=== PATIENT | female | born 1950 | race Caucasian/White ===

== ENCOUNTER → 2017-09-25 14:58 | Outpatient (REF) | payer MEDICARE, OTHER, SELFPAY ==
[2017-09-25 15:29] LABS: Blood Urea Nitrogen 15 mg/dL (7-17); Estimated Glomerular Filt Rate > 60.0 mL/min (>60)
== END ==
LOC: LAB 14:58
PROVIDERS: Family Provider Physician Assistant; PCP Physician Assistant; Visit Provider Physician Assistant
DX: R10.30 Lower abdominal pain, unspecified (principal)
CPT/HCPCS: 82565; 84520

== ENCOUNTER → 2017-09-27 10:25 | Outpatient (CLI) | payer MEDICARE, OTHER, SELFPAY ==
--- NOTE | 2017-09-27 | DI.CT.S_ITS ---
PROCEDURE: CT ABDOMEN PELVIS W CON INDICATIONS: ABDOMINAL PAIN TECHNIQUE: After the administration of oral and intravenous contrast, 5 mm thick sections acquired from the diaphragms to the symphysis. 5 mm thick coronal and sagittal reformats were performed. For radiation dose reduction, the following was used: automated exposure control, adjustment of mA and/or kV according to patient size. COMPARISON: None. FINDINGS: Image quality: Excellent. ABDOMEN: Lung bases: 5 basilar scarring versus atelectasis is present. Lung bases are otherwise clear. Heart size is normal. Solid organs: Liver is normal in size and enhancement. Gallbladder is within normal limits. Biliary system is non-dilated. Pancreas enhances normally. Spleen is normal in size and enhancement. No adrenal nodules. Kidneys are normal in size and enhancement, without hydronephrosis. Peritoneum and bowel: Stomach, small bowel, and colon loops are normal in caliber and wall thickness. Normal appendix within the left presacral space. No free fluid or air. Nodes and vessels: No retroperitoneal or mesenteric adenopathy. Aorta and inferior vena cava are normal in caliber. Probable circumaortic left renal vein is present. Miscellaneous: No ventral hernias. PELVIS: Genitourinary: Bladder wall thickness is normal. Miscellaneous: No inguinal hernias or adenopathy. Bones: No suspicious bony lesions. No vertebral body compression fractures. IMPRESSION: 1. No acute process. 2. Normal appendix. Dictated by: Lenora Quinn M.D. on 09/27/2017 at 14:13 Approved by: Lenora Quinn M.D. on 09/27/2017 at 14:16
== END ==
PROVIDERS: Family Provider Physician Assistant; PCP Physician Assistant; Visit Provider Physician Assistant
DX: R10.9 Unspecified abdominal pain (principal)
CPT/HCPCS: 74177; Q9967

== ENCOUNTER 2018-03-13 19:10 | Inpatient (IN) | payer MEDICARE, OTHER, SELFPAY ==
[2018-03-13 19:17] VITALS: BP 91/52; PULSE 130; RESP 18; TEMP 37.3; O2SAT 88; BMI 15.0
--- NOTE | 2018-03-13 19:36 | ED.DENTAL ---
HPI - Dental/Oral General Chief complaint: Dental/Oral Stated complaint: Terrible infection in jaw Time Seen by Provider: 03/13/18 19:35 Source: patient and family Mode of arrival: ambulatory Limitations: no limitations History of Present Illness HPI Narrative: 67-year-old female who has been under the care of Dr. Morris a health and safety consultant in [place]. Over the past several months she has had multiple dental procedures. Has also had a chronic infection of her left lower jaw. Has been on amoxicillin in the past which she states improved her symptoms but then they returned. Saw her primary care doctor today who contacted Dr. Morris. The recommendations were that she start on Levaquin. She did take 1 dose of that medication today. She does have an appointment tomorrow with a oral maxillofacial surgeon however has not established care with anyone from this field to practice prior. She reports pain to her left jaw. Decreased oral intake secondary to pain. No problems breathing. Related Data Home Medications Medication Instructions Recorded Confirmed albuterol sulfate [Ventolin HFA] 2 puff INH Q6HP PRN #0 07/22/17 03/13/18 budesonide-formoterol [Symbicort] 2 puff INH BID #0 07/22/17 03/13/18 diclofenac sodium 1 tab PO BID #0 07/22/17 03/13/18 trazodone 50 mg PO HS #0 07/22/17 03/13/18 nystatin 5 ml PO QID #0 07/23/17 03/13/18 albuterol sulfate 2.5 mg INHALATION Q4H PRN 03/13/18 03/13/18 azithromycin 250 mg PO DAILY 03/13/18 03/13/18 benzonatate 100 mg PO QPM PRN 03/13/18 03/13/18 calcium carbonate [Calcium 500] 500 mg PO DAILY 03/13/18 03/13/18 calcium carbonate-vitamin D3 1 tab PO DAILY 03/13/18 03/13/18 carisoprodol 350 mg PO QID 03/13/18 03/13/18 chlorhexidine gluconate 1 applic BUCCAL BID 03/13/18 03/13/18 diazepam 10 mg PO BID 03/13/18 03/13/18 diclofenac sodium [Voltaren-XR] 50 mg PO DAILY 03/13/18 03/13/18 duloxetine [Cymbalta] 60 mg PO DAILY 03/13/18 03/13/18 fentanyl 1 patch TRANSDERMAL Q72H 03/13/18 03/13/18 gabapentin 300 mg PO TID 03/13/18 03/13/18 hydrocodone-acetaminophen [[place]] 03/13/18 levofloxacin [Levaquin] 750 mg PO DAILY 03/13/18 03/13/18 magnesium 200 mg PO DAILY 03/13/18 03/13/18 neomycin-polymyxin B-dexameth 03/13/18 [Maxitrol] oxycodone-acetaminophen [Percocet] 1 tab PO Q4-6H PRN 03/13/18 03/13/18 tiotropium bromide 1 cap INHALATION DAILY 03/13/18 03/13/18 tizanidine 03/13/18 vitamin B complex [B Complex 1] 1 tab PO DAILY 03/13/18 03/13/18 Previous Rx's Medication Instructions Recorded prednisone 10 mg PO [facility] #32 tab 07/27/17 Allergies Allergy/AdvReac Type Severity Reaction Status Date / Time amoxicillin [From AUGMENTIN] Allergy Unknown VOMITING Unverified 07/17/17 12:26 clavulanic acid Allergy Unknown VOMITING Unverified 07/17/17 12:26 [From AUGMENTIN] nabumetone [NABUMETONE] Allergy Unknown Unverified 07/17/17 12:26 sulfamethoxazole AdvReac Mild nausea Unverified 07/17/17 12:26 [From SEPTRA] trimethoprim [From SEPTRA] AdvReac Mild nausea Unverified 07/17/17 12:26 cephalexin [CEPHALEXIN] AdvReac Unknown VOMITING Unverified 07/17/17 12:26 Review of Systems Constitutional Denies fatigue and Reports headache(s) Eyes Denies diplopia and Denies itchy eyes ENT Ears, Nose, Mouth, and Throat: Denies vertigo, Reports headache(s), Denies lip swelling, Reports neck mass, Reports neck pain, Denies disequilibrium, Reports sore throat, Reports throat swelling and Denies tongue swelling Cardiovascular Denies chest pain and Denies dyspnea Respiratory Denies dyspnea Gastrointestinal Gastrointestinal: Denies abdominal pain, Denies nausea and Denies vomiting Genitourinary Denies dysuria Musculoskeletal Denies myalgias and Reports neck pain Integumentary/Breasts Comments: Redness to the left side of the face was swelling Neurologic Denies confusion, Denies vertigo, Reports headache(s) and Denies disequilibrium Psychiatric Denies confusion Endocrine Denies fatigue and Denies flushing Hematologic/Lymphatic Comments: not on anticoagulation Allergic/Immunologic Denies itchy eyes, Denies lip swelling, Reports throat swelling and Denies tongue swelling PFSH Medical History COPD (chronic obstructive pulmonary disease) (Acute) Surgical History Status post tonsillectomy and adenoidectomy Status post vaginal hysterectomy Social History Smoking Status: Current some day smoker Exam Initial Vital Signs Initial Vital Signs: Vital Signs Temperature 99.2 F 03/13/18 19:17 Pulse Rate 130 H 03/13/18 19:17 Respiratory Rate 18 03/13/18 19:17 Blood Pressure 91/52 L 03/13/18 19:17 Pulse Oximetry 88 L 03/13/18 19:17 Const General: cooperative, well developed, well groomed and No acute distress Orientation: alert, awake and oriented x3 HENMT Ears: TM's normal bilaterally Face and sinus: other ( patient with swelling left side of the face over the mandible about the size of a lemon. Overlying redness.) Mouth: oral mucosae normal and trismus Teeth and gingiva: other ( No dentition lower jaw all) Throat: posterior oropharynx normal Eyes General: appearance normal, both eyes and all related structures Eyelids: eyelids normal Neck Lymphatic: No lymphadenopathy Chest Chest: normal inspection of the chest Resp Effort & Inspection: normal respiratory effort Auscultation: clear to auscultation bilaterally Cardio Rate: tachycardic Pulses: radial pulses present GI Inspection: non-distended Skin Other: redness and swelling left side of the face from the zygomatic arch to below the level of the mandibular rim. No blisters. No pustules. Neuro General: alert, awake and oriented x3 Extrem General: normal to inspection and capillary refill normal Psych Appearance: grossly normal and well kempt Course Orders Ordered: ED Orders 03/13/18 19:45 CT soft tissue neck w con Stat 03/13/18 20:00 Basic Metabolic Panel Stat Complete Blood Count AUTO DIFF Stat Lactate (Lactic Acid) Stat Procalcitonin Stat 03/13/18 20:36 Blood Culture Stat Clindamycin Phosphate (Cleocin) 900 mg in 50 mls @ 50 mls/hr IV Q8H TAM Last Infusion: 03/13/18 21:49 Dose: 50 mls/hr Admin: 03/13/18 20:46 Dose: 50 mls/hr Sodium Chloride (Normal Saline 0.9%) 1,224.69 mls @ 408.23 mls/hr 30 ml/kg infuse over 3 hr (1224.69 ml) IV CONT TAM Discontinued Medications Sodium Chloride (Normal Saline 0.9%) 1,000 mls @ 1,000 mls/hr IV BOLUS ONE Stop: 03/13/18 20:36 Last Infusion: 03/13/18 21:00 Dose: 1,000 mls/hr Admin: 03/13/18 20:00 Dose: 1,000 mls/hr Morphine Sulfate (Morphine) 4 mg IV NOW ONE Stop: 03/13/18 19:46 Last Admin: 03/13/18 20:19 Dose: 4 mg Vital Signs - 8 hr 03/13/18 19:17 03/13/18 20:10 03/13/18 21:32 Temperature 99.2 F 99.2 F Pulse Rate 130 H 130 H 100 H Respiratory Rate 18 18 15 Blood Pressure 91/52 L 91/52 L Blood Pressure [Left Arm] 128/70 Pulse Oximetry 88 L 88 L 93 03/13/18 21:59 Temperature Pulse Rate 118 H Respiratory Rate 15 Blood Pressure Blood Pressure [Left Arm] 134/74 Pulse Oximetry 91 MDM - Dental/Oral Lab Data Attestation: I reviewed the patient's lab results. Result diagrams: 03/13/18 20:00 03/13/18 20:00 Lab Results 03/13/18 03/13/18 03/13/18 Range/Units 20:00 20:00 20:00 WBC 22.9 H (4.5-11.0) X10^3/uL RBC 4.43 (4.0-5.2) X10^6/uL Hgb 14.9 (12.0-16.0) g/dL Hct 44.0 (36-46) % MCV 99.5 (80-100) fL MCH 33.6 (26-34) PG MCHC 33.8 (30-36) % RDW 12.4 (11.6-14.8) % Plt Count 392 (150-400) X10^3/uL Neut % (Auto) 86.7 H (50-75) % Lymph % (Auto) 6.1 L (25-40) % Isabela % (Auto) 6.5 (3-14) % Eos % (Auto) 0.2 L (2-4) % Baso % (Auto) 0.5 (0-2) % Neut # (Auto) 00624 H (5361-2955) /uL Sodium 141 (137-145) mmol/L Potassium 4.3 (3.4-5.1) mmol/L Chloride 95 L (98-107) mmol/L Carbon Dioxide 37 H (22-32) mmol/L BUN 13 (7-17) mg/dL Creatinine 0.50 L (0.52-1.04) mg/dL Estimated GFR > 60.0 (>60) mL/min BUN/Creatinine Ratio 26.0 H (6-22) Glucose 120 H (80-110) mg/dL Lactate (0.7-2.1) mmol/L Calcium 10.0 (8.4-10.2) mg/dL Procalcitonin 0.07 (<0.5) ng/mL 03/13/18 Range/Units 20:00 WBC (4.5-11.0) X10^3/uL RBC (4.0-5.2) X10^6/uL Hgb (12.0-16.0) g/dL Hct (36-46) % MCV (80-100) fL MCH (26-34) PG MCHC (30-36) % RDW (11.6-14.8) % Plt Count (150-400) X10^3/uL Neut % (Auto) (50-75) % Lymph % (Auto) (25-40) % Isabela % (Auto) (3-14) % Eos % (Auto) (2-4) % Baso % (Auto) (0-2) % Neut # (Auto) (1373-7527) /uL Sodium (137-145) mmol/L Potassium (3.4-5.1) mmol/L Chloride (98-107) mmol/L Carbon Dioxide (22-32) mmol/L BUN (7-17) mg/dL Creatinine (0.52-1.04) mg/dL Estimated GFR (>60) mL/min BUN/Creatinine Ratio (6-22) Glucose (80-110) mg/dL Lactate 1.1 (0.7-2.1) mmol/L Calcium (8.4-10.2) mg/dL Procalcitonin (<0.5) ng/mL Imaging Data CT face: Radiologist's impression: PROCEDURE: CT SOFT TISSUE NECK W CON INDICATIONS: left-sided facial swelling TECHNIQUE: After the administration of intravenous contrast, 3.0 mm axial sections acquired from the sella to the aortic arch. Additional oblique axial 3.0 mm sections acquired through the pharynx. 3 mm thick coronal and sagittal reformats were generated. For radiation dose reduction, the following was used: automated exposure control. COMPARISON: None. FINDINGS: Image quality: Excellent. Lymph nodes: No enlarged lymph nodes seen throughout the neck. Vessels: Visualized vasculature appears patent. Neck spaces: The oropharynx, nasopharynx, and pharynx demonstrate no mucosal lesions. The vocal cords, false vocal cords, pyriform sinuses, epiglottis, vallecula, and tongue base all appear normal. Extramucosal spaces appear unremarkable. Glands: The parotid and submandibular glands appear normal. Thyroid gland contains a 1.3 cm hypoattenuating nodule in the left lobe.. Miscellaneous: Visualized brain and orbits appear normal. Lung apices appear clear of acute opacities. Emphysematous changes noted in the lungs bilaterally. Swelling and thickening noted in the left facial soft tissues adjacent to the left mandible concerning for cellulitis. There is a small, approximately 3 mm x 12 mm fluid collection with performed enhancement adjacent to the anterior left body of the mandible (series 2, image 29 concerning for small abscess. Bones: No suspicious bony lesions C4-C7 ACDF noted. 4 mm of C7-T1 anterolisthesis noted. Multilevel degenerative disc disease and facet arthropathy. Osseous erosive changes identified along the anterior left and paramedian mandible concerning for osteomyelitis.. No periosteal reaction identified. Visualized sinuses and mastoids appear unremarkable. IMPRESSION: 1. Left facial cellulitis adjacent to the anterior left body of the mandible. 2. Small 3 x 12 mm fluid collection with peripheral enhancement adjacent to the anterior left body of the mandible concerning for small abscess. 3. Osseous erosive changes involving the anterior midline and left paramedian mandible concerning for osteomyelitis. 4. 4 mm of C7-T1 anterolisthesis. Please correlate with clinical data. 5. Status post C4-C7 ACDF. 6. Severe bilateral lung emphysematous disease. 7. 1.3 cm left thyroid nodule. Recommend thyroid ultrasound when clinically feasible. Dictated by: Tran Briones MD, PhD on 03/13/2018 at 21:25 Approved by: Tran Briones MD, PhD on 03/13/2018 at 21:34 [facility] Narrative Medical decision making narrative: Patient with an elevated white blood cell count and tachycardia. Also arrived with a systolic blood pressure in the 90s. His blood pressure did improve with fluids. I do suspect that she is dehydrated secondary to the decreased oral intake. Blood cultures were ordered. Lactate was ordered. I do not feel there was a need for blood pressure support with medications secondary to the fact that her blood pressure improved with fluid resuscitation. She was given antibiotics here in the emergency department. Lactate unremarkable. Procalcitonin is unremarkable. CT scan does show a very small abscess that is not drainable. Does show overlying cellulitis. Potential osteomyelitis. I discussed the case with Dr. Morris who was her health and safety consultant. He gave his cell phone number of [phone]. he stated that we could contact him at any point for questions. Patient has not established care with an oral maxill Maxillofacial surgeon. I discussed the case with Dr. Brown with oral maxillofacial surgeon. He did agree to see the patient tomorrow. I do feel like she needs admitted to the hospital for fluid resuscitation and antibiotics. He recommended giving the patient ampicillin and Flagyl. The patient does have a recorded allergy to amoxicillin. Her states that this medication made her nauseous. It is reasonable to try this medication again and treating the nausea. I will leave this up to the inpatient doctor to make this decision since she received clindamycin here in the ER. I discussed the admission with the patient's . The patient was sleeping at the time. He expressed understanding and agreement. I discussed the case with the admitting provider who accept admission. Discharge Plan Departure Patient Disposition: Admitted As Inpatient Clinical Impression: Cellulitis of face, Tachycardia Admit Date/Time: 03/13/18 22:41 Admit Provider: Lake Jones
--- NOTE | 2018-03-13 19:45 | DI.CT.S_ITS ---
PROCEDURE: CT SOFT TISSUE NECK W CON INDICATIONS: left-sided facial swelling TECHNIQUE: After the administration of intravenous contrast, 3.0 mm axial sections acquired from the sella to the aortic arch. Additional oblique axial 3.0 mm sections acquired through the pharynx. 3 mm thick coronal and sagittal reformats were generated. For radiation dose reduction, the following was used: automated exposure control. COMPARISON: None. FINDINGS: Image quality: Excellent. Lymph nodes: No enlarged lymph nodes seen throughout the neck. Vessels: Visualized vasculature appears patent. Neck spaces: The oropharynx, nasopharynx, and pharynx demonstrate no mucosal lesions. The vocal cords, false vocal cords, pyriform sinuses, epiglottis, vallecula, and tongue base all appear normal. Extramucosal spaces appear unremarkable. Glands: The parotid and submandibular glands appear normal. Thyroid gland contains a 1.3 cm hypoattenuating nodule in the left lobe.. Miscellaneous: Visualized brain and orbits appear normal. Lung apices appear clear of acute opacities. Emphysematous changes noted in the lungs bilaterally. Swelling and thickening noted in the left facial soft tissues adjacent to the left mandible concerning for cellulitis. There is a small, approximately 3 mm x 12 mm fluid collection with performed enhancement adjacent to the anterior left body of the mandible (series 2, image 29 concerning for small abscess. Bones: No suspicious bony lesions C4-C7 ACDF noted. 4 mm of C7-T1 anterolisthesis noted. Multilevel degenerative disc disease and facet arthropathy. Osseous erosive changes identified along the anterior left and paramedian mandible concerning for osteomyelitis.. No periosteal reaction identified. Visualized sinuses and mastoids appear unremarkable. IMPRESSION: 1. Left facial cellulitis adjacent to the anterior left body of the mandible. 2. Small 3 x 12 mm fluid collection with peripheral enhancement adjacent to the anterior left body of the mandible concerning for small abscess. 3. Osseous erosive changes involving the anterior midline and left paramedian mandible concerning for osteomyelitis. 4. 4 mm of C7-T1 anterolisthesis. Please correlate with clinical data. 5. Status post C4-C7 ACDF. 6. Severe bilateral lung emphysematous disease. 7. 1.3 cm left thyroid nodule. Recommend thyroid ultrasound when clinically feasible. Dictated by: Tran Briones MD, PhD on 03/13/2018 at 21:25 Approved by: Tran Briones MD, PhD on 03/13/2018 at 21:34
[2018-03-13] MEDS: SODIUM CHLORIDE 0.9% 1,000 ML 1000 ML IV (20:00)
[2018-03-13 20:10] VITALS: BP 91/52; PULSE 130; RESP 18; TEMP 37.3; O2SAT 88; BMI 15.0
[2018-03-13 20:19] LABS: Add Manual Diff / Slide Review NO; Basophils Percent Auto 0.5 % (0-2); Eosinophils Percent Auto 0.2 % (2-4); Hemoglobin 14.9 g/dL (12.0-16.0); Lymphocytes Percent Auto 6.1 % (25-40); Mean Corpuscular HGB Conc 33.8 % (30-36); Mean Corpuscular Hemoglobin 33.6 PG (26-34); Mean Corpuscular Volume 99.5 fL (80-100); Monocytes Percent Auto 6.5 % (3-14); Neutrophils Absolute Auto 19800 /uL (3000-5900); Neutrophils Percent Auto 86.7 % (50-75); Platelet Count 392 X10^3/uL (150-400); Red Blood Cell Count 4.43 X10^6/uL (4.0-5.2); Red Cell Distribution Width 12.4 % (11.6-14.8); White Blood Cell Count 22.9 X10^3/uL (4.5-11.0)
[2018-03-13] MEDS: MORPHINE 4 MG/ML INJ IV (20:19)
[2018-03-13 20:37] LABS: Lactate (Lactic Acid) 1.1 mmol/L (0.7-2.1)
[2018-03-13 20:38] LABS: Blood Urea Nitrogen 13 mg/dL (7-17); Carbon Dioxide 37 mmol/L (22-32); Chloride 95 mmol/L (98-107); Estimated Glomerular Filt Rate > 60.0 mL/min (>60); Glucose 120 mg/dL (80-110); HEMOLYSIS < 15 (0-50); Potassium 4.3 mmol/L (3.4-5.1); Sodium 141 mmol/L (137-145)
[2018-03-13] MEDS: CLINDAMYCIN 900 MG/50 ML PIGGYBACK 50 MG IV (20:46)
[2018-03-13 20:57] LABS: Procalcitonin 0.07 ng/mL (<0.5)
[2018-03-13] MEDS: SODIUM CHLORIDE 0.9% 408.23 ML IV (21:00)
--- NOTE | 2018-03-13 21:03 | PC.NURSE ---
Pt states jaw pain and swelling to face increasing taking percocet without relief. Reports started Levaquin 1st dose today, had all teeth removed in november and has appt with oral surgeon in [place] tomorrow for ongoing infection that started in left lower jaw in the summer. Pt has swelling to left jaw, is on 2L NC at home.
[2018-03-13 21:32] VITALS: BP 128/70; PULSE 100; RESP 15; O2SAT 93
[2018-03-13 21:59] VITALS: BP 134/74; PULSE 118; RESP 15; O2SAT 91
--- NOTE | 2018-03-13 23:12 | P.HP_ITS ---
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 Patient presented with pain and swelling of her left jaw. CT of the face revealed left facial cellulitis, small abscess (anterior left body of mandible) , and osseous erosions along the anterior left and paramedial mandible concerning for osteomyelitis. Presented to the ED tachycardic. Initial labs revealed leukocytosis with normal procalcitonin level. She is known to have a intolerance to Augmentin in the form of nausea. Given documented allergy, in the ED received clindamycin 900 mg and 2L IVF. Patient is significantly obtunded at time of evaluation, received morphine (has fentanyl patch on); consequently was treated with a dose of narcan. Patient follow-up 03/14 at 01:20 The patient presented with left lower jaw pain and swelling. In November of 2017 patient had multiple teeth extracted from left lower jaw. She developed an infection in January / February of 2018 and was treated with a 5 day course of Augmentin. Patient reports mild improvement in symptoms and resolution of the infection. 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 Morris in [place]. Over the past one week she has developed significant swelling of the left face and worsening jaw pain. No exudate. At home, reports experiencing fever and chills. Associated symptoms include difficulty with swallowing and managing secretions, and decreased oral intake. Denies difficulty breathing or respiratory distress. Failed outpatient anti-misrobial therapy. Patient History Medical History COPD (chronic obstructive pulmonary disease) (Acute) Surgical History Status post tonsillectomy and adenoidectomy Status post vaginal hysterectomy Family & Social History Safety & Behavioral: Feels Safe in Current Yes Environment Tobacco & Substance use: Smoking Status Current some day smoker, 40 + pack years Substance Use Type Denies current or prior substance use Denies EtOH use Meds Home Medications Medication Instructions Recorded Confirmed Type albuterol sulfate [Ventolin HFA] 2 puff INH Q6HP PRN #0 07/22/17 03/13/18 History budesonide-formoterol [Symbicort] 2 puff INH BID #0 07/22/17 03/13/18 History diclofenac sodium 1 tab PO BID #0 07/22/17 03/13/18 History trazodone 50 mg PO HS #0 07/22/17 03/13/18 History nystatin 5 ml PO QID #0 07/23/17 03/13/18 History prednisone 10 mg PO AMCC #32 tab 07/27/17 03/13/18 Rx albuterol sulfate 2.5 mg INHALATION Q4H PRN 03/13/18 03/13/18 History azithromycin 250 mg PO DAILY 03/13/18 03/13/18 History benzonatate 100 mg PO QPM PRN 03/13/18 03/13/18 History calcium carbonate [Calcium 500] 500 mg PO DAILY 03/13/18 03/13/18 History calcium carbonate-vitamin D3 1 tab PO DAILY 03/13/18 03/13/18 History carisoprodol 350 mg PO QID 03/13/18 03/13/18 History chlorhexidine gluconate 1 applic BUCCAL BID 03/13/18 03/13/18 History diazepam 10 mg PO BID 03/13/18 03/13/18 History diclofenac sodium [Voltaren-XR] 50 mg PO DAILY 03/13/18 03/13/18 History duloxetine [Cymbalta] 60 mg PO DAILY 03/13/18 03/13/18 History fentanyl 1 patch TRANSDERMAL Q72H 03/13/18 03/13/18 History gabapentin 300 mg PO TID 03/13/18 03/13/18 History hydrocodone-acetaminophen [Walsh] 03/13/18 History levofloxacin [Levaquin] 750 mg PO DAILY 03/13/18 03/13/18 History magnesium 200 mg PO DAILY 03/13/18 03/13/18 History neomycin-polymyxin B-dexameth 03/13/18 History [Maxitrol] oxycodone-acetaminophen [Percocet] 1 tab PO Q4-6H PRN 03/13/18 03/13/18 History tiotropium bromide 1 cap INHALATION DAILY 03/13/18 03/13/18 History tizanidine 03/13/18 History vitamin B complex [B Complex 1] 1 tab PO DAILY 03/13/18 03/13/18 History Allergies Allergy/AdvReac Type Severity Reaction Status Date / Time amoxicillin [From AUGMENTIN] Allergy Unknown VOMITING Unverified 07/17/17 12:26 clavulanic acid Allergy Unknown VOMITING Unverified 07/17/17 12:26 [From AUGMENTIN] nabumetone [NABUMETONE] Allergy Unknown Unverified 07/17/17 12:26 sulfamethoxazole AdvReac Mild nausea Unverified 07/17/17 12:26 [From SEPTRA] trimethoprim [From SEPTRA] AdvReac Mild nausea Unverified 07/17/17 12:26 cephalexin [CEPHALEXIN] AdvReac Unknown VOMITING Unverified 07/17/17 12:26 Review of Systems Review of Systems All systems reviewed & are unremarkable except as noted in HPI and below Exam Vital Signs (past 8 hours): - 03/13/18 19:17 03/13/18 20:10 03/13/18 21:32 Temperature 99.2 F 99.2 F Pulse Rate 130 H 130 H 100 H Respiratory Rate 18 18 15 Blood Pressure 91/52 L 91/52 L Blood Pressure [Left Arm] 128/70 Pulse Oximetry 88 L 88 L 93 03/13/18 21:59 Temperature Pulse Rate 118 H Respiratory Rate 15 Blood Pressure Blood Pressure [Left Arm] 134/74 Pulse Oximetry 91 Oxygen Delivery Method Nasal Cannula Oxygen Flow Rate 2 Narrative Exam Narrative: Constitutional: NAD, somnolent, difficult to arouse to verbal stimuli Neurologic: somnolent, not arousable to oral or tactile stimuli, no responsive to chest rub Head: NC, AT Face: prominent swelling of left mandibular area Eyes: pupils 2 mm, sluggish Ears: external ears normal, no otorrhea Nose: external nose normal, no rhinorrhea or epistaxis Throat: dry MM Neck: no lymphadenopathy Chest / Respiratory: equal chest rise, unlabored respiratory effort, no tachypnea Heart / CV: S1S2, no murmur, tachycardic (HR 120s on tele monitor) Abdomen / GI: soft, NT, ND, + BS, no organomegaly : no suprapubic tenderness Peripheral / Vascular: warm to touch, DP and PT pulses palpable, no edema Skin: no ecchymosis or suspicious lesions Objective Labs Result Diagrams: 03/13/18 20:00 03/13/18 20:00 Labs: Laboratory Results - last 24 hr 03/13/18 03/13/18 03/13/18 20:00 20:00 20:00 WBC 22.9 H RBC 4.43 Hgb 14.9 Hct 44.0 MCV 99.5 MCH 33.6 MCHC 33.8 RDW 12.4 Plt Count 392 Neut % (Auto) 86.7 H Lymph % (Auto) 6.1 L [place] % (Auto) 6.5 Eos % (Auto) 0.2 L Baso % (Auto) 0.5 Neut # (Auto) 52771 H Sodium 141 Potassium 4.3 Chloride 95 L Carbon Dioxide 37 H BUN 13 Creatinine 0.50 L Estimated GFR > 60.0 BUN/Creatinine Ratio 26.0 H Glucose 120 H Lactate Calcium 10.0 Procalcitonin 0.07 03/13/18 20:00 WBC RBC Hgb Hct MCV MCH MCHC RDW Plt Count Neut % (Auto) Lymph % (Auto) [place] % (Auto) Eos % (Auto) Baso % (Auto) Neut # (Auto) Sodium Potassium Chloride Carbon Dioxide BUN Creatinine Estimated GFR BUN/Creatinine Ratio Glucose Lactate 1.1 Calcium Procalcitonin Assessment & Plan Plan: Assessment/Plan Narrative: Cellulitis and Abscess of Face Received Clindamycin 900 mg in ED - Consult maxillofacial surgery, Dr. Brown - Will change clindamycin to Unasyn 3 gm Q6H and Flagyl 500 mg Q8H pre-tx w/ zofran prior to abx administration - Peridex mouthwash - NPO - aspiration precautions - monitor airway Acute Osteomyelitis of Mandible - maxillofacial surgery consulted, Dr. Brown - may need to consult vascular access for PICC line as she is likely to require at least 4 weeks of abx SIRS, labs borderline w/o overt sepsis Tachycardia (HR > 90), leukocytosis (WBC 22). Lactate WNL. BP borderline. Received 2L IVF in ED - NS at 100 ml/hr - Blood Cx, collected in ED, pending - Empiric therapy Decreased mental status d/t opioid effect Fentanyl patch 50 mcg present. Also received morphine in ED. Multiple psychotropic meds from home. - Remove fentanyl patch - Stat narcan x1 now and prn, monitor level of sedation - Continuous pulse ox - Neuro checks Q4H Chronic respiratory failure w/ hypoxia, controlled chronic condition, at baseline - Continuous pulse ox - Supplemental O2 Chronic COPD w/o acute exacerbation - Resume home bronchodilators Hx of SCC, oral cavity, left aspect (s/p excision and radiation, more than 5 yrs ago) Chronic pain - will hold pain in psychotropic medications at this time as patient is lethargic Patient wishes to be full code. Reports having a formal health directive. DPOA is her . Home medications reviewed and reconciled.
--- NOTE | 2018-03-13 23:30 | PC.NURSE ---
Pt stated pt removed fetanyl patch earlier today, fetanyl patch found on pt and removed. Pt difficult to arouse, received 0.4mg IV narcan per hospitalist order. Pt opened eyes and became more alert after receiving narcan.
[2018-03-13] MEDS: NALOXONE 0.4 MG/ML VIAL IV (23:39)
--- NOTE | 2018-03-13 23:45 | PC.NURSE ---
2245 Attempted to give report, still waiting for RN assignment.
[2018-03-13 23:58] VITALS: BP 127/66; PULSE 133; RESP 12; TEMP 37.3; O2SAT 93
[2018-03-14] VITALS (24 sets, daily range): BP systolic 92–128; BP diastolic 43–74; PULSE 71–137; RESP 11–22; TEMP 36.4–37.1; O2SAT 3–95; BMI 15.0
--- NOTE | 2018-03-14 | PATH_ITS ---
[facility] Accession Number: [id number] . 01 Material submitted: . LEFT MANDIBLE BONE . 02 Diagnosis: Tissue From Left Mandible: Acute inflammation with soft tissue necrosis, bone necrosis and acute osteomyelitis. [facility]/03/20/2018 . 02 Electronically signed: . Segun Alston MD, Pathologist NPI- [id number] . 01 Gross description: . Received in formalin, labeled left mandible bone, are multiple pieces of betancourt-red hard bone (2.0 x 1.3 x 0.3 cm in aggregate). Decalcified and entirely submitted in cassette A1. ([id number]) /[facility] . 02 Microscopic: . Sections are of tissue stated to be from the left mandible. There is soft tissue with abundant bone present. The soft tissue is involved with a severe acute inflammatory process with focal necrosis consistent with abscess. The inflammation extends into the adjacent bone which shows extensive bone necrosis. The changes are consistent with an abscess with secondary acute osteomyelitis and bone necrosis. There is no evidence for neoplasm. . 02 Pathologist provided ICD-10: K12.2 . 02 CPT . 110331, [id number] Performed at: 01 [facility] [address], [place], [place] [id number] MD Lanre Walton MD Phone: [phone] Performed at: 02 [facility] [address] [place], [place] [id number] MD Gabi Crawford MD Phone: [phone]
[2018-03-14] MEDS: SODIUM CHLORIDE 0.9% 1,000 ML 100 ML IV (00:06)
[2018-03-14] MEDS: AMPICILLIN/SULBACTAM 3 GM 3 GM in SODIUM CHLORIDE 0.9% 100 ML IV ×4 (02:35→23:53)
[2018-03-14] MEDS: metroNIDAZOLE 500 MG/100 ML PIGGYBACK 100 MG IV ×2 (02:48→09:55)
[2018-03-14] MEDS: SODIUM CHLORIDE 0.9% 408.3 ML IV (04:54)
--- NOTE | 2018-03-14 05:07 | PC.NURSE ---
Pt arrived on unit at approx 0015, from ED, via stretcher. She was able to answer some general questions but appeared sedated. She was not clear on what medications she had taken on 03/13/18, but per ER report, per spouse, pt took her po Levaquin, Percocet and Valium only. Pt has been able to sleep all shift. On telemetry and SR, tachy, other VSS. Pt states she has lost 12 lbs since having her teeth pulled and developing this infection. Tolerating IV ABOs well, SCDs in place. Denies pain and nausea.
--- NOTE | 2018-03-14 05:24 | PC.NURSE ---
Pt lungs very congested, productive cough, coarseness throughout. Current daily smoker.
[2018-03-14 07:19] LABS: Add Manual Diff / Slide Review NO; Basophils Percent Auto 0.6 % (0-2); Hematocrit 37.2 % (36-46); Hemoglobin 12.1 g/dL (12.0-16.0); Lymphocytes Percent Auto 5.6 % (25-40); Mean Corpuscular HGB Conc 32.4 % (30-36); Mean Corpuscular Hemoglobin 32.7 PG (26-34); Mean Corpuscular Volume 100.8 fL (80-100); Monocytes Percent Auto 6.6 % (3-14); Neutrophils Absolute Auto 19600 /uL (3000-5900); Neutrophils Percent Auto 87.2 % (50-75); Platelet Count 363 X10^3/uL (150-400); Red Blood Cell Count 3.69 X10^6/uL (4.0-5.2); Red Cell Distribution Width 12.8 % (11.6-14.8); White Blood Cell Count 22.5 X10^3/uL (4.5-11.0)
[2018-03-14 07:28] LABS: Blood Urea Nitrogen 11 mg/dL (7-17); Calcium 7.9 mg/dL (8.4-10.2); Carbon Dioxide 30 mmol/L (22-32); Chloride 106 mmol/L (98-107); Estimated Glomerular Filt Rate > 60.0 mL/min (>60); Glucose 97 mg/dL (80-110); HEMOLYSIS < 15 (0-50); Magnesium 1.6 mg/dL (1.6-2.3); Potassium 4.1 mmol/L (3.4-5.1); Sodium 143 mmol/L (137-145)
[2018-03-14] MEDS: IBUPROFEN 600 MG TABLET PO (07:47)
[2018-03-14] MEDS: DULOXETINE 30 MG CAPSULE 60 MG PO (07:48)
[2018-03-14] MEDS: CHLORHEXIDINE GLUCONATE 473 ML MOUTHWASH 15 ML MM (07:49)
[2018-03-14] MEDS: GABAPENTIN 300 MG CAPSULE PO (07:50)
[2018-03-14] MEDS: ALBUTEROL HFA 60 PUFF/8 GM INH INH ×2 (10:06→18:20)
[2018-03-14] MEDS: TIOTROPIUM BROMIDE 18 MCG INHALER INH (10:07)
--- NOTE | 2018-03-14 10:15 | PC.NURSE ---
Addendum entered by Aliza Kelley R.N. 03/14/18 13:58: PAIN - after picc placement, vanco started, pt reports pain 7 on scale 0/10, states it hurts to swallow and just breathe, given 2mg iv morphine. 02 sat 3l 94-95% Original Note: AM NOTE - pt is drowsy, awake, asking for pain medication, responses are appropriate, l jaw edema w/slight pink skin, only able to open mouth slightly, visible gums are pink, congested, non productive moist cough w expir wheezes, 3l 92%, oral care provided, given ibuprofen for discomfort 7 on scale 0/10 followed by oral rinse.
--- NOTE | 2018-03-14 11:17 | PM.PN.1 ---
Subjective Date Patient Seen: 03/14/18 Time Patient Seen: 09:00 Interval history: PATIENT IS NOT FEELING TO WELL WITH SOME DISCOMFORT TO THE JAW NO FEVER OR CHILLS NO CP/SOB WITH SOME DIFF SWOLLOWING Exam Vital Signs (past 8 hours): - 03/14/18 04:09 03/14/18 04:52 03/14/18 07:35 Temperature 97.9 F 98.6 F Pulse Rate 83 106 H Respiratory Rate 14 20 Blood Pressure 127/67 117/65 Pulse Oximetry 95 90 L 87 L 03/14/18 10:02 03/14/18 10:10 03/14/18 10:20 Temperature Pulse Rate 86 Respiratory Rate 16 Blood Pressure Pulse Oximetry 92 90 L 90 L Oxygen Delivery Method Nasal Cannula Oxygen Flow Rate 3 Narrative Exam Narrative: NO ACUTE DISTRESS. PATIENT IS ALERT ORIENTED X3. VITAL SIGNS STABLE HEAD ATRAUMATIC NORMOCEPHALIC NECK : SUPPLE WITHOUT ADENOPATHY SOME EDEMA NOTED ON THE LEFT SIDE EYE: EOMI, PERRLA, NORMAL CONJUNCTIVA CHEST: REGULAR RATE.. NO RUBS. PMI IS NON DISPLACED. NO MURMURS PULMONARY: DECREASED BS OVER THE BASES. MILD BIBASILAR CRACKLES NOTED; NO INCREASED DULLNESS TO PERCUSSION ABDOMEN: SOFT; NON TENDER; BS + IN ALL 4 QUAD EXTREMITIES:NO EDEMA.. NO CYANOSIS OR CLUBBING NOTED. NEURO: CRANIAL NERVES 2-12 GROSSLY INTACT. NO FOCAL NEUROLOGICAL DEFICIT NOTED. MSK: NORMAL RANGE OF MOTION FOR AGE. NO JOINT EFFUSION. SKIN: NORMAL FOR ETHNICITY; NO ECCHYMOSIS. NO LESION. GOOD TURGOR.; NORASHES : NORMAL EXTERNAL GENITALIA. PSYCH : APPROPRIATE MOOD AND AFFECT. ALERT AWAKE ORIENTED X3 Objective Labs Result Diagrams: 03/14/18 06:46 03/14/18 06:46 Labs: Laboratory Results - last 24 hr 03/13/18 03/13/18 03/13/18 20:00 20:00 20:00 WBC 22.9 H RBC 4.43 Hgb 14.9 Hct 44.0 MCV 99.5 MCH 33.6 MCHC 33.8 RDW 12.4 Plt Count 392 Neut % (Auto) 86.7 H Lymph % (Auto) 6.1 L [place] % (Auto) 6.5 Eos % (Auto) 0.2 L Baso % (Auto) 0.5 Neut # (Auto) 41015 H Sodium 141 Potassium 4.3 Chloride 95 L Carbon Dioxide 37 H BUN 13 Creatinine 0.50 L Estimated GFR > 60.0 BUN/Creatinine Ratio 26.0 H Glucose 120 H Lactate Calcium 10.0 Magnesium Procalcitonin 0.07 03/13/18 03/14/18 03/14/18 20:00 06:46 06:46 WBC 22.5 H RBC 3.69 L Hgb 12.1 Hct 37.2 MCV 100.8 H MCH 32.7 MCHC 32.4 RDW 12.8 Plt Count 363 Neut % (Auto) 87.2 H Lymph % (Auto) 5.6 L [place] % (Auto) 6.6 Eos % (Auto) 0.0 L Baso % (Auto) 0.6 Neut # (Auto) H Sodium 143 Potassium 4.1 Chloride 106 Carbon Dioxide 30 BUN 11 Creatinine 0.50 L Estimated GFR > 60.0 BUN/Creatinine Ratio 22.0 Glucose 97 Lactate 1.1 Calcium 7.9 L Magnesium 1.6 Procalcitonin Assessment & Plan Plan: Assessment/Plan Narrative: IMPRESSION AND PLAN LEFT MANDIBULAR ABSCESSES ; PATIENT TO BE SEEN BY SURGERY TEAM TODAY; WILL ADD VANCO TO HER ABX THERAPY; WILL DC FLAGYL; CONT UNASYN; STEROIDS GIVEN TO HELP WITH EDEMA; MONITOR CLOSELY; KEEP NPO FOR NOW UNTIL EVAL BY SURGERY POSS LEFT MANDIBULAR OSTEPMYELIIS; TX ABOVE; AWAITING SURG IMPUT POSS SEPSIS POA; MONITOR VITAL ORGANS CLOSELY; IVF; ABX; FOLLOW CX; ADDITIONAL MANAGEMENT INDICATED CLINICALLY LEUKOCYTOSIS; 2/2 TO ABOVE; ABX; FOLLOW CX; ADJUST MANAGEMENT INDICATED MACROCYTOSIS; OUTPT W/U INDICATED CHRONIC RESP FAILURE; NO COMPLAINT OF SOB THIS AM; KEEP ON OXYGEN AT TIME TO MAIN SAT >88; INCENTIVE SPIROMETER TO BE ORDERED; DUONEBS Q8 TAM; ABG/CXR SERIALLY TO FOLLOW INDICATED COPD PER HX; ABOVE MODERATE TO SEVERE PROTEIN DEF MALNUTRITION; DIETITIAN TO SEE AND TREAT INDICATED; DIET SUPPLEMENTS WITH EACH MEAL; ADD MEGACE TO MEDS IF NEEDED Quality VTE Deep Vein Thrombosis/Pulmonary Embolism Present on Admission: No
[2018-03-14] MEDS: fentaNYL 12 MCG/PATCH TOP (12:03)
[2018-03-14] MEDS: FLUCONAZOLE 200 MG/100 ML PIGGYBACK 100 MG IV (12:06)
[2018-03-14 12:32] LABS: C-Reactive Protein Quant 7.9 mg/dL (<1.0)
[2018-03-14 12:34] LABS: Erythrocyte Sedimentation Rate 28 MM/HR (0-20)
--- NOTE | 2018-03-14 13:15 | DI.RAD.S_ITS ---
PROCEDURE: XR CHEST FOR PICC 1V INDICATIONS: PICC PLACEMENT TECHNIQUE: One view of the chest was acquired. COMPARISON: [facility], , CHEST 1 VIEW, 07/22/2017, 19:21. FINDINGS: Surgical changes and devices: Left-sided PICC line catheter has been placed in the interim with tip overlying the high superior vena cava. Postsurgical changes of the lower cervical spine are incidentally noted. Lungs and pleura: The aeration of the lungs is similar to the prior study with hyperaeration/expansion of the lungs. A small left-sided pleural effusion and associated atelectasis is noted. No definite areas of pulmonary consolidation are identified. Mediastinum: Mediastinal contours appear normal. Heart size is normal. Bones and chest wall: No suspicious bony lesions. Overlying soft tissues appear unremarkable. IMPRESSION: 1. Left-sided PICC line catheter is position with the tip overlying the high superior vena cava. 2. Small left-sided pleural effusion and associated atelectasis. Dictated by: Krishna Epps M.D. on 03/14/2018 at 13:08 Approved by: Krishna Epps M.D. on 03/14/2018 at 13:09
[2018-03-14] MEDS: VANCOMYCIN 750 MG/150 ML FROZ.PIGGY 150 MG IV (13:50)
[2018-03-14] MEDS: MORPHINE 2 MG/ML INJ IV ×2 (13:55→18:02)
--- NOTE | 2018-03-14 15:02 | CM.IDA ---
Initial DCP Assessment Note: Pt is a 67 yo female, resident of [facility]. Pt admitted now with left mandibular abscesses. Pt indp and A+O at baseline. Pt's PCP is Jackie Yo and insurance is Medicare/[employer]. Reviewed chart, Dr Hankins indicated in today's prog note that surgery consult pending today. IV abx running and PICC line placed today. Following closely for DC needs and will plan to complete a more thorough assessment tomorrow. JASON Max Discharge Planning/Care Management CM Discharge Assessment Start: 03/14/18 14:57 Freq: Status: Active Protocol: Document 03/14/18 14:57 ZAINAB (Rec: 03/14/18 15:02 ZAINAB [id number]) Discharge Planning Assessment Assigned [employer] JASON Cruz DPOA/Assigned Designee Name Dominic Velazquez, spouse Contact Information [phone] Advance Directives? Yes History Provided By Family Member Prior Living Arrangements House Household Members spouse Type of transporation used prior to Drives own vehicle admit Independent with ADL's Yes Is patient alert and oriented? Yes Barriers to Discharge Yes Comment Possible need for ongoing IV abx. Following. Whiteboard Updated in Patient Room with Yes name and ext. # of [employer] Review Status In Process
--- NOTE | 2018-03-14 19:43 | PM.OP.1 ---
Operative Date/Time/Diagnoses Date of procedure: 03/14/18 Time of procedure: 19:44 Pre-op diagnosis: Abscess Left mandible, osteomyelitis left mandible Post-op diagnosis: same Procedure & Clinicians Same procedure as scheduled: Yes Surgeon: Eleazar Brown Anesthesia Type: General Operative Notes Findings: necrotic bone left mandible purulent drainage from the submental space Specimen(s): other (left mandible) Implants & Drains: 1/4 inch len drain through and through from left submental space into the mouth Estimated Blood Loss (mL): 10 Complications: none Condition: stable Disposition: PACU Plan for aftercare: return to floor for IV antibiotics
[2018-03-14] MEDS: LACTATED RINGERS 1,000 ML 42 ML IV (20:15)
--- NOTE | 2018-03-14 20:18 | SUR.OPER ---
Supine on padded OR bed, head on pillow, arm padded and tucked at side, legs uncrossed, safety belt at thigh, tape over blanket over lower legs .
[2018-03-14] MEDS: BUPIVACAINE 0.5% W/ EPI (PF) VIAL 30 ML INJ (20:37)
[2018-03-14] MEDS: ALBUTEROL 2.5 MG/3 ML NEB (ADULT) INH (21:05)
[2018-03-14] MEDS: fentaNYL 100 MCG/2 ML INJ 25 MCG IV (21:51)
--- NOTE | 2018-03-14 22:57 | PC.NURSE ---
Patient back up from PACU at 2230, o2 is on via NC at 4L, was not saturating well; This RN increased to 5 L, still not saturating well, This RN called RT for consult and possible treatment. Lungs sound very coarse, cough observed and is very wet. Drain [id number] is present in jaw and is visualized in mouth, packing in place. White gauze wrapped around neck is in place, drainage present to top of gauze, serosanguineous. Patient is A&Ox4, was at bedside has now gone home. CMS intact, some numbness still present in jaw/mouth. Pain is a 6/10. Medications need to be reordered and resupplied. Call light in reach, bed low, BA active. Will continue to monitor.
[2018-03-14] MEDS: SODIUM CHLORIDE 0.9% 1,000 ML 75 ML IV (23:12)
[2018-03-14] MEDS: KETOROLAC 30 MG/ML VIAL IV (23:53)
[2018-03-15] VITALS (20 sets, daily range): BP systolic 94–172; BP diastolic 47–66; PULSE 73–114; RESP 14–20; TEMP 36.4–37.1; O2SAT 86–93
[2018-03-15] MEDS: AMPICILLIN/SULBACTAM 3 GM 3 GM in SODIUM CHLORIDE 0.9% 100 ML IV ×5 (00:13→22:37)
--- NOTE | 2018-03-15 00:21 | PC.NURSE ---
Mental Health Therapist Note: 2345: RT at bedside to evaluate pt due to O2 sat 86-88%. Pt awake, alert, oriented X3. Vital signs stable. Dressings around neck and chin intact, with serosanguinous drainage. PICC in lt upper arm in place, with dressing cdi. HOB elevated 45 degrees. Fentanyl patch 12.5mg located on lt upper chest. SCDs on. 0000: Pt having pain in lt side of face. Medicated with Toradol IV.
[2018-03-15] MEDS: metroNIDAZOLE 500 MG/100 ML PIGGYBACK 100 MG IV ×3 (01:11→17:26)
[2018-03-15] MEDS: VANCOMYCIN 750 MG/150 ML FROZ.PIGGY 150 MG IV ×2 (02:54→14:38)
[2018-03-15] MEDS: TIOTROPIUM BROMIDE 18 MCG INHALER INH (05:25)
[2018-03-15] MEDS: ALBUTEROL/IPRATROPIUM 3 ML AMPUL INH ×3 (05:29→19:35)
[2018-03-15 05:55] LABS: Add Manual Diff / Slide Review NO; Basophils Percent Auto 0.2 % (0-2); Hematocrit 37.9 % (36-46); Hemoglobin 12.4 g/dL (12.0-16.0); Lymphocytes Percent Auto 4.2 % (25-40); Mean Corpuscular HGB Conc 32.8 % (30-36); Mean Corpuscular Hemoglobin 33.1 PG (26-34); Neutrophils Absolute Auto 17000 /uL (3000-5900); Neutrophils Percent Auto 92.6 % (50-75); Platelet Count 351 X10^3/uL (150-400); Red Blood Cell Count 3.75 X10^6/uL (4.0-5.2); Red Cell Distribution Width 12.8 % (11.6-14.8); White Blood Cell Count 18.4 X10^3/uL (4.5-11.0)
[2018-03-15 05:58] LABS: Alanine Aminotransferase 24 IU/L (9-52); Albumin 3.5 g/dL (3.5-5.0); Albumin Globulin Ratio 1.5 (1.0-2.8); Alkaline Phosphatase 68 U/L (38-126); Aspartate Aminotransferase 18 IU/L (14-36); Bilirubin Total 0.1 mg/dL (0.2-1.3); Blood Urea Nitrogen 15 mg/dL (7-17); Calcium 8.1 mg/dL (8.4-10.2); Carbon Dioxide 31 mmol/L (22-32); Chloride 106 mmol/L (98-107); Estimated Glomerular Filt Rate > 60.0 mL/min (>60); Globulin 2.4 g/dL (1.7-4.1); Glucose 127 mg/dL (80-110); HEMOLYSIS < 15 (0-50); Magnesium 1.7 mg/dL (1.6-2.3); Potassium 4.3 mmol/L (3.4-5.1); Sodium 144 mmol/L (137-145); Total Protein 5.9 g/dL (6.3-8.2)
[2018-03-15] MEDS: KETOROLAC 15 MG/ML VIAL IV (06:39)
--- NOTE | 2018-03-15 10:02 | P.PN_ITS ---
Subjective Date Patient Seen: 03/15/18 Time Patient Seen: 10:03 Interval history: SPOKE TO SURGERY ATTENDING REGARDING CASE TODAY NO FEVER OR CHILLS REPORTING SIGNIFICANT PAIN TO JAW AREA NO CP/SOB NO OTHER COMPLAINTS Exam Vital Signs (past 8 hours): - 03/15/18 04:40 03/15/18 05:50 03/15/18 08:37 Temperature 98.1 F 97.7 F Pulse Rate 78 73 Respiratory Rate 17 14 Blood Pressure 117/66 172/50 H Pulse Oximetry 91 90 L 92 03/15/18 08:50 03/15/18 08:57 03/15/18 08:58 Temperature Pulse Rate Respiratory Rate Blood Pressure Pulse Oximetry 91 88 L 91 Oxygen Delivery Method Nasal Cannula Oxygen Flow Rate 4 Narrative Exam Narrative: NO ACUTE DISTRESS. PATIENT IS ALERT ORIENTED X3. LEFT FACIAL SWELLING VITAL SIGNS STABLE HEAD ATRAUMATIC NORMOCEPHALIC NECK : SUPPLE WITHOUT ADENOPATHY SOME EDEMA NOTED ON THE LEFT SIDE EYE: EOMI, PERRLA, NORMAL CONJUNCTIVA CHEST: REGULAR RATE.. NO RUBS. PMI IS NON DISPLACED. NO MURMURS PULMONARY: DECREASED BS OVER THE BASES. MILD BIBASILAR CRACKLES NOTED; NO INCREASED DULLNESS TO PERCUSSION ABDOMEN: SOFT; NON TENDER; BS + IN ALL 4 QUAD EXTREMITIES:NO EDEMA.. NO CYANOSIS OR CLUBBING NOTED. NEURO: CRANIAL NERVES 2-12 GROSSLY INTACT. NO FOCAL NEUROLOGICAL DEFICIT NOTED. MSK: NORMAL RANGE OF MOTION FOR AGE. NO JOINT EFFUSION. SKIN: NORMAL FOR ETHNICITY; NO ECCHYMOSIS. NO LESION. GOOD TURGOR.; NO RASHES : NORMAL EXTERNAL GENITALIA. PSYCH : APPROPRIATE MOOD AND AFFECT. ALERT AWAKE ORIENTED X3 Objective Labs Result Diagrams: 03/15/18 05:38 03/15/18 05:38 Labs: Laboratory Results - last 24 hr 03/14/18 03/14/18 03/15/18 06:46 06:46 05:38 WBC 18.4 H RBC 3.75 L Hgb 12.4 Hct 37.9 MCV 101.0 H MCH 33.1 MCHC 32.8 RDW 12.8 Plt Count 351 Neut % (Auto) 92.6 H Lymph % (Auto) 4.2 L [place] % (Auto) 3.0 Eos % (Auto) 0.0 L Baso % (Auto) 0.2 Neut # (Auto) 63140 H ESR 28 H Sodium Potassium Chloride Carbon Dioxide BUN Creatinine Estimated GFR BUN/Creatinine Ratio Glucose Calcium Phosphorus Magnesium Total Bilirubin AST ALT Alkaline Phosphatase C-Reactive Protein 7.9 H Total Protein Albumin Globulin Albumin/Globulin Ratio 03/15/18 05:38 WBC RBC Hgb Hct MCV MCH MCHC RDW Plt Count Neut % (Auto) Lymph % (Auto) [place] % (Auto) Eos % (Auto) Baso % (Auto) Neut # (Auto) ESR Sodium 144 Potassium 4.3 Chloride 106 Carbon Dioxide 31 BUN 15 Creatinine 0.50 L Estimated GFR > 60.0 BUN/Creatinine Ratio 30.0 H Glucose 127 H Calcium 8.1 L Phosphorus 3.0 Magnesium 1.7 Total Bilirubin 0.1 L AST 18 ALT 24 Alkaline Phosphatase 68 C-Reactive Protein Total Protein 5.9 L Albumin 3.5 Globulin 2.4 Albumin/Globulin Ratio 1.5 Assessment & Plan Plan: Assessment/Plan Narrative: IMPRESSION AND PLAN LEFT MANDIBULAR ABSCESSES ; S/P I&D WITH DRAIN TUBE PLACEMENT. DAY 1 ASSISTANCE FROM SURGERY APPRECIATED GREATLY; CONT WITH VANCOAND UNASYN ; WATCH FOR DIARRHEA AND OTHER S/E OR COMPLICATION SUCH C DIFF; START ON LACTOBACILUS; YOGURT WITH EACH MEAL; ; STEROIDS GIVEN TO HELP WITH EDEMA; MONITOR CLOSELY; RESTART ON ORAL INTAKES TODAY POSS LEFT MANDIBULAR OSTEPMYELIIS; TX ABOVE; AWAITING BX RESULT; BONE SCAN TO BE CONSIDERED WELL MRI TO FURTHER EVAL POSS SEPSIS POA; MONITOR VITAL ORGANS CLOSELY; IVF; ABX; FOLLOW CX; ADDITIONAL MANAGEMENT INDICATED CLINICALLY LEUKOCYTOSIS; 2/2 TO ABOVE; IMPROVING ON ABX; CONT TO FOLLOW CX; ADJUST MANAGEMENT INDICATED MACROCYTOSIS; OUTPT W/U INDICATED CHRONIC RESP FAILURE; NO COMPLAINT OF SOB THIS AM; KEEP ON OXYGEN AT TIME TO MAIN SAT >88; INCENTIVE SPIROMETER TO BE ORDERED; DUONEBS Q8 TAM; ABG/CXR SERIALLY TO FOLLOW INDICATED COPD PER HX; ABOVE MODERATE TO SEVERE PROTEIN DEF MALNUTRITION; DIETITIAN TO SEE AND TREAT INDICATED; DIET SUPPLEMENTS WITH EACH MEAL; ADD MEGACE TO MEDS IF NEEDED DC PER CLINICAL COURSE MONITOR CLOSELY PAIN CONTROL DAILY LABS PT/OT OOB/ IN CHAIR WITH EACH MEAL DC PER CLINICAL COURSE Quality VTE Deep Vein Thrombosis/Pulmonary Embolism Present on Admission: No
[2018-03-15] MEDS: HYDROMORPHONE 0.5 MG INJ 1 MG IV (10:25)
[2018-03-15] MEDS: GABAPENTIN 300 MG CAPSULE PO (10:28)
[2018-03-15] MEDS: ALBUTEROL 2.5 MG/3 ML NEB (ADULT) INH (10:38)
[2018-03-15] MEDS: HYDROCODONE/ACET 5/325 TABLET 1 TAB PO ×3 (12:26→20:39)
--- NOTE | 2018-03-15 13:09 | PC.NURSE ---
AM NOTE - awakens easily, states pain 7 on scale 0/10, has kerlex guaze around neck and jaw area, a visible len drain below chin is draining light serosang drainage, also has a piece of guaze inserted in l gum area w/serosang drainage. Replaced saturated 4x4 under chin and replaced kerlex around neck, 02 sat 89-92% 4-6L high flow cannula, RT in this am for tmt, bs are dim throughout w/occass expir wheezes, when 02 decr below 4l, sat declined to mid 80's, MD in this am and new orders pain medication rec'd and pt given 1mg iv dilaudid, later stated that it did not do much and pain continues at 7 on scale 0/10, stephon sips, spoonfuls clears, then full liq and given norco 5/325mg x 1 tab.
--- NOTE | 2018-03-15 14:33 | CM.DPC ---
DCP Cont: Attempted bedside assessment this morning and pt was eating breakfast. Pt is POD#1 from I+D and does not look in the mood for conversation. PICC line placed but no mention anywhere in the notes that she will require ongoing IV abx. This RESIDENTIAL ELECTRICIAN following closely and hope pt is feeling well enough Saturday for DCP assessment. ZAINAB
[2018-03-15] MEDS: HYDROMORPHONE 1 MG INJ IV ×3 (14:41→22:38)
--- NOTE | 2018-03-15 16:10 | OP_ITS ---
DATE OF SERVICE: PREOP DIAGNOSES: 1. Abscess of the left mandible. 2. Osteomyelitis of the left mandible. POSTOP DIAGNOSES: 1. Abscess of the left mandible. 2. Osteomyelitis of the left mandible. PROCEDURE: 1. Incision and drainage via intraoral and extraoral approaches of submental space abscess of the left mandible. 2. Biopsy of necrotic bone of the left mandible. SURGEON: Eleazar Brown DMD ANESTHESIA: General anesthesia via oral endotracheal tube. ESTIMATED BLOOD LOSS: Minimal. INTRAVENOUS FLUIDS: 500 mL of lactated Ringer's solution. SPECIMENS: Bone samples from the left mandible for pathology. CULTURES: Intraoral culture from the left mandible and extraoral culture from the extraoral wound, the left submental space. DRAINS: 1/4-inch Gali drain placed [id number] for the submental space into the oral cavity. FINDINGS: Necrotic bone noted in the parasymphysis region of the left mandible. 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 This all initially started after multiple teeth were extracted and she encountered delayed wound healing. Subsequently, she, over the last 48 hours, developed rapid onset swelling in the left submental region and was admitted to [facility]. A CT scan was obtained at the [facility] emergency room, identifying a fluid collection in the submental space along the lateral aspect of the left mandible. Also, her white blood cell count on admission was over 22,000. She was admitted for IV antibiotics and I was consulted to evaluate the patient. On my evaluation of the patient, she had a prominent swelling in the left submental space. She had some fluctuance. There was cellulitis associated with the borders of the area and it was firm and indurated. Her skin was erythematous and warm. Extraorally and intraorally, there is a dehiscence of the gingival tissues along the alveolar ridge in the parasymphysis region. I noted some slight purulent exudate intraorally. That part of the mouth was soft and not elevated. Her airway was not compromised. Her mouth opening was also normal. After evaluation of the patient and discussion with her and her , I recommended that we drain the abscess to, hopefully, facilitate resolution of her infection, as well as obtain a biopsy of the bone to identify the source of this infection. The patient and her agreed, and so she presented to the operating room at [facility]. DESCRIPTION OF PROCEDURE: The patient was identified in the preoperative waiting area and went to operating theater number 3 at [facility]. She was placed in the supine position on the operating room table. Intravenous medications were administered. The patient was intubated orally, without any complication. Attention was then directed to placing a throat pack, and a throat pack was placed. Attention was then directed to at evaluating the proposed surgical area. It was noted, there was some purulent exudate being expressed intraorally, and so this was cultured and sent in for cultures and sensitivity. Furthermore, then, the submental area was identified and a #15 scalpel blade was used to perform a 2-cm incision underneath the inferior border of the mandible. Using blunt dissection, I entered into the submental space and dissected to the inferior border of the mandible. Hyperemic drainage was obtained, and this wound was also cultured. After this was done, the dissection was carried from the inferior border of the mandible into the oral cavity to create a through-and- through communication. Intraorally, a crestal incision was made over the alveolar ridge and dissection was performed on the lateral aspect of the mandible, to communicate with the extraoral wound. Further purulent drainage was obtained and expressed, and the wound was thoroughly irrigated and rinsed out. I further dissected along the inferior border of the mandible, using blunt dissection, to identify if any further pockets were present, and there were none. A red rubber catheter was then placed into the wound and using normal saline mixed with 1 g of Ancef, the wound was thoroughly irrigated and suctioned dry. A 1/4-inch Gali drain was then placed in the wound, through the extraoral portion, to communicate intraorally, and secured in place on the extraoral skin with a 3-0 nylon suture and intraorally with a 3-0 nylon suture. Once the drain was in place, then attention was directed to inspecting the alveolar bone and the necrotic appearance. Using a bone rongeur, necrotic pieces of bone were removed and placed into formalin. Irregular contours were removed with hand instrument to try to obtain a primary closure of the wound. The wound was thoroughly rinsed with normal saline mixed with cefazolin. The intraoral wound was then closed with 3-0 chromic gut suture. The oral cavity was thoroughly irrigated and suctioned dry. A throat pack was removed. Fluff dressings and Kerlix were placed of the wound. The patient was turned over to the anesthesiologist and extubated by the anesthesiologist in stable condition. The patient was transferred to the post- anesthesia care unit in stable condition. Es Velazquez - ROHIT/roney/miguelito doc#: [id number]/job#: [id number] dd: 03/14/2018 21:01:00 dt: 03/15/2018 00:25:00 DICTATING MD/COPIES TO: Eleazar Brown DMD COPIES MNE: KELLY
--- NOTE | 2018-03-15 16:53 | PM.PNPO.1 ---
Subjective Date Patient Seen: 03/15/18 Time Patient Seen: 17:01 Interval history: Patient reports that she is doing slightly better, but still having a lot of pain when the pain medication wears off. Exam Vital Signs (past 8 hours): - 03/15/18 08:57 03/15/18 08:58 03/15/18 10:38 Temperature Pulse Rate 75 Respiratory Rate 19 Blood Pressure Pulse Oximetry 88 L 91 88 L 03/15/18 11:12 03/15/18 12:22 03/15/18 12:23 Temperature 97.9 F Pulse Rate 111 H Respiratory Rate 16 Blood Pressure 95/49 L Pulse Oximetry 93 91 90 L 03/15/18 14:20 03/15/18 15:00 Temperature 98.5 F Pulse Rate 114 H Respiratory Rate 19 Blood Pressure 94/47 L Pulse Oximetry 93 90 L Oxygen Delivery Method Nasal Cannula Oxygen Flow Rate 6 Const General: cooperative and lethargic Nutritional Appearance: malnourished Orientation: awake HENNH Face and sinus: other (left side submental space swelling still present but decreased. Tender to palpation in the left submental region, decreased erythema noted, drain in place.) Mouth: oral mucosae normal, tongue normal, salivary ducts normal and other (drain in place intraorally and no evidence of purulent exudate noted.) Teeth and gingiva: edentulous Throat: posterior oropharynx normal and uvula midline Neck Neck: normal visual inspection, trachea midline and other (Tenderness to palpation along the lateral aspect of the neck. No crepitus or erythema noted. ) Objective Labs Result Diagrams: 03/15/18 05:38 03/15/18 05:38 Labs: Laboratory Results - last 24 hr 03/15/18 03/15/18 05:38 05:38 WBC 18.4 H RBC 3.75 L Hgb 12.4 Hct 37.9 MCV 101.0 H MCH 33.1 MCHC 32.8 RDW 12.8 Plt Count 351 Neut % (Auto) 92.6 H Lymph % (Auto) 4.2 L [place] % (Auto) 3.0 Eos % (Auto) 0.0 L Baso % (Auto) 0.2 Neut # (Auto) 04932 H Sodium 144 Potassium 4.3 Chloride 106 Carbon Dioxide 31 BUN 15 Creatinine 0.50 L Estimated GFR > 60.0 BUN/Creatinine Ratio 30.0 H Glucose 127 H Calcium 8.1 L Phosphorus 3.0 Magnesium 1.7 Total Bilirubin 0.1 L AST 18 ALT 24 Alkaline Phosphatase 68 Total Protein 5.9 L Albumin 3.5 Globulin 2.4 Albumin/Globulin Ratio 1.5 Assessment & Plan Post-op Postoperative Procedures Operation Date: 03/14/18 18:55 Actual Procedures Side Surgeon p Incision and Drainage Wound/Oral Leeazar Kevin, DMD Postoperative day: 1 Postoperative status: doing well Postoperative status narrative: Patient responding to incision and drainage. bartender along the neck and submental region. Postoperative plan: routine post-op care Postoperative plan narrative: Continue antibiotics. Monitor wbc and wound cultures. Manage pain with regular pain medications. Plan for drain removal tomorrow. Time Spent With Patient less than 15 minutes Quality VTE Deep Vein Thrombosis/Pulmonary Embolism Present on Admission: No
--- NOTE | 2018-03-15 17:07 | P.PN_ITS ---
Subjective Date Patient Seen: 03/15/18 Time Patient Seen: 17:01 Interval history: Patient reports that she is doing slightly better, but still having a lot of pain when the pain medication wears off. Exam Vital Signs (past 8 hours): - 03/15/18 08:57 03/15/18 08:58 03/15/18 10:38 Temperature Pulse Rate 75 Respiratory Rate 19 Blood Pressure Pulse Oximetry 88 L 91 88 L 03/15/18 11:12 03/15/18 12:22 03/15/18 12:23 Temperature 97.9 F Pulse Rate 111 H Respiratory Rate 16 Blood Pressure 95/49 L Pulse Oximetry 93 91 90 L 03/15/18 14:20 03/15/18 15:00 Temperature 98.5 F Pulse Rate 114 H Respiratory Rate 19 Blood Pressure 94/47 L Pulse Oximetry 93 90 L Oxygen Delivery Method Nasal Cannula Oxygen Flow Rate 6 Const General: cooperative and lethargic Nutritional Appearance: malnourished Orientation: awake HENNY Face and sinus: other (left side submental space swelling still present but decreased. Tender to palpation in the left submental region, decreased erythema noted, drain in place.) Mouth: oral mucosae normal, tongue normal, salivary ducts normal and other ( drain in place intraorally and no evidence of purulent exudate noted.) Teeth and gingiva: edentulous Throat: posterior oropharynx normal and uvula midline Neck Neck: normal visual inspection, trachea midline and other (Tenderness to palpation along the lateral aspect of the neck. No crepitus or erythema noted. ) Objective Labs Result Diagrams: 03/15/18 05:38 03/15/18 05:38 Labs: Laboratory Results - last 24 hr 03/15/18 03/15/18 05:38 05:38 WBC 18.4 H RBC 3.75 L Hgb 12.4 Hct 37.9 MCV 101.0 H MCH 33.1 MCHC 32.8 RDW 12.8 Plt Count 351 Neut % (Auto) 92.6 H Lymph % (Auto) 4.2 L [place] % (Auto) 3.0 Eos % (Auto) 0.0 L Baso % (Auto) 0.2 Neut # (Auto) 50757 H Sodium 144 Potassium 4.3 Chloride 106 Carbon Dioxide 31 BUN 15 Creatinine 0.50 L Estimated GFR > 60.0 BUN/Creatinine Ratio 30.0 H Glucose 127 H Calcium 8.1 L Phosphorus 3.0 Magnesium 1.7 Total Bilirubin 0.1 L AST 18 ALT 24 Alkaline Phosphatase 68 Total Protein 5.9 L Albumin 3.5 Globulin 2.4 Albumin/Globulin Ratio 1.5 Assessment & Plan Post-op Postoperative Procedures Operation Date: 03/14/18 18:55 Actual Procedures Side Surgeon p Incision and Drainage Wound/Oral Eleazar Kevin, DMD Postoperative day: 1 Postoperative status: doing well Postoperative status narrative: Patient responding to incision and drainage. splitting machine tender along the neck and submental region. Postoperative plan: routine post-op care Postoperative plan narrative: Continue antibiotics. Monitor wbc and wound cultures. Manage pain with regular pain medications. Plan for drain removal tomorrow. Time Spent With Patient less than 15 minutes Quality VTE Deep Vein Thrombosis/Pulmonary Embolism Present on Admission: No
[2018-03-15] MEDS: LACTOBACILLUS ACIDOPHILUS TABLET 1 EACH PO (17:24)
--- NOTE | 2018-03-15 17:57 | PC.NURSE ---
dressing change Oral surgeon in to see pt at 1655 and removed gauze packing. MD aware of pt's pain and pain medication regimen. External dressing to len drain site changed by this RN. small serosang drainage noted. skin surrounding pen augusta drain clear. ice pack in place once new gauze/kerlex dressing in place.
[2018-03-15] MEDS: SODIUM CHLORIDE 0.9% 1,000 ML 75 ML IV (22:38)
[2018-03-16] VITALS (19 sets, daily range): BP systolic 100–137; BP diastolic 43–73; PULSE 64–95; RESP 16–20; TEMP 36.6–37.2; O2SAT 84–97
[2018-03-16] MEDS: metroNIDAZOLE 500 MG/100 ML PIGGYBACK 100 MG IV (00:35)
[2018-03-16] MEDS: HYDROCODONE/ACET 5/325 TABLET 1 TAB PO ×3 (00:35→08:37)
[2018-03-16] MEDS: ALBUTEROL/IPRATROPIUM 3 ML AMPUL INH ×4 (00:40→19:59)
--- NOTE | 2018-03-16 02:04 | PC.NURSE ---
Air Pollution Engineer Note: 0020: Awake, resting in bed. Dressing to chin intact, clean and dry. Vital signs stable. PICC in place in lt upper arm, with dressing cdi; NS infusing at 75cc/hr. Pt remains on telemetry. 0035: Medicated for pain with 1 Vicodin.
[2018-03-16] MEDS: HYDROMORPHONE 1 MG INJ IV ×5 (02:52→19:07)
[2018-03-16] MEDS: VANCOMYCIN TROUGH 1 REQUEST MISC (02:53)
[2018-03-16] MEDS: VANCOMYCIN 750 MG/150 ML FROZ.PIGGY 150 MG IV (03:10)
[2018-03-16 03:11] LABS: Add Manual Diff / Slide Review NO; Basophils Percent Auto 0.2 % (0-2); Hematocrit 30.3 % (36-46); Hemoglobin 10.4 g/dL (12.0-16.0); Lymphocytes Percent Auto 9.3 % (25-40); Mean Corpuscular HGB Conc 34.4 % (30-36); Mean Corpuscular Hemoglobin 34.3 PG (26-34); Mean Corpuscular Volume 99.8 fL (80-100); Monocytes Percent Auto 4.1 % (3-14); Neutrophils Absolute Auto 16100 /uL (3000-5900); Neutrophils Percent Auto 86.4 % (50-75); Platelet Count 303 X10^3/uL (150-400); Red Blood Cell Count 3.03 X10^6/uL (4.0-5.2); Red Cell Distribution Width 12.5 % (11.6-14.8); White Blood Cell Count 18.6 X10^3/uL (4.5-11.0)
[2018-03-16 03:18] LABS: Alanine Aminotransferase 27 IU/L (9-52); Albumin Globulin Ratio 1.4 (1.0-2.8); Alkaline Phosphatase 57 U/L (38-126); Aspartate Aminotransferase 17 IU/L (14-36); Bilirubin Total 0.1 mg/dL (0.2-1.3); Blood Urea Nitrogen 16 mg/dL (7-17); Calcium 7.9 mg/dL (8.4-10.2); Carbon Dioxide 33 mmol/L (22-32); Chloride 106 mmol/L (98-107); Estimated Glomerular Filt Rate > 60.0 mL/min (>60); Globulin 2.2 g/dL (1.7-4.1); Glucose 94 mg/dL (80-110); HEMOLYSIS < 15 (0-50); Phosphorous 1.8 mg/dL (2.8-4.1); Potassium 3.6 mmol/L (3.4-5.1); Sodium 143 mmol/L (137-145); Total Protein 5.2 g/dL (6.3-8.2)
[2018-03-16 03:38] LABS: Vancomycin Trough < 5.0 ug/mL (10-20)
[2018-03-16] MEDS: AMPICILLIN/SULBACTAM 3 GM 3 GM in SODIUM CHLORIDE 0.9% 100 ML IV ×3 (04:20→19:06)
[2018-03-16] MEDS: LACTOBACILLUS ACIDOPHILUS TABLET 1 EACH PO ×2 (08:37→17:10)
[2018-03-16] MEDS: GABAPENTIN 300 MG CAPSULE PO ×3 (08:38→21:38)
[2018-03-16] MEDS: SODIUM,POTASSIUM PHOSPHATES PACKET 2 EACH PO (09:52)
[2018-03-16] MEDS: fentaNYL 50 MCG/PATCH TOP (09:53)
[2018-03-16] MEDS: POLYETHYLENE GLYCOL 3350 17 GM POWD.PACK PO (09:53)
[2018-03-16] MEDS: VANCOMYCIN 1,000 MG/200 ML FROZ.PIGGY 200 MG IV (10:09)
[2018-03-16] MEDS: DULOXETINE 30 MG CAPSULE 60 MG PO (10:26)
--- NOTE | 2018-03-16 10:50 | PM.PN.1 ---
Subjective Date Patient Seen: 03/16/18 Time Patient Seen: 08:30 Interval history: CONT TO REPORT SEVERE PAIN PATIENT APPEARS OPIOID DEPENDENT NO CP/FEVER NO DIARRHEA; NO OTHER COMPLAINTS SPOKE TO NURSING REGARDING CASE Exam Vital Signs (past 8 hours): - 03/16/18 05:32 03/16/18 06:13 03/16/18 07:46 Temperature 98.1 F Pulse Rate 66 69 Respiratory Rate 18 18 Blood Pressure 101/61 Pulse Oximetry 93 90 L 97 03/16/18 09:00 03/16/18 09:13 03/16/18 09:14 Temperature 98.3 F Pulse Rate 76 Respiratory Rate 20 Blood Pressure 107/50 L Pulse Oximetry 95 88 L 97 Oxygen Delivery Method High Flow Nasal Cannula Oxygen Flow Rate 6 Narrative Exam Narrative: NO ACUTE DISTRESS. PATIENT IS ALERT ORIENTED X3. LEFT FACIAL SWELLING VITAL SIGNS STABLE HEAD ATRAUMATIC NORMOCEPHALIC NECK : SUPPLE WITHOUT ADENOPATHY SOME EDEMA NOTED ON THE LEFT SIDE EYE: EOMI, PERRLA, NORMAL CONJUNCTIVA CHEST: REGULAR RATE.. NO RUBS. PMI IS NON DISPLACED. NO MURMURS PULMONARY: DECREASED BS OVER THE BASES. MILD BIBASILAR CRACKLES NOTED; NO INCREASED DULLNESS TO PERCUSSION ABDOMEN: SOFT; NON TENDER; BS + IN ALL 4 QUAD EXTREMITIES:NO EDEMA.. NO CYANOSIS OR CLUBBING NOTED. NEURO: CRANIAL NERVES 2-12 GROSSLY INTACT. NO FOCAL NEUROLOGICAL DEFICIT NOTED. MSK: NORMAL RANGE OF MOTION FOR AGE. NO JOINT EFFUSION. SKIN: NORMAL FOR ETHNICITY; NO ECCHYMOSIS. NO LESION. GOOD TURGOR.; NO RASHES : NORMAL EXTERNAL GENITALIA. PSYCH : APPROPRIATE MOOD AND AFFECT. ALERT AWAKE ORIENTED X3 Objective Labs Result Diagrams: 03/16/18 03:00 03/16/18 03:00 Labs: Laboratory Results - last 24 hr 03/16/18 03/16/18 03/16/18 03:00 03:00 03:00 WBC 18.6 H RBC 3.03 L Hgb 10.4 L Hct 30.3 L MCV 99.8 MCH 34.3 H MCHC 34.4 RDW 12.5 Plt Count 303 Neut % (Auto) 86.4 H Lymph % (Auto) 9.3 L [place] % (Auto) 4.1 Eos % (Auto) 0.0 L Baso % (Auto) 0.2 Neut # (Auto) 54717 H Sodium 143 Potassium 3.6 Chloride 106 Carbon Dioxide 33 H BUN 16 Creatinine 0.50 L Estimated GFR > 60.0 BUN/Creatinine Ratio 32.0 H Glucose 94 Calcium 7.9 L Phosphorus 1.8 L D Total Bilirubin 0.1 L AST 17 ALT 27 Alkaline Phosphatase 57 Total Protein 5.2 L Albumin 3.0 L Globulin 2.2 Albumin/Globulin Ratio 1.4 Vancomycin Trough < 5.0 L Assessment & Plan Plan: Assessment/Plan Narrative: IMPRESSION AND PLAN LEFT MANDIBULAR ABSCESSES ; S/P I&D WITH DRAIN TUBE PLACEMENT. DAY 1 ASSISTANCE FROM SURGERY APPRECIATED GREATLY; CONT WITH VANCO AND UNASYN CX GROING STREP; WILL DE-ESCALATE ABX IN AM; WATCH FOR DIARRHEA AND OTHER S/E OR COMPLICATION SUCH C DIFF; STARTED ON LACTOBACILUS; YOGURT WITH EACH MEAL; MONITOR CLOSELY; RESTART ON ORAL INTAKES TODAY POSS LEFT MANDIBULAR OSTEPMYELIIS; TX ABOVE; AWAITING BX RESULT; BONE SCAN TO BE CONSIDERED WELL MRI TO FURTHER EVAL POSS SEPSIS POA; MONITOR VITAL ORGANS CLOSELY; IVF; ABX; FOLLOW CX; ADDITIONAL MANAGEMENT INDICATED CLINICALLY LEUKOCYTOSIS; 2/2 TO ABOVE; IMPROVING ON ABX; CONT TO FOLLOW CX; ADJUST MANAGEMENT INDICATED ; DC STEROID THIS COULD BE THE CAUSE OF WORSENED WBC WELL MACROCYTOSIS; OUTPT W/U INDICATED CHRONIC RESP FAILURE; NO COMPLAINT OF SOB THIS AM; KEEP ON OXYGEN AT TIME TO MAIN SAT >88; INCENTIVE SPIROMETER TO BE ORDERED; DUONEBS Q8 TAM; ABG/CXR SERIALLY TO FOLLOW INDICATED COPD PER HX; ABOVE MODERATE TO SEVERE PROTEIN DEF MALNUTRITION; DIETITIAN TO SEE AND TREAT INDICATED; DIET SUPPLEMENTS WITH EACH MEAL; ADD MEGACE TO MEDS IF NEEDED POSS OPIOID DEPENDENCE; RESTARTED ON HOME MEDS; PRN MEDS ORDERED WELL; COUNSELING GIVEN DC PER CLINICAL COURSE MONITOR CLOSELY PAIN CONTROL DAILY LABS PT/OT OOB/ IN CHAIR WITH EACH MEAL DC PER CLINICAL COURSE PATIENT MIGHT IV ABX ON DISPOSITION; WILL SPEAK TO CM TO START TO SET IT UP. Quality VTE Deep Vein Thrombosis/Pulmonary Embolism Present on Admission: No
--- NOTE | 2018-03-16 11:44 | PM.PNPO.1 ---
Subjective Date Patient Seen: 03/16/18 Time Patient Seen: 11:55 Interval history: Better pain control nowl Exam Vital Signs (past 8 hours): - 03/16/18 05:32 03/16/18 06:13 03/16/18 07:46 Temperature 98.1 F Pulse Rate 66 69 Respiratory Rate 18 18 Blood Pressure 101/61 Pulse Oximetry 93 90 L 97 03/16/18 09:00 03/16/18 09:13 03/16/18 09:14 Temperature 98.3 F Pulse Rate 76 Respiratory Rate 20 Blood Pressure 107/50 L Pulse Oximetry 95 88 L 97 Oxygen Delivery Method High Flow Nasal Cannula Oxygen Flow Rate 6 HENMT Teeth and gingiva: edentulous Throat: posterior oropharynx normal and uvula midline Other: Floor of the mouth not elevated. Minimal drainage, Sutures in place along with drain. Swelling still present in the left submental area, still firm, no erythema noted, but quite tender to palpation. Neck Neck: normal visual inspection and trachea midline Objective Labs Result Diagrams: 03/16/18 03:00 03/16/18 03:00 Labs: Laboratory Results - last 24 hr 03/16/18 03/16/18 03/16/18 03:00 03:00 03:00 WBC 18.6 H RBC 3.03 L Hgb 10.4 L Hct 30.3 L MCV 99.8 MCH 34.3 H MCHC 34.4 RDW 12.5 Plt Count 303 Neut % (Auto) 86.4 H Lymph % (Auto) 9.3 L [place] % (Auto) 4.1 Eos % (Auto) 0.0 L Baso % (Auto) 0.2 Neut # (Auto) 72517 H Sodium 143 Potassium 3.6 Chloride 106 Carbon Dioxide 33 H BUN 16 Creatinine 0.50 L Estimated GFR > 60.0 BUN/Creatinine Ratio 32.0 H Glucose 94 Calcium 7.9 L Phosphorus 1.8 L D Total Bilirubin 0.1 L AST 17 ALT 27 Alkaline Phosphatase 57 Total Protein 5.2 L Albumin 3.0 L Globulin 2.2 Albumin/Globulin Ratio 1.4 Vancomycin Trough < 5.0 L Assessment & Plan Post-op Postoperative Procedures Operation Date: 03/14/18 18:55 Actual Procedures Side Surgeon p Incision and Drainage Wound/Oral Eleazar Kevin, DMD Postoperative day: 2 Postoperative status: doing well Postoperative status narrative: Pain decreasing. Swelling still present, but decreasing. WBC continues to remain elevated. Wound cultures returned with sensitivities noted. Postoperative plan narrative: Continue IV antibiotics. Continue to monitor WBC and waiting for pathology to return on the bone sample. Drain removed today. Time Spent With Patient less than 15 minutes Quality VTE Deep Vein Thrombosis/Pulmonary Embolism Present on Admission: No
--- NOTE | 2018-03-16 11:59 | P.PN_ITS ---
Subjective Date Patient Seen: 03/16/18 Time Patient Seen: 11:55 Interval history: Better pain control nowl Exam Vital Signs (past 8 hours): - 03/16/18 05:32 03/16/18 06:13 03/16/18 07:46 Temperature 98.1 F Pulse Rate 66 69 Respiratory Rate 18 18 Blood Pressure 101/61 Pulse Oximetry 93 90 L 97 03/16/18 09:00 03/16/18 09:13 03/16/18 09:14 Temperature 98.3 F Pulse Rate 76 Respiratory Rate 20 Blood Pressure 107/50 L Pulse Oximetry 95 88 L 97 Oxygen Delivery Method High Flow Nasal Cannula Oxygen Flow Rate 6 HENMT Teeth and gingiva: edentulous Throat: posterior oropharynx normal and uvula midline Other: Floor of the mouth not elevated. Minimal drainage, Sutures in place along with drain. Swelling still present in the left submental area, still firm , no erythema noted, but quite tender to palpation. Neck Neck: normal visual inspection and trachea midline Objective Labs Result Diagrams: 03/16/18 03:00 03/16/18 03:00 Labs: Laboratory Results - last 24 hr 03/16/18 03/16/18 03/16/18 03:00 03:00 03:00 WBC 18.6 H RBC 3.03 L Hgb 10.4 L Hct 30.3 L MCV 99.8 MCH 34.3 H MCHC 34.4 RDW 12.5 Plt Count 303 Neut % (Auto) 86.4 H Lymph % (Auto) 9.3 L [place] % (Auto) 4.1 Eos % (Auto) 0.0 L Baso % (Auto) 0.2 Neut # (Auto) 53641 H Sodium 143 Potassium 3.6 Chloride 106 Carbon Dioxide 33 H BUN 16 Creatinine 0.50 L Estimated GFR > 60.0 BUN/Creatinine Ratio 32.0 H Glucose 94 Calcium 7.9 L Phosphorus 1.8 L D Total Bilirubin 0.1 L AST 17 ALT 27 Alkaline Phosphatase 57 Total Protein 5.2 L Albumin 3.0 L Globulin 2.2 Albumin/Globulin Ratio 1.4 Vancomycin Trough < 5.0 L Assessment & Plan Post-op Postoperative Procedures Operation Date: 03/14/18 18:55 Actual Procedures Side Surgeon p Incision and Drainage Wound/Oral Eleazar Kevin, DMD Postoperative day: 2 Postoperative status: doing well Postoperative status narrative: Pain decreasing. Swelling still present, but decreasing. WBC continues to remain elevated. Wound cultures returned with sensitivities noted. Postoperative plan narrative: Continue IV antibiotics. Continue to monitor WBC and waiting for pathology to return on the bone sample. Drain removed today. Time Spent With Patient less than 15 minutes Quality VTE Deep Vein Thrombosis/Pulmonary Embolism Present on Admission: No
--- NOTE | 2018-03-16 12:08 | PC.NURSE ---
Addendum entered by Aliza Kelley R.N. 03/16/18 14:47: MS/PAIN/GI/RESP - pt states her pain is OK and was able to rest after the earlier oxycodone and valium, standby assist oob to br w/void and med bm, 02 sat 6L HF 90% after exhertion, to sink for adl's, stood at window for a few minutes and ret to bed, RT in for tmt. Original Note: Addendum entered by Aliza Kelley R.N. 03/16/18 13:16: INTEG /PAIN - Dr. Clement in this am and discussed pain mgt and adjusted medications, Dr. Brown in and the sutures were removed and the drain dc'd, a guaze placed under chin for thin serosang drainage, req saline rinses after meals and prn and pt did herself with a setup after lunch, given scheduled diazepam, prn hydrocodone iv and tried 5mg po oxycodone after lunch, a new 50mcg fentanyl patch was placed today. Original Note: AM NOTE - pt awakens easily, states pain not well managed, 7 on scale 0/10 l jaw, continues with some pink, edema has decreased when compared to yesterday, slight serosang drainage from the len drain, 4x4 changed, 02 sat 92-94% 6L HF and RT in this am for tmt, bs are coarse, dim throughout with some scattered expir wheezes, congested, wet, non productive coughing, hr 92.
[2018-03-16] MEDS: OXYCODONE IR 5 MG TABLET PO ×3 (12:30→21:38)
[2018-03-16] MEDS: diazePAM 5 MG TABLET PO ×2 (12:32→23:49)
[2018-03-16] MEDS: SODIUM CHLORIDE IRRIG SOLUTION 1,000 ML BOTTLE 250 ML IRR (12:35)
--- NOTE | 2018-03-16 16:15 | CM.DPC ---
DCP Cont: Attempted to meet w/pt today, RN Aliza explained pt has been sleepy and a little foggy throughout the day, pt indeed sleeping at time of visit. TC placed to spouse Dominic, explained role. Discussed the likelihood that pt will require 6 weeks of ongoing IV abx. PICC already placed. Explained that Medicare will not cover home infusion but will cover SNF stay. Dominic expects pt will be resistant to this. Reviewed the possibility of daily visits to infusion if pt was healthy and functional enough for this and Dominic is hopeful this will be an option for pt. Dominic very appreciative of the call but requests the conversation happen again w/pt present after another 24 hrs pass to see what medical POC entails. Dominic fears this will be a long road if Dr Brown suggests additional surgery on pt's jaw (bone sample is pending to determine necrotic tissue or?). This RESIDENTIAL INSTRUCTOR and CM team will follow closely and stay in touch w/ Dominic. A conversation w/ the Hospitalist on Saturday will be helpful. JASON Max
[2018-03-17] VITALS (16 sets, daily range): BP systolic 96–140; BP diastolic 63–73; PULSE 66–103; RESP 16–20; TEMP 36.8–37.3; O2SAT 88–96
[2018-03-17] MEDS: AMPICILLIN/SULBACTAM 3 GM 3 GM in SODIUM CHLORIDE 0.9% 100 ML IV ×2 (02:33→09:59)
[2018-03-17] MEDS: SODIUM CHLORIDE 0.9% FLUSH 10 ML IV ×3 (02:33→21:06)
[2018-03-17] MEDS: OXYCODONE IR 5 MG TABLET PO ×4 (02:40→21:06)
[2018-03-17 05:24] LABS: Add Manual Diff / Slide Review NO; Basophils Percent Auto 0.5 % (0-2); Eosinophils Percent Auto 0.2 % (2-4); Hemoglobin 11.4 g/dL (12.0-16.0); Lymphocytes Percent Auto 18.1 % (25-40); Mean Corpuscular HGB Conc 32.7 % (30-36); Mean Corpuscular Hemoglobin 33.1 PG (26-34); Mean Corpuscular Volume 101.1 fL (80-100); Monocytes Percent Auto 5.9 % (3-14); Neutrophils Absolute Auto 10700 /uL (3000-5900); Neutrophils Percent Auto 75.3 % (50-75); Platelet Count 333 X10^3/uL (150-400); Red Blood Cell Count 3.46 X10^6/uL (4.0-5.2); Red Cell Distribution Width 12.9 % (11.6-14.8); White Blood Cell Count 14.2 X10^3/uL (4.5-11.0)
[2018-03-17 05:32] LABS: Alanine Aminotransferase 25 IU/L (9-52); Albumin 2.9 g/dL (3.5-5.0); Albumin Globulin Ratio 1.3 (1.0-2.8); Alkaline Phosphatase 61 U/L (38-126); Aspartate Aminotransferase 20 IU/L (14-36); BUN Creatinine Ratio 12.5 (6-22); Bilirubin Total 0.2 mg/dL (0.2-1.3); Blood Urea Nitrogen 5 mg/dL (7-17); Carbon Dioxide 37 mmol/L (22-32); Chloride 102 mmol/L (98-107); Estimated Glomerular Filt Rate > 60.0 mL/min (>60); Globulin 2.3 g/dL (1.7-4.1); Glucose 71 mg/dL (80-110); HEMOLYSIS < 15 (0-50); Potassium 3.9 mmol/L (3.4-5.1); Sodium 142 mmol/L (137-145); Total Protein 5.2 g/dL (6.3-8.2)
[2018-03-17] MEDS: ALBUTEROL/IPRATROPIUM 3 ML AMPUL INH ×3 (05:32→19:24)
[2018-03-17] MEDS: TIOTROPIUM BROMIDE 18 MCG INHALER INH (05:32)
--- NOTE | 2018-03-17 07:57 | CONS_ITS ---
Es Velazquez - ROHIT/roney/ts doc#: [id number]/job#: [id number] dd: 03/14/2018 18:16:00 dt: 03/15/2018 06:19:00 DICTATING MD/COPIES TO: Eleazar Brown DMD COPIES MNE: KELLY
--- NOTE | 2018-03-17 07:59 | CONS_ITS ---
DATE OF SERVICE: 03/14/2018 MEDICATIONS CONTINUED: Fentanyl transdermal patch 1 every 72 hours, gabapentin 300 mg orally t.i.d. ALLERGIES: AMOXICILLIN ALLERGY CAUSES VOMITING, CLAVULANIC ACID CAUSES VOMITING, NABUMETONE CAUSED A REACTION UNKNOWN, SULFAMETHOXAZOLE CAUSES NAUSEA, TRIMETHOPRIM NAUSEA, CEFALEXIN VOMITING. LABORATORY DATA: Her white blood cell count is 22.9 on admission. PHYSICAL EXAM: HEENT: Normocephalic. She does exhibit limited mouth opening, and she has significant left-sided facial asymmetry. She has swelling that extends below the inferior border of the mandible, in the left submandibular and left submental regions. It is quite tender to palpation, and she does exhibit some erythema on the overlying skin. The floor of the mouth is soft and not elevated, and there is no tenderness to palpation. She is edentulous in the maxilla and the mandible. Unable to appreciate any purulent exudate noted, but there is an area of delayed wound healing in the left mandible, around the mental foramen region. There is no ulceration noted, exophytic tissue present. She does exhibit paresthesias of the left lip and chin and also of the left tongue. She exhibits some hypoesthesia. Her posterior pharynx is clear. There does not appear to be any swelling present in the left lateral pharyngeal wall. Her trachea is midline, but there does not appear to be any lymphadenopathy noted. DIAGNOSTIC DATA: CT scan was reviewed, indicating left facial cellulitis adjacent to the anterior left body of the mandible, and a small 3 x 12-mm fluid collection with peripheral enhancement adjacent to the anterior left body of the mandible, which indicates a small abscess. There also appears to be some erosive changes involving the anterior midline and left paramedian mandible, concerning for osteomyelitis. ASSESSMENT: Patient with a cellulitis as well as an abscess developing in the left mandible. There is concern for osteomyelitis. Upon further questioning, the patient does report a history of bisphosphonate use for treatment of her osteoporosis. She does indicate that annually she gets an injection of Reclast, and she has had this for the last 2 years. She also reports that she has had oral alendronate previously for 2 years, but that it kept upsetting her stomach, so they switched her to the Reclast. PLAN: Due to the clinical and radiographic findings, I am recommending the patient undergo incision and drainage of her abscess of the left mandible. We will also try to attempt to perform a biopsy of the bone to identify if the patient has osteomyelitis, and that will help determine future treatment. Es Velazquez - ROHIT/roney/ts doc#: [id number]/job#: [id number] dd: 03/14/2018 18:22:00 dt: 03/15/2018 06:45:00 DICTATING MD/COPIES TO: Eleazar Brown DMD COPIES MNE: KELLY
[2018-03-17] MEDS: GABAPENTIN 300 MG CAPSULE PO ×3 (09:59→21:06)
[2018-03-17] MEDS: DULOXETINE 30 MG CAPSULE 60 MG PO (09:59)
[2018-03-17] MEDS: LACTOBACILLUS ACIDOPHILUS TABLET 1 EACH PO ×2 (09:59→17:28)
[2018-03-17] MEDS: POLYETHYLENE GLYCOL 3350 17 GM POWD.PACK PO ×2 (10:00→17:27)
--- NOTE | 2018-03-17 11:40 | PM.PN.1 ---
Subjective Date Patient Seen: 03/17/18 Time Patient Seen: 11:40 Interval history: CONT TO REPORT THAT HER PAIN IS NOT FULLY CONTROLLED DESPITE BEING ON MULTIPLE HIGH DOSE MEDS NO FEVER OR CHILLS NO CP/SOB SPOKE TO NURSING REGARDING CASE' NO SIGNIFICANT ISSUES OVERNIGHT Exam Vital Signs (past 8 hours): - 03/17/18 04:11 03/17/18 05:33 03/17/18 07:25 Temperature 98.2 F 98.3 F Pulse Rate 66 74 78 Respiratory Rate 16 16 16 Blood Pressure 96/63 126/69 Pulse Oximetry 94 92 93 03/17/18 08:16 03/17/18 08:17 03/17/18 09:50 Temperature Pulse Rate Respiratory Rate Blood Pressure Pulse Oximetry 88 L 93 88 L Oxygen Delivery Method Nasal Cannula Oxygen Flow Rate 5 Narrative Exam Narrative: NO ACUTE DISTRESS. PATIENT IS ALERT ORIENTED X3. LEFT FACIAL SWELLING VITAL SIGNS STABLE HEAD ATRAUMATIC NORMOCEPHALIC NECK : SUPPLE WITHOUT ADENOPATHY SOME EDEMA NOTED ON THE LEFT SIDE EYE: EOMI, PERRLA, NORMAL CONJUNCTIVA CHEST: REGULAR RATE.. NO RUBS. PMI IS NON DISPLACED. NO MURMURS PULMONARY: DECREASED BS OVER THE BASES. MILD BIBASILAR CRACKLES NOTED; NO INCREASED DULLNESS TO PERCUSSION ABDOMEN: SOFT; NON TENDER; BS + IN ALL 4 QUAD EXTREMITIES:NO EDEMA.. NO CYANOSIS OR CLUBBING NOTED. NEURO: CRANIAL NERVES 2-12 GROSSLY INTACT. NO FOCAL NEUROLOGICAL DEFICIT NOTED. MSK: NORMAL RANGE OF MOTION FOR AGE. NO JOINT EFFUSION. SKIN: NORMAL FOR ETHNICITY; NO ECCHYMOSIS. NO LESION. GOOD TURGOR.; NO RASHES : NORMAL EXTERNAL GENITALIA. PSYCH : APPROPRIATE MOOD AND AFFECT. ALERT AWAKE ORIENTED X3 Objective Labs Result Diagrams: 03/17/18 05:08 03/17/18 05:08 Labs: Laboratory Results - last 24 hr 03/17/18 03/17/18 05:08 05:08 WBC 14.2 H RBC 3.46 L Hgb 11.4 L Hct 35.0 L MCV 101.1 H MCH 33.1 MCHC 32.7 RDW 12.9 Plt Count 333 Neut % (Auto) 75.3 H Lymph % (Auto) 18.1 L [place] % (Auto) 5.9 Eos % (Auto) 0.2 L Baso % (Auto) 0.5 Neut # (Auto) 12643 H Sodium 142 Potassium 3.9 Chloride 102 Carbon Dioxide 37 H BUN 5 L Creatinine 0.40 L Estimated GFR > 60.0 BUN/Creatinine Ratio 12.5 Glucose 71 L Calcium 8.0 L Total Bilirubin 0.2 AST 20 ALT 25 Alkaline Phosphatase 61 Total Protein 5.2 L Albumin 2.9 L Globulin 2.3 Albumin/Globulin Ratio 1.3 Assessment & Plan Plan: Assessment/Plan Narrative: IMPRESSION AND PLAN LEFT MANDIBULAR ABSCESSES ; S/P I&D WITH DRAIN TUBE PLACEMENT. DAY 2; WITH DRAIN REMOVED 03/16. ASSISTANCE FROM SURGERY APPRECIATED GREATLY; DC VANCO AND STARTED ON ROCEPHIN CX GROWING STREP WITH SENSITIVITY NOTED; CONT TO WATCH FOR DIARRHEA AND OTHER S/E OR COMPLICATION SUCH C DIFF; STARTED ON LACTOBACILUS; YOGURT WITH EACH MEAL; MONITOR CLOSELY; RESTARTED ON ORAL INTAKES ; CONSIDER IV ROCEPHIN DAILY VS ZYVOX PO ON DISPOSITION; WILL ASK SURGERY FOR RECOMMENDATIONS REGARDING OUTPT ABX THERAPY. POSS LEFT MANDIBULAR OSTEPMYELIIS; TX ABOVE; ; BONE SCAN TO BE CONSIDERED WELL MRI TO FURTHER EVAL IF INDICATED ONLY POSS SEPSIS POA; MONITOR VITAL ORGANS CLOSELY; DCED IVF ; CHANGE ABX TO ROCEPHIN IN PREP FOR DC ; FOLLOW CX; ADDITIONAL MANAGEMENT INDICATED CLINICALLY LEUKOCYTOSIS; 2/2 TO ABOVE; IMPROVING ON ABX; CONT TO FOLLOW CX; ADJUST MANAGEMENT INDICATED MACROCYTOSIS; OUTPT W/U INDICATED CHRONIC RESP FAILURE; NO COMPLAINT OF SOB THIS AM; KEEP ON OXYGEN AT TIME TO MAIN SAT >88; INCENTIVE SPIROMETER TO BE ORDERED; DUONEBS Q8 TAM; ABG/CXR SERIALLY TO FOLLOW INDICATED COPD PER HX; ABOVE MODERATE TO SEVERE PROTEIN DEF MALNUTRITION; DIETITIAN TO SEE AND TREAT INDICATED; DIET SUPPLEMENTS WITH EACH MEAL; ADD MEGACE TO MEDS IF NEEDED POSS OPIOID DEPENDENCE; RESTARTED ON HOME MEDS; PRN MEDS ORDERED WELL; COUNSELING GIVEN DC PLANNING IN NEXT 24-48 HRS IF OK WITH SURGERY TEAM WILL PLAN TO DC ON IV ROCEPHIN X 14-21 DAYS VS PO ZYVOX CONT TO MONITOR CLOSELY STRICT PAIN CONTROL/ MANAGEMENT TO CONTINUE DAILY LABS PT/OT [place] OOB/ IN CHAIR WITH EACH MEAL DC PER CLINICAL COURSE PATIENT MIGHT IV ABX ON DISPOSITION; WILL SPEAK TO CM TO START TO SET IT UP [place]O. Quality VTE Deep Vein Thrombosis/Pulmonary Embolism Present on Admission: No
--- NOTE | 2018-03-17 11:51 | P.PN_ITS ---
Subjective Date Patient Seen: 03/17/18 Time Patient Seen: 11:40 Interval history: CONT TO REPORT THAT HER PAIN IS NOT FULLY CONTROLLED DESPITE BEING ON MULTIPLE HIGH DOSE MEDS NO FEVER OR CHILLS NO CP/SOB SPOKE TO NURSING REGARDING CASE' NO SIGNIFICANT ISSUES OVERNIGHT Exam Vital Signs (past 8 hours): - 03/17/18 04:11 03/17/18 05:33 03/17/18 07:25 Temperature 98.2 F 98.3 F Pulse Rate 66 74 78 Respiratory Rate 16 16 16 Blood Pressure 96/63 126/69 Pulse Oximetry 94 92 93 03/17/18 08:16 03/17/18 08:17 03/17/18 09:50 Temperature Pulse Rate Respiratory Rate Blood Pressure Pulse Oximetry 88 L 93 88 L Oxygen Delivery Method Nasal Cannula Oxygen Flow Rate 5 Narrative Exam Narrative: NO ACUTE DISTRESS. PATIENT IS ALERT ORIENTED X3. LEFT FACIAL SWELLING VITAL SIGNS STABLE HEAD ATRAUMATIC NORMOCEPHALIC NECK : SUPPLE WITHOUT ADENOPATHY SOME EDEMA NOTED ON THE LEFT SIDE EYE: EOMI, PERRLA, NORMAL CONJUNCTIVA CHEST: REGULAR RATE.. NO RUBS. PMI IS NON DISPLACED. NO MURMURS PULMONARY: DECREASED BS OVER THE BASES. MILD BIBASILAR CRACKLES NOTED; NO INCREASED DULLNESS TO PERCUSSION ABDOMEN: SOFT; NON TENDER; BS + IN ALL 4 QUAD EXTREMITIES:NO EDEMA.. NO CYANOSIS OR CLUBBING NOTED. NEURO: CRANIAL NERVES 2-12 GROSSLY INTACT. NO FOCAL NEUROLOGICAL DEFICIT NOTED. MSK: NORMAL RANGE OF MOTION FOR AGE. NO JOINT EFFUSION. SKIN: NORMAL FOR ETHNICITY; NO ECCHYMOSIS. NO LESION. GOOD TURGOR.; NO RASHES : NORMAL EXTERNAL GENITALIA. PSYCH : APPROPRIATE MOOD AND AFFECT. ALERT AWAKE ORIENTED X3 Objective Labs Result Diagrams: 03/17/18 05:08 03/17/18 05:08 Labs: Laboratory Results - last 24 hr 03/17/18 03/17/18 05:08 05:08 WBC 14.2 H RBC 3.46 L Hgb 11.4 L Hct 35.0 L MCV 101.1 H MCH 33.1 MCHC 32.7 RDW 12.9 Plt Count 333 Neut % (Auto) 75.3 H Lymph % (Auto) 18.1 L [place] % (Auto) 5.9 Eos % (Auto) 0.2 L Baso % (Auto) 0.5 Neut # (Auto) 04687 H Sodium 142 Potassium 3.9 Chloride 102 Carbon Dioxide 37 H BUN 5 L Creatinine 0.40 L Estimated GFR > 60.0 BUN/Creatinine Ratio 12.5 Glucose 71 L Calcium 8.0 L Total Bilirubin 0.2 AST 20 ALT 25 Alkaline Phosphatase 61 Total Protein 5.2 L Albumin 2.9 L Globulin 2.3 Albumin/Globulin Ratio 1.3 Assessment & Plan Plan: Assessment/Plan Narrative: IMPRESSION AND PLAN LEFT MANDIBULAR ABSCESSES ; S/P I&D WITH DRAIN TUBE PLACEMENT. DAY 2 ; WITH DRAIN REMOVED 03/16. ASSISTANCE FROM SURGERY APPRECIATED GREATLY; DC VANCO AND STARTED ON ROCEPHIN CX GROWING STREP WITH SENSITIVITY NOTED; CONT TO WATCH FOR DIARRHEA AND OTHER S/E OR COMPLICATION SUCH C DIFF; STARTED ON LACTOBACILUS; YOGURT WITH EACH MEAL; MONITOR CLOSELY ; RESTARTED ON ORAL INTAKES ; CONSIDER IV ROCEPHIN DAILY VS ZYVOX PO ON DISPOSITION; WILL ASK SURGERY FOR RECOMMENDATIONS REGARDING OUTPT ABX THERAPY. POSS LEFT MANDIBULAR OSTEPMYELIIS; TX ABOVE; ; BONE SCAN TO BE CONSIDERED WELL MRI TO FURTHER EVAL IF INDICATED ONLY POSS SEPSIS POA; MONITOR VITAL ORGANS CLOSELY; DCED IVF ; CHANGE ABX TO ROCEPHIN IN PREP FOR DC ; FOLLOW CX; ADDITIONAL MANAGEMENT INDICATED CLINICALLY LEUKOCYTOSIS; 2/2 TO ABOVE; IMPROVING ON ABX; CONT TO FOLLOW CX; ADJUST MANAGEMENT INDICATED MACROCYTOSIS; OUTPT W/U INDICATED CHRONIC RESP FAILURE; NO COMPLAINT OF SOB THIS AM; KEEP ON OXYGEN AT TIME TO MAIN SAT >88; INCENTIVE SPIROMETER TO BE ORDERED; DUONEBS Q8 TAM; ABG/CXR SERIALLY TO FOLLOW INDICATED COPD PER HX; ABOVE MODERATE TO SEVERE PROTEIN DEF MALNUTRITION; DIETITIAN TO SEE AND TREAT INDICATED; DIET SUPPLEMENTS WITH EACH MEAL; ADD MEGACE TO MEDS IF NEEDED POSS OPIOID DEPENDENCE; RESTARTED ON HOME MEDS; PRN MEDS ORDERED WELL; COUNSELING GIVEN DC PLANNING IN NEXT 24-48 HRS IF OK WITH SURGERY TEAM WILL PLAN TO DC ON IV ROCEPHIN X 14-21 DAYS VS PO ZYVOX CONT TO MONITOR CLOSELY STRICT PAIN CONTROL/ MANAGEMENT TO CONTINUE DAILY LABS PT/OT [place] OOB/ IN CHAIR WITH EACH MEAL DC PER CLINICAL COURSE PATIENT MIGHT IV ABX ON DISPOSITION; WILL SPEAK TO CM TO START TO SET IT UP [place]. Quality VTE Deep Vein Thrombosis/Pulmonary Embolism Present on Admission: No
[2018-03-17] MEDS: diazePAM 5 MG TABLET PO (15:35)
[2018-03-17] MEDS: TRAMADOL 50 MG TABLET PO ×2 (15:36→21:06)
[2018-03-17] MEDS: CEFTRIAXONE 1 GM/50 ML FROZ.PIGGY IV (16:05)
--- NOTE | 2018-03-17 16:26 | PM.PNPO.1 ---
Subjective Date Patient Seen: 03/17/18 Time Patient Seen: 16:27 Interval history: Patient reports feeling better today than she did on admission. Pain is under control. Still quite numb on the lip, chin and tongue. Exam Vital Signs (past 8 hours): - 03/17/18 09:50 03/17/18 11:45 03/17/18 13:24 Temperature 99.1 F Pulse Rate 86 Respiratory Rate 18 16 Blood Pressure 140/73 Pulse Oximetry 88 L 90 L 03/17/18 14:02 03/17/18 15:39 Temperature Pulse Rate 91 H Respiratory Rate 20 Blood Pressure Pulse Oximetry 96 88 L Oxygen Delivery Method Room Air Oxygen Flow Rate 4 HENMT Mouth: oral mucosae normal, tongue normal, oropharynx normal and other (intraoral wound closed where drain was removed. No purulent exudate noted. Decreased sensation left lip, chin and tongue.) Throat: posterior oropharynx normal Neck Neck: trachea midline and other (Submental swelling present, but resolving. No erythema, but tender to palpation) Objective Labs Result Diagrams: 03/17/18 05:08 03/17/18 05:08 Labs: Laboratory Results - last 24 hr 03/17/18 03/17/18 05:08 05:08 WBC 14.2 H RBC 3.46 L Hgb 11.4 L Hct 35.0 L MCV 101.1 H MCH 33.1 MCHC 32.7 RDW 12.9 Plt Count 333 Neut % (Auto) 75.3 H Lymph % (Auto) 18.1 L [place] % (Auto) 5.9 Eos % (Auto) 0.2 L Baso % (Auto) 0.5 Neut # (Auto) 21131 H Sodium 142 Potassium 3.9 Chloride 102 Carbon Dioxide 37 H BUN 5 L Creatinine 0.40 L Estimated GFR > 60.0 BUN/Creatinine Ratio 12.5 Glucose 71 L Calcium 8.0 L Total Bilirubin 0.2 AST 20 ALT 25 Alkaline Phosphatase 61 Total Protein 5.2 L Albumin 2.9 L Globulin 2.3 Albumin/Globulin Ratio 1.3 Assessment & Plan Post-op Postoperative Procedures Operation Date: 03/14/18 18:55 Actual Procedures Side Surgeon p Incision and Drainage Wound/Oral Eleazar Kevin, DMD Postoperative day: 3 Postoperative status: doing well Postoperative status narrative: Patient feeling better today. Still having pain. WBC decreasing and patient is afebrile. Postoperative plan narrative: Continue antibiotics. May consider adding metronidazole to the rocephin. Waiting for pathology to come back. Patient likely will need IV antibiotics for six weeks due to osteomyelitis being on the differential versus Medication related osteonecrosis of the jaw. Time Spent With Patient less than 15 minutes Quality VTE Deep Vein Thrombosis/Pulmonary Embolism Present on Admission: No
--- NOTE | 2018-03-17 16:29 | P.PN_ITS ---
Subjective Date Patient Seen: 03/17/18 Time Patient Seen: 16:27 Interval history: Patient reports feeling better today than she did on admission. Pain is under control. Still quite numb on the lip, chin and tongue. Exam Vital Signs (past 8 hours): - 03/17/18 09:50 03/17/18 11:45 03/17/18 13:24 Temperature 99.1 F Pulse Rate 86 Respiratory Rate 18 16 Blood Pressure 140/73 Pulse Oximetry 88 L 90 L 03/17/18 14:02 03/17/18 15:39 Temperature Pulse Rate 91 H Respiratory Rate 20 Blood Pressure Pulse Oximetry 96 88 L Oxygen Delivery Method Room Air Oxygen Flow Rate 4 HENMT Mouth: oral mucosae normal, tongue normal, oropharynx normal and other ( intraoral wound closed where drain was removed. No purulent exudate noted. Decreased sensation left lip, chin and tongue.) Throat: posterior oropharynx normal Neck Neck: trachea midline and other (Submental swelling present, but resolving. No erythema, but tender to palpation) Objective Labs Result Diagrams: 03/17/18 05:08 03/17/18 05:08 Labs: Laboratory Results - last 24 hr 03/17/18 03/17/18 05:08 05:08 WBC 14.2 H RBC 3.46 L Hgb 11.4 L Hct 35.0 L MCV 101.1 H MCH 33.1 MCHC 32.7 RDW 12.9 Plt Count 333 Neut % (Auto) 75.3 H Lymph % (Auto) 18.1 L [place] % (Auto) 5.9 Eos % (Auto) 0.2 L Baso % (Auto) 0.5 Neut # (Auto) 27432 H Sodium 142 Potassium 3.9 Chloride 102 Carbon Dioxide 37 H BUN 5 L Creatinine 0.40 L Estimated GFR > 60.0 BUN/Creatinine Ratio 12.5 Glucose 71 L Calcium 8.0 L Total Bilirubin 0.2 AST 20 ALT 25 Alkaline Phosphatase 61 Total Protein 5.2 L Albumin 2.9 L Globulin 2.3 Albumin/Globulin Ratio 1.3 Assessment & Plan Post-op Postoperative Procedures Operation Date: 03/14/18 18:55 Actual Procedures Side Surgeon p Incision and Drainage Wound/Oral Eleazar Kevin, DMD Postoperative day: 3 Postoperative status: doing well Postoperative status narrative: Patient feeling better today. Still having pain. WBC decreasing and patient is afebrile. Postoperative plan narrative: Continue antibiotics. May consider adding metronidazole to the rocephin. Waiting for pathology to come back. Patient likely will need IV antibiotics for six weeks due to osteomyelitis being on the differential versus Medication related osteonecrosis of the jaw. Time Spent With Patient less than 15 minutes Quality VTE Deep Vein Thrombosis/Pulmonary Embolism Present on Admission: No
--- NOTE | 2018-03-17 23:32 | PC.NURSE ---
Changed dressing this shift, please monitor and consider dressing change at least once a shift.
[2018-03-18] VITALS (14 sets, daily range): BP systolic 116–137; BP diastolic 56–74; PULSE 72–95; RESP 14–21; TEMP 36.7–37.2; O2SAT 87–99
[2018-03-18] MEDS: diazePAM 5 MG TABLET PO ×2 (00:02→12:59)
[2018-03-18] MEDS: OXYCODONE IR 5 MG TABLET PO ×4 (01:29→18:34)
[2018-03-18] MEDS: ALBUTEROL/IPRATROPIUM 3 ML AMPUL INH ×2 (05:35→13:36)
[2018-03-18] MEDS: TIOTROPIUM BROMIDE 18 MCG INHALER INH (05:36)
[2018-03-18 06:14] LABS: Add Manual Diff / Slide Review NO; Basophils Percent Auto 1.4 % (0-2); Eosinophils Percent Auto 1.1 % (2-4); Hematocrit 35.4 % (36-46); Hemoglobin 12.1 g/dL (12.0-16.0); Mean Corpuscular HGB Conc 34.1 % (30-36); Mean Corpuscular Hemoglobin 33.9 PG (26-34); Mean Corpuscular Volume 99.4 fL (80-100); Monocytes Percent Auto 5.6 % (3-14); Neutrophils Absolute Auto 5600 /uL (3000-5900); Neutrophils Percent Auto 62.9 % (50-75); Platelet Count 329 X10^3/uL (150-400); Red Blood Cell Count 3.56 X10^6/uL (4.0-5.2); Red Cell Distribution Width 12.3 % (11.6-14.8); White Blood Cell Count 8.9 X10^3/uL (4.5-11.0)
[2018-03-18 06:25] LABS: Alanine Aminotransferase 26 IU/L (9-52); Albumin 2.9 g/dL (3.5-5.0); Albumin Globulin Ratio 1.3 (1.0-2.8); Alkaline Phosphatase 57 U/L (38-126); Aspartate Aminotransferase 16 IU/L (14-36); BUN Creatinine Ratio 17.5 (6-22); Bilirubin Total 0.3 mg/dL (0.2-1.3); Blood Urea Nitrogen 7 mg/dL (7-17); Calcium 8.2 mg/dL (8.4-10.2); Chloride 98 mmol/L (98-107); Estimated Glomerular Filt Rate > 60.0 mL/min (>60); Globulin 2.2 g/dL (1.7-4.1); Glucose 82 mg/dL (80-110); HEMOLYSIS < 15 (0-50); Potassium 3.8 mmol/L (3.4-5.1); Sodium 142 mmol/L (137-145); Total Protein 5.1 g/dL (6.3-8.2)
[2018-03-18 06:42] LABS: Carbon Dioxide 37 mmol/L (22-32)
[2018-03-18] MEDS: DULOXETINE 30 MG CAPSULE 60 MG PO (09:19)
[2018-03-18] MEDS: metroNIDAZOLE 500 MG TABLET PO ×3 (09:19→20:23)
[2018-03-18] MEDS: GABAPENTIN 300 MG CAPSULE PO ×3 (09:19→20:23)
[2018-03-18] MEDS: SODIUM CHLORIDE 0.9% FLUSH 10 ML IV ×2 (09:20→20:24)
[2018-03-18] MEDS: LACTOBACILLUS ACIDOPHILUS TABLET 1 EACH PO ×2 (09:20→17:20)
[2018-03-18] MEDS: POLYETHYLENE GLYCOL 3350 17 GM POWD.PACK PO (09:20)
[2018-03-18] MEDS: TRAMADOL 50 MG TABLET PO ×3 (09:30→20:23)
--- NOTE | 2018-03-18 10:00 | P.PN_ITS ---
Subjective Date Patient Seen: 03/18/18 Time Patient Seen: 07:00 Interval history: FEELING MUCH BETTER THIS AM PAIN ARE BETTER CONTROLLED ON CURRENT REGIMENT NO FEVER OR CHILLS OVERNIGHT NO SIGNIFICANT ISSUES OVERNIGHT Exam Vital Signs (past 8 hours): - 03/18/18 05:37 03/18/18 06:09 03/18/18 06:41 Temperature 98.1 F Pulse Rate 72 93 H Respiratory Rate 14 18 Blood Pressure 137/74 Pulse Oximetry 92 90 L 90 L 03/18/18 08:10 03/18/18 09:15 Temperature 98.2 F Pulse Rate 84 Respiratory Rate 16 Blood Pressure 124/59 L Pulse Oximetry 90 L 92 Oxygen Delivery Method Room Air Oxygen Flow Rate 3 Narrative Exam Narrative: NO ACUTE DISTRESS. PATIENT IS ALERT ORIENTED X3. LEFT FACIAL SWELLING VITAL SIGNS STABLE HEAD ATRAUMATIC NORMOCEPHALIC NECK : SUPPLE WITHOUT ADENOPATHY SOME EDEMA NOTED ON THE LEFT SIDE EYE: EOMI, PERRLA, NORMAL CONJUNCTIVA CHEST: REGULAR RATE.. NO RUBS. PMI IS NON DISPLACED. NO MURMURS PULMONARY: DECREASED BS OVER THE BASES. MILD BIBASILAR CRACKLES NOTED; NO INCREASED DULLNESS TO PERCUSSION ABDOMEN: SOFT; NON TENDER; BS + IN ALL 4 QUAD EXTREMITIES:NO EDEMA.. NO CYANOSIS OR CLUBBING NOTED. NEURO: CRANIAL NERVES 2-12 GROSSLY INTACT. NO FOCAL NEUROLOGICAL DEFICIT NOTED. MSK: NORMAL RANGE OF MOTION FOR AGE. NO JOINT EFFUSION. SKIN: NORMAL FOR ETHNICITY; NO ECCHYMOSIS. NO LESION. GOOD TURGOR.; NO RASHES : NORMAL EXTERNAL GENITALIA. PSYCH : APPROPRIATE MOOD AND AFFECT. ALERT AWAKE ORIENTED X3 Objective Labs Result Diagrams: 03/18/18 06:03 03/18/18 06:03 Labs: Laboratory Results - last 24 hr 03/18/18 03/18/18 06:03 06:03 WBC 8.9 RBC 3.56 L Hgb 12.1 Hct 35.4 L MCV 99.4 MCH 33.9 MCHC 34.1 RDW 12.3 Plt Count 329 Neut % (Auto) 62.9 Lymph % (Auto) 29.0 [place] % (Auto) 5.6 Eos % (Auto) 1.1 L Baso % (Auto) 1.4 Neut # (Auto) 5600 Sodium 142 Potassium 3.8 Chloride 98 Carbon Dioxide 37 H BUN 7 Creatinine 0.40 L Estimated GFR > 60.0 BUN/Creatinine Ratio 17.5 Glucose 82 Calcium 8.2 L Total Bilirubin 0.3 AST 16 ALT 26 Alkaline Phosphatase 57 Total Protein 5.1 L Albumin 2.9 L Globulin 2.2 Albumin/Globulin Ratio 1.3 Assessment & Plan Plan: Assessment/Plan Narrative: IMPRESSION AND PLAN LEFT MANDIBULAR ABSCESSES ; S/P I&D WITH DRAIN TUBE PLACEMENT. DAY 3 ; WITH DRAIN REMOVED 03/16. ASSISTANCE FROM SURGERY ATTENDING APPRECIATED GREATLY; CONT ON ROCEPHIN CX GROWING STREP WITH SENSITIVITY NOTED; CONT TO WATCH FOR DIARRHEA AND OTHER S/E OR COMPLICATION SUCH C DIFF ; STARTED ON LACTOBACILUS; YOGURT WITH EACH MEAL; MONITOR CLOSELY; RESTARTED ON ORAL INTAKES ; IV ROCEPHIN DAILY X 6 WEEKS RECOMMENDED BY SURG; CM/SW AWARE OF DC PLANNING; WILL SET UP OUTPATIENT ABX; DC IN NEXT 24HRS IF STABLE AND OK WITH SURGERY POSS LEFT MANDIBULAR OSTEPMYELIIS; TX ABOVE; ; BONE SCAN TO BE CONSIDERED WELL MRI TO FURTHER EVAL IF NEEDED; CONT CURRENT MANAGEMENT POSS SEPSIS POA; MONITOR VITAL ORGANS CLOSELY; DCED IVF ; CHANGE ABX TO ROCEPHIN IN PREP FOR DC ; FOLLOW CX; ADDITIONAL MANAGEMENT INDICATED CLINICALLY LEUKOCYTOSIS; 2/2 TO ABOVE; RESOLVED ON ABX; CONT TO FOLLOW CX; ADJUST MANAGEMENT INDICATED ; DAILY CBC MACROCYTOSIS; OUTPT W/U INDICATED CHRONIC RESP FAILURE; NO COMPLAINT OF SOB THIS AM; KEEP ON OXYGEN AT TIME TO MAIN SAT >88; INCENTIVE SPIROMETER TO BE ORDERED; DUONEBS Q8 TAM; ABG/CXR SERIALLY TO FOLLOW INDICATED COPD PER HX; ABOVE MODERATE TO SEVERE PROTEIN DEF MALNUTRITION; DIETITIAN TO SEE AND TREAT INDICATED; DIET SUPPLEMENTS WITH EACH MEAL; ADD MEGACE TO MEDS IF NEEDED POSS OPIOID DEPENDENCE; RESTARTED ON HOME MEDS; PRN MEDS ORDERED WELL; COUNSELING GIVEN DC PLANNING IN NEXT 24 HRS IF OK WITH SURGERY TEAM AND OUTPATIENT ABX IS SET FOR PATIENT WILL PLAN TO DC ON IV ROCEPHIN X 6 WEEKS PER SURG ATTENDING RECOMM CONT TO MONITOR CLOSELY STRICT PAIN CONTROL/ MANAGEMENT TO CONTINUE DAILY LABS PT/OT [place] OOB/ IN CHAIR WITH EACH MEAL Quality VTE Deep Vein Thrombosis/Pulmonary Embolism Present on Admission: No
[2018-03-18] MEDS: CEFTRIAXONE 1 GM/50 ML FROZ.PIGGY IV (12:59)
--- NOTE | 2018-03-18 14:35 | PT.IIE ---
Current Diagnoses Cellulitis of face (03/13/18) Surgery Performed Operation Date: 03/14/18 18:55 Actual Procedures p Incision and Drainage Wound/Oral - Eleazar Kevin, DMD Surgical History (Last Reviewed 03/14/18 @ 00:28 by VU Kennedy) Status post tonsillectomy and adenoidectomy Status post vaginal hysterectomy Medical History (Last Reviewed 03/14/18 @ 00:28 by VU Kennedy) COPD (chronic obstructive pulmonary disease) (Acute) Physical Therapy Inpatient Evaluation/Re-Eval M1 PT/OT-IP Prior Functional Status Start: 03/18/18 16:14 Freq: NEEDED Status: Active Protocol: Document 03/18/18 16:15 [facility] (Rec: 03/18/18 16:53 [facility] [id number]) Medical Review Prior Functional Status Medical History Reviewed Yes Communication Independent Mobility and Gait Pt states does not use a device to for ambulation. Activities of Daily Living and IADL's Pt states able to do all ADL needs, lately pt's does more of cooking,laundry and other IADL needs. Social History Household Members spouse Living Arrangements House Number of Floors (Floors) One Floor Number of Stairs To Enter/Railing? 1-4inch step tp get into the house from the garage. Home Environment Standard Height Toilet Walk in Shower Additional Social History Comment Pt states has HHSP but has not installed them, Pt states has built in seat in the shower but other uses it occasionally at home. Per pt on 2L of O2 at night and will use in during the day 75% of the time. Pt will bring her protable O2 when out driving but usually does not put the O2 on. M2 PT-IP Current Condition Start: 03/18/18 16:54 Freq: NEEDED Status: Active Protocol: Document 03/18/18 14:35 DCW (Rec: 03/18/18 17:16 DCW [id number]) Physical Therapy Current Condition Current Condition Evaluation Date 03/18/18 Treatment Diagnosis weakness, imbalance, decreased safety awareness Weight Bearing Status Weight Bearing Status Full Weight Bearing M3 PT-IP Subjective Start: 03/18/18 16:54 Freq: NEEDED Status: Active Protocol: Document 03/18/18 14:35 DCW (Rec: 03/18/18 17:16 DCW [id number]) Subjective Physical Therapy Visit Type Type Initial Evaluation Visit Start Time 14:35 Visit Stop Time 15:02 Total Visit Minutes 27 Notes Pt is a 67 year old female presenting to the ER 03/13/18 with an small abscess and infection in her jaw following multiple oral surgeries. Has since been an in-patient receiving IV antibiotics. Patient was referred to skilled inpatient therapy to determine if she is safe to return home with home health to continue antibiotics, or if she should be discharged to a SNF. Number of HOG TENDER Visits 0 Physical Therapy Visit Comments Patient Comments Pt reports she is very tired and would prefer not to get up today, but admits she knows that she needs to, so she is agreeable to therapy. Therapy Pain Assessment Pain When Pain Assessed At Rest Pain Present Pain Present Pain Reported FLACC Pain Scale Face Frequent/constant frown Location jaw Intensity 7 Scale Used Numeric (1 - 10) Description Aching M4 PT-IP Mobility and Gait Start: 03/18/18 16:54 Freq: NEEDED Status: Active Protocol: Document 03/18/18 14:35 DCW (Rec: 03/18/18 17:16 DCW [id number]) PT-Bed Mobility Assessment Rolling Type of Rolling Roll to Right Level of Assist Independent Supine to Sit Supine to Sit Independent Scooting Scooting to Edge of Bed Standby Assistance PT-Transfer Assessment Sit to and From Stand Sit to and from Stand Independent Equipment Transfer Assistive Device Bed Rail Front Wheeled Walker Transfers Transfer Destination Bed Chair Toilet Transfer Technique Stand Step Pivot Transfer Ability Level of Assist Standby Assistance Comments Mobility Comments Impulsive Gait Assessment Gait Gait Assistance Required: Contact Guard Assist Distance (Feet) 20 Able to Maintain Weight Bearing Status Yes During Gait Assistive Devices Assistive Device Gait Belt Front Wheeled Walker Orthotic/Prosthetic Devices or Brace: No Factors Limiting Gait Function Factors Limiting Gait Function Poor Safety Awareness Comments Gait Comments Path deviation, ran into base of bed, opened bathroom door into walker, knocking it sideways PT-Balance Assessment Sitting Balance and Reactions Static Sitting Balance Ability Normal Dynamic Sitting Balance Ability Normal Standing Balance and Reactions Static Standing Balance Ability Good Dynamic Standing Balance Ability Fair M5 PT-IP Objective Assessments Start: 03/18/18 16:54 Freq: NEEDED Status: Active Protocol: Document 03/18/18 14:35 DCW (Rec: 03/18/18 17:16 DCW [id number]) Orientation Orientation/Cognition Level of Alertness Alert Orientation Name Birthday Date Place Situation Language Function Ability No Deficits Noted Safety Awareness Decreased Safety Awareness Memory Description No Deficits Noted Strength Comments Strength Comments LE MMT grossly 4-/5 M6 PT-IP Treatment Start: 03/18/18 16:54 Freq: NEEDED Status: Active Protocol: Document 03/18/18 14:35 DCW (Rec: 03/18/18 17:16 DCW [id number]) Physical Therapy Treatment Education Education Provided Safety M7 PT-IP Assessment and Plan Start: 03/18/18 16:54 Freq: NEEDED Status: Active Protocol: Document 03/18/18 14:35 DCW (Rec: 03/18/18 17:16 DCW [id number]) PT Summary Assessment and Plan Potential Rehabilitation Potential Good Status of Condition at Evaluation Evolving Summary Impairments Strength Balance Coordination Activity Tolerance Assessment Summary Pt presents with generalized weakness, decreased safety awareness, path deviation during gait, increased reliance on supplemental O2 via NC, and lightheadedness with sitting and standing. Due to the above listed deficits, pt would likely not be safe at this time to return home, and would benefit from placement in a SNF for continued treatment of IV antibiotics, as well as the additional benefit of skilled physical therapy to improve strength, balance, and safety awareness. Goals Gait Goal Standby Assistance Front Wheel Walker Gait Distance 100 Other Goals Ascend/descend 1 step independently /c FWW Days to Meet Goals 2 Frequency of Treatment Frequency Of Treatment Once a Day Treatment Plan Physical Therapy Treatment Plan Therapeutic Exercise Balance Retraining Recommendations To Nursing Amount of Assist Needed 1 Person Assist Discharge Recommendations PT Discharge Recommendations SNF Rehab
--- NOTE | 2018-03-18 15:41 | CM.DPC ---
DCP/continued: Received verbal referral in AM rounds today that patient will need 6wks of IV abx (rocephin) 1x per day. DIGITAL FIELD SERVICE TECHNICIAN met with patient this AM. Patient very sleepy and requesting that her spouse be present. Therefore, called spouse/Dominic re: d/c plan. In addition PT/OT evaluations ordered. Patient reports feeling very weak. Met with patient, spouse, and sister/Aziza at approximately 2:00pm. Patient was seen by PT and SNF recommended. Discussed 3 discharge options with patient and family. 1)SNF 2)Outpatient IV abx at .. 3)Home IV abx (which most likely will require copay for IV abx). Patient and family requesting short SNF stay until patient gets strong enough to complete IV abx as outpatient. SNF choice list provided and [facility] chosen. Placed call to Beckie at [facility] and referral provided. Beckie and staff reviewed and report that they would like to do face to face with patient in AM on 03-19-18. As of now they believe they can accept but would like to see her before making final decision. Patient aware she will not be able to smoke at [facility] and is agreeable. In addition, Beckie unsure how to go about arranging outpatient IV abx when patient strong enough to d/c from [facility]. Informed Beckie that [facility] will coordinate but will need prescription for amount of IV abx still needed when patient discharges from [facility]. Beckie requesting that if they accept that [facility]. Care Management DIGITAL FIELD SERVICE TECHNICIAN provide infusion center with heads up prior to patient's departure. DIGITAL FIELD SERVICE TECHNICIAN notified Beckie that [facility] should check in with DIGITAL FIELD SERVICE TECHNICIAN and call prior to coming to do visit. DIGITAL FIELD SERVICE TECHNICIAN can call infusion center to make them aware of potential referral. P: Hopeful that patient will be accepted at [facility]. They are doing visit with patient on 03-19-18. Once accepted patient can discharge. [facility] requested infusion center at .. be given information for IV abx prior to d/c. JASON Maddox
--- NOTE | 2018-03-18 16:54 | OT.IP.EVAL ---
Current Diagnoses Cellulitis of face (03/13/18) Surgery Performed Operation Date: 03/14/18 18:55 Actual Procedures p Incision and Drainage Wound/Oral - Eleazar Kevin, DMD Past Medical History (Last Reviewed 03/14/18 @ 00:28 by VU Kennedy) COPD (chronic obstructive pulmonary disease) (Acute) Surgical History (Last Reviewed 03/14/18 @ 00:28 by VU Kennedy) Status post tonsillectomy and adenoidectomy Status post vaginal hysterectomy Occupational Therapy Inpatient Evaluation/Re-Eval M1 PT/OT-IP Prior Functional Status Start: 03/18/18 16:14 Freq: NEEDED Status: Active Protocol: Document 03/18/18 16:15 [facility] (Rec: 03/18/18 16:53 [facility] [id number]) Medical Review Prior Functional Status Medical History Reviewed Yes Communication Independent Mobility and Gait Pt states does not use a device to for ambulation. Activities of Daily Living and IADL's Pt states able to do all ADL needs, lately pt's does more of cooking,laundry and other IADL needs. Social History Household Members spouse Living Arrangements House Number of Floors (Floors) One Floor Number of Stairs To Enter/Railing? 1-4inch step tp get into the house from the garage. Home Environment Standard Height Toilet Walk in Shower Additional Social History Comment Pt states has HHSP but has not installed them, Pt states has built in seat in the shower but other uses it occasionally at home. Per pt on 2L of O2 at night and will use in during the day 75% of the time. Pt will bring her protable O2 when out driving but usually does not put the O2 on. M2 OT-IP Current Condition Start: 03/18/18 16:14 Freq: Status: Active Protocol: Document 03/18/18 16:15 [facility] (Rec: 03/18/18 16:53 [facility] [id number]) Occupational Therapy Current Condition Current Condition Evaluation Date 03/18/18 Treatment Diagnosis Left facial cellulitis, small abscess, weakness Diagnosis Onset Date 03/13/18 M3 OT- IP Subjective and Pain Start: 03/18/18 16:14 Freq: Status: Active Protocol: Document 03/18/18 16:15 [facility] (Rec: 03/18/18 16:53 [facility] [id number]) OT- Subjective Occupational Therapy Visit Type Type Initial Evaluation Visit Start Time 15:30 Visit Stop Time 15:55 Total Visit Minutes 25 Occupational Therapy Visit Comments Patient Comments Pt agreeable to get up. Patient/Caregiver Goals Pt and agreeable for pt to go to skilled rehab to get stronger and also for medical needs. OT Pain Assessment Pain When Pain Assessed At Rest Pain Present Pain Present Denied Pain M4 OT- IP ADL's Start: 03/18/18 16:14 Freq: Status: Active Protocol: Document 03/18/18 16:15 [facility] (Rec: 03/18/18 16:53 [facility] [id number]) OT ADL-Toileting Comments OT Toileting Comments Pt has right counter at home to help when standing from the toilet. Pt uses the bathroom at night 1x and has O2 on from concentrator. M5 OT- IP IADL's Start: 03/18/18 16:14 Freq: Status: Active Protocol: Document 03/18/18 16:15 [facility] (Rec: 03/18/18 16:53 [facility] [id number]) OT-Instrumental Activities of Daily Living Meal Preparation Meal Preparation Comments Pt assists. Inside Channel Account Manager Inside Channel Account Manager Comments Pt assists. M6 OT- IP Functional Cognition Start: 03/18/18 16:14 Freq: Status: Active Protocol: Document 03/18/18 16:15 [facility] (Rec: 03/18/18 16:53 [facility] [id number]) Cognitive Factors Limiting Selfcare Function Cognitive Ability Level of Alertness Alert Patient Orientation Name Place Situation Attention Span Ability Capable of Focused Attention Capable of Sustained Attention Ability to Follow Commands Able to Follow One Step Commands Able to Follow Multi-Step Commands Safety Awareness Underestimates Need for Assistance Cognitive Comments Cognitive Assessment Comments To further assess cognitive needs tomorrow. Pt able to follow 2-3 step commands. Pt needs vc to take rest breaks as O2 level drops with minimal activity and even just when talking. M7 OT- IP Mobility and Balance Start: 03/18/18 16:14 Freq: Status: Active Protocol: Document 03/18/18 16:15 [facility] (Rec: 03/18/18 16:53 [facility] [id number]) OT- Bed Mobility Assessment Supine to Sit Supine to Sit Assist Standby Assistance Sit to Supine Sit to Supine Assist Standby Assistance Scooting Scooting to Edge of Bed Standby Assistance OT-Transfer Assessment Sit to and From Stand Sit to and from Stand Standby Assistance Contact Guard Assistance Transfers Transfer Ability Contact Guard Assistance Minimal Assistance Technique Transfer Destination Bed Transfer Technique Stand Step Pivot Devices Transfer Assistive Devices None Gait Belt 4 Wheeled Walker Comments Mobility Comments Pt able to take a few steps without 4ww and needing SVETLANA for balance and assist to manage tubing. Pt able to use 4WW with CGA , vc for break management and safety, however at this time more beneficial to use FWW at this time. Educated on 4WW may be benficial to pt after able to get stronger as she can rest as needed and carry items. Pt also given information regarding fall preventions. OT- Balance Assessment Sitting Balance and Reactions Static Sitting Balance Ability Normal Dynamic Sitting Balance Ability Good Standing Balance and Reactions Static Standing Balance Ability Fair M8 OT- IP Objective Assessments Start: 03/18/18 16:14 Freq: Status: Active Protocol: Document 03/18/18 16:15 [facility] (Rec: 03/18/18 16:53 [facility] [id number]) OT Gross Range of Motion Upper Extremity Range of Motion Assessment Within Functional Limits OT Strength Comments Strength Comments BUE 3+/5 M9 OT- IP Assessment and Plan Start: 03/18/18 16:14 Freq: Status: Active Protocol: Document 03/18/18 16:15 [facility] (Rec: 03/18/18 16:53 [facility] [id number]) OT Summary Assessment and Plan Potential Rehabilitation Potential Good Analytic Complexity at Evaluation Low Summary OT Impairments Strength Balance Functional Cognition Functional Mobility Grooming Dressing Toileting Bathing Toilet Transfers Shower Transfers Progress Towards Goals Slow Progress due to Medical Issues Slow Progress due to Activity Tolerance Assessment Summary Pt Low complexity and main barrier in activity tolerance, medical needs for cellulitis and abscess and looking to going to skilled rehab. Pt's O2 drops while on 3L with minimal activity to 81% and even drops while talking. Pt will greatly benefit from skilled rehab prior to going home. OT to continue to work with pt here in acute OT on energy conservation and work simplification needs, AED for ADL's, and activity tolerance with Adl needs. Goals Self-Feeding Goal Independent Grooming Goal Standby Assistance Dressing Goal Standby Assistance Toileting Goal Standby Assistance Bathing Goal Minimal Assistance Toilet Transfer Goal Standby Assistance Shower Transfer Goal Contact Guard Assistance Patient/Caregiver Education Goal Demonstrate Energy Conservation and Pacing Caregiver Independent Assisting Patient Days to Meet Goals 5 Frequency of Treatment Frequency Of Treatment Once a Day Treatment Plan OT Treatment Plan ADL Training Functional Cognition Training Functional Mobility Patient/Family Education Discharge Planning Other Treatment Recommendations and Next activity tolerance with Treatment Focus dressing Discharge Recommendations OT Discharge Recommendations SNF Rehab Home Equipment Needs defer to SNF
[2018-03-19] VITALS (9 sets, daily range): BP systolic 109–122; BP diastolic 53–81; PULSE 77–112; RESP 15–19; TEMP 36.5–36.8; O2SAT 88–96
[2018-03-19] MEDS: OXYCODONE IR 5 MG TABLET PO ×2 (00:25→10:49)
[2018-03-19] MEDS: diazePAM 5 MG TABLET PO ×2 (00:26→12:51)
[2018-03-19] MEDS: TIOTROPIUM BROMIDE 18 MCG INHALER INH (05:33)
[2018-03-19] MEDS: ALBUTEROL/IPRATROPIUM 3 ML AMPUL INH ×2 (05:33→14:35)
[2018-03-19 05:56] LABS: Add Manual Diff / Slide Review NO; Basophils Percent Auto 0.8 % (0-2); Eosinophils Percent Auto 3.5 % (2-4); Hematocrit 38.6 % (36-46); Hemoglobin 12.9 g/dL (12.0-16.0); Lymphocytes Percent Auto 25.5 % (25-40); Mean Corpuscular HGB Conc 33.4 % (30-36); Mean Corpuscular Hemoglobin 33.3 PG (26-34); Mean Corpuscular Volume 99.8 fL (80-100); Monocytes Percent Auto 7.9 % (3-14); Neutrophils Absolute Auto 5700 /uL (3000-5900); Neutrophils Percent Auto 62.3 % (50-75); Platelet Count 356 X10^3/uL (150-400); Red Blood Cell Count 3.86 X10^6/uL (4.0-5.2); Red Cell Distribution Width 12.5 % (11.6-14.8); White Blood Cell Count 9.2 X10^3/uL (4.5-11.0)
[2018-03-19 06:03] LABS: Alanine Aminotransferase 23 IU/L (9-52); Albumin 3.3 g/dL (3.5-5.0); Albumin Globulin Ratio 1.4 (1.0-2.8); Alkaline Phosphatase 66 U/L (38-126); Aspartate Aminotransferase 16 IU/L (14-36); Bilirubin Total 0.2 mg/dL (0.2-1.3); Blood Urea Nitrogen 9 mg/dL (7-17); Calcium 9.1 mg/dL (8.4-10.2); Chloride 97 mmol/L (98-107); Estimated Glomerular Filt Rate > 60.0 mL/min (>60); Globulin 2.4 g/dL (1.7-4.1); Glucose 85 mg/dL (80-110); HEMOLYSIS < 15 (0-50); Potassium 4.2 mmol/L (3.4-5.1); Sodium 141 mmol/L (137-145); Total Protein 5.7 g/dL (6.3-8.2)
[2018-03-19 06:17] LABS: Carbon Dioxide 37 mmol/L (22-32)
--- NOTE | 2018-03-19 08:09 | PM.DS.1 ---
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 Patient presented with pain and swelling of her left jaw. CT of the face revealed left facial cellulitis, small abscess (anterior left body of mandible), and osseous erosions along the anterior left and paramedial mandible concerning for osteomyelitis. Presented to the ED tachycardic. Initial labs revealed leukocytosis with normal procalcitonin level. She is known to have a intolerance to Augmentin in the form of nausea. Given documented allergy, in the ED received clindamycin 900 mg and 2L IVF. Patient is significantly obtunded at time of evaluation, received morphine (has fentanyl patch on); consequently was treated with a dose of narcan. Patient follow-up 03/14 at 01:20 The patient presented with left lower jaw pain and swelling. In November of 2017 patient had multiple teeth extracted from left lower jaw. She developed an infection in January and was treated with a 5 day course of Augmentin. Patient reports mild improvement in symptoms and resolution of the infection. She was started on oral Levaquin per recommendations of her matchbook assembler, Dr. Morris in [place]. Over the past one week she has developed significant swelling of the left face and worsening jaw pain. No exudate. At home, reports experiencing fever and chills. Associated symptoms include difficulty with swallowing and managing secretions, and decreased oral intake. Denies difficulty breathing or respiratory distress. Failed outpatient anti-misrobial therapy. Discharge Providers Date of admission: 03/13/18 22:41 Primary care physician: Jackie Yo PA-C Consults: 03/13/18 23:03 Consult to Discharge Planning Routine Comment: 03/16/18 11:42 Consult to Physician Routine Comment: Consulting Provider: Eleazar Brown Reason for consultation: Mandibular Abscess, osteomyelitis Has provider been notified: Yes 03/18/18 14:08 Consult to Occupational Therapy Evaluate & Treat Comment: Physician Instructions: Evaluate and treat Consult to Physical Therapy Evaluate & Treat Comment: Physician Instructions: Evaluate and Treat Discharge provider: Catherine Rubalcava DO Discharge Date: 03/19/18 Summary Discharge Diagnosis: LEFT MANDIBULAR ABSCESSES ; ; IV ROCEPHIN DAILY X 6 WEEKS RECOMMENDED BY SURG; POSS LEFT MANDIBULAR OSTEPMYELIIS; TX ABOVE; ; BONE SCAN TO BE CONSIDERED WELL MRI TO FURTHER EVAL IF NEEDED POSS SEPSIS POA; LEUKOCYTOSIS; 2/2 TO ABOVE; RESOLVED MACROCYTOSIS; OUTPT W/U INDICATED CHRONIC RESP FAILURE; COPD PER HX; ABOVE MODERATE TO SEVERE PROTEIN DEF MALNUTRITION; ON MEGACE POSS OPIOID DEPENDENCE; ; COUNSELING GIVEN Hospital Course: - PATIENT ADMITTED AND TREATED FOR LEFT MANDIBULAR ABSCESS - SHE WAS SEEN BY SURGERY TEAM AND I7D WAS PERFORMED - STARTED ON ABX AND THERAPY TO CONTINUE PER SURG RECOMMENDATIONS - WILL ON ON IV ROCEPHIN X 6 WEEKS POS DC - APPEARS STABLE CLINICALLY HOWEVER APPEARS DECONDITIONED PSYSICALLY AND WILL BE DC TO SNF FOR PT/OT. - REPEAT IMAGING FOR HER JAW INDICATED ONLY Status at Discharge Cognitive/behavioral status at discharge: STABLE AND AT BASELY TO SNF Functional status at discharge: independent ambulation Overall status at discharge: patient is back to baseline Time Spent with Patient Greater than 30 minutes Exam Vital Signs (past 8 hours): - 03/19/18 00:20 03/19/18 00:40 03/19/18 05:45 Temperature 97.9 F Pulse Rate 78 Respiratory Rate 17 Blood Pressure 109/53 L Pulse Oximetry 91 96 91 03/19/18 05:55 03/19/18 06:13 03/19/18 07:00 Temperature 97.7 F 98.2 F Pulse Rate 80 77 111 H Respiratory Rate 19 16 15 Blood Pressure 109/61 122/81 Pulse Oximetry 91 91 89 L Oxygen Delivery Method Nasal Cannula Oxygen Flow Rate 3 Narrative Exam Narrative: NO ACUTE DISTRESS. PATIENT IS ALERT ORIENTED X3. LEFT FACIAL SWELLING VITAL SIGNS STABLE HEAD ATRAUMATIC NORMOCEPHALIC NECK : SUPPLE WITHOUT ADENOPATHY SOME EDEMA NOTED ON THE LEFT SIDE EYE: EOMI, PERRLA, NORMAL CONJUNCTIVA CHEST: REGULAR RATE.. NO RUBS. PMI IS NON DISPLACED. NO MURMURS PULMONARY: DECREASED BS OVER THE BASES. MILD BIBASILAR CRACKLES NOTED; NO INCREASED DULLNESS TO PERCUSSION ABDOMEN: SOFT; NON TENDER; BS + IN ALL 4 QUAD EXTREMITIES:NO EDEMA.. NO CYANOSIS OR CLUBBING NOTED. NEURO: CRANIAL NERVES 2-12 GROSSLY INTACT. NO FOCAL NEUROLOGICAL DEFICIT NOTED. MSK: NORMAL RANGE OF MOTION FOR AGE. NO JOINT EFFUSION. SKIN: NORMAL FOR ETHNICITY; NO ECCHYMOSIS. NO LESION. GOOD TURGOR.; NO RASHES : NORMAL EXTERNAL GENITALIA. PSYCH : APPROPRIATE MOOD AND AFFECT. ALERT AWAKE ORIENTED X3 Objective Labs Result Diagrams: 03/19/18 05:43 03/19/18 05:43 Labs: Laboratory Results - last 24 hr 03/19/18 03/19/18 05:43 05:43 WBC 9.2 RBC 3.86 L Hgb 12.9 Hct 38.6 MCV 99.8 MCH 33.3 MCHC 33.4 RDW 12.5 Plt Count 356 Neut % (Auto) 62.3 Lymph % (Auto) 25.5 [place] % (Auto) 7.9 Eos % (Auto) 3.5 Baso % (Auto) 0.8 Neut # (Auto) 5700 Sodium 141 Potassium 4.2 Chloride 97 L Carbon Dioxide 37 H BUN 9 Creatinine 0.50 L Estimated GFR > 60.0 BUN/Creatinine Ratio 18.0 Glucose 85 Calcium 9.1 Total Bilirubin 0.2 AST 16 ALT 23 Alkaline Phosphatase 66 Total Protein 5.7 L Albumin 3.3 L Globulin 2.4 Albumin/Globulin Ratio 1.4 Discharge Plan Discharge Plan Patient Disposition: SNF Transportation: Facility vehicle Consult as needed: Dental Discharge comment: please dc to snf if bed is vailable act as stephon reg diet with ensure supplements f/u with Surg team 3-7 days I certify the postop hospital intermediate care is medically necessary on a continuing basis for any conditions for which he/ she received care during this hospitalization.: Yes The receiving facility has agreed to accept transfer and provide medical treatment.: Yes Discharge Med Rec/Prescriptions Prescriptions: New diazepam 5 mg Tablet 5 mg PO Q12HR Qty: 30 RF: 0 oxycodone 5 mg Tablet 5 mg PO Q4HR PRN (Reason: Pain, Moderate (4-6)) Qty: 20 RF: 0 tramadol 50 mg Tablet 50 mg PO TID Qty: 60 RF: 0 fentanyl 50 mcg/hr Patch 72 Hour 50 mcg Topical Q72H Qty: 10 RF: 0 ipratropium-albuterol 0.5 mg-3 mg(2.5 mg base)/3 mL Solution For Nebulization 3 ml INH RTQ6HR Qty: 30 RF: 0 L.acidoph-L.bulg-B.bif-S.therm [Bacid (L. acidophilus)] 1 billion cell- 250 mg Tablet 1 ea PO BIDWM Qty: 60 RF: 0 gabapentin [Neurontin] 300 mg Capsule 300 mg PO TID Qty: 90 RF: 0 duloxetine [Cymbalta] 30 mg Capsule,Delayed Release(Dr/Ec) 60 mg PO DAILY Qty: 60 RF: 0 polyethylene glycol 3350 17 gram Powder In Packet 17 gm PO DAILY Qty: 30 RF: 0 ceftriaxone 1 gram recon soln 1 gram IV DAILY 42 Days Qty: 42 RF: 0 metronidazole 500 mg Tablet 500 mg PO TID 42 Days Qty: 126 RF: 0 Continue albuterol sulfate [Ventolin HFA] 90 MCG/PUFF HFA aerosol inhaler 2 puff INH Q6HP PRN (Reason: Shortness Of Breath) Qty: 0 RF: 0 budesonide-formoterol [Symbicort] 160 MCG/4.5 MCG HFA aerosol inhaler 2 puff INH BID Qty: 0 RF: 0 trazodone 100 MG tablet 50 mg PO HS Qty: 0 RF: 0 diclofenac sodium 50 MG tablet,delayed release (DR/EC) 1 tab PO BID Qty: 0 RF: 0 prednisone 10 MG tablet 10 mg PO AMCC Qty: 32 RF: 0 carisoprodol 350 mg Tablet 350 mg PO QID RF: 0 albuterol sulfate 2.5 mg /3 mL (0.083 %) Solution For Nebulization 2.5 mg INHALATION Q4H PRN (Reason: Shortness Of Breath) RF: 0 diclofenac sodium [Voltaren-XR] 100 mg Tablet Extended Release 24 Hr 50 mg PO DAILY RF: 0 calcium carbonate [Calcium 500] 500 mg calcium (1,250 mg) Tablet 500 mg PO DAILY RF: 0 benzonatate 100 mg Capsule 100 mg PO QPM PRN (Reason: Cough) RF: 0 vitamin B complex [B Complex 1] Tablet 1 tab PO DAILY RF: 0 diazepam 10 mg Tablet 10 mg PO BID RF: 0 magnesium 200 mg Tablet 200 mg PO DAILY RF: 0 tiotropium bromide 18 mcg Capsule, W/Inhalation Device 1 cap INHALATION DAILY RF: 0 duloxetine [Cymbalta] 60 mg Capsule,Delayed Release(Dr/Ec) 60 mg PO DAILY RF: 0 tizanidine 4 mg Capsule 4 mg PO DIRECTED RF: 0 chlorhexidine gluconate 0.12 % Mouthwash 1 applic BUCCAL BID RF: 0 calcium carbonate-vitamin D3 500 mg(1,250mg) -400 unit Tablet 1 tab PO DAILY RF: 0 Discontinued nystatin 100,000 UNIT/1 ML suspension 5 ml PO QID Qty: 0 RF: 0 fentanyl 50 mcg/hr Patch 72 Hour 1 patch TRANSDERMAL Q72H RF: 0 azithromycin 250 mg Tablet 250 mg PO DAILY RF: 0 oxycodone-acetaminophen [Percocet] 5-325 mg Tablet 1 tab PO Q4-6H PRN (Reason: Pain (Scale Score 4-6)) RF: 0 hydrocodone-acetaminophen [[place]] 7.5-325 mg Tablet 1 tab PO BID RF: 0 levofloxacin [Levaquin] 750 mg Tablet 750 mg PO DAILY RF: 0 neomycin-polymyxin B-dexameth [Maxitrol] 3.5 mg/g-10,000 unit/g-0.1 % Ointment 1 applic ophthalmic (eye) DIRECTED RF: 0 No Action gabapentin 300 mg Capsule 300 mg PO TID RF: 0 Follow up/Referrals: Jackie Yo PA-C [Primary Care Provider] - Provider Discharge Instructions Diet: Regular Food texture: Regular Diet comment: 2 bottles of ensures plus with each meal Skin/Wound/Dressing Care Report to your healthcare provider any signs of infection, such as:: chills, fever, night sweats, increased pain, unusual drainage and unusual redness Discharge Data Primary Care Provider: Jackie Yo Attending Provider: Catherine Rubalcava Admit Date/Time: 03/13/18 22:41 Quality VTE Deep Vein Thrombosis/Pulmonary Embolism Present on Admission: No
[2018-03-19] MEDS: TRAMADOL 50 MG TABLET PO ×2 (09:15→14:31)
[2018-03-19] MEDS: fentaNYL 50 MCG/PATCH TOP (09:15)
[2018-03-19] MEDS: POLYETHYLENE GLYCOL 3350 17 GM POWD.PACK PO (09:15)
[2018-03-19] MEDS: GABAPENTIN 300 MG CAPSULE PO ×2 (09:16→14:31)
[2018-03-19] MEDS: DULOXETINE 30 MG CAPSULE 60 MG PO (09:16)
[2018-03-19] MEDS: LACTOBACILLUS ACIDOPHILUS TABLET 1 EACH PO (09:17)
[2018-03-19] MEDS: SODIUM CHLORIDE 0.9% FLUSH 10 ML IV (09:17)
[2018-03-19] MEDS: metroNIDAZOLE 500 MG TABLET PO ×2 (09:17→14:32)
--- NOTE | 2018-03-19 10:26 | PC.NURSE ---
Pt had an xxl Bm. ordered suppository for patient and mag citrate. Both were not needed as pt had the bm. Fentanyl patch changed and placed on r.chest. Pt complained of some r.sided sternal pain from coughing. She was not having any chest pain on her left side, sob, or back pain. She is resting comfortably in bed at this time.
--- NOTE | 2018-03-19 11:01 | OT.IP.TRT ---
Current Diagnoses Cellulitis of face (03/13/18) Surgery Performed Operation Date: 03/14/18 18:55 Actual Procedures p Incision and Drainage Wound/Oral - Eleazar Kevin, DMD Occupational Therapy Treatment Note M2 OT-IP Current Condition Start: 03/18/18 16:14 Freq: Status: Active Protocol: Document 03/18/18 16:15 [facility] (Rec: 03/18/18 16:53 [facility] [id number]) Occupational Therapy Current Condition Current Condition Evaluation Date 03/18/18 Treatment Diagnosis Left facial cellulitis, small abscess, weakness Diagnosis Onset Date 03/13/18 M3 OT- IP Subjective and Pain Start: 03/18/18 16:14 Freq: Status: Active Protocol: Document 03/19/18 10:49 [facility] (Rec: 03/19/18 11:01 [facility] [id number]) OT- Subjective Occupational Therapy Visit Type Type Treatment Note Visit Start Time 10:30 Visit Stop Time 10:45 Total Visit Minutes 15 Occupational Therapy Visit Comments Patient Comments Pt states in a lot of pain and wanting pain medication. Nursing notified. OT Pain Assessment Pain When Pain Assessed At Rest Pain Present Pain Present Pain Reported Location jaw Intensity 7 Scale Used Numeric (1 - 10) M4 OT- IP ADL's Start: 03/18/18 16:14 Freq: Status: Active Protocol: Document 03/18/18 16:15 [facility] (Rec: 03/18/18 16:53 [facility] [id number]) OT ADL-Toileting Comments OT Toileting Comments Pt has right counter at home to help when standing from the toilet. Pt usues the bathroom at night 1x and has O2 on from concentrator. M5 OT- IP IADL's Start: 03/18/18 16:14 Freq: Status: Active Protocol: Document 03/18/18 16:15 [facility] (Rec: 03/18/18 16:53 [facility] [id number]) OT-Instrumental Activities of Daily Living Meal Preparation Meal Preparation Comments Pt assists. Care Team Assistant Care Team Assistant Comments Pt assists. M6 OT- IP Functional Cognition Start: 03/18/18 16:14 Freq: Status: Active Protocol: Document 03/19/18 10:49 [facility] (Rec: 03/19/18 11:01 [facility] [id number]) Cognitive Factors Limiting Selfcare Function Cognitive Ability Level of Alertness Alert Patient Orientation Name Place Situation Attention Span Ability Capable of Focused Attention Capable of Sustained Attention Cognitive Comments Cognitive Assessment Comments Pt is a lot of pain and not able to concentrate well today . Pt states did not get pain medication at night. Encouraged pt to be proactive regarding her care and writing down pain medications, asking nursing to wake her up for pain medicaitons at night if needed. Went over energy conservation information with pt . present at the end of the session. O2 levels while in bed at 3L 88-91%. M7 OT- IP Mobility and Balance Start: 03/18/18 16:14 Freq: Status: Active Protocol: Document 03/18/18 16:15 [facility] (Rec: 03/18/18 16:53 [facility] [id number]) OT- Bed Mobility Assessment Supine to Sit Supine to Sit Assist Standby Assistance Sit to Supine Sit to Supine Assist Standby Assistance Scooting Scooting to Edge of Bed Standby Assistance OT-Transfer Assessment Sit to and From Stand Sit to and from Stand Standby Assistance Contact Guard Assistance Transfers Transfer Ability Contact Guard Assistance Minimal Assistance Technique Transfer Destination Bed Transfer Technique Stand Step Pivot Devices Transfer Assistive Devices None Gait Belt 4 Wheeled Walker Comments Mobility Comments Pt able to take a few steps without 4ww and needing SVETLANA for balance and assist to manage tubing. Pt able to use 4WW with CGA , vc for break management and safety, however at this time more beneficial to use FWW at this time. Educated on 4WW may be benficial to pt after able to get stronger as she can rest as needed and carry items. Pt also given information regarding fall preventions. OT- Balance Assessment Sitting Balance and Reactions Static Sitting Balance Ability Normal Dynamic Sitting Balance Ability Good Standing Balance and Reactions Static Standing Balance Ability Fair M8 OT- IP Objective Assessments Start: 03/18/18 16:14 Freq: Status: Active Protocol: Document 03/18/18 16:15 [facility] (Rec: 03/18/18 16:53 [facility] [id number]) OT Gross Range of Motion Upper Extremity Range of Motion Assessment Within Functional Limits OT Strength Comments Strength Comments BUE 3+/5 M9 OT- IP Assessment and Plan Start: 03/18/18 16:14 Freq: Status: Active Protocol: Document 03/19/18 10:49 [facility] (Rec: 03/19/18 11:01 [facility] [id number]) OT Summary Assessment and Plan Potential Rehabilitation Potential Good Analytic Complexity at Evaluation Low Summary OT Impairments Strength Balance Functional Cognition Functional Mobility Grooming Dressing Toileting Bathing Toilet Transfers Shower Transfers Progress Towards Goals Slow Progress due to Medical Issues Slow Progress due to Activity Tolerance Assessment Summary Pt will continues to benefit from short rehab stay to help increase overall activity tolerance, strength, and endurance needs prior to going home. Goals Self-Feeding Goal Independent Grooming Goal Standby Assistance Dressing Goal Standby Assistance Toileting Goal Standby Assistance Bathing Goal Minimal Assistance Toilet Transfer Goal Standby Assistance Shower Transfer Goal Contact Guard Assistance Patient/Caregiver Education Goal Demonstrate Energy Conservation and Pacing Caregiver Independent Assisting Patient Days to Meet Goals 5 Frequency of Treatment Frequency Of Treatment Once a Day Treatment Plan OT Treatment Plan ADL Training Functional Cognition Training Functional Mobility Patient/Family Education Discharge Planning Other Treatment Recommendations and Next activity tolerance with Treatment Focus dressing Discharge Recommendations OT Discharge Recommendations SNF Rehab Home Equipment Needs defer to SNF
--- NOTE | 2018-03-19 11:10 | PT.IPTN ---
Current Diagnoses Cellulitis of face (03/13/18) Surgery Performed Operation Date: 03/14/18 18:55 Actual Procedures p Incision and Drainage Wound/Oral - Eleazar Kevin, DMD Physical Therapy Treatment Note M2 PT-IP Current Condition Start: 03/18/18 16:54 Freq: NEEDED Status: Active Protocol: Document 03/18/18 14:35 [facility] (Rec: 03/18/18 17:16 [facility] [id number]) Physical Therapy Current Condition Current Condition Evaluation Date 03/18/18 Treatment Diagnosis weakness, imbalance, decreased safety awareness Weight Bearing Status Weight Bearing Status Full Weight Bearing M3 PT-IP Subjective Start: 03/18/18 16:54 Freq: NEEDED Status: Active Protocol: Document 03/19/18 11:10 [facility] (Rec: 03/19/18 11:10 [facility] [id number]) Subjective Physical Therapy Visit Type Type Patient Refusal Notes Pt states that she having a lot of pain and refused to Recommendations To Nursing Amount of Assist Needed 1 Person Assist Discharge Recommendations PT Discharge Recommendations SNF Rehab
[2018-03-19] MEDS: CEFTRIAXONE 1 GM/50 ML FROZ.PIGGY IV (12:51)
--- NOTE | 2018-03-19 15:20 | PC.NURSE ---
Addendum entered by Racheal Mistry R.N. 03/19/18 17:03: Spouse arrived at 1600 to transfer patient via private vehicle to [facility] as had been previously arranged by Case Management. Patient transferred via WC accompanied by spouse and Arden LUNA. Original Note: Joan shift note: Report given to Latisha DAVEY, receiving nurse. Questions answered, awaiting for transport from [facility] to arrive at 1600.
--- NOTE | 2018-03-19 15:36 | CM.DPC ---
DC Note: DC order for SNF. Pt/spouse remain agreeable to [facility]. Beckie alcala/[facility] did bedside assessment today and accepts pt. Spouse wants to take pt over to [facility]. Time arranged or 1600; all DC ppk, including signed med list and completed PASSR, faxed to [facility]. ZAINAB
== END 2018-03-19 16:30 | DRG 579 ==
LOC: ED 22:36 → AC 03-14 07:05 → ED 03-14 18:46
PROVIDERS: Dentist Oral and Maxillofacial Surgery; Admitting Provider Nurse Practitioner Gerontology; Emergency Provider Emergency Medicine; Family Provider Physician Assistant; PCP Physician Assistant; Visit Provider Hospitalist
DX: L03.211 Cellulitis of face (principal); E43 Unspecified severe protein-calorie malnutrition; J96.11 Chronic respiratory failure with hypoxia; Z68.1 Body mass index [BMI] 19.9 or less, adult; M87.38 Other secondary osteonecrosis, other site; F11.20 Opioid dependence, uncomplicated; M27.2 Inflammatory conditions of jaws; Z99.81 Dependence on supplemental oxygen; J44.9 Chronic obstructive pulmonary disease, unspecified; G89.29 Other chronic pain; F17.210 Nicotine dependence, cigarettes, uncomplicated; Z91.19 Patient's noncompliance with other medical treatment and regimen; B95.4 Other streptococcus as the cause of diseases classified elsewhere
CPT/HCPCS: 36415; 36569; 36591; 70491; 80048; 80053; 80202; 83605; 83735; 84100; 84145; 85025; 85651; 86140; 87040; 87070; 87075; 87077; 87186; 87205; 88305; 88311; 94640; 94760; 94762; 96361; 96365; 96375; 97162; 97165; 97530; 99284; 99285; J0295; J0330; J1100; J1170; J1450; J1885; J2270; J2310; J2405; J2704; J2920; J3010; J3370; J7613; Q9967

== ENCOUNTER → 2018-04-05 12:53 | Outpatient (RCR) | payer MEDICARE, OTHER, SELFPAY ==
[2018-03-14 04:48] VITALS: BMI 15.0
[2018-04-05] MEDS: CEFTRIAXONE 1 GM/50 ML FROZ.PIGGY IV (13:09)
[2018-04-05 13:12] VITALS: BP 110/66; PULSE 108; RESP 18; TEMP 37.6; O2SAT 97
[2018-04-06 09:21] VITALS: BP 114/66; PULSE 107; RESP 17; TEMP 36.8; O2SAT 95
[2018-04-06] MEDS: CEFTRIAXONE 1 GM/50 ML FROZ.PIGGY IV (09:21)
--- NOTE | 2018-04-06 09:53 | PC.NURSE ---
Pt arrived for infusion today. Denies any Pain, Picc to RUE flushes without difficulty, vitals taken, IV abx infusing per order. warm blanket and ice water provided. spouse at bedside.
== END ==
LOC: INF 12:53
PROVIDERS: PCP Physician Assistant; Visit Provider Hospitalist
DX: M27.2 Inflammatory conditions of jaws (principal)
CPT/HCPCS: 96365

== ENCOUNTER → 2018-04-23 10:40 | Outpatient (CLI) | payer MEDICARE, OTHER, SELFPAY ==
[2018-03-14 04:48] VITALS: BMI 15.0
--- NOTE | 2018-04-23 | DI.US.S_ITS ---
PROCEDURE: US THYROID INDICATIONS: NON TOXIC SINGLE THYROID NODULE TECHNIQUE: Real-time scanning was performed of the thyroid gland, with image documentation. COMPARISON: None. FINDINGS: Right: Thyroid lobe measures 6 x 1.8 x 1.5 cm. Left: Thyroid lobe measures 5.5 x 1.7 x 2 cm. Isthmus: 2 mm thick. Nodule number: 1 Location: Left mid to inferior thyroid medially Size: 1.2 x 1.3 x 1.1 cm. Composition: Sella, with cystic elements Echogenicity: Hypoechoic Shape: wider than tall. Margins: Smooth Echogenic foci: Punctate Total points: 7 ACR TI-RADS category: 5, highly suspicious. An ultrasound guided thyroid biopsy is recommended, by published criteria. Nodule number: 2 Location: Left mid thyroid Size: 0.7 x 0.6-0.4 cm. Composition: Predominantly solid Echogenicity: Hypoechoic Shape: wider than tall. Margins: Smooth Echogenic foci: Punctate Total points: 7 ACR TI-RADS category: 5, highly suspicious. An ultrasound followup is recommended evaluate for 5 years for a nodule of this size. Nodule number: 3 Location: Left inferior thyroid Size: 1.1 x 0.6 x 0.6 cm. Composition: Predominantly solid Echogenicity: Isoechoic Shape: wider than tall. Margins: Smooth Echogenic foci: Punctate Total points: 6 ACR TI-RADS category: 4, moderately suspicious. By published criteria, no followup is recommended for a nodule of this size. Nodule number: 4 Location: Right inferior thyroid Size: 0.4 x 0.2 cm. Composition: Solid Echogenicity: Hypoechoic Shape: wider than tall. Margins: Smooth Echogenic foci: None Total points: 4 ACR TI-RADS category: 4, moderately suspicious. By published criteria, no followup is recommended for a nodule of this size. IMPRESSION: Bilateral thyroid nodules are seen. For the dominant nodule within the left thyroid, an ultrasound guided fine needle aspiration is now recommended, by published criteria. ACR TI-RADS definitions and recommendations: TI-RADS 1 (benign): 0 points. FNA not needed. TI-RADS 2 (not suspicious): 2 points. FNA not needed. TI-RADS 3 (mildly suspicious): 3 points. * FNA if 2.5 cm or larger, follow up if 1.5 cm or larger (at 1, 3, and 5 years). TI-RADS 4 (moderately suspicious): 4-6 points. * FNA if 1.5 cm or larger, follow up if 1 cm or larger (at 1, 2, 3, and 5 years). TI-RADS 5 (highly suspicious): 7 points or more. * FNA if 1 cm or larger, follow up if 0.5 cm or larger (every year for 5 years). Dictated by: Boom Gray M.D. on 04/23/2018 at 11:41 Approved by: Boom Gray M.D. on 04/23/2018 at 11:48
== END ==
PROVIDERS: Family Provider Physician Assistant; PCP Physician Assistant; Visit Provider Student in an Organized Health Care Education/Training Program
DX: E04.2 Nontoxic multinodular goiter (principal)
CPT/HCPCS: 76536; 96365

== ENCOUNTER → 2018-05-08 09:40 | Outpatient (CLI) | payer MEDICARE, OTHER, SELFPAY ==
[2018-03-14 04:48] VITALS: BMI 15.0
--- NOTE | 2018-05-08 | DI.US.S_ITS ---
PROCEDURE: US FINE NEEDLE ASPIRATION INDICATIONS: THYROID NODULE TECHNIQUE: The indications, alternatives, benefits, risks, and complications of the procedure were explained to the patient. Written informed consent was obtained and placed in the chart. The thyroid region was examined sonographically and a site was chosen for ultrasound guided percutaneous sampling. The skin was prepared and draped in the usual fashion, and anesthetized with 1% lidocaine infiltrated from the skin down to the thyroid gland. Multiple passes were then performed, with contents emptied into an appropriate pathology specimen container. A bandage was applied to the area of access at completion of the study. COMPARISON: [facility], Thyroid Ultrasound, 04/23/2018. FINDINGS: Location(s) of lesion(s) sampled: Left infeior thyroid nodule. Arnett: 25 gauge hypodermic needles. Number of passes: 6 Medications: 1% lidocaine for local anaesthesia. Complications: None. IMPRESSION: Successful ultrasound-guided thyroid nodule fine needle aspiration, with cytology results pending. Please see chart below for management recommendations based on cytology results. [facility] ReportingRecommendationsNon-diagnostic* Repeat US-guided FNA, with on-site cytology evaluation if possible. * Repeated non-diagnostic nodules without high suspicion US features: close observation vs surgical consult. * Consider surgery if nodule has high suspicion US features, grows >20% in 2 dimensions on followup, or patient has clinical risk factors for malignancy. Benign* If nodule has high suspicion US features: repeat US and FNA within 12 months. * If nodule has low to intermediate suspicion US features: repeat US at 12-24 months. If nodule grows (20% increase in at least 2 dimensions, with minimal increase of 2 mm or >50% change in volume), or development of new suspicious US features, then repeat FNA or continue followup. * If nodule has very low suspicion US features: followup US at >24 months. Atypia of undetermined significance, follicular lesion of undetermined significanceRepeat FNA, molecular testing, followup US, or surgical consult.Follicular neoplasm, suspicious for follicular neoplasmSurgical consult; also consider molecular testing. Suspicious for malignancySurgical consult.MalignantSurgical consult. Dictated by: Aric Godoy M.D. on 05/08/2018 at 13:54 Approved by: Aric Godoy M.D. on 05/08/2018 at 13:55
--- NOTE | 2018-05-08 | PATH_ITS ---
Note [facility] Accession Number: [id number] TESTS RESULT FLAG UNITS REF RANGE LAB Clinician Provided Cytology Information No. of containers..01 ThinPrep Vial No. of containers..10 Previously Prepared Cytology Slide LEFT THYROID NODULE DIAGNOSIS: 02 LEFT THYROID NODULE NEGATIVE FOR MALIGNANT CELLS. SPECIMEN CONSISTS OF A FEW BENIGN FOLLICULAR CELLS, HEMOSIDERIN-LADEN MACROPHAGES, COLLOID, AND BLOOD. THIS PATTERN IS CONSISTENT WITH A COLLOID NODULE. Pathologist ICD10: 02 E04.1 02 Debby Nation MD, Pathologist NPI- [id number] Alexandre Koenig, Production Illustrator ([facility]) 01 30 CC, PALE YELLOW, CLEAR RECEIVED: 5 ALCOHOL FIXED AND 5 QUICK STAINED SLIDES. /VDU FLAG LEGEND: L-Low Normal,H-High Normal,LL-Alert Low,HH-Alert High <-Panic Low,>-Panic High,A-Abnormal,AA-Critical Abnormal Performed at: 01 =Z [facility] [address], [place] [address] Lanre Walton MD, 02 LWA [facility] [address] [place] [id number] Gabi Crawford MD, Performed at: 01 [facility] [address], [place], [place] [id number] MD Lanre Walton MD Phone: [phone]
== END ==
PROVIDERS: Family Provider Physician Assistant; PCP Physician Assistant; Visit Provider Physician Assistant
DX: E04.1 Nontoxic single thyroid nodule (principal)
CPT/HCPCS: 10005

== ENCOUNTER → 2018-05-16 11:30 | Oncology outpatient (ONC) | payer MEDICARE, OTHER, SELFPAY ==
[2018-03-14 04:48] VITALS: BMI 15.0
[2018-04-05 11:36] VITALS: BP 110/66; PULSE 108; RESP 18; TEMP 37.6; O2SAT 97
[2018-04-07] MEDS: CEFTRIAXONE 1 GM/50 ML FROZ.PIGGY IV (13:38)
[2018-04-07 13:43] VITALS: BP 122/74; PULSE 109; RESP 16; TEMP 36.9
[2018-04-08 11:24] VITALS: BP 154/82; PULSE 94; RESP 17; TEMP 36.6; O2SAT 92
[2018-04-08] MEDS: CEFTRIAXONE 1 GM/50 ML FROZ.PIGGY IV (11:26)
[2018-04-09] MEDS: CEFTRIAXONE 1 GM/50 ML FROZ.PIGGY IV (13:14)
[2018-04-09 13:24] VITALS: BP 106/79; PULSE 103; RESP 20; TEMP 37.2; O2SAT 94
[2018-04-10 12:51] VITALS: BP 111/70; PULSE 80; RESP 20; TEMP 36.9; O2SAT 95
[2018-04-10] MEDS: CEFTRIAXONE 1 GM/50 ML FROZ.PIGGY IV (13:01)
[2018-04-11 12:45] VITALS: BP 116/61; PULSE 63; RESP 18; TEMP 36.7; O2SAT 93
[2018-04-11] MEDS: CEFTRIAXONE 1 GM/50 ML FROZ.PIGGY IV (12:49)
[2018-04-12] MEDS: CEFTRIAXONE 1 GM/50 ML FROZ.PIGGY IV (10:54)
[2018-04-12 10:55] VITALS: BP 111/75; PULSE 115; RESP 18; TEMP 36.8; O2SAT 95
[2018-04-13] MEDS: CEFTRIAXONE 1 GM/50 ML FROZ.PIGGY IV (10:48)
[2018-04-13 10:49] VITALS: BP 101/70; PULSE 113; RESP 18; TEMP 36.8; O2SAT 93
[2018-04-14 13:46] VITALS: PULSE 102; RESP 16; TEMP 37.1; O2SAT 97
[2018-04-14] MEDS: CEFTRIAXONE 1 GM/50 ML FROZ.PIGGY IV (13:46)
[2018-04-15 13:08] VITALS: BP 103/72; PULSE 101; RESP 18; TEMP 37.2; O2SAT 96
[2018-04-15] MEDS: CEFTRIAXONE 1 GM/50 ML FROZ.PIGGY IV (13:10)
[2018-04-16] MEDS: CEFTRIAXONE 1 GM/50 ML FROZ.PIGGY IV (13:04)
[2018-04-16 13:11] VITALS: BP 106/55; PULSE 114; RESP 18; O2SAT 94
--- NOTE | 2018-04-16 13:49 | PC.NURSE ---
Per pt report, she started experiencing pain in her left jaw again. This started a couple days ago and she describes it as sharp pain intermittently- it's not constant. It comes on quickly and then goes away. She said it happens randomly and doesn't seem to be associated with any activity she's doing (such as eating or drinking). Dr Brown's office staff notified. They will notify Dr Brown. Pt has appt on Apr 29. Requested office staff to call patient directly to coordinate if she needs to come in sooner than the .
[2018-04-17] MEDS: CEFTRIAXONE 1 GM/50 ML FROZ.PIGGY IV (12:58)
[2018-04-17 13:09] VITALS: BP 113/69; PULSE 104; RESP 18; O2SAT 93
[2018-04-18] MEDS: CEFTRIAXONE 1 GM/50 ML FROZ.PIGGY IV (12:46)
[2018-04-18 12:51] VITALS: BP 96/63; PULSE 103; RESP 18; TEMP 37.2
[2018-04-19] MEDS: CEFTRIAXONE 1 GM/50 ML FROZ.PIGGY IV (10:47)
[2018-04-19 10:52] VITALS: BP 150/82; PULSE 99; RESP 16
[2018-04-20] MEDS: CEFTRIAXONE 1 GM/50 ML FROZ.PIGGY IV (10:47)
[2018-04-20 10:50] VITALS: BP 113/70; PULSE 101; RESP 18; TEMP 37.4
[2018-04-21 13:08] VITALS: BP 158/75; PULSE 111; RESP 16; TEMP 37.4
[2018-04-21] MEDS: CEFTRIAXONE 1 GM/50 ML FROZ.PIGGY IV (13:10)
[2018-04-22] MEDS: CEFTRIAXONE 1 GM/50 ML FROZ.PIGGY IV (13:00)
[2018-04-22 13:05] VITALS: BP 112/77; PULSE 99; RESP 19; TEMP 37.2
[2018-04-23 13:16] VITALS: BP 104/47; PULSE 116; RESP 16; TEMP 37.1; O2SAT 94
[2018-04-23] MEDS: CEFTRIAXONE 1 GM/50 ML FROZ.PIGGY IV (13:23)
[2018-04-24] MEDS: CEFTRIAXONE 1 GM/50 ML FROZ.PIGGY IV (12:54)
[2018-04-24 13:00] VITALS: BP 130/65; PULSE 99; RESP 20; TEMP 36.7; O2SAT 96
[2018-04-25 13:03] VITALS: BP 113/71; PULSE 97; RESP 18; TEMP 37.1; O2SAT 95
[2018-04-25] MEDS: CEFTRIAXONE 1 GM/50 ML FROZ.PIGGY IV (13:05)
--- NOTE | 2018-04-25 14:20 | ONC.SCHED ---
Spoke iwsam Clark [facility] to clarify order as there were two dates written on the order we received. Per her instructions the 42 doses started on 03/20/19 being the first does and that the 42doses counted the doses she received while at [facility]. I counted 42 days twice starting on the with Marsha observing and that would make her last does on SaturdayApr 30. I asked Chandan to fax over the order she had that stated the 42 doses started on 03/20/19. She said she would and I gave her our fax number. I reported the information to Marsha.
[2018-04-26 10:51] VITALS: BP 105/70; PULSE 102; RESP 18; TEMP 36.8; O2SAT 92
[2018-04-26] MEDS: CEFTRIAXONE 1 GM/50 ML FROZ.PIGGY IV (10:55)
[2018-04-27] MEDS: CEFTRIAXONE 1 GM/50 ML FROZ.PIGGY IV (10:59)
[2018-04-27 11:00] VITALS: BP 104/69; PULSE 109; RESP 18; TEMP 36.8; O2SAT 93
[2018-04-28] MEDS: CEFTRIAXONE 1 GM/50 ML FROZ.PIGGY IV (13:12)
[2018-04-28 13:39] VITALS: BP 107/68; PULSE 96; RESP 18; TEMP 36.9; O2SAT 94
--- NOTE | 2018-04-28 14:04 | PC.NURSE ---
Pt completed her 42 days of antibiotics on 04/29. Labs were also done on that day as well. Please issue an order for when you would like us to remove her PICC line. Addison Larson, Triage Nurse.
[2018-04-29] MEDS: CEFTRIAXONE 1 GM/50 ML FROZ.PIGGY IV (13:00)
[2018-04-29 13:03] VITALS: BP 125/73; PULSE 85; RESP 16; TEMP 37.1
[2018-05-02 13:15] VITALS: BP 120/55; PULSE 80; RESP 18; TEMP 36.5
[2018-05-16 12:11] VITALS: BP 139/61; PULSE 96; RESP 18; TEMP 37.4; O2SAT 92
--- NOTE | 2018-05-16 13:34 | PC.NURSE ---
Patient here for removal of PICC on left upper arm. PICC removed with patient lying supine and performing valsalva breath. Catheter tip intact. Insertion site dressed with triple antibiotic on gauze covered with tegaderm. Patient remained for 30 min. in supine position, procedure tolerated without problem.
== END ==
PROVIDERS: Family Provider Physician Assistant; PCP Physician Assistant; Visit Provider Physician Assistant
DX: M27.2 Inflammatory conditions of jaws (principal)
CPT/HCPCS: 96365

== ENCOUNTER → 2018-07-01 17:38 | Outpatient (CLI) | payer MEDICARE, OTHER, SELFPAY ==
[2018-03-14 04:48] VITALS: BMI 15.0
--- NOTE | 2018-07-01 | DI.MRI.S_ITS ---
PROCEDURE: MR LUMBAR SPINE WO CON INDICATIONS: LUMBAR SPINE PAIN TECHNIQUE: Noncontrast sagittal T1 spin echo and T2 fast echo, sagittal STIR, axial T1 and T2 fast spin echo through the lumbar spine. In cases with scoliosis, additional coronal T2 fast spin echo may be performed. COMPARISON: [facility], MR, L-SPINE WITHOUT CONTRAST, 06/28/2016, 18:45. [facility], MR, L-SPINE WITHOUT CONTRAST, 06/27/2015, 8:32. FINDINGS: Image quality: Excellent. Alignment and Curvature: There is normal bony alignment. Bone Marrow: Marrow is of normal overall signal. No acute vertebral body compression fractures. Spinal Cord: Conus medullaris terminates at the L1 level. Visualized cord demonstrates normal signal and size. Paraspinous Soft Tissues: No paravertebral masses. L1-L2: Normal appearance. L2-L3: Normal appearance. L3-L4: Normal appearance except for a minimal degree of degenerative disc height reduction and desiccation and facet osteoarthritis there is mild to moderate in severity but without significant spinal or foraminal stenosis. L4-L5: At this level the degenerative disc disease is slightly more prominent than the comparison study from June of 2016, with a mild degree of degenerative disc height reduction and disc desiccation, and also a mild posterior transverse broad-based disc bulge. This effaces CSF at the anterior thecal sac only to a slight degree, and facet osteoarthritis is moderate in severity at this level, symmetric. Secondary mild foraminal stenosis appears present, very slightly more prominent on the left than the right, with potential for bilateral L4 nerve root impingement left greater than right. L5-S1: Degenerative disc disease at this level is moderately severe, with disc height reduction and desiccation to a slightly greater degree than at the same area on the comparison from June of 2016. A slight posterior disc bulge at the midline is present. Facet osteoarthritis is mild. This appears slightly greater on the left than the right and there is a mild degree of left foraminal stenosis with potential for impingement on the course of the left L5 nerve root. IMPRESSION: There is a mild degree of interval worsening of degenerative disc disease and facet osteoarthritis at L4-5 and L5-S1 when compared to the prior MRI from June of 2016. There is no significant spinal stenosis or evidence of disc herniation but there is both near-symmetric and asymmetric foraminal stenosis at these levels with potential for nerve root impingement on the course of the L4 and L5 nerve roots as discussed. Dictated by: Manny Larsen M.D. on 07/03/2018 at 10:23 Approved by: Manny Larsen M.D. on 07/03/2018 at 10:30
== END ==
PROVIDERS: Family Provider Physician Assistant; PCP Physician Assistant; Visit Provider Orthopaedic Surgery Orthopaedic Surgery of the Spine
DX: M54.5 Low back pain (principal); M51.36 Other intervertebral disc degeneration, lumbar region; M51.37 Other intervertebral disc degeneration, lumbosacral region; M47.816 Spondylosis without myelopathy or radiculopathy, lumbar region; M47.817 Spondylosis without myelopathy or radiculopathy, lumbosacral region
CPT/HCPCS: 72148

== ENCOUNTER 2018-07-21 09:12 | Inpatient (IN) | payer MEDICARE, OTHER, SELFPAY ==
[2018-03-14 04:48] VITALS: BMI 15.0
[2018-07-18 08:37] VITALS: BMI 15.2
[2018-07-21] VITALS (15 sets, daily range): BP systolic 98–135; BP diastolic 56–79; PULSE 60–112; RESP 12–20; TEMP 36.5–37.5; O2SAT 92–100; BMI 15.2
--- NOTE | 2018-07-21 | DI.RAD.S_ITS ---
PROCEDURE: XR LUMBAR SPINE 2-3V INDICATIONS: L5-S1 TLIF TECHNIQUE: 2 intraoperative fluoroscopic views of the lumbar spine were acquired. COMPARISON: [facility], , -SPINE 2-3 VIEWS, 05/30/2015, 13:09. FINDINGS: Intraoperative fluoroscopic images of lower lumbar spine shows transpedicular fusion at L5-S1 level with intervertebral spacer placement. IMPRESSION: Fluoroscopy guidance was provided intraoperatively for L5-S1 fusion. Dictated by: Alex Mishra M.D. on 07/21/2018 at 15:49 Approved by: Alex Mishra M.D. on 07/21/2018 at 15:55
[2018-07-21] MEDS: LACTATED RINGERS 1,000 ML 42 ML IV ×2 (09:53→14:39)
[2018-07-21] MEDS: OXYCODONE/ACETAMINOPHEN 5/325 TABLET 1 TAB PO (10:56)
--- NOTE | 2018-07-21 12:45 | PM.PREOP ---
Pre-operative Note Interval Note History & Physical reviewed/Exam performed by Physician: Yes Changes to H&P: No
[2018-07-21] MEDS: CEFAZOLIN 2 GM/100 ML FROZ.PIGGY IV (13:10)
--- NOTE | 2018-07-21 13:38 | SUR.OPER ---
Prone on spine table, head in foam head support, padded chest and pelvic supports, gel pad at knees, lower legs supported by pillows; nipples, genitalia and toes free of pressure, arms secured on foam padded arm boards at <90 degrees abduction. Tape over blanket at thigh secured to table.
[2018-07-21] MEDS: ACETAMINOPHEN IV 1,000 MG/100 ML VIAL 400 MG IV (13:40)
[2018-07-21] MEDS: BUPIVACAINE LIPOSOME 266 MG/20 ML VIAL INJ (13:50)
[2018-07-21] MEDS: BUPIVACAINE 0.25% W/ EPI 30 ML VIAL INJ (13:51)
[2018-07-21] MEDS: HYDROMORPHONE 2 MG INJ 0.25 MG IV ×10 (16:05→17:00)
--- NOTE | 2018-07-21 16:10 | P.OP_ITS ---
Operative Date/Time/Diagnoses Date of procedure: 07/21/18 Time of procedure: 12:10 Pre-op diagnosis: 1. L4-5, L5-S1 spinal stenosis 2. L4-5, L5-S1 spondylosis with radiculopathy 3. Hx of L5-S1 laminectomy and epidural scarring Post-op diagnosis: same Procedure & Clinicians Procedure: 1. L5-S1 Postero-lateral and posterior interbody fusion 2. L5-S1 interbody cage placement. 3. L5-S1 decompressive laminectomy with bilateral facetecomies 4. L5-S1 Posterior non-segmental instrumentation 5. L4-5 hemilaminectomy 6. Morrison of bone marrow from iliac crest 7. Utilization of microsurgical technique and operating microscope Same procedure as scheduled: Yes Indications: Patient has been having chronic back pain and worsening lumbar radiculopathy. Patient had previous laminectomy surgery with progressively worsening back pain and leg pain and weakness over the last year. Patient failed multiple conservative management with worsening pain weakness and numbness in her lower extremity. Patient has been having difficulty performing activity of daily living. After discussing risks benefits of treatment options, patient elected proceed with surgery. Surgeon: Chioma Ames Meter Repairer Helper: Amy Horne Click Yes if Unassisted: No Anesthesia Type: General Operative Notes Closure Type: primary Specimen(s): none sent Prosthetic devices, grafts, tissues, transplants, or devices: Globus Revolve screws, Rise cage Estimated Blood Loss (mL): 50 Blood products transfused: none Procedure in detail: Patient was seen in the preoperative area. Risks and benefits of the surgery was discussed with the patient. Informed consent was obtained from the patient and placed in the chart. Surgical site was marked. Patient was taken to the operative room. General anesthesia was administered. Prophylactic antibiotic was given to the patient less than 30 min before the incision was made. Patient was placed into a prone position on the Jamar table. Patient's back was then prepped and draped in the sterile fashion. Time- out was performed at this time. Using AP and lateral C-arm imaging the interval between L4-5 L5-S1 was identified and marked on patient's back. A 2 inch incision 2 in from midline was made on the right side first. The fascia was incised in line with skin incision. Globus MARS retractors was placed inside the incision and docked onto the L5 lamina. Using microsurgical technique and operating microscope, a L5 laminectomy and L5-S1 facetectomy was performed using a Kerrison rongeur. The disc space at L5-S1 was identified. And a total diskectomy was performed at L5- S1 level. The endplates were decorticated using a rasp and shaver. The total diskectomy and decortication was performed at L5-S1 level in order to to accomplish a L5-S1 fusion. The local bone from the laminectomy and facetectomy was saved for local bone grafting. After the total diskectomy and decortication was completed, Bio4 bone graft material was combined with local bone that was harvested earlier. At this time, a separate skin is incision was made over the iliac crest. A Jamshidi needle was inserted into the iliac crest through a separate skin incision. 5 cc of bone marrow aspiration was obtained through the separate skin incision using a Jamshidi needle from the iliac crest. The bone marrow aspiration was combined with local bone and the Bio4 bone grafting material. The bone grafting material was placed into the L5-S1 interbody space along with a expandable cage. The cage was expanded to its maximum height using the torque limiting screwdriver. At this time the MARS retractor was redirected over the L4 lamina. Using maciel rosurgical technique and operating microscope, a L4-5 heminectomy was performed using the Kerrison rongeur. The ligamentum flavum was also resected at the side of the hemilaminectomy for further decompression of the epidural space. At this time a mirror image incision was made on the left side. The fascia was incised in line with the skin incision. Globus MARS retractor was inserted and docked onto the L5-S1 posterolateral gutter. Using the power drill, posterior- lateral decortication was performed at L5-S1 level until bleeding cortical bone was identified. The remaining bone grafting material was placed into the L5-S1 posterior lateral gutter he order to accomplish posterolateral fusion at the L5- S1 level. Using the double C-arm technique, pedicle screws were placed into the L5-S1 pedicles bilaterally. This was done by placing the Jamshidi needle into the pedicles, then placing the guidewires over the Jamshidi needle, and finally placing the cannulated screws over the guidewires bilaterally. After the pedicle screws were placed, 2 titanium rods was locked into the heads of the pedicle screws using locking caps and torque limiting screwdriver. After all the hardware was placed, and confirmed with AP and lateral C-arm imaging, the wound was then irrigated with sterile normal saline and packed with Ray-Nancy gauze for 3 min to accomplish hemostasis. After the gauze was removed th e deep fascia was closed with #1 Vicryl suture. The subcutaneous layer was closed with 2-0 Vicryl. The skin was closed with skin sylvie. Patient tolerated the procedure well. There were no complications. Complications: none Condition: stable Disposition: PACU Plan for aftercare: Admit to inpatient hospittal
[2018-07-21] MEDS: fentaNYL 100 MCG/2 ML INJ 50 MCG IV ×2 (16:30→16:35)
[2018-07-21] MEDS: SODIUM CHLORIDE 0.9% 1,000 ML 100 ML IV (17:56)
[2018-07-21] MEDS: OXYCODONE IR 10 MG TABLET PO ×2 (17:58→22:22)
[2018-07-21] MEDS: HYDROMORPHONE 1 MG INJ 0.5 MG IV (18:21)
[2018-07-21] MEDS: ALBUTEROL/IPRATROPIUM 3 ML AMPUL INH (20:07)
[2018-07-21] MEDS: CLINDAMYCIN 600 MG/50 ML PIGGYBACK 50 MG IV (20:19)
[2018-07-21] MEDS: GABAPENTIN 300 MG CAPSULE PO (20:20)
[2018-07-21] MEDS: SENNOSIDES 8.6 MG TABLET 17.2 MG PO (20:20)
[2018-07-21] MEDS: CHLORHEXIDINE GLUCONATE 473 ML MOUTHWASH PO (20:20)
[2018-07-21] MEDS: DOCUSATE 100 MG CAPSULE PO (20:20)
[2018-07-21] MEDS: TRAZODONE 100 MG TABLET PO (20:21)
[2018-07-21] MEDS: CARISOPRODOL 350 MG TABLET PO (20:27)
[2018-07-21] MEDS: Budesonide-Formoterol [Symbicort] 2 PUFF 2 EACH INH (20:28)
[2018-07-21] MEDS: hydrOXYzine pamoate 25 MG CAPSULE PO (22:22)
--- NOTE | 2018-07-21 23:31 | PC.ADMIT ---
Admission Note: 1725- Pt arrived to floor. Pt given call rouse and oriented to room and hospital procedures. Pt at bedside. helped with admission questions. pt complains of significant pain. discussed med options. plan created will continue. pt has not been out of bed. Pt used bedpan. Pt drinking well. no N/v. Pt turned to sides. propped with pillows. and turned back to back. Pt reports she has had a significant decrease in food intake d/t not having lower dentures. only able to eat soft foods. given yogurt. did bring in some protein shakes. helping pt. has water at bedside. Pt belongings and call light within reach. will continue to monitor.
[2018-07-22] VITALS (10 sets, daily range): BP systolic 77–141; BP diastolic 43–62; PULSE 70–103; RESP 14–18; TEMP 36.7–37.4; O2SAT 91–98; BMI 15.2
--- NOTE | 2018-07-22 00:51 | PC.NURSE ---
2300- Pt POD#0 Lami & Fusion w/ iliac harvest site. Pain control has been an issue for this pt; NS running as ordered into L forearm IV. Pt's own Fentanyl patch on L chest, MD aware. Surgical site covered w/ gauze & medipore. 2L O2 via NC w/ sats in low 90's. Pt using bedpan in bed w/ good urine output noted. 0100- Turned pt onto R side 2PA in bed. Still very stiff and hesitant to move. 0130- Pt using bedpan reporting 6/10 surgical pain. BP slightly low, 5mg Oxycodone given. Will cont to monitor BP. 0310- BP remains stable; additional 5mg of PO oxy given for surgical pain. 10mg total in 3 hours, as ordered. Pt placed NC in mouth as she is a mouth breather when she sleeps. Denies any other needs.
[2018-07-22] MEDS: OXYCODONE IR 5 MG TABLET PO ×3 (01:26→12:16)
[2018-07-22] MEDS: hydrOXYzine pamoate 25 MG CAPSULE PO (03:09)
[2018-07-22] MEDS: CLINDAMYCIN 600 MG/50 ML PIGGYBACK 50 MG IV (04:52)
[2018-07-22] MEDS: SODIUM CHLORIDE 0.9% 1,000 ML 100 ML IV (04:52)
[2018-07-22 06:01] LABS: Hematocrit 36.9 % (36-46); Hemoglobin 12.2 g/dL (12.0-16.0)
[2018-07-22] MEDS: TIOTROPIUM BROMIDE 18 MCG INHALER INH (08:09)
[2018-07-22] MEDS: ALBUTEROL/IPRATROPIUM 3 ML AMPUL INH (08:09)
[2018-07-22] MEDS: Budesonide-Formoterol [Symbicort] 2 PUFF 2 EACH INH ×2 (08:10→19:23)
[2018-07-22] MEDS: OXYCODONE IR 10 MG TABLET PO ×3 (08:37→19:22)
[2018-07-22] MEDS: CALCIUM CARBONATE 500 MG TAB 1000 MG PO (08:39)
[2018-07-22] MEDS: DOCUSATE 100 MG CAPSULE PO ×2 (08:40→19:22)
[2018-07-22] MEDS: GABAPENTIN 300 MG CAPSULE PO ×3 (08:40→19:22)
[2018-07-22] MEDS: BENZONATATE 100 MG CAPSULE PO (08:40)
[2018-07-22] MEDS: VITAMIN B COMPLEX 1 CAPSULE 1 CAP PO (08:40)
[2018-07-22] MEDS: DULOXETINE 30 MG CAPSULE 60 MG PO (08:41)
--- NOTE | 2018-07-22 08:47 | PM.PNPO.1 ---
Subjective Date Patient Seen: 07/22/18 Time Patient Seen: 08:47 Interval history: Hospital day 2, postop day 1 following L4-5 hemilaminectomy; L5-S1 TLIF, cage, posterior screw fixation by Dr. Ames. Patient remained stable postoperatively. She has not been out of bed yet. No PT yet. Pain controlled with oxycodone. She states she does note a little bit of numbness to the left thigh. Exam Vital Signs (past 8 hours): - 07/22/18 03:08 07/22/18 08:17 Temperature 98.2 F Pulse Rate 78 87 Respiratory Rate 16 16 Blood Pressure 100/54 L Pulse Oximetry 96 94 Oxygen Delivery Method Nasal Cannula Oxygen Flow Rate 2 Narrative Exam Narrative: Alert, oriented no acute distress lying in bed. legs. No calf pain or swelling. Pulses symmetrical. Good sensation to touch the lower legs. Good strength on foot dorsiflexion plantar flexion. Objective Labs Result Diagrams: 07/22/18 05:25 Labs: Laboratory Results - last 24 hr 07/22/18 05:25 Hgb 12.2 Hct 36.9 Assessment & Plan Post-op Postoperative Procedures Operation Date: 07/21/18 09:15 Actual Procedures Side Surgeon p L4-5 Hemilaminectomy, L5-S1 TLIF w/Posterior Instru. Chioma Ames MD Plan: Patient will work with PT today. Observe for further improvement in pain and function. anticipate discharge home in the next 1-2 days is stable. Quality VTE Deep Vein Thrombosis/Pulmonary Embolism Present on Admission: No
--- NOTE | 2018-07-22 09:54 | PT.IIE ---
Current Diagnoses Other spondylosis with radiculopathy, lumbar region (07/21/18) Spinal stenosis, lumbar region without neurogenic claudication (07/21/18) Other specified postprocedural states (07/21/18) Surgery Performed Operation Date: 07/21/18 09:15 Actual Procedures p L4-5 Hemilaminectomy, L5-S1 TLIF w/Posterior Instru. - Chioma Ames MD Surgical History (Last Updated 07/18/18 @ 09:27 by Natali Torres RN) History of lumbar surgery (Acute ~1989) Hx of appendectomy (Acute) Hx of fusion of cervical spine (Acute) Hx of hand surgery (Acute) Status post tonsillectomy and adenoidectomy Status post vaginal hysterectomy Medical History (Last Updated 07/18/18 @ 09:27 by Natali Torres RN) BCC (basal cell carcinoma) (Acute ~2000) Benign neoplasm of clitoris (Acute ~03/23/16) Chronic pain (Acute) Compression fracture of T8 vertebra (Acute ~2011) History of pneumonia (Acute) Osteoarthritis (Acute) Osteomyelitis of jaw (Acute 03/13/18) Osteoporosis (Acute) Requires supplemental oxygen (Acute) Thyroid nodule (Acute) COPD (chronic obstructive pulmonary disease) (Acute) Physical Therapy Inpatient Evaluation/Re-Eval M1 PT/OT-IP Prior Functional Status Start: 07/22/18 13:14 Freq: NEEDED Status: Active Protocol: Document 07/22/18 09:54 AB (Rec: 07/22/18 13:37 AB [id number]) Medical Review Prior Functional Status Medical History Reviewed Yes Communication able to make needs known Mobility and Gait pt stated that she is independent with all mobilities and ambulation without AD Social History Household Members spouse Living Arrangements House Number of Floors (Floors) One Floor Number of Stairs To Enter/Railing? 1 step to enter from the garage Home Environment High Toilet Walk in Shower Built-In Shower Seat Home Equipment Four Wheel Walker Employment Status Retired M2 PT-IP Current Condition Start: 07/22/18 13:14 Freq: NEEDED Status: Active Protocol: Document 07/22/18 09:54 AB (Rec: 07/22/18 13:37 AB [id number]) Physical Therapy Current Condition Current Condition Evaluation Date 07/22/18 Treatment Diagnosis s/p L5S1 fusion/lami; L4-5 hemilami; difficulty in walking Onset Date 07/21/18 Precautions Lumbar Precautions Log Roll No Twisting Limit Bending Lifting Restriction of 10 lbs Gait Belt above Incisional Area M3 PT-IP Subjective Start: 07/22/18 13:14 Freq: NEEDED Status: Active Protocol: Document 07/22/18 09:54 AB (Rec: 07/22/18 13:37 AB [id number]) Subjective Physical Therapy Visit Type Type Initial Evaluation Visit Start Time 09:54 Visit Stop Time 10:41 Total Visit Minutes 47 Number of SIEBEL SOLUTION ARCHITECT Visits 0 Physical Therapy Visit Comments Patient Comments pt agreeable to do PT Therapy Pain Assessment Pain When Pain Assessed At Rest Pain Present Pain Present Pain Reported Location Lower Back Intensity 9 Scale Used Numeric (1 - 10) Pain Behaviors Guarding Restlessness Wincing Pain Management Techniques Re-positioning Timing of Activity with Medications M4 PT-IP Mobility and Gait Start: 07/22/18 13:14 Freq: NEEDED Status: Active Protocol: Document 07/22/18 09:54 AB (Rec: 07/22/18 13:37 AB [id number]) PT-Bed Mobility Assessment Rolling Type of Rolling Log Rolling Level of Assist Maximal Assistance 1 Person Assistance PT-Transfer Assessment Sit to and From Stand Sit to and from Stand Moderate Assistance 1 Person Assistance Use of Upper Extremities Equipment Transfer Assistive Device Gait Belt Front Wheeled Walker Orthotic/Prosthetic Devices or Brace: No Transfers Transfer Destination Chair Transfer Technique pt ambulated using FWW Transfer Ability Level of Assist Moderate Assistance Comments Mobility Comments supine BP: 94/53 c/o slight dizziness upon sitting: BP: 85 /56; informed nurse. pt wants to get up. monitored BP. BP after ~ 2 min of sitting on EOB: 92/53 pt completed sit to stand : BP in standin/ 59 BP at end of tx session: 98/60 Gait Assessment Gait Gait Assistance Required: Moderate Assistance Distance (Feet) 15 Able to Maintain Weight Bearing Status Yes During Gait Assistive Devices Assistive Device Gait Belt Front Wheeled Walker Orthotic/Prosthetic Devices or Brace: No Gait Deviations General Gait Pattern Antalgic Decreased Stride Length Decreased Feet Clearance Factors Limiting Gait Function Factors Limiting Gait Function Decreased Activity Tolerance Decreased Strength Limited Range of Motion Pain Poor Balance PT-Balance Assessment Sitting Balance and Reactions Static Sitting Balance Ability Good Dynamic Sitting Balance Ability Fair Standing Balance and Reactions Static Standing Balance Ability Fair Dynamic Standing Balance Ability Fair Device Used FWW M5 PT-IP Objective Assessments Start: 07/22/18 13:14 Freq: NEEDED Status: Active Protocol: Document 07/22/18 09:54 AB (Rec: 07/22/18 13:37 AB [id number]) Orientation Orientation/Cognition Level of Alertness Alert Orientation Name Age Birthday Month Date Year Day of Week Place Situation Language Function Ability No Deficits Noted Safety Awareness Understands Safety Issues Memory Description Short Term Impaired Gross Range of Motion Lower Extremity ROM Assessment Within Functional Limits Strength Lower Extremity Strength Assessment Bilaterally Impaired Comments Strength Comments RLE: 4-/5 LLE 3+/5 Sensation Assessment Sensation Gross Sensation WNL M6 PT-IP Treatment Start: 07/22/18 13:14 Freq: NEEDED Status: Active Protocol: Document 07/22/18 09:54 AB (Rec: 07/22/18 13:37 AB [id number]) Physical Therapy Treatment Education Education Provided Precautions Weight Bearing Status Post-Op Packet Safety M7 PT-IP Assessment and Plan Start: 07/22/18 13:14 Freq: NEEDED Status: Active Protocol: Document 07/22/18 09:54 AB (Rec: 07/22/18 13:37 AB [id number]) PT Summary Assessment and Plan Potential Rehabilitation Potential Good Status of Condition at Evaluation Evolving Summary Impairments Pain ROM Strength Balance Coordination Sensation Tone Cognition Bed Mobility Transfers Gait Activity Tolerance Assessment Summary pt requiring mod A with mobility and c/o increase pain . pt also has low BP and unable to tolerate much activity. d/c plan depending on progress. will conduct caregiver training when appropriate an [employer] Plan stair climbing training. will continue to assess. Goals Bed Mobility Goal Standby Assistance Transfer Goal Standby Assistance Front Wheeled Walker Four Wheeled Walker Gait Goal Standby Assistance Front Wheel Walker Four Wheel Walker Gait Distance 150 Other Goals up/down 1 step using FWW/4WW CGA Frequency of Treatment Frequency Of Treatment Twice a Day Treatment Plan Physical Therapy Treatment Plan Bed Mobility Training Transfer Training Gait Training Therapeutic Exercise Balance Retraining Post Op Education Discharge Planning Hot or Cold Pack Neuromuscular Re-ed Coordination Retraining Manual Therapy Other Recommendations and Next Treatment ambulation, bed mobility, Focus caregiver training Recommendations To Nursing Amount of Assist Needed 1 Person Assist Discharge Recommendations PT Discharge Recommendations Home with 24/7 Assist Home Health SNF Rehab Other Discharge Recommendations depending on progress: SNF vs home with 24/7 and homehealth PT Equipment Needed for Home Before FWW: if not safe with 4WW Discharge
[2018-07-22] MEDS: SODIUM CHLORIDE 0.9% 500 ML IV (11:51)
[2018-07-22] MEDS: CHLORHEXIDINE GLUCONATE 473 ML MOUTHWASH PO ×2 (11:52→19:23)
--- NOTE | 2018-07-22 11:55 | PC.NURSE ---
[address] Ames office, spoke w/Ramiro Hendrix. Updated PA on the Pts low b/p. Ht rate stable in the 80s. afebrile. Pt c/o some dizziness/hazy while getting up w/PT. orders for 500ml NS bolus, started.
--- NOTE | 2018-07-22 15:00 | PT.IPTN ---
Current Diagnoses Other spondylosis with radiculopathy, lumbar region (07/21/18) Spinal stenosis, lumbar region without neurogenic claudication (07/21/18) Other specified postprocedural states (07/21/18) Surgery Performed Operation Date: 07/21/18 09:15 Actual Procedures p L4-5 Hemilaminectomy, L5-S1 TLIF w/Posterior Instru. - Chioma Ames MD Physical Therapy Treatment Note M2 PT-IP Current Condition Start: 07/22/18 13:14 Freq: NEEDED Status: Active Protocol: Document 07/22/18 09:54 AB (Rec: 07/22/18 13:37 AB [id number]) Physical Therapy Current Condition Current Condition Evaluation Date 07/22/18 Treatment Diagnosis s/p L5S1 fusion/lami; L4-5 hemilami; difficulty in walking Onset Date 07/21/18 Precautions Lumbar Precautions Log Roll No Twisting Limit Bending Lifting Restriction of 10 lbs Gait Belt above Incisional Area M3 PT-IP Subjective Start: 07/22/18 13:14 Freq: NEEDED Status: Active Protocol: Document 07/22/18 15:00 AB (Rec: 07/22/18 16:49 AB [id number]) Subjective Physical Therapy Visit Type Type Treatment Note Visit Start Time 15:00 Visit Stop Time 15:40 Total Visit Minutes 40 Number of ADMINISTRATION SPECIALIST Visits 0 Physical Therapy Visit Comments Patient Comments pt agreeable to do PT Therapy Pain Assessment Pain When Pain Assessed At Rest Pain Present Pain Present Pain Reported Location Lower Back Intensity 7 Scale Used Numeric (1 - 10) Pain Behaviors Guarding Holding Area Wincing Pain Management Techniques Re-positioning Timing of Activity with Medications M4 PT-IP Mobility and Gait Start: 07/22/18 13:14 Freq: NEEDED Status: Active Protocol: Document 07/22/18 15:00 AB (Rec: 07/22/18 16:49 AB [id number]) PT-Bed Mobility Assessment Rolling Type of Rolling Log Rolling Level of Assist Moderate Assistance 1 Person Assistance Supine to Sit Supine to Sit Moderate Assistance Bedrails Sit to Supine Sit to Supine Moderate Assistance Bedrails PT-Transfer Assessment Sit to and From Stand Sit to and from Stand Moderate Assistance Use of Upper Extremities Equipment Transfer Assistive Device Gait Belt Front Wheeled Walker Orthotic/Prosthetic Devices or Brace: No Transfers Transfer Destination Bedside Commode Transfer Technique Stand Step Pivot Transfer Ability Level of Assist Moderate Assistance 1 Person Assistance Use of Upper Extremities Comments Mobility Comments BP in supine: 91/51. pt requesting to use the toilet but stated that she does not think she can walk to the toilet due to urgency. positioned bedside commode next to bed. pt completed supine to sit log roll mod A and max cues. BP sitting on EOB: 113/70. pt completed sit to stand mod A and completed stand pivot transfer using FWW mod A and cues. pt returned to sit on EOB afterwards mod A and cues. pt agreed to do more ambulation afterwards but requested to go back to bed after. pt completed sit to supine log roll mod A and cues. positioned in bed. call light and table placed within reach . Gait Assessment Gait Gait Assistance Required: Moderate Assistance Distance (Feet) 30 Able to Maintain Weight Bearing Status Yes During Gait Assistive Devices Assistive Device Gait Belt Front Wheeled Walker Orthotic/Prosthetic Devices or Brace: No Gait Deviations General Gait Pattern Antalgic Decreased Stride Length Decreased Feet Clearance Factors Limiting Gait Function Factors Limiting Gait Function Decreased Activity Tolerance Decreased Strength Limited Range of Motion Pain Poor Balance M5 PT-IP Objective Assessments Start: 07/22/18 13:14 Freq: NEEDED Status: Active Protocol: Document 07/22/18 09:54 AB (Rec: 07/22/18 13:37 AB [id number]) Orientation Orientation/Cognition Level of Alertness Alert Orientation Name Age Birthday Month Date Year Day of Week Place Situation Language Function Ability No Deficits Noted Safety Awareness Understands Safety Issues Memory Description Short Term Impaired Gross Range of Motion Lower Extremity ROM Assessment Within Functional Limits Strength Lower Extremity Strength Assessment Bilaterally Impaired Comments Strength Comments RLE: 4-/5 LLE 3+/5 Sensation Assessment Sensation Gross Sensation WNL M6 PT-IP Treatment Start: 07/22/18 13:14 Freq: NEEDED Status: Active Protocol: Document 07/22/18 15:00 AB (Rec: 07/22/18 16:49 AB [id number]) Physical Therapy Treatment Education Education Provided Precautions Safety M7 PT-IP Assessment and Plan Start: 07/22/18 13:14 Freq: NEEDED Status: Active Protocol: Document 07/22/18 15:00 AB (Rec: 07/22/18 16:49 AB [id number]) PT Summary Assessment and Plan Potential Rehabilitation Potential Good Summary Impairments Pain ROM Strength Balance Coordination Sensation Tone Cognition Bed Mobility Transfers Gait Activity Tolerance Progress Towards Goals Slow Progress due to Pain Slow Progress due to Activity Tolerance Assessment Summary pt progressing slowly but tolerate more activity this afternoon. continues to require one person assist but seemed steadier with standing and ambulation compared to this morning. will conduct caregiver training and stair climbing training prior to d/c home. Goals Bed Mobility Goal Standby Assistance Transfer Goal Standby Assistance Front Wheeled Walker Four Wheeled Walker Gait Goal Standby Assistance Front Wheel Walker Four Wheel Walker Gait Distance 150 Other Goals up/down 1 step using FWW/4WW CGA Frequency of Treatment Frequency Of Treatment Twice a Day Treatment Plan Physical Therapy Treatment Plan Bed Mobility Training Transfer Training Gait Training Therapeutic Exercise Balance Retraining Post Op Education Discharge Planning Hot or Cold Pack Neuromuscular Re-ed Coordination Retraining Manual Therapy Other Recommendations and Next Treatment ambulation, bed mobility, Focus caregiver training Recommendations To Nursing Amount of Assist Needed 1 Person Assist Discharge Recommendations PT Discharge Recommendations Home with / Assist Home Health Equipment Needed for Home Before FWW: if not safe with 4WW Discharge
[2018-07-22] MEDS: ALBUTEROL 2.5 MG/3 ML NEB (ADULT) INH (15:39)
--- NOTE | 2018-07-22 16:13 | OT.IP.EVAL ---
Current Diagnoses Other spondylosis with radiculopathy, lumbar region (07/21/18) Spinal stenosis, lumbar region without neurogenic claudication (07/21/18) Other specified postprocedural states (07/21/18) Surgery Performed Operation Date: 07/21/18 09:15 Actual Procedures p L4-5 Hemilaminectomy, L5-S1 TLIF w/Posterior Instru. - Chioma Ames MD Past Medical History (Last Updated 07/18/18 @ 09:27 by Natali Torres RN) BCC (basal cell carcinoma) (Acute ~2000) Benign neoplasm of clitoris (Acute ~03/23/16) Chronic pain (Acute) Compression fracture of T8 vertebra (Acute ~2011) History of pneumonia (Acute) Osteoarthritis (Acute) Osteomyelitis of jaw (Acute 03/13/18) Osteoporosis (Acute) Requires supplemental oxygen (Acute) Thyroid nodule (Acute) COPD (chronic obstructive pulmonary disease) (Acute) Surgical History (Last Updated 07/18/18 @ 09:27 by Natali Torres RN) History of lumbar surgery (Acute ~1989) Hx of appendectomy (Acute) Hx of fusion of cervical spine (Acute) Hx of hand surgery (Acute) Status post tonsillectomy and adenoidectomy Status post vaginal hysterectomy Occupational Therapy Inpatient Evaluation/Re-Eval M1 PT/OT-IP Prior Functional Status Start: 07/22/18 13:14 Freq: NEEDED Status: Active Protocol: Document 07/22/18 16:13 ADRIANA (Rec: 07/22/18 16:27 [facility] [id number]) Medical Review Prior Functional Status Medical History Reviewed Yes Communication WNL Mobility and Gait Pt states she was independent without a device Activities of Daily Living and IADL's Pt states she was independent with all self care, and shares meal preparation with as they eat different foods. does shopping and they have executive housekeeper 2x month. Prior Functional Level (Other details) Pt drives when feeling well. Social History Household Members spouse Living Arrangements House Number of Floors (Floors) One Floor Number of Stairs To Enter/Railing? 1 step to enter from the garage Home Environment High Toilet Walk in Shower Built-In Shower Seat Home Equipment Four Wheel Walker Employment Status Retired Additional Social History Comment supportive can provide 24 hr assist at d/c M2 OT-IP Current Condition Start: 07/22/18 16:15 Freq: Status: Active Protocol: Document 07/22/18 16:13 PJM (Rec: 07/22/18 16:27 [facility] [id number]) Occupational Therapy Current Condition Current Condition Evaluation Date 07/22/18 Treatment Diagnosis decreased self care, functional mobility s/p L5-S1 TLIF Diagnosis Onset Date 07/21/18 Post Operative Precautions Lumbar Precautions Log Roll No Twisting Limit Bending Lifting Restriction of 10 lbs Gait Belt above Incisional Area M3 OT- IP Subjective and Pain Start: 07/22/18 16:15 Freq: Status: Active Protocol: Document 07/22/18 16:13 PJM (Rec: 07/22/18 16:27 [facility] [id number]) OT- Subjective Occupational Therapy Visit Type Type Initial Evaluation Visit Start Time 15:45 Visit Stop Time 16:13 Total Visit Minutes 28 Notes Pt declined any OOB activity this session due to fatigue and decreased pain control. Occupational Therapy Visit Comments Patient Comments to have less pain Patient/Caregiver Goals to have less pain during everyday activities OT Pain Assessment Pain When Pain Assessed After Treatment Pain Present Pain Present Pain Reported Location Lower Back Intensity 8 Scale Used Numeric (1 - 10) Description Aching Acute Pain Behaviors Facial Grimacing Wincing Management Techniques Apply Cold Distraction Re-positioning Timing of Activity with Medications M4 OT- IP ADL's Start: 07/22/18 16:15 Freq: Status: Active Protocol: Document 07/22/18 16:13 PJM (Rec: 07/22/18 16:27 [facility] [id number]) OT [id number] General Evaluation Self-Feeding Ability Independent OT ADL-Grooming General Evaluation Grooming Ability Standby Assistance Comments OT Grooming Comments after set up in bed OT ADL-Oral Care General Eval Oral Care Ability Standby Assistance Comments Oral Care Comments after set up in bed OT ADL-Dressing General Eval Upper Body Dressing Ability Independent Lower Body Dressing Ability Maximum Assistance Areas Needing Assistance Underpants/Brief Pants/Shorts Socks Shoes Comments OT Dressing Comments Began education re: body mechanics and use of sourcing internship, sock aid and long shoe horn for lower body dressing. OT ADL-Toileting Comments OT Toileting Comments did not occur this session; to be assessed OT ADL-Bathing Comments OT Bathing Comments to be assessed as activity tolerance improves M5 OT- IP IADL's Start: 07/22/18 16:15 Freq: Status: Active Protocol: Document 07/22/18 16:13 PJM (Rec: 07/22/18 16:27 [facility] [id number]) OT-Instrumental Activities of Daily Living Deficits IADL Deficits Identified Deficits Home Safety Awareness Awareness of Need for Assistance at Home Good Awareness Ability to Problem Solve Emergency Able to Problem Solve Situations Medication Management Medication Management No Deficits Identified Money Management Money Management No Deficits Identified Meal Preparation Meal Preparation Caregiver Provides Assist Meal Preparation Comments can assist until pt able Turbine Operator Turbine Operator Caregiver Provides Assist Turbine Operator Comments can assist until pt able Driving Driving Caregiver Provides Assist Driving Comments can assist until pt able M6 OT- IP Functional Cognition Start: 07/22/18 16:15 Freq: Status: Active Protocol: Document 07/22/18 16:13 PJM (Rec: 07/22/18 16:27 [facility] [id number]) Cognitive Factors Limiting Selfcare Function Cognitive Ability Level of Alertness Alert Patient Orientation Name Age Birthday Month Date Year Day of Week Place Situation Attention Span Ability Capable of Focused Attention Ability to Follow Commands Able to Follow One Step Commands Memory Description No Deficits Noted Cognitive Comments Cognitive Assessment Comments Pt distracted by high pain level this session. OT- Vision and Hearing OT- Hearing Assessment OT- Hearing Assessment WFL OT- Vision Assessment Visual Acuity WFL Glasses All The Time Vision Assessment Comments Pt denies any recent vision changes. M7 OT- IP Mobility and Balance Start: 07/22/18 16:15 Freq: Status: Active Protocol: Document 07/22/18 16:13 PJM (Rec: 07/22/18 16:27 [facility] [id number]) OT- Bed Mobility Assessment Rolling Type of Rolling Roll to Right Level of Assistance Standby Assistance Scooting Scooting to Edge of Bed Standby Assistance OT-Transfer Assessment Comments Mobility Comments see P.T. notes OT- Gait Assessment Comments Gait Ability Comments see P.T. notes OT- Balance Assessment Comments Other Balance Tests/Deviations/Treatment see P.T. notes : M8 OT- IP Objective Assessments Start: 07/22/18 16:15 Freq: Status: Active Protocol: Document 07/22/18 16:13 PJM (Rec: 07/22/18 16:27 [facility] [id number]) OT Gross Range of Motion Upper Extremity Range of Motion Assessment Within Functional Limits OT Strength Upper Extremity Strength Assessment Within Functional Limits OT- Coordination Assessment Comments Coordination Comments BUE WFL OT-Muscle Tone Assessment Muscle Tone WNL Yes OT Sensation Assessment Comments Summary Comments pt denies deficits in BUE's Edema Edema Absent M9 OT- IP Assessment and Plan Start: 07/22/18 16:15 Freq: Status: Active Protocol: Document 07/22/18 16:13 PJM (Rec: 07/22/18 16:27 PJM [id number]) OT Summary Assessment and Plan Potential Rehabilitation Potential Good Analytic Complexity at Evaluation Low Summary OT Impairments Pain Functional Mobility Grooming Dressing Toileting Bathing Toilet Transfers Shower Transfers Assessment Summary Low complexity OT assessment completed with emphasis on self care skills within lumbar spine precautions. Began education re: body mechanics and adapted ADL techniques. Pt participation limited by high pain level this session. Pt currently has performance deficits in all functional mobility/transfers, standing grooming, lower body dressing, bathing and toileting. Pt moving well and anticipate she will progress well once pain controlled. Plan 1-2 additional OT visits to address goals below. Anticipate pt will d/c home with 24 hr assist from if she continues to progress here. Goals Grooming Goal Independent Dressing Goal Independent Long Handled Shoe Horn Physiognomist Sock Aid Toileting Goal Independent Bathing Goal Standby Assistance Toilet Transfer Goal Independent Shower Transfer Goal Standby Assistance Patient/Caregiver Education Goal Demonstrate Post-Op Precautions Demonstrate Energy Conservation and Pacing Caregiver Independent Assisting Patient Days to Meet Goals 2 Frequency of Treatment Frequency Of Treatment Once a Day Treatment Plan OT Treatment Plan ADL Training Functional Mobility Vision Retraining Discharge Planning Discharge Recommendations OT Discharge Recommendations Home with 24/ Assist Home Equipment Needs sourcing internship, sock aid, long shoe horn, long bath sponge
--- NOTE | 2018-07-22 16:31 | CM.DANOTE ---
Discharge Planning/Care Management DCP: assessment: case received, EMR reviewed and discussed in Team Rounds. Pt is a 67 year old female who admitted yesterday for a planned spinal surgery: surgeon: Dr. Ames PCP: Jackie Yo Payer: Medicare and [employer] Admission status: confirmed INPT/UR RN Lanre Pt had not yet worked with PT at time of Rounds. OT and PT were ordered. Review of OT notes now show that pt is doing well and on track for her pre-op plan of home with her 's 29/10 support. Due to caseload triage will defer to DCP team to continue the DCP process and check in with pt to confirm her plans. Pt is expected to be here a couple more days. CM Discharge Assessment Start: 07/22/18 16:29 Freq: Status: Active Protocol: Document 07/22/18 16:29 ITV (Rec: 07/22/18 16:31 ITV [id number]) Discharge Planning Assessment Advance Directives? Yes Advance Directives on File No History Provided By Medical Record Prior Living Arrangements House Household Members spouse Independent with ADL's Yes Is patient alert and oriented? Yes Review Status In Process Next Review Type Continued Stay Review Pre-Anesthesia Assessment Start: 07/18/18 08:37 Freq: Status: Active Protocol: Document 07/18/18 08:37 CAB (Rec: 07/18/18 09:53 CAB [id number]) Pre-Anesthesia Assessment Patient Information Reviewed Via Phone Assessment Assessment Completed With Patient Diagnostic Results BMP/CMP CBC EKG Comment Outside labs/ECG 07/08/18 Primary Care Provider Jackie Yo Medical Clearance Received Yes Seen Specialist in Last 12 Months Yes Specialist Seen Oral surgeon Orthopedist Product Support Rep Other Comment PCP clearance to folder/dos. 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 Yes Does patient have TEMPLE/SOB Yes: r/t COPD Hx Sleep Apnea No Comment 02 w/sleep Currently Taking a Beta Cristiane No Can You Climb a Flight of Stairs Without No: r/t COPD SOB Hx Chest Pain No Hx SOB Yes: r/t COPD Hx Syncope or Dizziness No Anti-Coagulant Therapy No Has a Homogenizer Operator No Cardiac Testing No Hx Pacemaker/ICD No Pacemaker Rep Required? No Cardiac Clearance Received Not Applicable Diet Type At Home Other dysphagia No Comment Soft diet only due to no bottom teeth Urinary Catheter Present No Hx Urinary Self Catheterization No Diabetes No Patient No Lactating No Hx Drug Resistant Organism Yes: MSSA pneumona 05/01/15 Presence of External or Internal Medical No Devices Have you traveled outside the [facility] in the last 30 days? Marital Status Lives With spouse Prior Living Arrangements House Number of Floors (Floors) One Floor Support System Friend(s) Sibling(s) Spouse Does the Patient Have Assistance After Yes Surgery Patient Discharge Plan Description Return Home Comment Pt advised 1-2 day length of stay per surgeon's office Feels Safe in Current Environment Yes Been Physically Hurt or Threatened By a No Person in Current Environment Do you have thoughts of harming yourself None or others? Are you currently considering suicide? No Do you have a plan to hurt yourself or No Plan others? Do You Have Any Spiritual Beliefs That No May Affect Your HC Choices? Do You Have Any Cultural Practices That No May Affect Your HC Choices? Who Can We Speak to About Patient's Care Family, friends Identifying Code for Release of Patient [place] Information Health Care Proxy/Next of Kin Dominic () Health Care Proxy Emergency Contact Name Dominic () Emergency Contact Advance Directives? Yes Advance Directives on File No Requested Patient Bring Advanced Yes Directives DOS Power of Neon Sign Erector Yes Power of Neon Sign Erector Name Dominic () Power of Neon Sign Erector PAC Instructions Durable medical equipment Medications to take/avoid Nasal antibiotic No ETOH/petroleum product on skin DOS NPO Pre-surgical wash Sturdy shoes/comfortable clothes Do not bring valuables and remove jewelry
[2018-07-22] MEDS: SENNOSIDES 8.6 MG TABLET 17.2 MG PO (19:22)
[2018-07-22] MEDS: TRAZODONE 100 MG TABLET PO (19:22)
[2018-07-22] MEDS: CARISOPRODOL 350 MG TABLET PO (19:55)
--- NOTE | 2018-07-22 20:16 | PC.NURSE ---
Evening notes: Es resting in bed tonight, reports better pain control after taking oxycodone 10mg vs the 5mg. VS are stable, RA oxygen mid-90's while awake. Just now asked for my trazadone, I medicated her a bit early with her 2100 scheduled meds as she requests to go to sleep. Assisted her to BSC, she voided. Back to bed, good logrolling technique demonstrated, needs very little cues, movement is very slow & steady. Assisted her to lay on right side, with waffle cushion under her lower back/buttocks. IV to left forearm is leaking, site appears bruised, when I tried to flush she winced and some saline ran out of IV cannula at insertion site. Appears partially infiltrated, IV removed per protocol, pressure drsg applied. She reports no other needs or concerns tonight. 2L O2 NC placed for sleep, she reports using O2 NC 2L at home normally just at night. Call button in reach, instructed to call for any needs tonight, she agrees to this plan. Alarm active for safety.
[2018-07-23] VITALS (8 sets, daily range): BP systolic 94–120; BP diastolic 53–78; PULSE 82–121; RESP 16–102; TEMP 36.9–37.4; O2SAT 91–99
--- NOTE | 2018-07-23 01:21 | PC.NURSE ---
0000- Pt POD#2 Lami +Tlift w/ dressing on surgical site CDI. Pt has had bouts of hypotension, monitoring this closely w/ use of pain meds. Moving 1PA w/ FWW to BSC at night. Wearing O2 w/ sats in low 90's. Pt lost IV access during previous shift, per protocol no IV required. Pt denies any needs at this time, asking for sleep. 0300- Pt up to BSC 1PA w/ FWW; denies any pain at this time.
[2018-07-23] MEDS: OXYCODONE IR 10 MG TABLET PO ×5 (07:49→20:27)
[2018-07-23] MEDS: CALCIUM CARBONATE 500 MG TAB 1000 MG PO (07:50)
[2018-07-23] MEDS: VITAMIN B COMPLEX 1 CAPSULE 1 CAP PO (07:50)
[2018-07-23] MEDS: DULOXETINE 30 MG CAPSULE 60 MG PO (07:50)
[2018-07-23] MEDS: DOCUSATE 100 MG CAPSULE PO ×2 (07:51→20:02)
[2018-07-23] MEDS: GABAPENTIN 300 MG CAPSULE PO ×3 (07:51→20:02)
[2018-07-23] MEDS: CHLORHEXIDINE GLUCONATE 473 ML MOUTHWASH PO ×2 (07:52→20:01)
[2018-07-23] MEDS: CARISOPRODOL 350 MG TABLET PO ×2 (08:10→19:42)
[2018-07-23] MEDS: TIOTROPIUM BROMIDE 18 MCG INHALER INH (09:00)
[2018-07-23] MEDS: Budesonide-Formoterol [Symbicort] 2 PUFF 2 EACH INH ×2 (09:00→18:42)
[2018-07-23] MEDS: ALBUTEROL 2.5 MG/3 ML NEB (ADULT) INH ×2 (09:01→18:37)
--- NOTE | 2018-07-23 10:30 | PM.PNPO.1 ---
Subjective Date Patient Seen: 07/23/18 Time Patient Seen: 10:30 Interval history: Hospital day 3, postop day 2 following L4-5 hemilaminectomy, L5-S1 TLIF, cage, posterior screw fixation. patient remained stable postoperatively. Progressing slowly with physical therapy. Oxycodone 10 mg for pain. patient is not feeling she is ready for discharge home today. Exam Vital Signs (past 8 hours): - 07/23/18 05:30 07/23/18 09:00 07/23/18 09:07 Temperature 98.5 F 99 F Pulse Rate 82 92 H 104 H Respiratory Rate 16 16 16 Blood Pressure 115/53 L 118/59 L Pulse Oximetry 93 99 91 Oxygen Delivery Method Room Air Oxygen Flow Rate 0 Narrative Exam Narrative: Alert, oriented no acute distress resting in bed. back. Lumbar dressing is dry with small areas shaft 0 in. No signs of infection or inflammation. Legs. No calf pain or swelling. Pulses symmetrical. Good sensation to touch the lower legs. Objective Labs Result Diagrams: 07/22/18 05:25 Assessment & Plan Post-op Postoperative Procedures Operation Date: 07/21/18 09:15 Actual Procedures Side Surgeon p L4-5 Hemilaminectomy, L5-S1 TLIF w/Posterior Instru. Chioma Ames MD Plan: Will have patient work with physical therapy more today. Observe for further improvement in pain and function. Anticipate discharge home tomorrow if she is stable. Quality VTE Deep Vein Thrombosis/Pulmonary Embolism Present on Admission: No
--- NOTE | 2018-07-23 10:55 | PT.IPTN ---
Current Diagnoses Other spondylosis with radiculopathy, lumbar region (07/21/18) Spinal stenosis, lumbar region without neurogenic claudication (07/21/18) Other specified postprocedural states (07/21/18) Surgery Performed Operation Date: 07/21/18 09:15 Actual Procedures p L4-5 Hemilaminectomy, L5-S1 TLIF w/Posterior Instru. - Chioma Ames MD Physical Therapy Treatment Note M2 PT-IP Current Condition Start: 07/22/18 13:14 Freq: NEEDED Status: Active Protocol: Document 07/22/18 09:54 AB (Rec: 07/22/18 13:37 AB [id number]) Physical Therapy Current Condition Current Condition Evaluation Date 07/22/18 Treatment Diagnosis s/p L5S1 fusion/lami; L4-5 hemilami; difficulty in walking Onset Date 07/21/18 Precautions Lumbar Precautions Log Roll No Twisting Limit Bending Lifting Restriction of 10 lbs Gait Belt above Incisional Area M3 PT-IP Subjective Start: 07/22/18 13:14 Freq: NEEDED Status: Active Protocol: Document 07/23/18 10:55 GGD (Rec: 07/23/18 13:41 GGD [email or web address]) Subjective Physical Therapy Visit Type Type Treatment Note Visit Start Time 10:30 Visit Stop Time 10:55 Total Visit Minutes 25 Number of SET OFF BLOCKER Visits 1 Physical Therapy Visit Comments Patient Comments Pt states she needs to use the bathroom. Therapy Pain Assessment Pain When Pain Assessed At Rest Pain Present Pain Present Pain Reported Location Lower Back Intensity 7 Scale Used Numeric (1 - 10) Pain Management Techniques Re-positioning Timing of Activity with Medications M4 PT-IP Mobility and Gait Start: 07/22/18 13:14 Freq: NEEDED Status: Active Protocol: Document 07/23/18 10:55 GGD (Rec: 07/23/18 13:41 GGD [id number]) PT-Bed Mobility Assessment Rolling Type of Rolling Log Rolling Level of Assist Minimal Assistance 1 Person Assistance Supine to Sit Supine to Sit Minimal Assistance 1 Person Assistance Bedrails Scooting Scooting to Edge of Bed Contact Guard Assistance PT-Transfer Assessment Sit to and From Stand Sit to and from Stand Contact Guard Assistance 1 Person Assistance Use of Upper Extremities Equipment Transfer Assistive Device Gait Belt 4 Wheeled Walker Orthotic/Prosthetic Devices or Brace: No Transfers Transfer Destination Chair Toilet Transfer Ability Level of Assist Minimal Assistance 1 Person Assistance 2 Person Assistance Comments Mobility Comments BP in supine 103/53, in sitting 102/56, after treatment 101/63. Gait Assessment Gait Gait Assistance Required: Contact Guard Assist Distance (Feet) 50 Able to Maintain Weight Bearing Status Yes During Gait Assistive Devices Assistive Device Gait Belt 4 Wheeled Walker Orthotic/Prosthetic Devices or Brace: No Gait Deviations General Gait Pattern Antalgic Decreased Stride Length Decreased Feet Clearance Factors Limiting Gait Function Factors Limiting Gait Function Decreased Activity Tolerance Decreased Strength Limited Range of Motion Pain Poor Balance M5 PT-IP Objective Assessments Start: 07/22/18 13:14 Freq: NEEDED Status: Active Protocol: Document 07/22/18 09:54 AB (Rec: 07/22/18 13:37 AB [id number]) Orientation Orientation/Cognition Level of Alertness Alert Orientation Name Age Birthday Month Date Year Day of Week Place Situation Language Function Ability No Deficits Noted Safety Awareness Understands Safety Issues Memory Description Short Term Impaired Gross Range of Motion Lower Extremity ROM Assessment Within Functional Limits Strength Lower Extremity Strength Assessment Bilaterally Impaired Comments Strength Comments RLE: 4-/5 LLE 3+/5 Sensation Assessment Sensation Gross Sensation WNL M6 PT-IP Treatment Start: 07/22/18 13:14 Freq: NEEDED Status: Active Protocol: Document 07/23/18 10:55 GGD (Rec: 07/23/18 13:41 GGD [id number]) Physical Therapy Treatment Education Education Provided Precautions Safety M7 PT-IP Assessment and Plan Start: 07/22/18 13:14 Freq: NEEDED Status: Active Protocol: Document 07/23/18 10:55 GGD (Rec: 07/23/18 13:41 GGD [email or web address]) PT Summary Assessment and Plan Summary Assessment Summary Pt progressing with mobility. She had increase in pain with bed mobility and needed rail assist. She was safe with gait with 4WW. Frequency of Treatment Frequency Of Treatment Twice a Day Treatment Plan Physical Therapy Treatment Plan Bed Mobility Training Transfer Training Gait Training Therapeutic Exercise Balance Retraining Post Op Education Discharge Planning Hot or Cold Pack Neuromuscular Re-ed Coordination Retraining Manual Therapy Other Recommendations and Next Treatment ambulation, bed mobility, Focus caregiver training Recommendations To Nursing Amount of Assist Needed 1 Person Assist Discharge Recommendations PT Discharge Recommendations Home with Assistance
[2018-07-23] MEDS: fentaNYL 50 MCG/PATCH TOP (11:29)
--- NOTE | 2018-07-23 12:09 | PC.NURSE ---
SHIFT NOTE: TACHYCARDIA: PATIENT HAD ASYMPTOMATIC TACHYCARDIA HIGH 120 TO 130. HRR. STATES SHE ALWAYS HAS TACHYCARDIA AFTER HER MORNING INHALERS THAT LASTS A COUPLE OF HRS. STILL, IN LIGHT OF HYPOTENSION YESTERDAY, AND RA SAT 88-89%, (HX OF COPD AND CURRENT SMOKER, CHRONIC HM O2 USE AT NIGHT), NOTIFIED ORTHO PAFIDE, IN CASE OF NEW ORDERS TO R/O PE ETC. PATIENT IS COMPLETELY ASYMPTOMATIC, NO CP, NO SOB, EVEN AFTER AMBULATION W/ PHYSICAL THERAPY. PA LOOKED UP PRE-OP VS. STATES, WAS TACHY AT 117 AT THAT TIME. CONSIDERED A BASELINE. NO FURTHER INTERVENTIONS NEEDED AT THIS TIME. PAIN: PATIENT RATES PAIN 8/10 THIS AM AFTER MEDICATED. POSITIONED ON LEFT SIDELYING, ICE PACK AND WARM BLANKET. PATIENT THEN ABLE TO DOZE. STATED HER BASELINE CHRONIC PAIN IS 6-7/10. FENT PATCH REPLACED, OLD ONE WASTED. NEW ONE PLACED TO RIGHT CHEST.
--- NOTE | 2018-07-23 13:41 | OT.IP.TRT ---
Current Diagnoses Other spondylosis with radiculopathy, lumbar region (07/21/18) Spinal stenosis, lumbar region without neurogenic claudication (07/21/18) Other specified postprocedural states (07/21/18) Surgery Performed Operation Date: 07/21/18 09:15 Actual Procedures p L4-5 Hemilaminectomy, L5-S1 TLIF w/Posterior Instru. - Chioma mAes MD Occupational Therapy Treatment Note M2 OT-IP Current Condition Start: 07/22/18 16:15 Freq: Status: Active Protocol: Document 07/22/18 16:13 PJM (Rec: 07/22/18 16:27 PJM [id number]) Occupational Therapy Current Condition Current Condition Evaluation Date 07/22/18 Treatment Diagnosis decreased self care, functional mobility s/p L5-S1 TLIF Diagnosis Onset Date 07/21/18 Post Operative Precautions Lumbar Precautions Log Roll No Twisting Limit Bending Lifting Restriction of 10 lbs Gait Belt above Incisional Area M3 OT- IP Subjective and Pain Start: 07/22/18 16:15 Freq: Status: Active Protocol: Document 07/23/18 13:41 PJM (Rec: 07/23/18 15:07 PJM [id number]) OT- Subjective Occupational Therapy Visit Type Type Treatment Note Visit Start Time 13:55 Visit Stop Time 14:41 Total Visit Minutes 46 Notes Pt awake in bed; agreeable to tx. Occupational Therapy Visit Comments Patient Comments I am feeling a little better now. Patient/Caregiver Goals to take a shower tomorrow and then go home OT Pain Assessment Pain When Pain Assessed After Treatment Pain Present Pain Present Pain Reported Location Lower Back Intensity 6 Scale Used 6 is pt's baseline level of pain prior to admit Description Aching Acute M4 OT- IP ADL's Start: 07/22/18 16:15 Freq: Status: Active Protocol: Document 07/23/18 13:41 PJM (Rec: 07/23/18 15:07 PJM [id number]) OT [id number] General Evaluation Self-Feeding Ability Independent OT ADL-Grooming General Evaluation Grooming Ability Standby Assistance Comments OT Grooming Comments standing at sink after education re: body mechanics; pt demonstrating generalized shakiness which she states is usual for her OT ADL-Oral Care General Eval Oral Care Ability Standby Assistance Comments Oral Care Comments standing at sink after education re: body mechanics OT ADL-Dressing General Eval Upper Body Dressing Ability Standby Assistance Lower Body Dressing Ability Standby Assistance Areas Needing Assistance Button-Up Shirt/Blouse Underpants/Brief Socks Assistive Devices Dressing Assistive Devices Coin Dealer Comments OT Dressing Comments Pt states her is obtaining divorce mediator for her. She declines sock aid and able to don socks with SBA by placing foot on opposite knee. can also assist with socks PRN. OT ADL-Toileting General Evaluation Toileting Ability Independent Comments OT Toileting Comments provided education re: body mechanics. pt does not need toilet paper aid OT ADL-Bathing Comments OT Bathing Comments to be assessed, long bath sponge provided at pt request M5 OT- IP IADL's Start: 07/22/18 16:15 Freq: Status: Active Protocol: Document 07/22/18 16:13 PJM (Rec: 07/22/18 16:27 PJ [id number]) OT-Instrumental Activities of Daily Living Deficits IADL Deficits Identified Deficits Home Safety Awareness Awareness of Need for Assistance at Home Good Awareness Ability to Problem Solve Emergency Able to Problem Solve Situations Medication Management Medication Management No Deficits Identified Money Management Money Management No Deficits Identified Meal Preparation Meal Preparation Caregiver Provides Assist Meal Preparation Comments can assist until pt able Rest Room Attendant Rest Room Attendant Caregiver Provides Assist Rest Room Attendant Comments can assist until pt able Driving Driving Caregiver Provides Assist Driving Comments can assist until pt able M7 OT- IP Mobility and Balance Start: 07/22/18 16:15 Freq: Status: Active Protocol: Document 07/23/18 13:41 PJM (Rec: 07/23/18 15:07 PJ [id number]) OT- Bed Mobility Assessment Rolling Type of Rolling Roll to Right Level of Assistance Standby Assistance Supine to Sit Supine to Sit Assist Standby Assistance Scooting Scooting to Edge of Bed Standby Assistance OT-Transfer Assessment Sit to and From Stand Sit to and from Stand Contact Guard Assistance 1 Person Assistance Transfers Transfer Ability Standby Assistance 1 Person Assistance Technique Transfer Destination Chair Toilet Transfer Technique Stand Step Pivot Devices Transfer Assistive Devices Gait Belt Front Wheeled Walker Comments Mobility Comments pt generally shaky which she states is her baseline OT- Gait Assessment Gait Gait Assistance Required: Contact Guard Assist Distance (Feet) 25 Assistive Devices Assistive Device Gait Belt Front Wheeled Walker Comments Gait Ability Comments moves slowy, no LOB noted OT- Balance Assessment Sitting Balance and Reactions Static Sitting Balance Ability Good Dynamic Sitting Balance Ability Good Standing Balance and Reactions Static Standing Balance Ability Fair Dynamic Standing Balance Ability Fair M9 OT- IP Assessment and Plan Start: 07/22/18 16:15 Freq: Status: Active Protocol: Document 07/23/18 13:41 PJM (Rec: 07/23/18 15:07 PJM [id number]) OT Summary Assessment and Plan Potential Rehabilitation Potential Good Summary OT Impairments Pain Balance Functional Mobility Bathing Progress Towards Goals Progressing Toward Goals Assessment Summary Pt has better pain control and increased independence with functional mobility/transfers and self care skills today, as well as increased overall activity tolerance. Plan 1 additional OT visit tomorrow for shower and further self care skills training. Anticipate pt will be able to d/c home tomorrow with assist from her sister (as her is working), if she continues to improve and clears P.T. Goals Self-Feeding Goal Independent Grooming Goal Independent Dressing Goal Independent Long Handled Shoe [place] Coin Dealer Sock Aid Toileting Goal Independent Bathing Goal Standby Assistance Toilet Transfer Goal Independent Shower Transfer Goal Standby Assistance Patient/Caregiver Education Goal Demonstrate Post-Op Precautions Demonstrate Energy Conservation and Pacing Caregiver Independent Assisting Patient Days to Meet Goals 1 Frequency of Treatment Frequency Of Treatment Once a Day Treatment Plan OT Treatment Plan ADL Training Functional Mobility Vision Retraining Discharge Planning Discharge Recommendations OT Discharge Recommendations Home with 29/10 Assist Home Equipment Needs to obtain divorce mediator, long bath sponge provided
--- NOTE | 2018-07-23 13:50 | PT.IPTN ---
Current Diagnoses Other spondylosis with radiculopathy, lumbar region (07/21/18) Spinal stenosis, lumbar region without neurogenic claudication (07/21/18) Other specified postprocedural states (07/21/18) Surgery Performed Operation Date: 07/21/18 09:15 Actual Procedures p L4-5 Hemilaminectomy, L5-S1 TLIF w/Posterior Instru. - Chioma Ames MD Physical Therapy Treatment Note M2 PT-IP Current Condition Start: 07/22/18 13:14 Freq: NEEDED Status: Active Protocol: Document 07/22/18 09:54 AB (Rec: 07/22/18 13:37 AB [id number]) Physical Therapy Current Condition Current Condition Evaluation Date 07/22/18 Treatment Diagnosis s/p L5S1 fusion/lami; L4-5 hemilami; difficulty in walking Onset Date 07/21/18 Precautions Lumbar Precautions Log Roll No Twisting Limit Bending Lifting Restriction of 10 lbs Gait Belt above Incisional Area M3 PT-IP Subjective Start: 07/22/18 13:14 Freq: NEEDED Status: Active Protocol: Document 07/23/18 13:50 AB (Rec: 07/23/18 16:18 AB [id number]) Subjective Physical Therapy Visit Type Type Treatment Note Visit Start Time 13:50 Visit Stop Time 14:13 Total Visit Minutes 23 Number of LEATHER STRETCHER Visits 0 Physical Therapy Visit Comments Patient Comments pt agreeable to do PT Therapy Pain Assessment Pain When Pain Assessed At Rest Pain Present Pain Present Pain Reported Location Lower Back Intensity 6 Scale Used Numeric (1 - 10) Pain Management Techniques Apply Cold Re-positioning Timing of Activity with Medications M4 PT-IP Mobility and Gait Start: 07/22/18 13:14 Freq: NEEDED Status: Active Protocol: Document 07/23/18 13:50 AB (Rec: 07/23/18 16:18 AB [id number]) PT-Bed Mobility Assessment Rolling Type of Rolling Log Rolling Level of Assist Standby Assistance Sit to Supine Sit to Supine Standby Assistance 1 Person Assistance PT-Transfer Assessment Sit to and From Stand Sit to and from Stand Contact Guard Assistance 1 Person Assistance Use of Upper Extremities Equipment Transfer Assistive Device Bed Rail 4 Wheeled Walker Transfers Transfer Destination Bed Transfer Technique Pt ambulated to bed using 4WW Transfer Ability Level of Assist Contact Guard Assistance Gait Assessment Gait Gait Assistance Required: Contact Guard Assist Distance (Feet) 175 Able to Maintain Weight Bearing Status Yes During Gait Assistive Devices Assistive Device Gait Belt 4 Wheeled Walker Orthotic/Prosthetic Devices or Brace: No Gait Deviations General Gait Pattern Decreased Stride Length Factors Limiting Gait Function Factors Limiting Gait Function Decreased Activity Tolerance Decreased Strength Limited Range of Motion Pain Poor Balance M5 PT-IP Objective Assessments Start: 07/22/18 13:14 Freq: NEEDED Status: Active Protocol: Document 07/22/18 09:54 AB (Rec: 07/22/18 13:37 AB [id number]) Orientation Orientation/Cognition Level of Alertness Alert Orientation Name Age Birthday Month Date Year Day of Week Place Situation Language Function Ability No Deficits Noted Safety Awareness Understands Safety Issues Memory Description Short Term Impaired Gross Range of Motion Lower Extremity ROM Assessment Within Functional Limits Strength Lower Extremity Strength Assessment Bilaterally Impaired Comments Strength Comments RLE: 4-/5 LLE 3+/5 Sensation Assessment Sensation Gross Sensation WNL M6 PT-IP Treatment Start: 07/22/18 13:14 Freq: NEEDED Status: Active Protocol: Document 07/23/18 13:50 AB (Rec: 07/23/18 16:18 AB [id number]) Physical Therapy Treatment Education Education Provided Precautions Safety M7 PT-IP Assessment and Plan Start: 07/22/18 13:14 Freq: NEEDED Status: Active Protocol: Document 07/23/18 13:50 AB (Rec: 07/23/18 16:18 AB [id number]) PT Summary Assessment and Plan Potential Rehabilitation Potential Good Summary Impairments Pain ROM Strength Balance Coordination Sensation Tone Cognition Bed Mobility Transfers Gait Activity Tolerance Progress Towards Goals Slow Progress due to Pain Assessment Summary pt progressing with mobility but continues to require one person assist with mobility. pt will have spouse to assist her at home. will conduct caregiver training and stair training prior to d/c when appropriate. Goals Bed Mobility Goal Standby Assistance Transfer Goal Standby Assistance Four Wheeled Walker Gait Goal Standby Assistance Four Wheel Walker Gait Distance 150 Other Goals up/down 1 step using 4WW CGA Frequency of Treatment Frequency Of Treatment Twice a Day Treatment Plan Physical Therapy Treatment Plan Bed Mobility Training Transfer Training Gait Training Therapeutic Exercise Balance Retraining Post Op Education Discharge Planning Hot or Cold Pack Neuromuscular Re-ed Coordination Retraining Manual Therapy Other Recommendations and Next Treatment ambulation, bed mobility, Focus caregiver training Recommendations To Nursing Amount of Assist Needed 1 Person Assist Discharge Recommendations PT Discharge Recommendations Home with Assistance
[2018-07-23] MEDS: SENNOSIDES 8.6 MG TABLET 17.2 MG PO (20:02)
[2018-07-23] MEDS: TRAZODONE 100 MG TABLET PO (20:02)
[2018-07-23] MEDS: hydrOXYzine pamoate 25 MG CAPSULE PO (23:41)
[2018-07-24] MEDS: OXYCODONE IR 10 MG TABLET PO ×4 (01:33→11:59)
[2018-07-24 01:42] VITALS: BP 113/63; PULSE 93
--- NOTE | 2018-07-24 02:13 | PC.NURSE ---
2300- POD#3 lami & tlift; dressing CDI; moving 1PA w/ FWW. PO oxycodone for pain control however, pt's BP will drop so this needs to be monitored closely. NO IV access, MD aware per protocol. 2L O2 at night, pt uses this at home. 2341- BP low at 88/45, pt drinking two cups of water ate some food and sitting up in bed. PO Vistaril given for muscle spasms. 0120- BP rechecked and stable, see flowsheet for details. PO oxycodone given for postop pain. Pt up and walking around unit w/ FWW--stable. 0436- BP remains stable; PO oxycodone given for surgical pain.
[2018-07-24 04:42] VITALS: BP 103/57; PULSE 92; RESP 16; TEMP 37.1; O2SAT 92
[2018-07-24] MEDS: GABAPENTIN 300 MG CAPSULE PO (08:14)
[2018-07-24] MEDS: CARISOPRODOL 350 MG TABLET PO (08:17)
[2018-07-24 08:23] VITALS: BP 105/59; PULSE 99; RESP 18; TEMP 36.6; O2SAT 93
[2018-07-24] MEDS: DOCUSATE 100 MG CAPSULE PO (09:39)
[2018-07-24] MEDS: CALCIUM CARBONATE 500 MG TAB 1000 MG PO (09:39)
[2018-07-24] MEDS: DULOXETINE 30 MG CAPSULE 60 MG PO (09:40)
[2018-07-24] MEDS: VITAMIN B COMPLEX 1 CAPSULE 1 CAP PO (09:40)
[2018-07-24] MEDS: CHLORHEXIDINE GLUCONATE 473 ML MOUTHWASH PO (09:42)
[2018-07-24] MEDS: Budesonide-Formoterol [Symbicort] 2 PUFF 2 EACH INH (10:02)
[2018-07-24] MEDS: ALBUTEROL 2.5 MG/3 ML NEB (ADULT) INH (10:03)
[2018-07-24] MEDS: TIOTROPIUM BROMIDE 18 MCG INHALER INH (10:03)
[2018-07-24 10:15] VITALS: PULSE 86; RESP 22; O2SAT 90
--- NOTE | 2018-07-24 10:21 | P.DS_ITS ---
History of Present Illness Date Patient Seen: 07/24/18 Time Patient Seen: 10:18 Chief complaint: [id number] Narrative: Hospital day 4, postop day 3 following L4-5 hemilaminectomy, L5-S1 TLIF, a cage, posterior screw fixation. patient has remained stable postoperati vely. Progressed with physical therapy. Patient is anxious about going home but is okay for discharge. Back pain has improved some. Discharge Providers Date of admission: 07/21/18 09:12 Discharge Date: 07/24/18 Primary care physician: Jackie Yo PA-C Consults: 07/18/18 09:53 Consult to Respiratory Therapy Evaluate & Treat Comment: TLIF 07/21-Pt would like a nicotine patch Physician Instructions: Evaluate and treat 07/21/18 09:52 Consult to Respiratory Therapy Evaluate & Treat Comment: Physician Instructions: Evaluate and treat 07/21/18 17:48 Consult to Occupational Therapy Evaluate & Treat Comment: Physician Instructions: Evaluate and treat Consult to Physical Therapy Evaluate & Treat Comment: Physician Instructions: Evaluate and Treat 07/21/18 18:11 Consult to Dietitian, Adult Routine Comment: Reason For Exam: mma score- signficant decrease in food intake Consult to Respiratory Therapy Evaluate & Treat Comment: Physician Instructions: Evaluate and treat Discharge provider: Dominic Hendrix PA-C Summary Discharge Diagnosis: Status post L4-5 hemilaminectomy; L5-S1 TLIF, cage, posterior screw fixation. Hospital Course: Patient brought to hospital on 07/21/2018 for above-noted surgery. She remained stable postoperatively. Progressed slowly with physical therapy and pain control. She was stable and ready for discharge home on postop day 3. Status at Discharge Cognitive/behavioral status at discharge: oriented Functional status at discharge: uses cane/walker Overall status at discharge: patient is progressing back to baseline Time Spent with Patient Less than 30 minutes Exam Vital Signs (past 8 hours): - 07/24/18 04:42 07/24/18 08:23 Temperature 98.7 F 97.8 F Pulse Rate 92 H 99 H Respiratory Rate 16 18 Blood Pressure 103/57 L 105/59 L Pulse Oximetry 92 93 Oxygen Delivery Method Nasal Cannula Oxygen Flow Rate 2 Narrative Exam Narrative: Alert, oriented no acute distress resting in bed. back. Dressing to lumbar area is dry without drainage or inflammation. Legs. No calf pain or swelling. Pulses symmetrical. Good sensation to lower legs. Objective Labs Result Diagrams: 07/22/18 05:25 Discharge Plan Discharge Plan Patient Disposition: Home Discharge comment: Discharged home after cleared by PT today. CovRsite dressing to lumbar incision. given prescriptions for oxycodone, Soma and gabapentin. Discharge Med Rec/Prescriptions Prescriptions: New carisoprodol 350 mg Tablet 350 mg PO QID PRN (Reason: muscle spasms) Qty: 30 RF: 0 docusate sodium 100 mg Capsule 100 mg PO BID Qty: 30 RF: 0 gabapentin [Neurontin] 300 mg Capsule 300 mg PO TID Qty: 30 RF: 0 oxycodone 10 mg Tablet 10 mg PO Q3HR PRN (Reason: Pain, Severe (7-10)) Qty: 30 RF: 0 Continued albuterol sulfate [Ventolin HFA] 90 MCG/PUFF HFA aerosol inhaler 2 puff INH Q6HP PRN (Reason: Shortness Of Breath) Qty: 0 RF: 0 Symbicort 160 MCG/4.5 MCG HFA aerosol inhaler 2 puff INH BID Qty: 0 RF: 0 trazodone 100 MG tablet 100 mg PO HS Qty: 0 RF: 0 carisoprodol 350 mg Tablet 350 mg PO QID PRN (Reason: muscle spasms) RF: 0 albuterol sulfate 2.5 mg /3 mL (0.083 %) Solution For Nebulization 2.5 mg INHALATION Q4H PRN (Reason: Shortness Of Breath) RF: 0 calcium carbonate [Calcium 500] 500 mg calcium (1,250 mg) Tablet 1,000 mg PO DAILY RF: 0 benzonatate 100 mg Capsule 100 mg PO QPM PRN (Reason: Cough) RF: 0 vitamin B complex [B Complex 1] Tablet 1 tab PO DAILY RF: 0 diazepam 10 mg Tablet 10 mg PO BID PRN (Reason: muscle spasms) RF: 0 tiotropium bromide 18 mcg Capsule, W/Inhalation Device 1 cap INHALATION DAILY RF: 0 chlorhexidine gluconate 0.12 % Mouthwash 1 applic BUCCAL BID RF: 0 ipratropium-albuterol 0.5 mg-3 mg(2.5 mg base)/3 mL Solution For Nebulization 3 ml INH RTQ6HR Qty: 30 RF: 0 gabapentin [Neurontin] 300 mg Capsule 300 mg PO TID Qty: 90 RF: 0 oxycodone 5 mg Tablet 5 mg PO Q4HR PRN (Reason: Pain, Moderate (4-6)) Qty: 20 RF: 0 duloxetine [Cymbalta] 30 mg Capsule,Delayed Release(Dr/Ec) 60 mg PO DAILY Qty: 60 RF: 0 fentanyl 50 mcg/hr Patch 72 Hour 50 mcg Topical Q72H Qty: 10 RF: 0 Bacid (L. acidophilus) 1 billion cell- 250 mg tablet 1 ea PO DAILY RF: 0 Discontinued diclofenac sodium 50 MG tablet,delayed release (DR/EC) 1 tab PO BID Qty: 0 RF: 0 hydrocodone-acetaminophen [Vicodin ES] 7.5-300 mg Tablet 1 tab PO Q4H PRN (Reason: PAIN) RF: 0 Follow up/Referrals: Jackie Yo PA-C [Primary Care Provider] - Provider Discharge Instructions Diet: Diet as Tolerated Activity: Ambulate as tolerated. Use walker as needed. avoid prolonged sitting more than 1 hour at a time. no excessive bending or twisting of lumbar spine. no lifting or carrying more than 5-10 lb. Skin/Wound/Dressing Care Report to your healthcare provider any signs of infection, such as:: chills, fever, night sweats, increased pain, unusual drainage and unusual redness Dressing: Keep CovRsite dressing to lumbar area until seen in office. Visit Report/Discharge Packet Instructions: DI for Transforaminal Lumbar Interbody Fusion Discharge Data Primary Care Provider: Jackie Yo Attending Provider: Chioma Ames Admit Date/Time: 07/21/18 09:12 Quality VTE Deep Vein Thrombosis/Pulmonary Embolism Present on Admission: No
--- NOTE | 2018-07-24 10:30 | PT.IPTN ---
Current Diagnoses Other spondylosis with radiculopathy, lumbar region (07/21/18) Spinal stenosis, lumbar region without neurogenic claudication (07/21/18) Other specified postprocedural states (07/21/18) Surgery Performed Operation Date: 07/21/18 09:15 Actual Procedures p L4-5 Hemilaminectomy, L5-S1 TLIF w/Posterior Instru. - Chioma Ames MD Physical Therapy Treatment Note M2 PT-IP Current Condition Start: 07/22/18 13:14 Freq: NEEDED Status: Active Protocol: Document 07/22/18 09:54 AB (Rec: 07/22/18 13:37 AB [id number]) Physical Therapy Current Condition Current Condition Evaluation Date 07/22/18 Treatment Diagnosis s/p L5S1 fusion/lami; L4-5 hemilami; difficulty in walking Onset Date 07/21/18 Precautions Lumbar Precautions Log Roll No Twisting Limit Bending Lifting Restriction of 10 lbs Gait Belt above Incisional Area M3 PT-IP Subjective Start: 07/22/18 13:14 Freq: NEEDED Status: Active Protocol: Document 07/24/18 10:35 GGD (Rec: 07/24/18 11:10 GGD [email or web address]) Subjective Physical Therapy Visit Type Type Treatment Note Visit Start Time 10:10 Visit Stop Time 10:35 Total Visit Minutes 25 Number of SEMICONDUCTOR ENGINEER Visits 1 Physical Therapy Visit Comments Patient Comments Pt states she hopes to D/C today. Therapy Pain Assessment Pain When Pain Assessed At Rest Pain Present Pain Present Pain Reported M4 PT-IP Mobility and Gait Start: 07/22/18 13:14 Freq: NEEDED Status: Active Protocol: Document 07/24/18 10:35 GGD (Rec: 07/24/18 11:10 GGD [email or web address]) PT-Transfer Assessment Sit to and From Stand Sit to and from Stand Contact Guard Assistance 1 Person Assistance Use of Upper Extremities Equipment Transfer Assistive Device Gait Belt 4 Wheeled Walker Transfers Transfer Destination Chair Transfer Technique Pt ambulated to bed using 4WW Transfer Ability Level of Assist Contact Guard Assistance Gait Assessment Gait Gait Assistance Required: Contact Guard Assist Distance (Feet) 150 Able to Maintain Weight Bearing Status Yes During Gait Assistive Devices Assistive Device Gait Belt 4 Wheeled Walker Orthotic/Prosthetic Devices or Brace: No Gait Deviations General Gait Pattern Decreased Stride Length Factors Limiting Gait Function Factors Limiting Gait Function Decreased Activity Tolerance Decreased Strength Limited Range of Motion Pain Poor Balance Stair Climbing Assessment Evaluation Level of Assist On Stairs Contact Guard Assistance Minimal Assistance Devices Stair Climbing Assistive Devices Four Wheel Walker Technique/Endurance Stair Climbing Direction Ascend and Descend Stair Climbing Technique Step to Step Number of Steps Climbed 1 Query Text: Stair Climbing Set # Repetitions (reps) 1 Comments Stair Climbing Comments Pt needed min A lifting 4WW on and off step. M5 PT-IP Objective Assessments Start: 07/22/18 13:14 Freq: NEEDED Status: Active Protocol: Document 07/22/18 09:54 AB (Rec: 07/22/18 13:37 AB [id number]) Orientation Orientation/Cognition Level of Alertness Alert Orientation Name Age Birthday Month Date Year Day of Week Place Situation Language Function Ability No Deficits Noted Safety Awareness Understands Safety Issues Memory Description Short Term Impaired Gross Range of Motion Lower Extremity ROM Assessment Within Functional Limits Strength Lower Extremity Strength Assessment Bilaterally Impaired Comments Strength Comments RLE: 4-/5 LLE 3+/5 Sensation Assessment Sensation Gross Sensation WNL M6 PT-IP Treatment Start: 07/22/18 13:14 Freq: NEEDED Status: Active Protocol: Document 07/24/18 10:35 GGD (Rec: 07/24/18 11:10 GGD [email or web address]) Physical Therapy Treatment Education Education Provided Precautions Safety M7 PT-IP Assessment and Plan Start: 07/22/18 13:14 Freq: NEEDED Status: Active Protocol: Document 07/24/18 10:35 GGD (Rec: 07/24/18 11:10 GGD [email or web address]) PT Summary Assessment and Plan Summary Assessment Summary Pt imrpoving with mobility. She was safe and stable with gait and stair mobility. Pt is safe for home D/C when medically stable. Frequency of Treatment Frequency Of Treatment Twice a Day Treatment Plan Physical Therapy Treatment Plan Bed Mobility Training Transfer Training Gait Training Therapeutic Exercise Balance Retraining Post Op Education Discharge Planning Hot or Cold Pack Neuromuscular Re-ed Coordination Retraining Manual Therapy Other Recommendations and Next Treatment ambulation, bed mobility, Focus caregiver training Recommendations To Nursing Amount of Assist Needed 1 Person Assist Discharge Recommendations PT Discharge Recommendations Home with Assistance
--- NOTE | 2018-07-24 11:41 | OT.IP.TRT ---
Current Diagnoses Other spondylosis with radiculopathy, lumbar region (07/21/18) Spinal stenosis, lumbar region without neurogenic claudication (07/21/18) Other specified postprocedural states (07/21/18) Surgery Performed Operation Date: 07/21/18 09:15 Actual Procedures p L4-5 Hemilaminectomy, L5-S1 TLIF w/Posterior Instru. - Chioma Ames MD Occupational Therapy Treatment Note M2 OT-IP Current Condition Start: 07/22/18 16:15 Freq: Status: Active Protocol: Document 07/22/18 16:13 PJM (Rec: 07/22/18 16:27 PJM [id number]) Occupational Therapy Current Condition Current Condition Evaluation Date 07/22/18 Treatment Diagnosis decreased self care, functional mobility s/p L5-S1 TLIF Diagnosis Onset Date 07/21/18 Post Operative Precautions Lumbar Precautions Log Roll No Twisting Limit Bending Lifting Restriction of 10 lbs Gait Belt above Incisional Area M3 OT- IP Subjective and Pain Start: 07/22/18 16:15 Freq: Status: Active Protocol: Document 07/24/18 11:41 PJM (Rec: 07/24/18 13:39 PJM [id number]) OT- Subjective Occupational Therapy Visit Type Type Treatment Note Visit Start Time 11:15 Visit Stop Time 11:41 Total Visit Minutes 26 Notes here at end of session . He has obtained tower hoist operator for pt and states he can assist PRN at home. Occupational Therapy Visit Comments Patient Comments I don't know what time I am supposed to leave. Patient/Caregiver Goals to go home today OT Pain Assessment Pain When Pain Assessed After Treatment Pain Present Pain Present Pain Reported Location Lower Back Intensity 7 Scale Used Numeric (1 - 10) Description Aching Acute Pain Behaviors Facial Grimacing Guarding Management Techniques Distraction Re-positioning Timing of Activity with Medications M4 OT- IP ADL's Start: 07/22/18 16:15 Freq: Status: Active Protocol: Document 07/24/18 11:41 PJM (Rec: 07/24/18 13:39 PJM [email or web address]) OT [id number] General Evaluation Self-Feeding Ability Independent OT ADL-Grooming General Evaluation Grooming Ability Independent Comments OT Grooming Comments standing at sink OT ADL-Dressing General Eval Upper Body Dressing Ability Independent Lower Body Dressing Ability Minimal Assistance Areas Needing Assistance Pull-Over Shirt Pants/Shorts Socks Shoes Comments OT Dressing Comments Pt needing min assist with tight soft shoes today. She has better slip on pair at home and will assist with socks PRN. Pt indep donning pants with tower hoist operator. OT ADL-Toileting General Evaluation Toileting Ability Independent OT ADL-Bathing Comments OT Bathing Comments Pt declines to shower here. states he can assist pt PRN at home. M5 OT- IP IADL's Start: 07/22/18 16:15 Freq: Status: Active Protocol: Document 07/22/18 16:13 PJM (Rec: 07/22/18 16:27 [facility] [email or web address]) OT-Instrumental Activities of Daily Living Deficits IADL Deficits Identified Deficits Home Safety Awareness Awareness of Need for Assistance at Home Good Awareness Ability to Problem Solve Emergency Able to Problem Solve Situations Medication Management Medication Management No Deficits Identified Money Management Money Management No Deficits Identified Meal Preparation Meal Preparation Caregiver Provides Assist Meal Preparation Comments can assist until pt able Vice President Of Development Vice President Of Development Caregiver Provides Assist Vice President Of Development Comments can assist until pt able Driving Driving Caregiver Provides Assist Driving Comments can assist until pt able M6 OT- IP Functional Cognition Start: 07/22/18 16:15 Freq: Status: Active Protocol: Document 07/22/18 16:13 PJM (Rec: 07/22/18 16:27 [facility] [id number]) Cognitive Factors Limiting Selfcare Function Cognitive Ability Level of Alertness Alert Patient Orientation Name Age Birthday Month Date Year Day of Week Place Situation Attention Span Ability Capable of Focused Attention Ability to Follow Commands Able to Follow One Step Commands Memory Description No Deficits Noted Cognitive Comments Cognitive Assessment Comments Pt distracted by high pain level this session. OT- Vision and Hearing OT- Hearing Assessment OT- Hearing Assessment WFL OT- Vision Assessment Visual Acuity WFL Glasses All The Time Vision Assessment Comments Pt denies any recent vision changes. M7 OT- IP Mobility and Balance Start: 07/22/18 16:15 Freq: Status: Active Protocol: Document 07/24/18 11:41 PJM (Rec: 07/24/18 13:39 PJ [email or web address]) OT- Bed Mobility Assessment Rolling Type of Rolling Roll to Left Level of Assistance Independent Supine to Sit Supine to Sit Assist Independent Scooting Scooting to Edge of Bed Independent OT-Transfer Assessment Sit to and From Stand Sit to and from Stand Independent Transfers Transfer Ability Independent Technique Transfer Destination Chair Toilet Transfer Technique Stand Step Pivot Devices Transfer Assistive Devices 4 Wheeled Walker OT- Gait Assessment Gait Gait Assistance Required: Standby Assistance Distance (Feet) 20 Assistive Devices Assistive Device 4 Wheeled Walker Comments Gait Ability Comments Pt walked 3-4 feet into bathroom without walker using grab bar with no LOB. OT- Balance Assessment Sitting Balance and Reactions Static Sitting Balance Ability Good Dynamic Sitting Balance Ability Good Standing Balance and Reactions Static Standing Balance Ability Good Dynamic Standing Balance Ability Good Comments Other Balance Tests/Deviations/Treatment during lower body clothing : management M8 OT- IP Objective Assessments Start: 07/22/18 16:15 Freq: Status: Active Protocol: Document 07/22/18 16:13 PJM (Rec: 07/22/18 16:27 PJM [id number]) OT Gross Range of Motion Upper Extremity Range of Motion Assessment Within Functional Limits OT Strength Upper Extremity Strength Assessment Within Functional Limits OT- Coordination Assessment Comments Coordination Comments BUE WFL OT-Muscle Tone Assessment Muscle Tone WNL Yes OT Sensation Assessment Comments Summary Comments pt denies deficits in BUE's Edema Edema Absent M9 OT- IP Assessment and Plan Start: 07/22/18 16:15 Freq: Status: Active Protocol: Document 07/24/18 11:41 PJM (Rec: 07/24/18 13:39 PJM [id number]) OT Summary Assessment and Plan Potential Rehabilitation Potential Good Summary Progress Towards Goals Safe For Discharge Goals Met Assessment Summary Pt making daily progress with activity level and self care skills as described above. All OT goals achieved for this admission. Supportive states he can provide assist PRN at d/c. Pt plans to d/c home today. No further OT services needed. Frequency of Treatment Frequency Of Treatment Discharge Discharge Recommendations OT Discharge Recommendations Home with Assistance
[2018-07-24 12:00] VITALS: BP 92/50; PULSE 125
--- NOTE | 2018-07-24 13:32 | PC.NURSE ---
SHIFT SUMMARY/DISCHARGE: PATIENT TOLERATING PAIN WELL, DRSG CHANGED TO COVERSITE BY CHARGE NURSE AND STUDENT NURSE PER ORDERS. INCISION WNL PER CHARGE NURSE. BP JUST PRIOR TO DISCHARGE 92/50 HR 125. WAS GIVEN HER INHALERS THIS AM, WHICH INCREASES HER HEART RATE, AND ORTHO PA AWARE OF TACHYCARDIA. STANDING BP 89/62 HR 125. SLIGHTLY LIGHTHEADED, RESOLVED IN LESS THAN ONE MINUTE. ORTHO PA JOHNNY ELIZALDE, NOTIFIED BY PHONE, OF BP'S AND TRANSIENT LIGHTHEADEDNESS. OKAY TO DC HOME, SINCE TACHYCARDIA BASELINE. ENCOURAGE PO FLUIDS AT HOME. THIS TEACHING WAS PROVIDED TO PATIENT AND SPOUSE. PATIENT LEFT IN NO S/SX'S OF DISTRESS W/ ALL BELONGINGS AND PAPERWORK BY WC W/ PROJECT MANAGER INDUSTRIAL ESCORT TO VEHICLE. SCRIPTS PROVIDED TO PATIENT.
== END 2018-07-24 12:20 | disposition home or self-care (01) | DRG 453 ==
PROVIDERS: Admitting Provider Orthopaedic Surgery Orthopaedic Surgery of the Spine; Family Provider Physician Assistant; PCP Physician Assistant; Visit Provider Orthopaedic Surgery Orthopaedic Surgery of the Spine
PROC: 0SG30AJ Fusion of Lumbosacral Joint with Interbody Fusion Device, Posterior Approach, Anterior Column, Open Approach (ICD-10-PCS; principal; 2018-07-21 09:15)
DX: M48.061 Spinal stenosis, lumbar region without neurogenic claudication (principal); E43 Unspecified severe protein-calorie malnutrition; Z68.1 Body mass index [BMI] 19.9 or less, adult; M47.816 Spondylosis without myelopathy or radiculopathy, lumbar region; J44.9 Chronic obstructive pulmonary disease, unspecified; F17.210 Nicotine dependence, cigarettes, uncomplicated; M48.07 Spinal stenosis, lumbosacral region; M96.1 Postlaminectomy syndrome, not elsewhere classified
CPT/HCPCS: 72100; 76000; 85014; 85018; 94640; 94760; 94762; 97116; 97162; 97165; 97530; 97535; 99406; C1776; C9290; J0131; J0330; J0690; J1100; J1170; J2704; J3010; J7613

== ENCOUNTER → 2018-10-30 17:02 | Outpatient (CLI) | payer MEDICARE, OTHER, SELFPAY ==
[2018-07-21 17:25] VITALS: BMI 15.2
--- NOTE | 2018-10-30 17:09 | DI.CT.S_ITS ---
PROCEDURE: CT ABDOMEN PELVIS W CON INDICATIONS: ACUTE LEFT FLANK PAIN TECHNIQUE: After the administration of oral and intravenous contrast, 5 mm thick sections acquired from the diaphragms to the symphysis. 5 mm thick coronal and sagittal reformats were performed. For radiation dose reduction, the following was used: automated exposure control, adjustment of mA and/or kV according to patient size. COMPARISON: [facility], CT, CT ABDOMEN PELVIS W CON, 09/27/2017, 11:17. FINDINGS: Image quality: Excellent. ABDOMEN: Lung bases: Lung bases are clear. Heart size is normal. Solid organs: Liver is normal in size and enhancement. Gallbladder is contracted. Biliary system is non-dilated. Pancreas enhances normally. Spleen is normal in size and enhancement. No adrenal nodules. Kidneys are normal in size and enhancement, without hydronephrosis. Peritoneum and bowel: Stomach, small bowel, and colon loops are normal in caliber and wall thickness. No free fluid or air. Nodes and vessels: No retroperitoneal or mesenteric adenopathy. Aorta and inferior vena cava are normal in caliber. Miscellaneous: No ventral hernias. PELVIS: Genitourinary: Bladder wall thickness is normal. Miscellaneous: No inguinal hernias or adenopathy. Prior lumbosacral spine surgery, no operative complications found. Quality of visualization through the lower abdomen/pelvis junction is somewhat limited by metal artifact and patient breathing motion, but the study appears diagnostic through this area Bones: No suspicious bony lesions. No vertebral body compression fractures. IMPRESSION: Mild degradation of image quality by extensive metal artifact from spine surgical fusion devices at the L5-S1 level, with no acute disease or operative complications found. Source of current symptoms is not seen. Dictated by: Manny Larsen M.D. on 10/30/2018 at 18:56 Approved by: Manny Larsen M.D. on 10/30/2018 at 18:58
[2018-10-30 17:47] LABS: Blood Urea Nitrogen 14 mg/dL (7-17); Calcium 10.1 mg/dL (8.4-10.2); Carbon Dioxide 29 mmol/L (22-32); Chloride 102 mmol/L (98-107); Estimated Glomerular Filt Rate > 60.0 mL/min (>60); Glucose 89 mg/dL (80-110); HEMOLYSIS < 15 (0-50); Lipase 287 U/L (23-300); Potassium 4.2 mmol/L (3.4-5.1); Sodium 141 mmol/L (137-145)
[2018-10-30 17:53] LABS: Add Manual Diff / Slide Review NO; Basophils Absolute Auto 100 /uL (0-100); Basophils Percent Auto 1.3 % (0-2); C-Reactive Protein Quant < 0.5 mg/dL (<1.0); Eosinophils Absolute Auto 100 /uL (0-450); Eosinophils Percent Auto 1.4 % (2-4); Hematocrit 43.3 % (36-46); Hemoglobin 14.9 g/dL (12.0-16.0); Lymphocytes Absolute Auto 3500 /uL (1100-4500); Lymphocytes Percent Auto 33.7 % (25-40); Mean Corpuscular HGB Conc 34.4 % (30-36); Mean Corpuscular Volume 99.1 fL (80-100); Monocytes Absolute Auto 700 /uL (0-900); Monocytes Percent Auto 6.6 % (3-14); Neutrophils Absolute Auto 5900 /uL (1500-7000); Platelet Count 286 X10^3/uL (150-400); Red Blood Cell Count 4.37 X10^6/uL (4.0-5.2); Red Cell Distribution Width 12.7 % (11.6-14.8); White Blood Cell Count 10.4 X10^3/uL (4.5-11.0)
[2018-10-30 18:10] LABS: Erythrocyte Sedimentation Rate 2 MM/HR (0-20)
== END ==
PROVIDERS: Orthopaedic Surgery Orthopaedic Surgery of the Spine; Family Provider Physician Assistant; PCP Physician Assistant; Visit Provider Student in an Organized Health Care Education/Training Program
DX: R10.9 Unspecified abdominal pain (principal); Z98.1 Arthrodesis status; M48.061 Spinal stenosis, lumbar region without neurogenic claudication; M47.816 Spondylosis without myelopathy or radiculopathy, lumbar region
CPT/HCPCS: 36415; 74177; 80048; 83690; 85025; 85651; 86140; Q9967

== ENCOUNTER → 2018-11-11 08:19 | Outpatient (CLI) | payer MEDICARE, OTHER, SELFPAY ==
[2018-07-21 17:25] VITALS: BMI 15.2
--- NOTE | 2018-11-11 | DI.CT.S_ITS ---
PROCEDURE: CT LUMBAR SPINE WO/W CON INDICATIONS: low back pain TECHNIQUE: After the administration of intravenous Isovue contrast, 3 mm thick sections acquired through the levels of interest. Sagittal and coronal reformats were then constructed. For radiation dose reduction, the following was used: automated exposure control. COMPARISON: [facility], MR, MR LUMBAR SPINE WO CON, 07/01/2018, 17:58. [facility], CT, CT ABDOMEN PELVIS W CON, 10/30/2018, 18:18. FINDINGS: Image quality: Excellent. Bones: Postoperative change is seen, bilateral pedicle screws at the L5 and S1 levels. Vertical fixation rods are seen. The screws appear well placed. There is a disc spacer at L5-S1. No findings of hardware failure or hardware loosening are seen. On postcontrast imaging, no abnormal enhancement can be seen involving the postoperative hardware. No displaced fractures are seen. No suspicious lytic or blastic lesions are seen. No focal AP alignment abnormality is seen. Mild disc space narrowing is seen at L5-S1. The disc heights otherwise appear well-preserved. Soft tissues: On postcontrast imaging, no abnormal enhancement can be seen within the postoperative region. The visualized liver, pancreas, spleen, and kidneys are unremarkable. No adrenal nodules are seen. No enlarged retroperitoneal lymph nodes are seen. No soft tissue masses can be seen. The lung bases demonstrate mild presumed scarring changes. Atherosclerotic calcification is seen of the aorta. IMPRESSION: Unremarkable L5-S1 postoperative change. No abnormal enhancement can be seen on postcontrast imaging. Dictated by: Boom Gray M.D. on 11/11/2018 at 9:41 Approved by: Boom Gray M.D. on 11/11/2018 at 9:46
== END ==
PROVIDERS: Family Provider Physician Assistant; PCP Physician Assistant; Visit Provider Orthopaedic Surgery Orthopaedic Surgery of the Spine
DX: M54.5 Low back pain (principal); Z98.1 Arthrodesis status
CPT/HCPCS: 72133; Q9967

== ENCOUNTER → 2019-01-15 11:25 | Outpatient (CLI) | payer MEDICARE, OTHER, SELFPAY ==
[2018-07-21 17:25] VITALS: BMI 15.2
--- NOTE | 2019-01-15 | DI.RAD.S_ITS ---
PROCEDURE: XR CHEST 2V INDICATIONS: Chronic obstructive pulmonary disease with (acute) TECHNIQUE: 2 views of the chest were acquired. COMPARISON: [facility], CR, XR CHEST FOR PICC 1V, 03/14/2018, 13:19. CXR 07/22/2017. Lung bases on CT 10/30/2018. FINDINGS: Surgical changes and devices: Cervical spine ACDF. Catheter overlying the midline upper abdomen. Lungs and pleura: Lung lines are increased. Increased interstitial markings. No consolidation identified. No pleural effusions or pneumothorax. Mediastinum: Mediastinal contours are unchanged. Heart size is normal. Bones and chest wall: No suspicious bony abnormalities. Osteopenia. Soft tissues appear unremarkable. IMPRESSION: No acute cardiopulmonary abnormality. Emphysematous change. Dictated by: Saman Salas M.D. on 01/15/2019 at 12:26 Approved by: Saman Salas M.D. on 01/15/2019 at 12:29
[2019-01-15 12:13] LABS: Add Manual Diff / Slide Review NO; Basophils Absolute Auto 100 /uL (0-100); Basophils Percent Auto 0.9 % (0-2); Eosinophils Absolute Auto 200 /uL (0-450); Eosinophils Percent Auto 1.8 % (2-4); Hematocrit 43.8 % (36-46); Hemoglobin 14.9 g/dL (12.0-16.0); Lymphocytes Absolute Auto 1700 /uL (1100-4500); Lymphocytes Percent Auto 14.7 % (25-40); Mean Corpuscular Hemoglobin 34.3 PG (26-34); Monocytes Absolute Auto 700 /uL (0-900); Monocytes Percent Auto 6.4 % (3-14); Neutrophils Absolute Auto 8700 /uL (1500-7000); Neutrophils Percent Auto 76.2 % (50-75); Platelet Count 380 X10^3/uL (150-400); Red Blood Cell Count 4.34 X10^6/uL (4.0-5.2); Red Cell Distribution Width 12.9 % (11.6-14.8); White Blood Cell Count 11.4 X10^3/uL (4.5-11.0)
[2019-01-15 12:28] LABS: Alanine Aminotransferase 31 IU/L (9-52); Albumin 4.3 g/dL (3.5-5.0); Albumin Globulin Ratio 1.7 (1.0-2.8); Alkaline Phosphatase 69 U/L (38-126); Aspartate Aminotransferase 30 IU/L (14-36); Bilirubin Total 0.5 mg/dL (0.2-1.3); Blood Urea Nitrogen 13 mg/dL (7-17); Calcium 10.1 mg/dL (8.4-10.2); Chloride 93 mmol/L (98-107); Estimated Glomerular Filt Rate > 60.0 mL/min (>60); Globulin 2.6 g/dL (1.7-4.1); Glucose 95 mg/dL (80-110); HEMOLYSIS < 15 (0-50); Potassium 4.1 mmol/L (3.4-5.1); Sodium 141 mmol/L (137-145); Total Protein 6.9 g/dL (6.3-8.2)
[2019-01-15 12:29] LABS: B Type Natriuretic Peptide < 100 (<100)
[2019-01-15 13:57] LABS: Carbon Dioxide 40 mmol/L (22-32)
== END ==
PROVIDERS: PCP Physician Assistant; Visit Provider Student in an Organized Health Care Education/Training Program
DX: J44.1 Chronic obstructive pulmonary disease with (acute) exacerbation (principal); Z98.1 Arthrodesis status
CPT/HCPCS: 36415; 71046; 80053; 83880; 85025

== ENCOUNTER → 2019-02-04 15:17 | Outpatient (CLI) | payer MEDICARE, OTHER, SELFPAY ==
[2018-07-21 17:25] VITALS: BMI 15.2
--- NOTE | 2019-02-04 | DI.RAD.S_ITS ---
PROCEDURE: XR CHEST 2V INDICATIONS: COUGH,DYSPNEA TECHNIQUE: 2 views of the chest were acquired. COMPARISON: [facility], CR, XR CHEST FOR PICC 1V, 03/14/2018, 13:19. [facility], CR, XR CHEST 2V, 01/15/2019, 11:32. FINDINGS: Surgical changes and devices: Cervical spinal fusion hardware noted. Lungs and pleura: There is a 2.0 cm nodular opacity projecting over the right hilar region on PA view and in the anterior chest on lateral view with adjacent bandlike linear palmar opacities. No pleural effusions or pneumothorax. Mediastinum: Mediastinal contours are normal. Heart size is normal. Bones and chest wall: A chronic-appearing mid thoracic vertebral body compression deformity is stable to comparison exam of 07/14/17. IMPRESSION: 2.0 cm nodular opacity projecting over the right hilar region on PA view and over the anterior chest on lateral view with adjacent bandlike and linear pulmonary opacities. Findings are concerning for a pulmonary mass with spiculations and postobstructive atelectasis versus pneumonia (less likely superimposition artifact from prominent pulmonary vasculature with atelectasis, or pleural-parenchymal scarring). A CT of the chest is recommended for further evaluation. These results and recommendations were discussed with Sabra Lopez PA-C for Dr. Jan Brennan, by telephone by Dr. Roca at approximately 5:15 PM on 02/04/19. Dictated by: Modesto Roca M.D. on 02/04/2019 at 17:00 Approved by: [place] Roca M.D. on 02/04/2019 at 17:17
== END ==
PROVIDERS: PCP Physician Assistant; Visit Provider Internal Medicine
DX: R05 Cough (principal); R06.00 Dyspnea, unspecified; R91.1 Solitary pulmonary nodule
CPT/HCPCS: 71046

== ENCOUNTER → 2019-02-05 13:36 | Outpatient (CLI) | payer MEDICARE, OTHER, SELFPAY ==
[2018-07-21 17:25] VITALS: BMI 15.2
[2019-02-05 14:41] LABS: Blood Urea Nitrogen 12 mg/dL (7-17); Calcium 10.1 mg/dL (8.4-10.2); Carbon Dioxide 33 mmol/L (22-32); Chloride 100 mmol/L (98-107); Estimated Glomerular Filt Rate > 60.0 mL/min (>60); Glucose 100 mg/dL (80-110); HEMOLYSIS 19 (0-50); Potassium 4.3 mmol/L (3.4-5.1); Sodium 140 mmol/L (137-145)
== END ==
PROVIDERS: PCP Internal Medicine; Visit Provider Internal Medicine
DX: R91.8 Other nonspecific abnormal finding of lung field (principal)
CPT/HCPCS: 36415; 80048

== ENCOUNTER → 2019-02-06 09:04 | Outpatient (CLI) | payer MEDICARE, OTHER, SELFPAY ==
[2018-07-21 17:25] VITALS: BMI 15.2
--- NOTE | 2019-02-06 | DI.CT.S_ITS ---
PROCEDURE: CT CHEST W CON INDICATIONS: Other nonspecific abnormal finding of lung field TECHNIQUE: After the administration of intravenous contrast, 5 mm thick sections acquired from the pulmonary apices to the posterior costophrenic angles. 1 mm axial lung, 5 mm thick coronal and sagittal reformats and 7 mm axial MIP were acquired. For radiation dose reduction, the following was used: automated exposure control, adjustment of mA and/or kV according to patient size. COMPARISON: [facility], CR, XR CHEST 2V, 01/15/2019, 11:32. [facility], CR, XR CHEST 2V, 02/04/2019, 15:18. [facility], CT, CT ABDOMEN PELVIS W CON, 10/30/2018, 18:18. [facility], CT, PE STUDY (CTA CHEST), 04/23/2015, 19:29. [facility], CT, CT ABDOMEN PELVIS W CON, 09/27/2017, 11:17. FINDINGS: Image quality: Excellent. Lungs and pleura: Severe upper lobe centrilobular emphysema and diffuse interstitial disease. Ill-defined and streaky patchy consolidation present within the lingula and right middle lobe. Small posterior fat-containing right diaphragmatic hernia. Central airway thickening. Presumed nodular scarring/atelectasis on image 164 series 3, probably corresponding to the radiographic appearance from 02/04/19. Numerous subpleural blebs are seen involving the medial upper lobes. Chronic right middle lobe subpleural nodule measuring 5 mm unchanged since 2016. Mediastinum: Heart size is normal. No pericardial effusion. Prominent borderline enlarged right hilar lymph node Thoracic aorta and central pulmonary arteries are normal in size. Esophagus is normal in caliber. No hiatal hernia. Bones and chest wall: No suspicious bony lesions. Chronic unchanged mid thoracic compression fracture. No axillary or supraclavicular adenopathy by size criteria. Thyroid gland contains a subcentimeter nodule, better assessed by ultrasound if not already performed.. Abdomen: Visualized upper abdominal solid organs appear normal. Upper abdominal bowel loops are normal in caliber. IMPRESSION: Lingular and right middle lobe streaky patchy consolidation in keeping with aspiration/atelectasis although cannot exclude early or developing pneumonia. This appears to demonstrate nodular configuration on image 164 series 3 in the right middle lobe although still probably inflammatory in nature. Recommend continued short interval radiographic surveillance to document resolution after treatment and exclude superimposed pulmonary nodule. If this does not clear radiographically, repeat chest CT could be performed. Severe centrilobular emphysema Diffuse scarring/atelectasis. Central airway thickening keeping with bronchitis and/or reactive airways disease. Subcentimeter nodule in the left lobe of thyroid which would be better assessed with ultrasound as clinically warranted. Dictated by: Prosper Trejo M.D. on 02/06/2019 at 10:33 Approved by: Prosper Trejo M.D. on 02/06/2019 at 11:07
== END ==
PROVIDERS: PCP Internal Medicine; Visit Provider Student in an Organized Health Care Education/Training Program
DX: R91.8 Other nonspecific abnormal finding of lung field (principal); E04.1 Nontoxic single thyroid nodule; J43.2 Centrilobular emphysema
CPT/HCPCS: 71260; Q9967

== ENCOUNTER 2019-02-23 08:07 | Inpatient (IN) | payer MEDICARE, OTHER, SELFPAY ==
[2018-07-21 17:25] VITALS: BMI 15.2
[2019-02-23] VITALS (18 sets, daily range): BP systolic 81–112; BP diastolic 48–72; PULSE 77–115; RESP 12–28; TEMP 36.1–37.5; O2SAT 87–94; BMI 15.0; BMI 16.3
--- NOTE | 2019-02-23 08:30 | ED_ITS ---
HPI - SOB/Dyspnea General Chief Complaint: Shortness of Breath/Dyspnea Stated Complaint: difficulty breathing Time Seen by Provider: 02/23/19 08:10 Source: patient and family Mode of arrival: Wheelchair History of Present Illness HPI Narrative: Patient comes emergency department complaining of shortness of breath and worsening cough. The patient states that she has a history of COPD, and is on nighttime and as needed home O2 usually. However, she states in December, she developed pneumonia while on a vacation and has been short of b reath ever since. Patient states that she was initially treated with a round of antibiotics and steroids, and initially felt better. However, she noticed her symptoms creeping back after couple of weeks, and had repeat imaging which showed persistence of pneumonia. Patient was placed on another course of antibiotics, a defer when this time, as well as steroids, and again she improved but symptoms returned after some days off antibiotics. Patient was then put on a 3rd course of antibiotics which she finished about 5 days ago. She states she initially felt better, but is now running a low-grade fever and feels her shortness of breath returning and her cough worsening. Patient states that she has had multiple x-rays of the chest, and also had a CT scan to evaluate for other pathology that could be contributing to her recurrent pneumonia. She states this showed only pneumonia, and no clot or tumor. Patient does smoke cigarettes. She denies any history of cardiac issues. No nausea or vomiting. No abdominal pain. patient states that she has had a pain under her right breast throughout the illness, and this is side that pneumonia was on. Patient denies any pain or swelling in her calves. No history of DVT. Related Data Home Medications Medication Instructions Recorded Confirmed Symbicort 2 puff INH BID #0 07/22/17 02/23/19 albuterol sulfate [Ventolin HFA] 2 puff INH Q4H PRN #0 07/22/17 02/23/19 albuterol sulfate 2.5 mg INHALATION TID 03/13/18 02/23/19 calcium carbonate [Calcium 500] 1,000 mg PO DAILY 03/13/18 02/23/19 tiotropium bromide 1 cap INHALATION DAILY 03/13/18 02/23/19 carisoprodol 350 mg PO DAILY PRN 02/23/19 02/23/19 cholecalciferol (vitamin D3) 1,000 unit PO DAILY 02/23/19 02/23/19 [Vitamin D3] diazepam 5 mg PO BID PRN 02/23/19 02/23/19 diclofenac sodium 50 mg PO BID 02/23/19 02/23/19 duloxetine 60 mg PO DAILY 02/23/19 02/23/19 gabapentin [Neurontin] 900 mg PO BID 02/23/19 02/23/19 oxycodone-acetaminophen 1 tab PO Q6H PRN 02/23/19 02/23/19 prednisone 20 mg PO DAILY 02/23/19 02/23/19 trazodone 100 mg PO BEDTIME 02/23/19 02/23/19 Previous Rx's Medication Instructions Recorded fentanyl 50 mcg TOPICAL Q72H #10 ea 03/19/18 Allergies Allergy/AdvReac Type Severity Reaction Status Date / Time morphine Allergy Severe Itching Verified 02/23/19 08:28 when mixed w/dressing, po/IV ok nickel Allergy Severe Rash, Verified 02/23/19 08:28 infections codeine Allergy Mild Itching Verified 02/23/19 08:28 nabumetone Allergy Pt does Verified 02/23/19 08:28 not remember reaction alendronate sodium AdvReac Severe Nausea Verified 02/23/19 08:28 amoxicillin [From AUGMENTIN] AdvReac Mild VOMITING Verified 02/23/19 08:28 cephalexin [CEPHALEXIN] AdvReac Mild VOMITING Verified 02/23/19 08:28 clavulanic acid AdvReac Mild VOMITING Verified 02/23/19 08:28 [From AUGMENTIN] sulfamethoxazole AdvReac Mild nausea Verified 02/23/19 08:28 [From SEPTRA] trimethoprim [From SEPTRA] AdvReac Mild nausea Verified 02/23/19 08:28 Review of Systems Constitutional Constitutional: Denies chills, Denies fatigue, Reports fever(s) (Subjective, ?low-grade?), Denies frequent falls, Denies lethargy and Denies weakness Eyes Eyes: Denies change in vision, Denies eye discharge, Denies irritation and Denies loss of vision ENT Ears, Nose, Mouth, and Throat: Denies change in voice, Denies dizziness, Denies neck pain, Denies sore throat and Denies throat swelling Cardiovascular Cardiovascular: Denies chest pain, Denies irregular heart rhythm, Denies lightheadedness, Denies palpitations, Reports dyspnea, Reports dyspnea on exertion and Denies orthopnea Respiratory Respiratory: Reports cough, Reports dyspnea, Reports dyspnea on exertion and Denies wheezing Gastrointestinal Gastrointestinal: Denies abdominal pain, Denies change in bowel habits, Denies diarrhea, Denies nausea and Denies vomiting Genitourinary Genitourinary: Denies hematuria, Denies flank pain, Denies urinary incontinence and Denies urinary urgency Musculoskeletal Musculoskeletal: Denies back pain, Denies muscle weakness, Denies neck pain, Denies numbness and Denies tingling Integumentary/Breasts Skin/Breast: Denies pruritus, Denies erythema, Denies rash and Denies wounds Neurologic Neurologic: Denies behavioral changes, Denies confusion, Denies dizziness, Denies frequent falls, Denies loss of vision, Denies numbness, Denies tingling and Denies weakness Psychiatric Psychiatric: Denies anxiety, Denies behavioral changes, Denies confusion, Denies depression, Denies homicidal ideation and Denies suicidal ideation Endocrine Endocrine: Denies fatigue, Denies flushing and Denies palpitations Hematologic/Lymphatic Hematologic/Lymphatic: Denies easy bruising Allergic/Immunologic Allergic/Immunologic: Denies urticaria, Denies throat swelling and Denies wheezing Patient History Medical History BCC (basal cell carcinoma) (Acute ~2000) Benign neoplasm of clitoris (Acute ~03/23/16) Chronic pain (Acute) Compression fracture of T8 vertebra (Acute ~2011) COPD (chronic obstructive pulmonary disease) (Acute) History of pneumonia (Acute) Osteoarthritis (Acute) Osteomyelitis of jaw (Acute 03/13/18) Osteoporosis (Acute) Requires supplemental oxygen (Acute) Thyroid nodule (Acute) Surgical History History of lumbar surgery (Acute ~1989) Hx of appendectomy (Acute) Hx of fusion of cervical spine (Acute) Hx of hand surgery (Acute) Status post tonsillectomy and adenoidectomy Status post vaginal hysterectomy Family History Mother Cancer of kidney Cancer of bladder Father Congestive heart failure Sister Hypertension Social History household members: spouse Smoking Status: Current every day smoker alcohol intake: former Substance Use Type: does not use Exam Initial Vital Signs Initial Vital Signs: Vital Signs Temperature 98.3 F 02/23/19 08:10 Pulse Rate 115 H 02/23/19 08:10 Respiratory Rate 12 02/23/19 08:10 Blood Pressure 94/62 02/23/19 08:10 Pulse Oximetry 90 L 02/23/19 08:10 Const General: cooperative and well developed Nutritional Appearance: thin Orientation: alert, awake, oriented x3 and not confused Other: Patient appears chronically ill. She is in mild respiratory distress. [facility] Head: normocephalic and atraumatic Ears: external ears normal Nose: external nose normal and No nasal discharge Face and sinus: face symmetric and No dry mucous membranes Mouth: oral mucosae normal and moist mucous membranes Teeth and gingiva: dentition normal Eyes General: appearance normal, both eyes and all related structures Eyelids: eyelids normal Conjunctivae: conjunctivae normal Sclera: sclerae normal Pupils: PERRL EOM: EOM intact bilaterally Neck Neck: normal visual inspection, trachea midline, No lymphadenopathy, No midline deformity and No JVD Lymphatic: No lymphedema Chest Chest: normal inspection of the chest Resp Effort & Inspection: labored (Mild), no respiratory distress, no use of accessory muscles and prolonged expiratory phase (Mild) Auscultation: diminished lung sounds, rales, rhonchi and no wheezes Other: Patient has a very congested-sounding cough, with week cough response. Patient has transmission of significant upper airway sounds throughout her lungs, but also has rales in her lower lungs. Patient speaks in phrases, with breaths in between. Cardio Rate: regular rate Rhythm: regular rhythm Heart Sounds: no click, no gallops, no murmurs and no rubs Pulses: normal peripheral pulses GI Inspection: non-distended Palpation: soft, no hepatosplenomegaly, No guarding, No pulsatile mass and No tender Auscultation: normal bowel sounds Back/Spine/Pelvis Back: No CVA tenderness Cervical Spine: cervical ROM normal and No pain with cervical ROM Thoracic/Lumbar Spine: thoracic and lumbar spine normal to inspection Skin General: no rashes or lesions noted, No jaundice and No petechiae Neuro General: alert, oriented x3, gait normal and no focal motor deficits Speech: speech normal Extrem General: full ROM, no clubbing, cyanosis or edema, no pedal edema and no calf tenderness Psych Appearance: well kempt Mental Status: mental status grossly normal Attitude: cooperative Thought Content: normal and suicidality Judgment: judgment good Course Course Course Narrative: Patient was treated with a DuoNeb and an albuterol nebs, and given a dose of Decadron IV. She was also given a L bolus of 0.9 normal saline. She was worked up with labs, EKG, and chest x-ray, which showed a leukocytosis of 56.4 and a left-sided infiltrate. Patient was treated with IV Rocephin and Zithromax. I spoke with Dr. Peña, who agreed to admit the patient to his service. Orders Ordered: ED Orders 02/23/19 10:45 Sputum Culture Stat Acetaminophen (Tylenol) 650 mg PO Q6HR PRN PRN Reason: As Needed for Fever/Mild Pain Albuterol (Ventolin) 2.5 mg INH [id number] [facility] Last Admin: 02/23/19 19:17 Dose: 2.5 mg Documented by: Admin: 02/23/19 15:07 Dose: 2.5 mg Documented by: ANDI Bisacodyl (Dulcolax) 10 mg [place] DAILY PRN PRN Reason: Constipation Carisoprodol (Soma) 350 mg PO DAILY PRN PRN Reason: Muscle Spasm Diazepam (Valium) 5 mg PO BID PRN PRN Reason: Muscle Spasm Duloxetine HCl (Cymbalta) 60 mg PO DAILY [facility] Enoxaparin Sodium (Lovenox) 40 mg SUBCUT DAILY [facility] Fentanyl (Duragesic) 50 mcg TOP Q72H [facility] Gabapentin (Neurontin) 900 mg PO BID [facility] Sodium Chloride (Normal Saline 0.9%) 1,000 mls @ 100 mls/hr IV CONT [facility] Last Admin: 02/23/19 13:50 Dose: 100 mls/hr Documented by: KACIE Ceftriaxone Sodium/Dextrose (Rocephin) 1 gm in 50 mls @ 100 mls/hr IV Q24H TAM Azithromycin 500 mg/ Dextrose 250 mls @ 250 mls/hr IV Q24H [facility] Magnesium Hydroxide (Milk Of Magnesia) 30 ml PO DAILY PRN PRN Reason: Constipation Methylprednisolone (Solu-Medrol 125 Mg Vial) 60 mg IV Q6H [facility] Last Admin: 02/23/19 18:09 Dose: 60 mg Documented by: Admin: 02/23/19 13:51 Dose: 60 mg Documented by: KACIE Naloxone HCl (Narcan) 0.2 mg IV Q2MIN PRN PRN Reason: Opiate Reversal Nicotine (Nicoderm) 21 mg TOP DAILY [facility] Last Admin: 02/23/19 14:02 Dose: 21 mg Documented by: KACIE Budesonide- Formoterol [ Symbicort] 2 puff INH BID [facility] Oxycodone HCl (Percolone) 5 mg PO Q4HR PRN PRN Reason: Pain, Moderate (4-6) Last Admin: 02/23/19 14:03 Dose: 5 mg Documented by: KACIE Oxycodone/Acetaminophen (Percocet 5/325) 1 tab PO Q6H PRN PRN Reason: Pain, Moderate (4-6) Last Admin: 02/23/19 14:02 Dose: 1 tab Documented by: KACIE Tiotropium [place] (Spiriva) 18 mcg INH DAILY [facility] Trazodone HCl (Desyrel) 100 mg PO BEDTIME [facility] Discontinued Medications Albuterol (Ventolin) 2.5 mg INH NOW ONE Stop: 02/23/19 08:28 Last Admin: 02/23/19 09:06 Dose: 2.5 mg Documented by: ANDI Albuterol/Ipratropium (Duoneb) 3 ml INH NOW ONE Stop: 02/23/19 08:28 Last Admin: 02/23/19 09:06 Dose: 3 ml Documented by: ANDI Dexamethasone (Decadron) 10 mg IV NOW ONE Stop: 02/23/19 08:28 Last Admin: 02/23/19 08:59 Dose: 10 mg Documented by: ERICA Fentanyl (Duragesic) 50 mcg TOP Q72H [facility] Last Admin: 02/23/19 14:04 Dose: Not Given Documented by: KACIE Sodium Chloride (Normal Saline 0.9%) 1,000 mls @ 1,000 mls/hr IV BOLUS ONE Stop: 02/23/19 09:26 Last Infusion: 02/23/19 11:01 Dose: 0 mls/hr Documented by: Admin: 02/23/19 08:59 Dose: 1,000 mls/hr Documented by: ERICA Ceftriaxone Sodium 2,000 mg/ (Dextrose) 50 mls @ 100 mls/hr IV NOW ONE Stop: 02/23/19 10:05 Last Infusion: 02/23/19 11:26 Dose: 0 mls/hr Documented by: Admin: 02/23/19 10:26 Dose: 100 mls/hr Documented by: REGGIE Azithromycin 500 mg/ Dextrose 250 mls @ 250 mls/hr IV NOW ONE Stop: 02/23/19 10:05 Last Infusion: 02/23/19 12:45 Dose: 0 mls/hr Documented by: Admin: 02/23/19 11:25 Dose: 250 mls/hr Documented by: REGGIE Sodium Chloride (Normal Saline 0.9%) 1,000 mls @ 1,000 mls/hr IV BOLUS ONE Stop: 02/23/19 12:04 Last Infusion: 02/23/19 12:18 Dose: 0 mls/hr Documented by: Admin: 02/23/19 11:06 Dose: 1,000 mls/hr Documented by: REGGIE Levofloxacin (Levaquin) 500 mg PO NOW ONE Stop: 02/23/19 10:03 Last Admin: 02/23/19 12:17 Dose: Not Given Documented by: REGGIE Vital Signs Vital signs: Vital Signs - 8 hr 02/23/19 08:10 02/23/19 09:00 02/23/19 09:15 Temperature 98.3 F Pulse Rate 115 H 101 H 100 H Respiratory Rate 12 22 21 Blood Pressure 94/62 Blood Pressure [Left Arm] 112/62 112/62 Pulse Oximetry 90 L 90 L 93 02/23/19 09:23 02/23/19 10:02 Temperature Pulse Rate 101 H Respiratory Rate 23 Blood Pressure Blood Pressure [Left Arm] 86/71 L Pulse Oximetry 93 90 L MDM - SOB/Dyspnea Medical Records Attestation: I reviewed the patient's medical records. Lab Data Attestation: I reviewed the patient's lab results. Result diagrams: 02/23/19 08:25 02/23/19 08:25 Labs: Lab Results 02/23/19 02/23/19 02/23/19 Range/Units 08:25 08:25 08:25 WBC 56.4 H* (4.5-11.0) X10^3/uL RBC 4.62 (4.0-5.2) X10^6/uL Hgb 16.0 (12.0-16.0) g/dL Hct 47.0 H (36-46) % MCV 101.8 H (80-100) fL MCH 34.6 H (26-34) PG MCHC 34.0 (30-36) % RDW 13.3 (11.6-14.8) % Plt Count 296 (150-400) X10^3/uL Neut % (Auto) Not Reportable Lymph % (Auto) Not Reportable [place] % (Auto) Not Reportable Eos % (Auto) Not Reportable Baso % (Auto) Not Reportable Lymph # (Auto) Not Reportable [place] # (Auto) Not Reportable Baso # (Auto) Not Reportable Total Counted 100 Seg Neutrophils % 80.0 H (38-70) % Band Neutrophils % 11.0 H (3-7) % Lymphocytes % (Manual) 5.0 L (25-45) % Monocytes % (Manual) 4.0 (2-11) % Neutrophils # (Manual) 73978 H (9456-8581) /uL RBC Morphology Normal morphology ABG pH (7.35-7.45) ABG pCO2 (35-45) mmHg ABG pO2 (80-100) mmHg ABG HCO3 (22-26) mmol/L ABG Total CO2 (21-31) mmol/L ABG O2 Saturation (95-100) % ABG Base Excess (-2-2) mmol/L FiO2 Sodium 142 (137-145) mmol/L Potassium 5.2 H (3.4-5.1) mmol/L Chloride 98 (98-107) mmol/L Carbon Dioxide 36 H (22-32) mmol/L BUN 16 (7-17) mg/dL Creatinine 0.60 (0.52-1.04) mg/dL Estimated GFR > 60.0 (>60) mL/min BUN/Creatinine Ratio 26.7 H (6-22) Glucose 115 H (80-110) mg/dL Calcium 10.1 (8.4-10.2) mg/dL Total Bilirubin 0.8 (0.2-1.3) mg/dL AST 32 (14-36) IU/L ALT 26 (<35) IU/L Alkaline Phosphatase 61 (38-126) U/L Troponin I < 0.012 (0.01-0.034) ng/mL B-Natriuretic Peptide < 100 (<100) Total Protein 7.1 (6.3-8.2) g/dL Albumin 4.5 (3.5-5.0) g/dL Globulin 2.6 (1.7-4.1) g/dL Albumin/Globulin Ratio 1.7 (1.0-2.8) 02/23/19 02/23/19 Range/Units 08:48 10:02 WBC (4.5-11.0) X10^3/uL RBC (4.0-5.2) X10^6/uL Hgb (12.0-16.0) g/dL Hct (36-46) % MCV (80-100) fL MCH (26-34) PG MCHC (30-36) % RDW (11.6-14.8) % Plt Count (150-400) X10^3/uL Neut % (Auto) Lymph % (Auto) [place] % (Auto) Eos % (Auto) Baso % (Auto) Lymph # (Auto) [place] # (Auto) Baso # (Auto) Total Counted Seg Neutrophils % (38-70) % Band Neutrophils % (3-7) % Lymphocytes % (Manual) (25-45) % Monocytes % (Manual) (2-11) % Neutrophils # (Manual) (1753-4300) /uL RBC Morphology ABG pH 7.41 (7.35-7.45) ABG pCO2 54.7 H (35-45) mmHg ABG pO2 60 L (80-100) mmHg ABG HCO3 35 H (22-26) mmol/L ABG Total CO2 36 H (21-31) mmol/L ABG O2 Saturation 90 L (95-100) % ABG Base Excess 10.0 H (-2-2) mmol/L FiO2 36 Sodium (137-145) mmol/L Potassium (3.4-5.1) mmol/L Chloride (98-107) mmol/L Carbon Dioxide (22-32) mmol/L BUN (7-17) mg/dL Creatinine (0.52-1.04) mg/dL Estimated GFR (>60) mL/min BUN/Creatinine Ratio (6-22) Glucose (80-110) mg/dL Calcium (8.4-10.2) mg/dL Total Bilirubin (0.2-1.3) mg/dL AST (14-36) IU/L ALT (<35) IU/L Alkaline Phosphatase (38-126) U/L Troponin I (0.01-0.034) ng/mL B-Natriuretic Peptide Cancelled (<100) Total Protein (6.3-8.2) g/dL Albumin (3.5-5.0) g/dL Globulin (1.7-4.1) g/dL Albumin/Globulin Ratio (1.0-2.8) Imaging Data Chest x-ray: Radiologist's impression: PROCEDURE: XR CHEST 1V INDICATIONS: dyspnea TECHNIQUE: One view of the chest was acquired. COMPARISON: [facility], CT, CT CHEST W CON, 02/06/2019, 9:15. [facility], CR, XR CHEST 2V, 02/04/2019, 15:18. FINDINGS: Surgical changes and devices: Cervical spine fixation hardware. Lungs and pleura: Patchy airspace opacities have developed in the left midlung and left lung base concerning for aspiration versus pneumonia. Masslike opacity in the right perihilar midlung is not significantly changed. No pleural effusions or pneumothorax. Mediastinum: Mediastinal contours appear normal. Heart size is normal. Bones and chest wall: No suspicious bony lesions. Overlying soft tissues appear unremarkable. IMPRESSION: 1. New patchy airspace opacities in the left midlung and left lung base suspicious for aspiration versus pneumonia. 2. Masslike opacity in the right midlung not significantly changed. Recommend followup imaging in one month to ensure resolution and to exclude underlying neoplasm. Dictated by: Tran Briones MD, PhD on 02/23/2019 at 8:41 Approved by: Tran Briones MD, PhD on 02/23/2019 at 8:44 ECG Data Attestation: I personally reviewed and interpreted this ECG as follows: (See below) Interpretation: Twelve lead EKG performed February 23, 2019 at 8:17 a.m., as follows: Regular ventricular rhythm with a rate of 108 beats per minute NJ interval 131 millisecond QRS duration 81 millisecond QTC interval [address] T wave changes No ectopy Interpretation: Sinus tachycardia; borderline right axis deviation; no signs of acute ischemia; abnormal EKG as interpreted by ED MD. Discharge Plan Departure Patient Disposition: Admitted As Inpatient Clinical Impression: Pneumonia Discharge Date/Time: 02/23/19 12:30 Admit Date/Time: 02/23/19 10:19 Admit Provider: Fito Peña
[2019-02-23] MEDS: DEXAMETHASONE 10 MG/ML VIAL IV (08:59)
[2019-02-23] MEDS: SODIUM CHLORIDE 0.9% 1,000 ML 1000 ML IV ×2 (08:59→11:06)
[2019-02-23 09:01] LABS: Mean Corpuscular Hemoglobin 34.6 PG (26-34); Mean Corpuscular Volume 101.8 fL (80-100); Platelet Count 296 X10^3/uL (150-400); Red Blood Cell Count 4.62 X10^6/uL (4.0-5.2); Red Cell Distribution Width 13.3 % (11.6-14.8)
[2019-02-23 09:04] LABS: Alanine Aminotransferase 26 IU/L (<35); Albumin 4.5 g/dL (3.5-5.0); Albumin Globulin Ratio 1.7 (1.0-2.8); Alkaline Phosphatase 61 U/L (38-126); Aspartate Aminotransferase 32 IU/L (14-36); BUN Creatinine Ratio 26.7 (6-22); Bilirubin Total 0.8 mg/dL (0.2-1.3); Blood Urea Nitrogen 16 mg/dL (7-17); Calcium 10.1 mg/dL (8.4-10.2); Carbon Dioxide 36 mmol/L (22-32); Chloride 98 mmol/L (98-107); Estimated Glomerular Filt Rate > 60.0 mL/min (>60); Globulin 2.6 g/dL (1.7-4.1); Glucose 115 mg/dL (80-110); HEMOLYSIS 23 (0-50); Potassium 5.2 mmol/L (3.4-5.1); Sodium 142 mmol/L (137-145); Total Protein 7.1 g/dL (6.3-8.2)
[2019-02-23 09:06] LABS: Add Manual Diff / Slide Review YES; White Blood Cell Count 56.4 X10^3/uL (4.5-11.0)
[2019-02-23] MEDS: ALBUTEROL/IPRATROPIUM 3 ML AMPUL INH (09:06)
[2019-02-23] MEDS: ALBUTEROL 2.5 MG/3 ML NEB (ADULT) INH ×3 (09:06→19:17)
[2019-02-23 09:16] LABS: Troponin I < 0.012 ng/mL (0.01-0.034)
[2019-02-23 09:25] LABS: B Type Natriuretic Peptide < 100 (<100)
[2019-02-23 09:39] LABS: HCO3 ABG 35 mmol/L (22-26); PCO2 ABG 54.7 mmHg (35-45); PO2 ABG 60 mmHg (80-100); TCO2 ABG 36 mmol/L (21-31); pH ABG 7.41 (7.35-7.45)
[2019-02-23 09:40] LABS: Fractionated Inspired Oxygen 36; Oxygen Saturation ABG 90 % (95-100)
[2019-02-23 09:44] LABS: Neutrophils Absolute Manual 51324 /uL (3000-5900); RBC Morphology Normal Morphology; Total Cells Counted 100
[2019-02-23] MEDS: cefTRIAXone 2,000 MG in DEXTROSE 5 % IN WATER 50 ML 100 ML IV (10:26)
--- NOTE | 2019-02-23 11:12 | PM.HP.1 ---
History of Present Illness History of Present Illness Date Patient Seen: 02/23/19 Time Patient Seen: 10:45 Chief complaint: difficulty breathing Narrative: Patient is a 68-year-old female with history of COPD, on nighttime O2, current smoker presents to emergency department because of severe difficulty breathing. Patient noted marked worsening in her breathing over the past 24-48 hours. In addition noted worsening cough productive of thick yellow phlegm without blood. She states that over the past month she has been on 3 different courses of antibiotic for COPD exacerbation and possible pneumonia. Most recently she completed a 10 day course of Levaquin about 5 days ago. She has also been on daily prednisone for about the past couple of weeks. She had a reported normal chest x-ray on January 15, 2019. On February 04, 2019 she had a chest x-ray which reported 2 cm nodular opacity in the right hilar region concerning for pulmonary mass versus pneumonia. Subsequently she had a contrast chest CT on February 06, 2019 which showed severe emphysema and diffuse interstitial lung disease in addition to an ill-defined streaky patchy consolidation in the lingula and right middle lobe, also presumed nodular scarring or atelectasis corresponding to chest x-ray finding from February 04, 2019. Also chronic right middle lobe subpleural nodule measuring 5 mm unchanged since 2016. CT findings were thought consistent with early or developing pneumonia with underlying severe emphysema. On her chest x-ray from emergency department patient is noted to have new patchy airspace opacities in the left mid lung and left lung base suspicious for aspiration versus pneumonia. There is no change in masslike opacity in the right middle lung noted on the CT February 06, 2019 consistent with pneumonia versus lung mass. On presenting vitals patient noted to be hypotensive with blood pressures of 86/71 but patient states normally her blood pressures run in the low to mid 90s systolic. Initial heart rate 115, respiratory rate 22, O2 sat low to mid 80s. Her ABG showed pH of 7.41, pCO2 54.7, PO2 60, bicarb 35 on 36% FiO2. However her oxygenation has worsened and she is currently on 70% high-flow nasal cannula when evaluated in the ED. Labs showed marked leukocytosis with WBC 56, hemoglobin 16, BNP less than 100. Blood pressure in low 80s at this time. Patient is therefore admitted to ICU for treatment of pneumonia with acute respiratory failure. Patient History Medical History BCC (basal cell carcinoma) (Acute ~2000) Benign neoplasm of clitoris (Acute ~03/23/16) Chronic pain (Acute) Compression fracture of T8 vertebra (Acute ~2011) COPD (chronic obstructive pulmonary disease) (Acute) History of pneumonia (Acute) Osteoarthritis (Acute) Osteomyelitis of jaw (Acute 03/13/18) Osteoporosis (Acute) Requires supplemental oxygen (Acute) Thyroid nodule (Acute) Surgical History History of lumbar surgery (Acute ~1989) Hx of appendectomy (Acute) Hx of fusion of cervical spine (Acute) Hx of hand surgery (Acute) Status post tonsillectomy and adenoidectomy Status post vaginal hysterectomy Family & Social History Family History Mother Cancer of kidney Cancer of bladder Father Congestive heart failure Sister Hypertension Social History: household members spouse Safety & Behavioral: Feels Safe in Current Yes Environment Tobacco & Substance use: Tobacco type cigarettes Smoking Status Current every day smoker alcohol intake former Substance Use Type does not use Meds Home Medications and Allergies Home Medications Medication Instructions Recorded Confirmed Type Symbicort 2 puff INH BID #0 07/22/17 02/23/19 History albuterol sulfate [Ventolin HFA] 2 puff INH Q4H PRN #0 07/22/17 02/23/19 History albuterol sulfate 2.5 mg INHALATION TID 03/13/18 02/23/19 History calcium carbonate [Calcium 500] 1,000 mg PO DAILY 03/13/18 02/23/19 History tiotropium bromide 1 cap INHALATION DAILY 03/13/18 02/23/19 History fentanyl 50 mcg TOPICAL Q72H #10 ea 03/19/18 02/23/19 Rx carisoprodol 350 mg PO DAILY PRN 02/23/19 02/23/19 History cholecalciferol (vitamin D3) 1,000 unit PO DAILY 02/23/19 02/23/19 History [Vitamin D3] diazepam 5 mg PO BID PRN 02/23/19 02/23/19 History diclofenac sodium 50 mg PO BID 02/23/19 02/23/19 History duloxetine 60 mg PO DAILY 02/23/19 02/23/19 History gabapentin [Neurontin] 900 mg PO BID 02/23/19 02/23/19 History oxycodone-acetaminophen 1 tab PO Q6H PRN 02/23/19 02/23/19 History prednisone 20 mg PO DAILY 02/23/19 02/23/19 History trazodone 100 mg PO BEDTIME 02/23/19 02/23/19 History Allergies Allergy/AdvReac Type Severity Reaction Status Date / Time morphine Allergy Severe Itching Verified 02/23/19 08:28 when mixed w/dressing, po/IV ok nickel Allergy Severe Rash, Verified 02/23/19 08:28 infections codeine Allergy Mild Itching Verified 02/23/19 08:28 nabumetone Allergy Pt does Verified 02/23/19 08:28 not remember reaction alendronate sodium AdvReac Severe Nausea Verified 02/23/19 08:28 amoxicillin [From AUGMENTIN] AdvReac Mild VOMITING Verified 02/23/19 08:28 cephalexin [CEPHALEXIN] AdvReac Mild VOMITING Verified 02/23/19 08:28 clavulanic acid AdvReac Mild VOMITING Verified 02/23/19 08:28 [From AUGMENTIN] sulfamethoxazole AdvReac Mild nausea Verified 02/23/19 08:28 [From SEPTRA] trimethoprim [From SEPTRA] AdvReac Mild nausea Verified 02/23/19 08:28 Review of Systems Review of Systems Narrative: Chronic low body weight without significant recent weight loss ROS Unobtainable: All systems reviewed & are unremarkable except as noted in HPI and below Exam Vital Signs (past 8 hours): - 02/23/19 08:10 02/23/19 09:00 02/23/19 09:15 Temperature 98.3 F Pulse Rate 115 H 101 H 100 H Respiratory Rate 12 22 21 Blood Pressure 94/62 Blood Pressure [Left Arm] 112/62 112/62 Pulse Oximetry 90 L 90 L 93 02/23/19 09:23 02/23/19 10:02 02/23/19 10:51 Temperature Pulse Rate 101 H Respiratory Rate 23 Blood Pressure Blood Pressure [Left Arm] 86/71 L Pulse Oximetry 93 90 L 92 Fraction of Inspired Oxygen 75 Oxygen Delivery Method Heated High Flow Oxygen Flow Rate 45 Narrative Exam Narrative: GENERAL: Alert thin female in respiratory distress HEAD: Atraumatic. Normocephalic. EYES: Pupils equal, round and reactive. Extraocular motions intact. No scleral icterus. No injection or drainage. OROPHARYNX: Upper and lower dentures, dry mucosa NECK: Trachea midline. No JVD or cervical/supraclavicular lymphadenopathy. CARDIOVASCULAR: Normal S1 and S2, regular rhythm, no murmur appreciated RESPIRATORY: Using accessory muscles to breathe, diffuse inspiratory and expiratory rhonchi bilaterally GASTROINTESTINAL: Abdomen nondistended, soft, non-tender. No hepato-splenomegaly, or palpable masses. EXTREMITIES: No edema. NEUROLOGICAL: Alert, well oriented, speech is intact, equal bilateral upper and lower extremity strength SKIN: warm, dry, no rash Objective Labs Result Diagrams: 02/23/19 08:25 02/23/19 08:25 Labs: Laboratory Results - last 24 hr 02/23/19 02/23/19 02/23/19 08:25 08:25 08:25 WBC 56.4 H* RBC 4.62 Hgb 16.0 Hct 47.0 H MCV 101.8 H MCH 34.6 H MCHC 34.0 RDW 13.3 Plt Count 296 Neut % (Auto) Not Reportable Lymph % (Auto) Not Reportable [place] % (Auto) Not Reportable Eos % (Auto) Not Reportable Baso % (Auto) Not Reportable Lymph # (Auto) Not Reportable [place] # (Auto) Not Reportable Baso # (Auto) Not Reportable Total Counted 100 Seg Neutrophils % 80.0 H Band Neutrophils % 11.0 H Lymphocytes % (Manual) 5.0 L Monocytes % (Manual) 4.0 Neutrophils # (Manual) 50740 H RBC Morphology Normal morphology ABG pH ABG pCO2 ABG pO2 ABG HCO3 ABG Total CO2 ABG O2 Saturation ABG Base Excess FiO2 Sodium 142 Potassium 5.2 H Chloride 98 Carbon Dioxide 36 H BUN 16 Creatinine 0.60 Estimated GFR > 60.0 BUN/Creatinine Ratio 26.7 H Glucose 115 H Calcium 10.1 Total Bilirubin 0.8 AST 32 ALT 26 Alkaline Phosphatase 61 Troponin I < 0.012 B-Natriuretic Peptide < 100 Total Protein 7.1 Albumin 4.5 Globulin 2.6 Albumin/Globulin Ratio 1.7 02/23/19 02/23/19 08:48 10:02 WBC RBC Hgb Hct MCV MCH MCHC RDW Plt Count Neut % (Auto) Lymph % (Auto) [place] % (Auto) Eos % (Auto) Baso % (Auto) Lymph # (Auto) [place] # (Auto) Baso # (Auto) Total Counted Seg Neutrophils % Band Neutrophils % Lymphocytes % (Manual) Monocytes % (Manual) Neutrophils # (Manual) RBC Morphology ABG pH 7.41 ABG pCO2 54.7 H ABG pO2 60 L ABG HCO3 35 H ABG Total CO2 36 H ABG O2 Saturation 90 L ABG Base Excess 10.0 H FiO2 36 Sodium Potassium Chloride Carbon Dioxide BUN Creatinine Estimated GFR BUN/Creatinine Ratio Glucose Calcium Total Bilirubin AST ALT Alkaline Phosphatase Troponin I B-Natriuretic Peptide Cancelled Total Protein Albumin Globulin Albumin/Globulin Ratio Assessment & Plan Assessment & Plan narrative: This is a 68-year-old female with history of severe emphysema/COPD, current smoker, chronic nighttime O2 presents with acute worsening dyspnea and cough after recent treatments for outpatient pneumonia and COPD exacerbation. Noted hypoxic, hypotensive and tachycardic in the ED with chest x-ray showing new left lung and persistent right lung infiltrates. 1. Bacterial pneumonia, present on admission -patient with failure of several courses of outpatient antibiotic, most recently Levaquin, and prednisone for COPD exacerbation -marked leukocytosis -obtain blood and sputum cultures -ceftriaxone 1 g IV q.d. and Zithromax 500 mg IV q.d. -CBC in a.m. -consider repeat chest x-ray in a.m. 2. Acute hypoxic respiratory failure, present on admission -secondary to pneumonia and COPD exacerbation -presently on 70% FiO2 with high-flow nasal cannula -continue high-flow nasal cannula, patient at risk for respiratory deterioration requiring intubation and mechanical ventilation, and does confirm full code status 3. Acute COPD exacerbation, present on admission -diffuse rhonchi on exam, has been on outpatient prednisone for past 2 weeks -Solu-Medrol 60 IV q.6 hours -RT consult, albuterol neb q.4 hours, continue patient's Symbicort and tiotropium inhaler 4. Chronic back pain with opioid dependency -continue home routine fentanyl patch 50 mcg Q 72 hours and Percocet as needed, continue carisoprodol daily as needed and diazepam 5 mg b.i.d. as needed for muscle spasms, continue gabapentin 900 mg b.i.d., continue duloxetine, hold oral diclofenac in hospital due to risk of stress ulcer 5. DVT prophylaxis -Lovenox 40 mg subcu daily 6. Possible right middle lung mass -on outpatient CT February 06, 2019 this was noted as a pneumonia versus primary lung mass, a 2 new cm right lung nodule/mass was noted on chest x-ray 02/04/2019 -patient should have follow-up outpatient chest x-ray or CT to ensure resolution of new lung abnormalities. Patient admitted to ICU due to critical illness from pneumonia and acute respiratory failure. Total critical care evaluation time at least 70 minutes.
[2019-02-23] MEDS: AZITHROMYCIN 500 MG in DEXTROSE 5% IN WATER 250 ML IV (11:25)
[2019-02-23] MEDS: SODIUM CHLORIDE 0.9% 1,000 ML 100 ML IV (13:50)
[2019-02-23] MEDS: methylPREDNISolone 125 MG/2 ML VIAL 60 MG IV ×2 (13:51→18:09)
[2019-02-23] MEDS: NICOTINE 21 MG PATCH TOP (14:02)
[2019-02-23] MEDS: OXYCODONE/ACETAMINOPHEN 5/325 TABLET 1 TAB PO ×2 (14:02→19:34)
[2019-02-23] MEDS: OXYCODONE IR 5 MG TABLET PO ×2 (14:03→19:34)
--- NOTE | 2019-02-23 15:00 | PC.ADMIT ---
Admission Note: Patient arrived to room 104 via stretcher from ER. SBA to transfer, steady on feet. Heated HF in place 45L and FiO2 0.75; SpO2 90-92%. Reports pain to back 10/15, fentanyl patch in place to right chest and prn oxycodone administered. Reports shortness of breath improved from this AM at home. Oriented to room and to call light/bed/tv controls. Belongings within reach, declines to lock up valuables. Call light within reach. The patient,Es Velazquez,68 y/o, was given written information regarding hospital policies, unit procedures and contact persons. Patient's smoking status: Current every day smoker. Vital Signs - 8 hr 02/23/19 08:10 02/23/19 09:00 02/23/19 09:15 Temperature 98.3 F Pulse Rate 115 H 101 H 100 H Respiratory Rate 12 22 21 Blood Pressure 94/62 Blood Pressure [Left Arm] 112/62 112/62 Pulse Oximetry 90 L 90 L 93 02/23/19 09:23 02/23/19 10:02 02/23/19 10:30 Temperature Pulse Rate 101 H 105 H Respiratory Rate 23 28 H Blood Pressure Blood Pressure [Left Arm] 86/71 L 81/72 L Pulse Oximetry 93 90 L 87 L 02/23/19 10:45 02/23/19 10:51 02/23/19 11:00 Temperature Pulse Rate 107 H 106 H Respiratory Rate 19 20 Blood Pressure Blood Pressure [Left Arm] 83/63 L 93/53 L Pulse Oximetry 93 92 90 L 02/23/19 11:01 02/23/19 11:15 02/23/19 12:01 Temperature Pulse Rate 104 H 105 H 104 H Respiratory Rate 20 21 22 Blood Pressure Blood Pressure [Left Arm] 89/58 L 107/58 L 101/56 L Pulse Oximetry 90 L 90 L 92 02/23/19 13:00 Temperature 99.5 F Pulse Rate 96 H Respiratory Rate 22 Blood Pressure 112/68 Blood Pressure [Left Arm] Pulse Oximetry 91
--- NOTE | 2019-02-23 18:37 | PC.NURSE ---
Addendum entered by Jennifer Carlson R.N. 02/23/19 19:56: 1930 - HS meds given per pt request. Pt up to bsc, sats decreased to 84% with activity. Slow to recover. Monitor. Original Note: 1814 - Pt resting in bed. Reports feeling fatigued. Requesting HS meds to be given at 1930. Reports that is what time she takes them at home. Review med list. Dr. Peña at bedside and able to clarify order decisions. FIO2 80-90%, flow rate 50, Sats 88-92%. MD aware. Solumedrol given per order. Reinforced safety and call light use. Call light in reach.
[2019-02-23] MEDS: diazePAM 5 MG TABLET PO (19:34)
[2019-02-23] MEDS: GABAPENTIN 300 MG CAPSULE 900 MG PO (19:34)
[2019-02-23] MEDS: TRAZODONE 100 MG TABLET PO (19:35)
[2019-02-24] VITALS (30 sets, daily range): BP systolic 82–116; BP diastolic 47–68; PULSE 77–118; RESP 13–36; TEMP 30.1–37.3; O2SAT 85–98
[2019-02-24] MEDS: methylPREDNISolone 125 MG/2 ML VIAL 60 MG IV ×4 (00:51→17:42)
[2019-02-24] MEDS: SODIUM CHLORIDE 0.9% 1,000 ML 100 ML IV ×3 (00:54→19:36)
[2019-02-24] MEDS: OXYCODONE/ACETAMINOPHEN 5/325 TABLET 1 TAB PO ×4 (01:13→17:46)
[2019-02-24] MEDS: OXYCODONE IR 5 MG TABLET PO ×4 (01:14→17:45)
[2019-02-24] MEDS: ALBUTEROL 2.5 MG/3 ML NEB (ADULT) INH ×5 (01:15→19:40)
[2019-02-24 05:09] LABS: Blood Urea Nitrogen 14 mg/dL (7-17); Calcium 8.8 mg/dL (8.4-10.2); Carbon Dioxide 32 mmol/L (22-32); Chloride 107 mmol/L (98-107); Estimated Glomerular Filt Rate > 60.0 mL/min (>60); Glucose 149 mg/dL (80-110); HEMOLYSIS < 15 (0-50); Potassium 4.7 mmol/L (3.4-5.1); Sodium 141 mmol/L (137-145)
[2019-02-24 05:11] LABS: Hematocrit 37.1 % (36-46); Hemoglobin 12.3 g/dL (12.0-16.0); Mean Corpuscular HGB Conc 33.2 % (30-36); Mean Corpuscular Hemoglobin 33.9 PG (26-34); Platelet Count 217 X10^3/uL (150-400); Red Blood Cell Count 3.64 X10^6/uL (4.0-5.2); Red Cell Distribution Width 13.2 % (11.6-14.8)
[2019-02-24 05:16] LABS: Add Manual Diff / Slide Review YES
[2019-02-24 05:34] LABS: Neutrophils Absolute Manual 33660 /uL (3000-5900); Total Cells Counted 100
[2019-02-24 05:39] LABS: Macrocytosis 1+
--- NOTE | 2019-02-24 08:13 | PM.PN.1 ---
Subjective Subjective Date Patient Seen: 02/24/19 Interval history: Patient is a 68-year-old female with history of COPD, on nighttime O2, current smoker admitted due to severe pneumonia and COPD exacerbation. She had failed outpatient therapy with antibiotics and steroids. Patient states she is feeling a little better with improvement in breathing. Still on 50% high-flow nasal cannula to maintain sats in the 88-90% range. Exam Vital Signs (past 8 hours): - 02/24/19 01:00 02/24/19 01:19 02/24/19 02:53 Temperature 97.5 F L Pulse Rate 78 77 Respiratory Rate 21 18 Blood Pressure 105/60 Pulse Oximetry 91 92 91 02/24/19 04:51 Temperature 97.8 F Pulse Rate 84 Respiratory Rate 16 Blood Pressure 107/67 Pulse Oximetry 94 Fraction of Inspired Oxygen 30.9 Oxygen Delivery Method Heated High Flow Oxygen Flow Rate 50 Narrative Exam Narrative: GENERAL: Patient appears relatively comfortable CHEST: Bilateral inspiratory and expiratory rhonchi CARDIAC: Regular rate and rhythm. ABDOMEN: Nondistended, soft, nontender EXTREMITIES: no edema. NEUROLOGICAL: Alert, pleasant, no focal findings SKIN: Warm, dry, no petechiae, no rash Objective Labs Result Diagrams: 02/24/19 04:45 02/24/19 04:45 Labs: Laboratory Results - last 24 hr 02/23/19 02/23/19 02/23/19 08:25 08:25 08:25 WBC 56.4 H* RBC 4.62 Hgb 16.0 Hct 47.0 H MCV 101.8 H MCH 34.6 H MCHC 34.0 RDW 13.3 Plt Count 296 Neut % (Auto) Not Reportable Lymph % (Auto) Not Reportable [place] % (Auto) Not Reportable Eos % (Auto) Not Reportable Baso % (Auto) Not Reportable Lymph # (Auto) Not Reportable [place] # (Auto) Not Reportable Baso # (Auto) Not Reportable Total Counted 100 Seg Neutrophils % 80.0 H Band Neutrophils % 11.0 H Lymphocytes % (Manual) 5.0 L Monocytes % (Manual) 4.0 Neutrophils # (Manual) 42445 H RBC Morphology Normal morphology Macrocytosis ABG pH ABG pCO2 ABG pO2 ABG HCO3 ABG Total CO2 ABG O2 Saturation ABG Base Excess FiO2 Sodium 142 Potassium 5.2 H Chloride 98 Carbon Dioxide 36 H BUN 16 Creatinine 0.60 Estimated GFR > 60.0 BUN/Creatinine Ratio 26.7 H Glucose 115 H Calcium 10.1 Total Bilirubin 0.8 AST 32 ALT 26 Alkaline Phosphatase 61 Troponin I < 0.012 B-Natriuretic Peptide < 100 Total Protein 7.1 Albumin 4.5 Globulin 2.6 Albumin/Globulin Ratio 1.7 Nasal Screen MRSA (PCR) 02/23/19 02/23/19 02/23/19 08:48 10:02 12:20 WBC RBC Hgb Hct MCV MCH MCHC RDW Plt Count Neut % (Auto) Lymph % (Auto) [place] % (Auto) Eos % (Auto) Baso % (Auto) Lymph # (Auto) [place] # (Auto) Baso # (Auto) Total Counted Seg Neutrophils % Band Neutrophils % Lymphocytes % (Manual) Monocytes % (Manual) Neutrophils # (Manual) RBC Morphology Macrocytosis ABG pH 7.41 ABG pCO2 54.7 H ABG pO2 60 L ABG HCO3 35 H ABG Total CO2 36 H ABG O2 Saturation 90 L ABG Base Excess 10.0 H FiO2 36 Sodium Potassium Chloride Carbon Dioxide BUN Creatinine Estimated GFR BUN/Creatinine Ratio Glucose Calcium Total Bilirubin AST ALT Alkaline Phosphatase Troponin I B-Natriuretic Peptide Cancelled Total Protein Albumin Globulin Albumin/Globulin Ratio Nasal Screen MRSA (PCR) Negative for mrsa 02/24/19 02/24/19 04:45 04:45 WBC 34.0 H* RBC 3.64 L Hgb 12.3 Hct 37.1 MCV 102.0 H MCH 33.9 MCHC 33.2 RDW 13.2 Plt Count 217 Neut % (Auto) Not Reportable Lymph % (Auto) Not Reportable [place] % (Auto) Not Reportable Eos % (Auto) Not Reportable Baso % (Auto) Not Reportable Lymph # (Auto) Not Reportable [place] # (Auto) Not Reportable Baso # (Auto) Not Reportable Total Counted 100 Seg Neutrophils % 99.0 H Band Neutrophils % Lymphocytes % (Manual) Monocytes % (Manual) 1.0 L Neutrophils # (Manual) 24479 H RBC Morphology See below Macrocytosis 1+ H ABG pH ABG pCO2 ABG pO2 ABG HCO3 ABG Total CO2 ABG O2 Saturation ABG Base Excess FiO2 Sodium 141 Potassium 4.7 Chloride 107 Carbon Dioxide 32 BUN 14 Creatinine 0.50 L Estimated GFR > 60.0 BUN/Creatinine Ratio 28.0 H Glucose 149 H Calcium 8.8 Total Bilirubin AST ALT Alkaline Phosphatase Troponin I B-Natriuretic Peptide Total Protein Albumin Globulin Albumin/Globulin Ratio Nasal Screen MRSA (PCR) Assessment & Plan Assessment & Plan narrative: This is a 68-year-old female with history of severe emphysema/COPD, current smoker, chronic nighttime O2 presents with acute worsening dyspnea and cough after recent treatments for outpatient pneumonia and COPD exacerbation. Noted hypoxic, hypotensive and tachycardic in the ED with chest x-ray showing new left lung and persistent right lung infiltrates. 1. Bacterial pneumonia, present on admission -patient with failure of several courses of outpatient antibiotic, most recently Levaquin, and prednisone for COPD exacerbation -marked leukocytosis which is improving -blood and sputum cultures, negative -ceftriaxone 1 g IV q.d. and Zithromax 500 mg IV q.d. -repeat CBC in a.m. -consider repeat chest x-ray 2. Acute hypoxic respiratory failure, present on admission -secondary to pneumonia and COPD exacerbation -presently on 50% FiO2 with high-flow nasal cannula, stable since last night -continue high-flow nasal cannula, patient at risk for respiratory deterioration requiring intubation and mechanical ventilation, and does confirm full code status 3. Acute COPD exacerbation, present on admission -diffuse rhonchi on exam, has been on outpatient prednisone for past 2 weeks -Solu-Medrol 60 IV q.6 hours -RT consult, albuterol neb q.4 hours, continue patient's Symbicort and tiotropium inhaler 4. Chronic back pain with opioid dependency -continue home routine fentanyl patch 50 mcg Q 72 hours and Percocet as needed, continue carisoprodol daily as needed and diazepam 5 mg b.i.d. as needed for muscle spasms, continue gabapentin 900 mg b.i.d., continue duloxetine, hold oral diclofenac in hospital due to risk of stress ulcer 5. DVT prophylaxis -Lovenox 40 mg subcu daily 6. Possible right middle lung mass -on outpatient CT February 06, 2019 this was noted as a pneumonia versus primary lung mass, a 2 new cm right lung nodule/mass was noted on chest x-ray 02/04/2019 -patient should have follow-up outpatient chest x-ray or CT to ensure resolution of new lung abnormalities. Patient is critically ill due to severe respiratory failure. Continue management in ICU. Quality VTE Deep Vein Thrombosis/Pulmonary Embolism Present on Admission: No
[2019-02-24] MEDS: CEFTRIAXONE 1 GM/50 ML FROZ.PIGGY IV (08:49)
[2019-02-24] MEDS: ENOXAPARIN 40 MG/0.4 ML SYRINGE SUBCUT (08:50)
[2019-02-24] MEDS: DULOXETINE 30 MG CAPSULE 60 MG PO (08:50)
[2019-02-24] MEDS: diazePAM 5 MG TABLET PO (08:50)
[2019-02-24] MEDS: GABAPENTIN 300 MG CAPSULE 900 MG PO ×2 (08:50→19:36)
--- NOTE | 2019-02-24 09:09 | CM.DANOTE ---
DCP: Case received, EMR reviewed and met with patient. Introduced self and role. Was able to meet with patient briefly and obtain baseline health and activity information. DCP assessment/template completed with information currently available. Patient is a 68 year old female who admitted yesterday morning to the care of the hospitalist team. PCP: Dr. Ruff. Payer: confirmed[facility] Patient came to the hospital via family vehicle secondary to shortness of breath. Patient has history of COPD, and is on home oxygen. She is also a smoker. Patient holds diagnosis of Pneumonia. Met with patient in her room. She stated she mostly uses her oxygen at night. She lives with her spouse, Dominic, in [place]. She uses a FWW for walking long distances, patient stated she likes to go for walks. She also drives. P: DCP to follow closely. At this time, she is on IV antibiotics, will see how she progresses here in the hospital. She should be able to go home when she is medically stable. Karissa Mattson RN/Chief Radiation Therapist
[2019-02-24] MEDS: AZITHROMYCIN 500 MG in DEXTROSE 5% IN WATER 250 ML IV (10:27)
--- NOTE | 2019-02-24 11:54 | DIET.PN ---
Dietary Progress Note This RD attempted consult c pt but will try back tomorrow as pt is reliant on bipap. [facility] records show pt has gained 4kg since July 2018 which may be water weight r/t COPD exacerbation.
[2019-02-24] MEDS: NICOTINE 21 MG PATCH TOP (12:07)
--- NOTE | 2019-02-24 14:48 | PC.NURSE ---
Day Shift Note Patient on heated HF at start of shift, settings at 100% FiO2 and 50L flow, oxygen sats 80-81% with no change when patient encouraged to cough and deep breathe. Update to Dr. Peña and pt placed on bipap by RT per MD order at 0910. FIO2 initially 100% but titrated down to 60% by 1200 when it was removed for lunch - pt back to heated HF at this time. Pt tolerated bipap well with SpO2 94-97%. SR/ST, HR up to 120 bpm. Repositioning for comfort, receiving prn oxycodone for chronic back pain. Fentanyl patch remains in place to right chest. Call light within reach.
[2019-02-24] MEDS: MORPHINE 2 MG/ML INJ IV ×2 (15:48→21:08)
[2019-02-24] MEDS: TRAZODONE 100 MG TABLET PO (19:36)
[2019-02-24 20:21] LABS: Procalcitonin < 0.05 ng/mL (<0.5)
[2019-02-24 21:23] LABS: Adenovirus Not Detected (Not Detect); Bordetella pertussis Not Detected (Not Detect); Chlamydophila pneumoniae Not Detected (Not Detect); Coronavirus 229E Not Detected (Not Detect); Coronavirus HKU1 Not Detected (Not Detect); Coronavirus NL 63 Not Detected (Not Detect); Coronavirus OC43 Not Detected (Not Detect); Human Metapneumovirus Not Detected (Not Detect); Human Rhinovirus/Enterovirus Not Detected (Not Detect); Influenza A Not Detected (Not Detect); Influenza B Not Detected (Not Detect); Mycoplasma pneumoniae Not Detected (Not Detect); Parainfluenza Virus 1 Not Detected (Not Detect); Parainfluenza Virus 2 Not Detected (Not Detect); Parainfluenza Virus 3 Not Detected (Not Detect); Parainfluenza Virus 4 Not Detected (Not Detect); Respiratory Syncytial Virus Not Detected (Not Detect)
--- NOTE | 2019-02-24 21:54 | PC.NURSE ---
Evening Shift Note: Pt with uneventful shift. Received on Bipap, 16/10 and 60%, pt off bipap for meals, tolerated heated high flow NC at flow rate of 50 L and 50% FiO2 for ~ 2.5 hours. After being on HHFNC pt was using accessory muscles to breathe, retracting and tachypneic. Pt reporting back pain, up to 11/15. Improved with home meds in addition to iv morphine. Pt tolerating diet, voiding on commode. Mostly in bed. VSS. HR up to 120 with activity. SR, HR 80s when sleeping. Will continue to monitor, notify MD with changes.
[2019-02-25] VITALS (22 sets, daily range): BP systolic 99–126; BP diastolic 40–73; PULSE 71–113; RESP 11–25; TEMP 36.4–37.8; O2SAT 87–97; BMI 16.7
[2019-02-25] MEDS: OXYCODONE/ACETAMINOPHEN 5/325 TABLET 1 TAB PO ×4 (00:20→17:30)
[2019-02-25] MEDS: OXYCODONE IR 5 MG TABLET PO ×4 (00:20→17:30)
[2019-02-25] MEDS: methylPREDNISolone 125 MG/2 ML VIAL 60 MG IV ×5 (00:20→22:04)
[2019-02-25] MEDS: diazePAM 5 MG TABLET PO ×3 (00:20→19:31)
[2019-02-25] MEDS: MORPHINE 2 MG/ML INJ IV ×4 (05:08→22:04)
[2019-02-25] MEDS: SODIUM CHLORIDE 0.9% 1,000 ML 100 ML IV ×2 (05:19→16:16)
[2019-02-25 05:20] LABS: Hematocrit 35.2 % (36-46); Hemoglobin 11.7 g/dL (12.0-16.0); Mean Corpuscular HGB Conc 33.2 % (30-36); Mean Corpuscular Hemoglobin 34.1 PG (26-34); Mean Corpuscular Volume 102.7 fL (80-100); Platelet Count 211 X10^3/uL (150-400); Red Blood Cell Count 3.42 X10^6/uL (4.0-5.2); Red Cell Distribution Width 13.2 % (11.6-14.8); White Blood Cell Count 28.2 X10^3/uL (4.5-11.0)
[2019-02-25 05:25] LABS: Blood Urea Nitrogen 12 mg/dL (7-17); Calcium 8.5 mg/dL (8.4-10.2); Carbon Dioxide 32 mmol/L (22-32); Chloride 109 mmol/L (98-107); Estimated Glomerular Filt Rate > 60.0 mL/min (>60); Glucose 134 mg/dL (80-110); HEMOLYSIS < 15 (0-50); Potassium 4.5 mmol/L (3.4-5.1); Sodium 143 mmol/L (137-145)
[2019-02-25 05:28] LABS: Add Manual Diff / Slide Review YES
[2019-02-25 06:05] LABS: Neutrophils Absolute Manual 27354 /uL (3000-5900); Total Cells Counted 100
[2019-02-25 06:06] LABS: Macrocytosis 1+
[2019-02-25] MEDS: ALBUTEROL 2.5 MG/3 ML NEB (ADULT) INH ×4 (08:40→19:51)
[2019-02-25] MEDS: TIOTROPIUM BROMIDE 18 MCG INHALER INH (08:44)
[2019-02-25] MEDS: CEFTRIAXONE 1 GM/50 ML FROZ.PIGGY IV (09:08)
[2019-02-25] MEDS: DULOXETINE 30 MG CAPSULE 60 MG PO (09:08)
[2019-02-25] MEDS: GABAPENTIN 300 MG CAPSULE 900 MG PO ×2 (09:08→19:31)
[2019-02-25] MEDS: fentaNYL 50 MCG/PATCH TOP (09:11)
[2019-02-25] MEDS: ENOXAPARIN 40 MG/0.4 ML SYRINGE SUBCUT (09:14)
[2019-02-25] MEDS: MORPHINE 2 MG/ML INJ 1 MG IV (10:40)
[2019-02-25] MEDS: NICOTINE 21 MG PATCH TOP (10:45)
[2019-02-25 11:17] LABS: HCO3 ABG 27 mmol/L (22-26); PO2 ABG 66 mmHg (80-100); TCO2 ABG 28 mmol/L (21-31); pH ABG 7.36 (7.35-7.45)
[2019-02-25 11:18] LABS: Fractionated Inspired Oxygen 60; Oxygen Saturation ABG 92 % (95-100)
--- NOTE | 2019-02-25 11:18 | PT.IIE ---
Current Diagnoses Pneumonia, unspecified organism (02/23/19) Surgical History (Last Reviewed 02/23/19 @ 08:51 by Debby Olmedo MD) History of lumbar surgery (Acute ~1989) Hx of appendectomy (Acute) Hx of fusion of cervical spine (Acute) Hx of hand surgery (Acute) Status post tonsillectomy and adenoidectomy Status post vaginal hysterectomy Medical History (Last Reviewed 02/23/19 @ 08:51 by Debby Olmedo MD) BCC (basal cell carcinoma) (Acute ~2000) Benign neoplasm of clitoris (Acute ~03/23/16) Chronic pain (Acute) Compression fracture of T8 vertebra (Acute ~2011) COPD (chronic obstructive pulmonary disease) (Acute) History of pneumonia (Acute) Osteoarthritis (Acute) Osteomyelitis of jaw (Acute 03/13/18) Osteoporosis (Acute) Requires supplemental oxygen (Acute) Thyroid nodule (Acute) Physical Therapy Inpatient Evaluation/Re-Eval M1 PT/OT-IP Prior Functional Status Start: 02/25/19 11:40 Freq: NEEDED Status: Active Protocol: Document 02/25/19 10:41 MT (Rec: 02/25/19 14:29 MT [id number]) Medical Review Prior Functional Status Medical History Reviewed Yes Diet/Fluid Consistency Regular Communication Pt able to make needs known Mobility and Gait Pt reports being independent with all mobility and gait without use of AD prior to this hospitalization Activities of Daily Living and IADL's Pt reports being independent with all ADL's Prior Functional Level (Other details) Pt was experiencing SOB and saw doctor one week ago who told her to start being on O2 constantly as opposed to just at night like she had been doing. Social History Household Members spouse Living Arrangements House Number of Floors (Floors) One Floor Number of Stairs To Enter/Railing? one stair to enter, no railing Home Environment Standard Height Toilet,Walk in Shower,Built-In Shower Seat Home Equipment Four Wheel Walker,Straight Cane,Shower Seat with Backrest ,Grab Bars Near Toilet Employment Status Retired Additional Social History Comment Pt's spouse is able to help her with activities M2 PT-IP Current Condition Start: 02/25/19 11:40 Freq: NEEDED Status: Active Protocol: Document 02/25/19 10:41 MT (Rec: 02/25/19 14:29 MT [id number]) Physical Therapy Current Condition Current Condition Evaluation Date 02/25/19 Treatment Diagnosis SOB and reduced activity tolerance Onset Date 02/23/19 M3 PT-IP Subjective Start: 02/25/19 11:40 Freq: NEEDED Status: Active Protocol: Document 02/25/19 10:41 MT (Rec: 02/25/19 14:29 MT [id number]) Subjective Physical Therapy Visit Type Type Initial Evaluation Visit Start Time 10:41 Visit Stop Time 11:18 Total Visit Minutes 37 Number of [employer] Visits 0 Physical Therapy Visit Comments Patient Comments Pt agreeable to participate in PT eval Therapy Pain Assessment Pain When Pain Assessed At Rest Pain Present Pain Present Pain Reported Location chest/back Intensity 7 Scale Used Numeric (1 - 10) M4 PT-IP Mobility and Gait Start: 02/25/19 11:40 Freq: NEEDED Status: Active Protocol: Document 02/25/19 10:41 MT (Rec: 02/25/19 14:29 MT [id number]) PT-Bed Mobility Assessment Supine to Sit Supine to Sit Standby Assistance Scooting Scooting to Edge of Bed Standby Assistance PT-Transfer Assessment Sit to and From Stand Sit to and from Stand Contact Guard Assistance Equipment Transfer Assistive Device Gait Belt Orthotic/Prosthetic Devices or Brace: No Transfers Transfer Destination Bed,Chair Transfer Technique sit to stand to initiate walking Transfer Ability Level of Assist Contact Guard Assistance,1 Person Assistance Comments Mobility Comments Pt was found in bed at start of eval on supplemental O2. Pt's O2 sats were 92 prior to initiating movement. Pt performed supine to sit and scooting to EOB SBA. Pt's strength was assessed in sitting and during the strength test O2 dropped to 86 %. Pt was educated to take deep breaths and pursed lip breathing until O2 sats [place] to 90. Pt performed sit to stand transfer with CGA and no AD and ambulation was initiated. Pt was positioned in chair with call light in reach. Gait Assessment Gait Gait Assistance Required: Contact Guard Assist Distance (Feet) 75 Able to Maintain Weight Bearing Status Yes During Gait Assistive Devices Assistive Device Gait Belt Orthotic/Prosthetic Devices or Brace: No Gait Deviations General Gait Pattern Antalgic,Ataxic,Decreased Stride Length,Decreased Feet Clearance Factors Limiting Gait Function Factors Limiting Gait Function Decreased Strength, Incoordination,Pain,Poor Balance Comments Gait Comments Pt ambulated 75ft around room with no AD and CGA. Pt's lines and tubes were managed during ambulation. She required cueing to stay close to her lines and tubes. Pt's O2 sats [place] during ambulation to 94%. Stair Climbing Assessment Comments Stair Climbing Comments not assessed at this time PT-Balance Assessment Sitting Balance and Reactions Static Sitting Balance Ability Good Dynamic Sitting Balance Ability Good Standing Balance and Reactions Static Standing Balance Ability Good Dynamic Standing Balance Ability Good Device Used none M5 PT-IP Objective Assessments Start: 02/25/19 11:40 Freq: NEEDED Status: Active Protocol: Document 02/25/19 10:41 MT (Rec: 02/25/19 14:29 MT [id number]) Orientation Orientation/Cognition Level of Alertness Alert Orientation Name,Date,Day of Week,Place, Situation Language Function Ability No Deficits Noted Safety Awareness Understands Safety Issues Memory Description No Deficits Noted Strength Lower Extremity Strength Assessment Bilaterally Impaired Comments Strength Comments Pt has general weakness in her B LE of about 3+/5 Sensation Assessment Sensation Gross Sensation WNL M6 PT-IP Treatment Start: 02/25/19 11:40 Freq: NEEDED Status: Active Protocol: Document 02/25/19 10:41 MT (Rec: 02/25/19 14:29 MT [id number]) Physical Therapy Treatment Education Education Provided Safety Other Treatments Other Treatment Performed breathing techniques M7 PT-IP Assessment and Plan Start: 02/25/19 11:40 Freq: NEEDED Status: Active Protocol: Document 02/25/19 10:41 MT (Rec: 02/25/19 14:29 MT [id number]) PT Summary Assessment and Plan Potential Rehabilitation Potential Good Status of Condition at Evaluation Evolving Summary Impairments Pain,Strength,Balance, Coordination,Bed Mobility, Transfers,Gait,Activity Tolerance Assessment Summary Pt presents to PT with decreased strength and poor activity tolerance following hospitalization for SOB. See above comments for mobility and gait. Pt is able to perform transfers and ambulation with CGA nad no use of AD. Her O2 sats were able to be kept stable with breathing techniques and supplemental O2. She will be appropriate for discharge home with assistance pending safe ability to navigate stairs. Goals Bed Mobility Goal Independent Transfer Goal Independent Gait Goal Independent Gait Distance 200 Other Goals able to ascend/descned one stair without handrail Days to Meet Goals 5 Frequency of Treatment Frequency Of Treatment Once a Day Treatment Plan Physical Therapy Treatment Plan Bed Mobility Training,Transfer Training,Gait Training, Therapeutic Exercise,Balance Retraining,Discharge Planning, Hot or Cold Pack Other Recommendations and Next Treatment stair training Focus Recommendations To Nursing Amount of Assist Needed 1 Person Assist Discharge Recommendations PT Discharge Recommendations Home with Assistance
[2019-02-25] MEDS: AZITHROMYCIN 500 MG in DEXTROSE 5% IN WATER 250 ML IV (11:49)
[2019-02-25] MEDS: POLYETHYLENE GLYCOL 3350 17 GM POWD.PACK PO (11:50)
--- NOTE | 2019-02-25 13:27 | PM.PN.1 ---
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 The patient is resting comfortably in bed. She denies shortness of breath. She is making small improvements in oxygenation with her FiO2 decreased from 60% down to 50% and her L flow decreased from 60 to 50 since yesterday. Despite slow improvement, the patient continues to be significantly hypoxemic and slightly tachycardic raising possibility of pulmonary emboli. Additionally, the patient previously had pleuritic chest pain which she now reports has resolved. Ordered D-dimer, pending. However, pulmonary emboli is less likely as patient had CTA performed less than 3 weeks ago which was negative for PE. The patient is voiding and eliminating without difficulty. She is up with assistance. Continue PT and OT. Exam Vital Signs (past 8 hours): - 02/25/19 12:12 02/25/19 12:43 02/25/19 16:00 Temperature 100.0 F H Pulse Rate 92 H Respiratory Rate 25 H Blood Pressure 114/60 Pulse Oximetry 92 92 02/25/19 16:20 02/25/19 16:30 Temperature Pulse Rate 80 Respiratory Rate 16 Blood Pressure Pulse Oximetry 89 L 89 L Fraction of Inspired Oxygen 50 Oxygen Delivery Method High Flow Nasal Cannula Oxygen Flow Rate 50 Narrative Exam Narrative: General:Older female lying in bed and appears chronically ill, older than stated age, and cachectic/emaciated, in no acute distress, appropriately interactive. HEENT: Normocephalic, atraumatic. External ears without defect. Pupils equal, round, and reactive to light. Anicteric sclerae, moist conjunctivae, and no lid lag. Poor dentition. Neck: Supple with full range of motion. No jugular venous distension. No bruits. No lymphadenopathy or thyromegaly. Cardiovascular: Regular rhythm, tachycardic without murmurs, rubs, or gallops appreciated. Pulmonary: Diminished throughout but appears clear to auscultation with scattered crackles throughtoutand occassional end expiratory wheeze. No rhonchi. Normal respiratory effort with no use of accessory muscles. Abdomen: Soft, scaphoid, bowel sounds present, nontender, nondistended. No hepatosplenomegaly or masses appreciated. Extremities: No clubbing, cyanosis, or edema. Skin: Normal temperature, turgor, and texture; no rash, ulcers, or subcutaneous nodules appreciated. Neurological: Cranial nerves grossly intact. Psychiatric: Depressed mood and affect. Alert and oriented to person, place, and time. Objective Labs Result Diagrams: 02/26/19 04:47 02/26/19 04:47 Labs: Laboratory Results - last 24 hr 02/24/19 02/24/19 02/25/19 08:50 20:11 04:50 WBC 28.2 H RBC 3.42 L Hgb 11.7 L Hct 35.2 L MCV 102.7 H MCH 34.1 H MCHC 33.2 RDW 13.2 Plt Count 211 Neut % (Auto) Not Reportable Lymph % (Auto) Not Reportable [place] % (Auto) Not Reportable Eos % (Auto) Not Reportable Baso % (Auto) Not Reportable Lymph # (Auto) Not Reportable [place] # (Auto) Not Reportable Baso # (Auto) Not Reportable Total Counted 100 Seg Neutrophils % 96.0 H Band Neutrophils % 1.0 L Lymphocytes % (Manual) 1.0 L Monocytes % (Manual) 2.0 Neutrophils # (Manual) 46437 H RBC Morphology See below Macrocytosis 1+ H D-Dimer ABG pH ABG pCO2 ABG pO2 ABG HCO3 ABG Total CO2 ABG O2 Saturation ABG Base Excess FiO2 Sodium Potassium Chloride Carbon Dioxide BUN Creatinine Estimated GFR BUN/Creatinine Ratio Glucose Calcium Procalcitonin < 0.05 Chlamy pneumoniae PCR Not detected Adenovirus (PCR) Not detected B.parapertussis DNA PCR Not detected Coronavirus OC43 (PCR) Not detected Coronavirus HKU1 (PCR) Not detected Coronavirus 229E (PCR) Not detected Coronavirus NL63 (PCR) Not detected Human Metapneumovir PCR Not detected Influenza Type A (PCR) Not detected Influenza Type B (PCR) Not detected M. pneumoniae (PCR) Not detected Parainfluenza 1 (PCR) Not detected Parainfluenza 2 (PCR) Not detected Parainfluenza 3 (PCR) Not detected Parainfluenza 4 (PCR) Not detected RSV (PCR) Not detected Entero/Rhino (PCR) Not detected 02/25/19 02/25/19 02/25/19 04:50 10:46 16:56 WBC RBC Hgb Hct MCV MCH MCHC RDW Plt Count Neut % (Auto) Lymph % (Auto) [place] % (Auto) Eos % (Auto) Baso % (Auto) Lymph # (Auto) [place] # (Auto) Baso # (Auto) Total Counted Seg Neutrophils % Band Neutrophils % Lymphocytes % (Manual) Monocytes % (Manual) Neutrophils # (Manual) RBC Morphology Macrocytosis D-Dimer 515 H ABG pH 7.36 ABG pCO2 47.0 H ABG pO2 66 L ABG HCO3 27 H ABG Total CO2 28 ABG O2 Saturation 92 L ABG Base Excess 2.0 FiO2 60 Sodium 143 Potassium 4.5 Chloride 109 H Carbon Dioxide 32 BUN 12 Creatinine 0.50 L Estimated GFR > 60.0 BUN/Creatinine Ratio 24.0 H Glucose 134 H Calcium 8.5 Procalcitonin Chlamy pneumoniae PCR Adenovirus (PCR) B.parapertussis DNA PCR Coronavirus OC43 (PCR) Coronavirus HKU1 (PCR) Coronavirus 229E (PCR) Coronavirus NL63 (PCR) Human Metapneumovir PCR Influenza Type A (PCR) Influenza Type B (PCR) M. 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 1. Acute hypoxemic and hypercarbic respiratory failure, present on admission. Active. -Secondary to pneumonia and COPD exacerbation and continue to treat as below. -Continue supplemental oxygen with heated high-flow and BiPAP at night or while napping. Oxygen saturation goal 88-92%. Do not over ventilate as higher oxygenation will drive CO2 retention. -Patient requires nocturnal and daytime ventilation. Home noninvasive ventilation is insufficient due to severity of COPD which is the primary cause of chronic hypoxemic and hypercarbic respiratory failure. 2. Acute community-acquired bacterial pneumonia, present on admission. Active. -Patient with failure of several courses of outpatient antibiotic, most recently Levaquin, and prednisone for COPD exacerbation -Patient presented with marked leukocytosis with WBC 56.4 of which was partially glucocorticoid induced. Procalcitonin < 0.05. Continue to monitor WBC daily. Trending down now 28.2. -Ordered complete pneumonia workup including: Respiratory viral PCR negative. Strep pneumoniae and Legionella urine antigens not ordered. Sputum culture grew heavy mixed normal hamzah. Blood cultures x2 have no growth to date. Ordered fungal sputum culture, pending. -Consulted respiratory therapy for evaluation and treatment. Continue albuterol every 4 hours while awake, tiotropium 18 mcg inhaled daily, budesonide 2 puffs inhaled twice daily, and added Mucinex 1200 mg twice daily. -Continue ceftriaxone 1 g IV daily and azithromycin 500 mg IV x3 doses. 3. Acute end-stage COPD with exacerbation, present on admission. Active. -Patient presented with progressive worsening cough, diffuse rhonchi and wheezing. She has been on outpatient prednisone for past 2 weeks. -Previous CT demonstrated severe centrilobular emphysema. -Continue glucocorticoids with Solu-Medrol 60 decreased from every 6 hours to twice daily and will plan to transition to prednisone in next several days. -Consulted respiratory therapy for evaluation and treatment. Continue albuterol every 4 hours while awake, tiotropium 18 mcg inhaled daily, budesonide 2 puffs inhaled twice daily, and added Mucinex 1200 mg twice daily. -Discussed hospice for symptom management and patient is open to the idea and will arrange for an informational visit. 4. Chronic back pain with opiate dependence, chronic, present on admission. Stable. -Continue home routine fentanyl patch 50 mcg every 72 hours, oxycodone 5-325 mg every 4 hours as needed for moderate to severe pain, carisoprodol 350 mg daily as needed for muscle spasm, diazepam 5 mg twice daily for muscle spasm, gabapentin 900 mg twice daily, and duloxetine 60 mg daily. Held oral diclofenac in hospital due to risk of stress ulcer. -Discontinued IV narcotics. 5. Possible right middle lung mass, chronic, present on admission. Stable. -Outpatient CT on 02/06/2019 noted a lingular and right middle lobe streaky patchy consolidation with nodular configuration in the right middle lobe which was likely inflammatory in nature. -Recommend continued short interval radiographic surveillance to document resolution after treatment and exclude superimposed pulmonary nodule. If this does not clear radiographically, repeat chest CT could be performed. Code status: Full code DVT prophylaxis: Enoxaparin and SCDs Disposition: Patient likely to discharge in several days once pneumonia has resolved and oxygenation has improved possibly home with home health versus assisted facility for rehabilitation. Quality VTE Deep Vein Thrombosis/Pulmonary Embolism Present on Admission: No
--- NOTE | 2019-02-25 14:28 | PC.NURSE ---
Addendum entered by Jossie Li R.N. 02/25/19 15:26: Pt continues with discomfort with out frequent repositioning. Continue to use pain control as ordered, and breakthrough pain control PRN. SOB with any activity. Uses call light for needs. Full code status reinforced by Pt. is in and out today. Updates provided. Original Note: AM shift Pt is A/o x4, able to make needs known. Spo2 88-93% on heated hi marycruz, managed by RT. Pt is weaning to 45% and 30L at end of shift. Pt able to work with PT and get up OOB with PT SBA. Pain control issues, recent back surgery for Tlif, and taking significant amount of daily narcotics. Added daily Miralax for constipation
--- NOTE | 2019-02-25 14:33 | DIET.PN ---
Dietary Progress Note Assessment: 68y F admitted for bacterial pneumonia and SOB referred to nutrition from MNA 11 at risk score. Pt IH wt hx includes 40kg on 03/2018 and 42kg in 07/2018. Pt attributes wt loss and now slow wt gain to being able to better control px, however, BMI still severe for age and pt has considerable difficulty c breathing and o2 drops when she eats. Usual intake: B: oatmeal, banana, yogurt snacks throughout day light dinner of chicken c potatoes Pt lunch order in hospital was PB&J on white bread, pork and apple soup, hussain food cake, fig newtons, and abhishek yun. This meal is quite high in CHO increasing the work with exhalation. HT: 166.3cm WT: 46.2kg BMI: 16.7 severe for age MNA: 11 at risk Facundo: 22 Nutrition Diagnosis:Chronic Severe PCM r/t reduced intake secondary to uncontrolled px and difficulty eating r/t COPD/Emphysema aeb pt BMI 16.7 (severe for age), admitted for bacterial pneumonia, severe depletion of muscle mass and subcutaneous fat system wide. Interventions: Discussed how foods affect breathing, CHOs make most work for lungs followed by PRO, then Fat. Discussed weight gain strategies r/t COPD/Emphysema, getting more healthy dietary fats. 1. pt will continue eating whole milk yogurt c probiotics for breakfast and as a snack option 2. Pt will use olive oil for cooking and be liberal c amount for added kcal 3. pt will include PRO with each meal and snack 4. pt will have several small meals per day to not be overwhelmed by volume of food 5. pt will not drink fluids while eating to preserve energy and will consume water and kcal beverages between meals Recc ONS blueberry yogurt smoothie tid between meals as snack to provide kcal, PRO, probiotics, and antioxidants to promote wt gain and pulmonary health Diet Order: General EER: 1600kcal, 60g PRO (1.3 g/kg maln), 1500 fl oz Monitoring/Evaluations: diet tolerance, wt
[2019-02-25 17:20] LABS: D Dimer 515 ng/mL (<230)
--- NOTE | 2019-02-25 18:09 | PC.NURSE ---
1645 - Pt up to chair for meal. Ice pack to lower back. Pt able to move about the room a bit prior to getting into the chair. Pt continues to report difficulty eating meal r/t work of breathing. Declines ensure at this time. Reinforced safety and call light use. Call light in reach. 1800 -Pt up and ambulating around the room. C/o of pain to back, increasing, if I stay in the same place for any amount of time. RX given for pain. Set up in bed, pillows, ice pack and waffle cushion. Discussed hs meds. Pt requesting med at 1930, per home routine. Call light in reach.
--- NOTE | 2019-02-25 19:27 | DI.ECHO.S_ITS ---
[facility]---------+ [facility] +---------+ : : [address] : [place] : : : : [phone] : : : : Phone: [phone]---------+ Echocardiogram Report + + :Name: CRYSTAL SANDOVAL Study Date: 02/26/2019 Height: 65 in : :[facility] Weight: 101 lb : : Gender: Female BSA: 1.5 m2 : :: 1950 Age: 68 yrs BP: 115/55 mmHg: :Reason For Study: SOB : : Performed By: [facility] Staff : :Referring: GATO SOSA : + + Interpretation Summary Left ventricular systolic function is normal. There is trace mitral regurgitation. The right ventricular systolic pressure is estimated to be at least 40 mmHg based on an estimated right atrial pressure of 3 mm Hg. There is mild tricuspid regurgitation. There is a small pericardial effusion noted. Located behind the right atrium Procedure: A two-dimensional transthoracic echocardiogram with color flow and Doppler was performed. The study quality was technically adequate. There is no prior echocardiogram noted for this patient. The patient was in normal sinus rhythm during the exam. Left Ventricle: The left ventricle is normal in size. There is normal left ventricular wall thickness. Left ventricular systolic function is normal. The ejection fraction is estimated to be 60-65%. Left ventricular wall motion is normal. Right Ventricle: The right ventricle is normal in size and function. Atria: The left atrium is mildly dilated. Right atrial size is normal. The interatrial septum is intact with no evidence for an atrial septal defect. Mitral Valve: The mitral valve is normal in structure and function. There is trace mitral regurgitation. Aortic Valve: The aortic valve is trileaflet. The aortic valve opens well. No aortic regurgitation is present. Tricuspid Valve: The tricuspid valve is normal in structure and function. The right ventricular systolic pressure is estimated to be at least 40 mmHg based on an estimated right atrial pressure of 3 mm Hg. There is mild tricuspid regurgitation. Pulmonic Valve: The pulmonic valve is not well visualized. There is mild pulmonic regurgitation. Great Vessels: The aortic root is normal size. The dimensions of the ascending aorta are normal. The pulmonary artery is normal size. The IVC is of normal diameter and collapses greater than 50% with a sniff. This suggests a low right atrial pressure of 3 mm Hg. Pericardium/ Pleura There is a small pericardial effusion noted. Located behind the right atrium. There is no pleural effusion. MMode/2D Measurements & Calculations LVIDd: 4.3 cm LVOT diam: 2.0 cm LVIDs: 2.7 cm Ao root diam: 2.8 cm FS: 36.7 % Aortic Jxn: 2.1 cm EPSS: 0.14 cm asc Aorta Diam: 3.3 cm IVSd: 0.83 cm LVPWd: 0.81 cm LV lorenz. diameter/BSA (cm/m^2): 2.9 LV sys. diameter/BSA (cm/m^2): 1.8 LA A2 area: 16.0 cm2 RA long axis: 3.8 cm LA A4 area: 13.8 cm2 RA area: 12.2 cm2 LA length (vol): 3.6 cm RA vol: 33.1 ml LA vol: 52.3 ml RA : 22.4 ml/m2 LA vol index: 35.3 ml/m2 TAPSE: 2.8 cm Doppler Measurements & Calculations Ao V2 max: 153.6 cm/sec LVOT Max Yg: 103.1 cm/sec Ao V2 mean: 107.9 cm/sec LV V1 max P.2 mmHg Ao max P.4 mmHg LV V1 VTI: 20.0 cm Ao mean P.2 mmHg KAROLYN(I,D): 2.2 cm2 Ao V2 VTI: 28.3 cm KAROLYN(V,D): 2.1 cm2 sev ratio: 0.71 KAROLYN indexed to BSA (cm^2/m^2): 1.5 MV E max yg: 79.8 cm/sec TR max yg: 240.2 cm/sec MV A max yg: 100.1 cm/sec TR max P.8 mmHg MV E/A: 0.80 PA V2 max: 95.3 cm/sec Med Peak E' Yg: 9.5 cm/sec PA V2 mean: 59.5 cm/sec E/E' med: 8.4 PA mean P.7 mmHg Lat Peak E' Yg: 15.8 cm/sec PA Accel Time: 0.09 sec E/E' lat: 5.0 E/e' average: 6.7 MV dec time: 0.20 sec SV(LVOT): 61.8 ml Reading Physician:11:47 AM
[2019-02-25] MEDS: TRAZODONE 100 MG TABLET PO (19:31)
[2019-02-25] MEDS: CARISOPRODOL 350 MG TABLET PO (19:41)
[2019-02-26] VITALS (23 sets, daily range): BP systolic 108–126; BP diastolic 55–83; PULSE 74–115; RESP 12–25; TEMP 30–37.7; O2SAT 90–98
[2019-02-26] MEDS: SODIUM CHLORIDE 0.9% 1,000 ML 100 ML IV (02:38)
[2019-02-26] MEDS: MORPHINE 2 MG/ML INJ IV ×2 (03:40→06:31)
[2019-02-26 05:29] LABS: Add Manual Diff / Slide Review NO; Basophils Absolute Auto 0 /uL (0-100); Eosinophils Absolute Auto 0 /uL (0-450); Lymphocytes Absolute Auto 400 /uL (1100-4500); Lymphocytes Percent Auto 2.4 % (25-40); Mean Corpuscular HGB Conc 34.2 % (30-36); Mean Corpuscular Hemoglobin 34.7 PG (26-34); Mean Corpuscular Volume 101.6 fL (80-100); Monocytes Absolute Auto 200 /uL (0-900); Monocytes Percent Auto 1.6 % (3-14); Neutrophils Absolute Auto 14100 /uL (1500-7000); Platelet Count 202 X10^3/uL (150-400); Red Blood Cell Count 3.45 X10^6/uL (4.0-5.2); Red Cell Distribution Width 13.3 % (11.6-14.8); White Blood Cell Count 14.7 X10^3/uL (4.5-11.0)
[2019-02-26 05:33] LABS: Alanine Aminotransferase 38 IU/L (<35); Albumin 3.1 g/dL (3.5-5.0); Albumin Globulin Ratio 1.4 (1.0-2.8); Alkaline Phosphatase 61 U/L (38-126); Aspartate Aminotransferase 25 IU/L (14-36); Bilirubin Total 0.2 mg/dL (0.2-1.3); Blood Urea Nitrogen 14 mg/dL (7-17); Calcium 8.3 mg/dL (8.4-10.2); Carbon Dioxide 33 mmol/L (22-32); Chloride 109 mmol/L (98-107); Estimated Glomerular Filt Rate > 60.0 mL/min (>60); Globulin 2.2 g/dL (1.7-4.1); Glucose 130 mg/dL (80-110); HEMOLYSIS < 15 (0-50); Sodium 147 mmol/L (137-145); Total Protein 5.3 g/dL (6.3-8.2)
[2019-02-26 05:49] LABS: Procalcitonin 0.12 ng/mL (<0.5)
[2019-02-26] MEDS: ALBUTEROL 2.5 MG/3 ML NEB (ADULT) INH ×4 (06:05→19:44)
[2019-02-26 06:10] LABS: Fractionated Inspired Oxygen 30; HCO3 ABG 30 mmol/L (22-26); Oxygen Saturation ABG 93 % (95-100); PCO2 ABG 57.5 mmHg (35-45); PO2 ABG 73 mmHg (80-100); TCO2 ABG 31 mmol/L (21-31); pH ABG 7.31 (7.35-7.45)
[2019-02-26] MEDS: CEFTRIAXONE 1 GM/50 ML FROZ.PIGGY IV (08:00)
[2019-02-26] MEDS: OXYCODONE/ACETAMINOPHEN 5/325 TABLET 1 TAB PO ×4 (08:00→21:08)
[2019-02-26] MEDS: ENOXAPARIN 40 MG/0.4 ML SYRINGE SUBCUT (08:01)
[2019-02-26] MEDS: POLYETHYLENE GLYCOL 3350 17 GM POWD.PACK PO (08:01)
[2019-02-26] MEDS: NICOTINE 21 MG PATCH TOP (08:01)
[2019-02-26] MEDS: GABAPENTIN 300 MG CAPSULE 900 MG PO ×2 (08:01→19:30)
[2019-02-26] MEDS: DULOXETINE 30 MG CAPSULE 60 MG PO (08:01)
[2019-02-26] MEDS: guaiFENesin ER 600 MG TAB 1200 MG PO ×2 (08:01→19:31)
[2019-02-26] MEDS: methylPREDNISolone 125 MG/2 ML VIAL 60 MG IV ×2 (08:02→21:07)
[2019-02-26] MEDS: CARISOPRODOL 350 MG TABLET PO ×2 (08:30→16:44)
[2019-02-26] MEDS: Budesonide-Formoterol [Symbicort] 2 EACH INH ×2 (10:10→21:09)
[2019-02-26] MEDS: TIOTROPIUM BROMIDE 18 MCG INHALER INH (10:11)
[2019-02-26] MEDS: AZITHROMYCIN 500 MG in DEXTROSE 5% IN WATER 250 ML IV (10:33)
--- NOTE | 2019-02-26 11:22 | P.PN_ITS ---
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 The patient is resting comfortably in bed. She has dramatically improved in the last 2 days in regard to her overall oxygenation and pneumonia. She was up ambulating in the room with 4 L nasal cannula maintaining oxygen saturations at 88%. She reports she feels as though her pneumonia is loosening up and is improving due to Mucinex and Acapella implemented yesterday. She is now having a more productive cough. She endorses back pain that is difficult to control with numerous narcotics and pain medications. She has no other complaints and denies headache, chest pain, shortness of breath, abdominal pain, nausea, vomiting, fever, chills, dysuria, diarrhea or constipation. The patient is voiding and eliminating without difficulty. She is up with assistance. Continu e PT and OT. Exam Vital Signs (past 8 hours): - 02/26/19 03:53 02/26/19 06:05 02/26/19 06:17 Temperature 97.6 F Pulse Rate 85 81 Respiratory Rate 13 16 Blood Pressure 119/83 Pulse Oximetry 96 95 93 02/26/19 07:51 02/26/19 08:00 02/26/19 09:36 Temperature 98.3 F Pulse Rate 81 Respiratory Rate 22 Blood Pressure 115/55 L Pulse Oximetry 92 94 93 Fraction of Inspired Oxygen 30 Oxygen Delivery Method Heated High Flow Oxygen Flow Rate 45 Narrative Exam Narrative: General:Older female lying in bed and appears chronically ill, older than stated age, and cachectic/emaciated, in no acute distress, appropriately interactive. HEENT: Normocephalic, atraumatic. External ears without defect. Pupils equal, round, and reactive to light. Anicteric sclerae, moist conjunctivae, and no lid lag. Poor dentition. Neck: Supple with full range of motion. No jugular venous distension. No lymphadenopathy or thyromegaly. Cardiovascular: Regular rhythm and rate without murmurs, rubs, or gallops appreciated. Pulmonary: Diminished throughout coarse rhonchi throughout and occasional end- expiratory wheeze. Normal respiratory effort with no use of accessory muscles. Abdomen: Soft, scaphoid, bowel sounds present, nontender, nondistended. No hepatosplenomegaly or masses appreciated. Extremities: No clubbing, cyanosis, or edema. Skin: Normal temperature, turgor, and texture; no rash, ulcers, or subcutaneous nodules appreciated. Neurological: Cranial nerves grossly intact. Psychiatric: Depressed mood and affect. Alert and oriented to person, place, and time. Objective Labs Result Diagrams: 02/26/19 04:47 02/26/19 04:47 Labs: Laboratory Results - last 24 hr 02/25/19 02/26/19 02/26/19 16:56 04:47 04:47 WBC 14.7 H RBC 3.45 L Hgb 12.0 Hct 35.0 L MCV 101.6 H MCH 34.7 H MCHC 34.2 RDW 13.3 Plt Count 202 Neut % (Auto) 96.0 H Lymph % (Auto) 2.4 L Florence % (Auto) 1.6 L Eos % (Auto) 0.0 L Baso % (Auto) 0.0 Neut # (Auto) 22471 H Lymph # (Auto) 400 L Florence # (Auto) 200 Eos # (Auto) 0 Baso # (Auto) 0 D-Dimer 515 H ABG pH ABG pCO2 ABG pO2 ABG HCO3 ABG Total CO2 ABG O2 Saturation ABG Base Excess FiO2 Sodium Potassium Chloride Carbon Dioxide BUN Creatinine Estimated GFR BUN/Creatinine Ratio Glucose Calcium Magnesium Total Bilirubin AST ALT Alkaline Phosphatase Total Protein Albumin Globulin Albumin/Globulin Ratio Procalcitonin 0.12 02/26/19 02/26/19 04:47 05:50 WBC RBC Hgb Hct MCV MCH MCHC RDW Plt Count Neut % (Auto) Lymph % (Auto) Florence % (Auto) Eos % (Auto) Baso % (Auto) Neut # (Auto) Lymph # (Auto) Florence # (Auto) Eos # (Auto) Baso # (Auto) D-Dimer ABG pH 7.31 L ABG pCO2 57.5 H ABG pO2 73 L ABG HCO3 30 H ABG Total CO2 31 ABG O2 Saturation 93 L ABG Base Excess 3.0 H FiO2 30 Sodium 147 H Potassium 4.0 Chloride 109 H Carbon Dioxide 33 H BUN 14 Creatinine 0.50 L Estimated GFR > 60.0 BUN/Creatinine Ratio 28.0 H Glucose 130 H Calcium 8.3 L Magnesium 2.0 Total Bilirubin 0.2 AST 25 ALT 38 H Alkaline Phosphatase 61 Total Protein 5.3 L Albumin 3.1 L Globulin 2.2 Albumin/Globulin Ratio 1.4 Procalcitonin Assessment & Plan Assessment & Plan narrative: Es Velazquez is a 68-year-old female with a past medical history significant for COPD with chronic hypoxemic and hypercarbic respiratory failure on nocturnal oxygen, tobacco dependence and current active smoker, 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 1. Acute hypoxemic and hypercarbic respiratory failure, present on admission. Active. -Secondary to pneumonia and COPD exacerbation and continue to treat as below. -Continue supplemental oxygen with heated high-flow and BiPAP at night or while napping. Oxygen saturation goal 88-92%. Do not over ventilate as higher oxygenation will drive CO2 retention. -Patient requires nocturnal and daytime ventilation. Home noninvasive ventilator is insufficient due to severity of COPD which is the primary cause of chronic hypoxemic and hypercarbic respiratory failure. BiPAP was considered and deemed inefficient due to her progression of COPD. 2. Acute community-acquired bacterial pneumonia, present on admission. Active. -Patient with failure of several courses of outpatient antibiotic, most recently Levaquin, and prednisone for COPD exacerbation -Patient presented with marked leukocytosis with WBC 56.4 of which was partially glucocorticoid induced. Procalcitonin < 0.05. Continue to monitor WBC daily. Trending down now 14.7. -Ordered complete pneumonia workup including: Respiratory viral PCR negative. Strep pneumoniae and Legionella urine antigens not ordered. Sputum culture grew heavy mixed normal hamzah. Blood cultures x2 have no growth to date. Ordered fungal sputum culture, pending. -Consulted respiratory therapy for evaluation and treatment. Continue albuterol every 4 hours while awake, tiotropium 18 mcg inhaled daily, budesonide 2 puffs inhaled twice daily, and added Mucinex 1200 mg twice daily. -Continue ceftriaxone 1 g IV daily and completed azithromycin 500 mg IV x3 doses. 3. Acute end-stage COPD with exacerbation, present on admission. Active. -Patient presented with progressive worsening cough, diffuse rhonchi and wheezing. She has been on outpatient prednisone for past 2 weeks. -Previous CT demonstrated severe centrilobular emphysema. -Continue glucocorticoids with Solu-Medrol 60 decreased from every 6 hours to twice daily and will plan to transition to prednisone in next several days. -Consulted respiratory therapy for evaluation and treatment. Continue albuterol every 4 hours while awake, tiotropium 18 mcg inhaled daily, budesonide 2 puffs inhaled twice daily, Mucinex 1200 mg twice daily and Acapella 10x an hour while awake. -Discussed hospice for symptom management and patient is open to the idea and will arrange for an informational visit. 4. Chronic back pain with opiate dependence, chronic, present on admission. Stable. -Continue home routine fentanyl patch 50 mcg every 72 hours, oxycodone 5-325 mg every 4 hours as needed for moderate to severe pain, carisoprodol 350 mg twice daily as needed for muscle spasm, diazepam 5 mg twice daily for muscle spasm, gabapentin 900 mg twice daily, and duloxetine 60 mg daily. Held oral diclofenac in hospital due to risk of stress ulcer. -Discontinued IV narcotics. 5. Possible right middle lung mass, chronic, present on admission. Stable. -Outpatient CT on 02/06/2019 noted a lingular and right middle lobe streaky patchy consolidation with nodular configuration in the right middle lobe which was likely inflammatory in nature. -Recommend continued short interval radiographic surveillance to document resolution after treatment and exclude superimposed pulmonary nodule. If this does not clear radiographically, repeat chest CT could be performed. 6. Severe chronic protein calorie malnutrition, present on admission. Stable. -BMI 16.7. -Severe chronic protein calorie malnutrition secondary to reduced intake secondary to uncontrolled pain and difficulty eating due to COPD/Emphysema as evidence by pt BMI 16.7 (severe for age), admitted for bacterial pneumonia, sev ere depletion of muscle mass and subcutaneous fat system wide. -Consulted dietitian and appreciate her recommendations. Code status: Full code DVT prophylaxis: Enoxaparin and SCDs Disposition: Patient likely to discharge home with home health vs. hospice in 1-2 days once pneumonia has been adequately treated and oxygenation has improved. Quality VTE Deep Vein Thrombosis/Pulmonary Embolism Present on Admission: No
--- NOTE | 2019-02-26 11:30 | PT.IPTN ---
Current Diagnoses Pneumonia, unspecified organism (02/23/19) Physical Therapy Treatment Note M2 PT-IP Current Condition Start: 02/25/19 11:40 Freq: NEEDED Status: Active Protocol: Document 02/25/19 10:41 MT (Rec: 02/25/19 14:29 MT [id number]) Physical Therapy Current Condition Current Condition Evaluation Date 02/25/19 Treatment Diagnosis SOB and reduced activity tolerance Onset Date 02/23/19 M3 PT-IP Subjective Start: 02/25/19 11:40 Freq: NEEDED Status: Active Protocol: Document 02/26/19 11:01 SP (Rec: 02/26/19 11:50 SP [id number]) Subjective Physical Therapy Visit Type Type Treatment Note Visit Start Time 11:01 Visit Stop Time 11:30 Total Visit Minutes 29 Notes Wants to walk in the hallway and trial her 1 step for home assimulation. Number of LUSTER REPAIRER Visits 1 Physical Therapy Visit Comments Patient Comments Pt agreeable to PT treatment. M4 PT-IP Mobility and Gait Start: 02/25/19 11:40 Freq: NEEDED Status: Active Protocol: Document 02/26/19 11:01 SP (Rec: 02/26/19 11:50 SP [id number]) PT-Bed Mobility Assessment Rolling Type of Rolling Roll to Right Level of Assist Standby Assistance Supine to Sit Supine to Sit Standby Assistance Sit to Supine Sit to Supine Standby Assistance Scooting Scooting to Edge of Bed Standby Assistance PT-Transfer Assessment Sit to and From Stand Sit to and from Stand Contact Guard Assistance Equipment Transfer Assistive Device Gait Belt Orthotic/Prosthetic Devices or Brace: No Transfers Transfer Destination Bed Transfer Technique sit to stand to initiate walking Transfer Ability Level of Assist Contact Guard Assistance,1 Person Assistance Comments Mobility Comments Pt was found in bed R sidelying on waffle cushion at start of treatment on supplimental O2. Pts O2 sats were 94% on 4 L at rest and decreased 86% with mobility but improved post education on take deep breaths and pursed lip breathing until O2 sats [place] to 90. Pt completed supine<> sitting and scooting to EOB and up in bed SBA. Pt completed sit <> stand at EOB SBA no AD. Gait Assessment Gait Gait Assistance Required: Contact Guard Assist Distance (Feet) 60 Able to Maintain Weight Bearing Status Yes During Gait Assistive Devices Assistive Device Gait Belt Orthotic/Prosthetic Devices or Brace: No Gait Deviations General Gait Pattern Antalgic,Ataxic,Decreased Stride Length,Decreased Feet Clearance Factors Limiting Gait Function Factors Limiting Gait Function Decreased Strength, Incoordination,Pain,Poor Balance Comments Gait Comments Pt limited to short distance around bed secondary to tubing/ lines x60 ft total no AD and CGA. Pt's lines and tubes were managed during ambulation . Pt required cuing to stay close to her lines and tubes. O2 sats decreased to 82% during gait but post cuing for stationary stance and breathing techniques augusta to 90s. Stair Climbing Assessment Evaluation Level of Assist On Stairs Contact Guard Assistance Devices Stair Climbing Assistive Devices None Technique/Endurance Stair Climbing Direction Ascend and Descend Stair Climbing Technique Step to Step Number of Steps Climbed 1 Stair Climbing Set # Repetitions (reps) 1 Comments Stair Climbing Comments Pt was able to complete 1 step management with no HR requiring CGA and assist with tubing and lines. Cuing for slow pacing and safety awareness of lines/tubing, no LOB. PT-Balance Assessment Sitting Balance and Reactions Static Sitting Balance Ability Good Dynamic Sitting Balance Ability Good Standing Balance and Reactions Static Standing Balance Ability Good Dynamic Standing Balance Ability Good Device Used none M5 PT-IP Objective Assessments Start: 02/25/19 11:40 Freq: NEEDED Status: Active Protocol: Document 02/25/19 10:41 MT (Rec: 02/25/19 14:29 MT [id number]) Orientation Orientation/Cognition Level of Alertness Alert Orientation Name,Date,Day of Week,Place, Situation Language Function Ability No Deficits Noted Safety Awareness Understands Safety Issues Memory Description No Deficits Noted Strength Lower Extremity Strength Assessment Bilaterally Impaired Comments Strength Comments Pt has general weakness in her B LE of about 3+/5 Sensation Assessment Sensation Gross Sensation WNL M6 PT-IP Treatment Start: 02/25/19 11:40 Freq: NEEDED Status: Active Protocol: Document 02/26/19 11:01 SP (Rec: 02/26/19 13:23 SP [id number]) Physical Therapy Treatment Education Education Provided Safety M7 PT-IP Assessment and Plan Start: 02/25/19 11:40 Freq: NEEDED Status: Active Protocol: Document 02/26/19 11:01 SP (Rec: 02/26/19 13:23 SP [id number]) PT Summary Assessment and Plan Potential Rehabilitation Potential Good Status of Condition at Evaluation Evolving Summary Impairments Pain,Strength,Balance, Coordination,Bed Mobility, Transfers,Gait,Activity Tolerance Assessment Summary Pt presents to PT with decreased strength and poor activity tolerance. See above comments for mobility and gait. Pt is able to perform transfers SBA and ambulation with CGA and no use of AD. Her O2 sats were able to be kept stable with breathing techniques and supplemental 4L O2. Pt completed stair mangement with CGA 1 step no HR to assimulate home environment. She will be appropriate for discharge home with assistance pending medical clearance. Pt was in bed with call light and all needs within reach. Goals Bed Mobility Goal Independent Transfer Goal Independent Gait Goal Independent Gait Distance 200 Other Goals able to ascend/descned one stair without handrail Days to Meet Goals 5 Frequency of Treatment Frequency Of Treatment Once a Day Treatment Plan Physical Therapy Treatment Plan Bed Mobility Training,Transfer Training,Gait Training, Therapeutic Exercise,Balance Retraining,Discharge Planning, Hot or Cold Pack Other Recommendations and Next Treatment stair training Focus Recommendations To Nursing Amount of Assist Needed 1 Person Assist Discharge Recommendations PT Discharge Recommendations Home with Assistance
--- NOTE | 2019-02-26 11:30 | PC.NURSE ---
([id number] shift update) Patient axox3, alert and pleasant. States she slept well overnight and wore her BIPAP all night. Switched to heated high flow by R.T. for breakfast and morning medications. Patient denies chest pain or shortness of breath, but states she must eat slowly to maintain her breathing. Medicated with prn percocet this morning for her chronic back pain with good relief per patient, patient also assisted with warm blankets and ice packs to her back with repositioning for comfort. ECHO completed at bedside. Dr. Trevino requests patient to be weaned from Oxygen to keep saturations between 88-92%, R.T. notified. Patient able to make her needs known, and calls appropriately, call light within reach.
[2019-02-26] MEDS: OXYCODONE IR 5 MG TABLET PO ×3 (12:03→21:08)
--- NOTE | 2019-02-26 12:41 | CM.DPC ---
Addendum entered by Joann Burkett LPN 02/26/19 15:51: Pt is now updated and time of visit posted on her room white board per her request. Will follow up tomorrow. Pt expresses her eagerness for d/c I hope it will be soon. Addendum entered by Joann Burkett LPN 02/26/19 15:36: Spoke with Raissa/[facility] referrals. She states that an info visit can be provided tomorrow/02/27 at 1430 in pt's room. Received a call from pt's who asked more questions re the Hospice idea, does agree to be here tomorrow at 1430 and again notes that he would like to discuss his 's case with Dr. Trevino. He notes the ICU staff were aware of this. Agreed to pass this on to Dr. Trevino tomorrow in Team Rounds. Addendum entered by Joann Burkett LPN 02/26/19 12:54: Did review the PT eval notes: Pt was basically independent at home without AD. She had recently been advised to start using her home 02 during the day as well as at night. PT recommendation is home setting with spouse's prn assist. Original Note: DCP: continued: Case received and discussed in Team Rounds. Dr. Trevino noted that she had talked with pt re her options for care going forward and encouraged her to consider learning more about the Hospice option. She requested followup on this for [facility] info visit. EMR reviewed and met with pt and her Dominic. Introduced self and role. Both agreed that learning more about this option would be helpful for future planning (although pt states privately to this DC Rn Document Improvement that her is very much in denial about the severity of her illness and will likely have a hard time with this.) IKER Nunez has faxed info visit request and clinical documentation. Have left a vm now for [facility] intake team re need for visit for pt and together, either in the hospital setting or in their home after d/c. Have also reviewed circulating process inspector Augusta's assessment on 02/25 and have faxed this to [facility] as part of supporting documentation. Pt's does say he is hopeful he can talk with the hospitalist. He is here in the morning and then comes in again early afternoon. AUTOMATIC CAR WASH ATTENDANT is aware. P: followup on [facility] info visit specifics.
--- NOTE | 2019-02-26 13:10 | OT.IP.TRT ---
Current Diagnoses Pneumonia, unspecified organism (02/23/19) Occupational Therapy Treatment Note M3 OT- IP Subjective and Pain Start: 02/26/19 13:18 Freq: Status: Active Protocol: Document 02/26/19 13:10 PJDaja (Rec: 02/26/19 13:20 PJDaja [id number]) OT- Subjective Occupational Therapy Visit Type Type Administrative Note Visit Start Time 13:10 Notes OT referral received. Attempted evaluation at 1310 but pt refused due to fatigue from earlier P.T. session and multiple tests this AM. Will attempt again tomorrow earlier in day.
--- NOTE | 2019-02-26 14:26 | PC.NURSE ---
Addendum entered by Jennifer Carlson R.N. 02/26/19 18:42: 1520 - Pt requesting to ambulate. Unable to further tolerate bi-pap mask. Up on NC 4l. Ambulate to the bathroom and round the unit. 84% with activity. Set up in chair. After recovery, sats 96% on 4L, titrated down to 2L. Monitor. Original Note: 1420 -Pt set up on bi-pap. Reports feeling very fatigued and requesting time to sleep. Pressure settings 16/8, FIO2 28%. Monitor.
[2019-02-26] MEDS: TRAZODONE 100 MG TABLET PO (19:31)
[2019-02-26] MEDS: diazePAM 5 MG TABLET PO (19:31)
[2019-02-27] VITALS (7 sets, daily range): BP systolic 125–135; BP diastolic 65–82; PULSE 84–101; RESP 16–20; TEMP 36.6–37.1; O2SAT 90–99
[2019-02-27 04:24] LABS: Add Manual Diff / Slide Review NO; Basophils Absolute Auto 0 /uL (0-100); Basophils Percent Auto 0.1 % (0-2); Eosinophils Absolute Auto 0 /uL (0-450); Hematocrit 37.4 % (36-46); Lymphocytes Absolute Auto 400 /uL (1100-4500); Lymphocytes Percent Auto 4.4 % (25-40); Mean Corpuscular HGB Conc 34.7 % (30-36); Mean Corpuscular Hemoglobin 34.6 PG (26-34); Mean Corpuscular Volume 99.9 fL (80-100); Monocytes Absolute Auto 300 /uL (0-900); Monocytes Percent Auto 2.6 % (3-14); Neutrophils Absolute Auto 9000 /uL (1500-7000); Neutrophils Percent Auto 92.9 % (50-75); Platelet Count 233 X10^3/uL (150-400); Red Blood Cell Count 3.75 X10^6/uL (4.0-5.2); Red Cell Distribution Width 13.1 % (11.6-14.8); White Blood Cell Count 9.7 X10^3/uL (4.5-11.0)
[2019-02-27] MEDS: OXYCODONE IR 5 MG TABLET PO ×3 (04:24→13:17)
[2019-02-27] MEDS: OXYCODONE/ACETAMINOPHEN 5/325 TABLET 1 TAB PO ×3 (04:24→13:17)
[2019-02-27] MEDS: guaiFENesin ER 600 MG TAB 1200 MG PO (08:15)
[2019-02-27] MEDS: DULOXETINE 30 MG CAPSULE 60 MG PO (08:15)
[2019-02-27] MEDS: GABAPENTIN 300 MG CAPSULE 900 MG PO (08:15)
[2019-02-27] MEDS: methylPREDNISolone 125 MG/2 ML VIAL 60 MG IV (08:16)
[2019-02-27] MEDS: ENOXAPARIN 40 MG/0.4 ML SYRINGE SUBCUT (08:16)
[2019-02-27] MEDS: NICOTINE 21 MG PATCH TOP (08:25)
[2019-02-27] MEDS: ALBUTEROL 2.5 MG/3 ML NEB (ADULT) INH ×2 (08:56→13:34)
[2019-02-27] MEDS: TIOTROPIUM BROMIDE 18 MCG INHALER INH (08:57)
--- NOTE | 2019-02-27 09:26 | OT.IP.EVAL ---
Current Diagnoses Pneumonia, unspecified organism (02/23/19) Past Medical History (Last Reviewed 02/23/19 @ 08:51 by Debby Olmedo MD) BCC (basal cell carcinoma) (Acute ~2000) Benign neoplasm of clitoris (Acute ~03/23/16) Chronic pain (Acute) Compression fracture of T8 vertebra (Acute ~2011) COPD (chronic obstructive pulmonary disease) (Acute) History of pneumonia (Acute) Osteoarthritis (Acute) Osteomyelitis of jaw (Acute 03/13/18) Osteoporosis (Acute) Requires supplemental oxygen (Acute) Thyroid nodule (Acute) Surgical History (Last Reviewed 02/23/19 @ 08:51 by Debby Olmedo MD) History of lumbar surgery (Acute ~1989) Hx of appendectomy (Acute) Hx of fusion of cervical spine (Acute) Hx of hand surgery (Acute) Status post tonsillectomy and adenoidectomy Status post vaginal hysterectomy Occupational Therapy Inpatient Evaluation/Re-Eval M1 PT/OT-IP Prior Functional Status Start: 02/25/19 11:40 Freq: NEEDED Status: Active Protocol: Document 02/27/19 09:20 [facility] (Rec: 02/27/19 10:21 [facility] [id number]) Medical Review Prior Functional Status Medical History Reviewed Yes Diet/Fluid Consistency Regular Communication Pt able to make needs known Mobility and Gait Pt reports being independent with all mobility and gait without use of AD prior to this hospitalization Activities of Daily Living and IADL's Pt reports being independent with all ADL's, does IADL needs and finances. Pt takes her own medications. Prior Functional Level (Other details) Pt was experiencing SOB and saw doctor one week ago who told her to start being on O2 constantly as opposed to just at night like she had been doing. Social History Household Members spouse Living Arrangements House Number of Floors (Floors) One Floor Number of Stairs To Enter/Railing? one stair to enter, no railing Home Environment Standard Height Toilet,Walk in Shower,Built-In Shower Seat Home Equipment Four Wheel Walker,Straight Cane,Shower Seat with Backrest ,Grab Bars Near Toilet Employment Status Retired Additional Social History Comment Pt's spouse is able to help her with activities M2 OT-IP Current Condition Start: 02/26/19 13:18 Freq: Status: Active Protocol: Document 02/27/19 09:20 [facility] (Rec: 02/27/19 10:21 [facility] [id number]) Occupational Therapy Current Condition Current Condition Evaluation Date 02/27/19 Treatment Diagnosis acute COPD exacerbation Diagnosis Onset Date 02/23/19 Weight Bearing Status Weight Bearing Status Weight Bear as Tolerated M3 OT- IP Subjective and Pain Start: 02/26/19 13:18 Freq: Status: Active Protocol: Document 02/27/19 09:20 [facility] (Rec: 02/27/19 10:21 [facility] [id number]) OT- Subjective Occupational Therapy Visit Type Type Initial Evaluation Visit Start Time 09:20 Visit Stop Time 10:06 Total Visit Minutes 46 Occupational Therapy Visit Comments Patient Comments Pt wanting to shower. Patient/Caregiver Goals To go home today. OT Pain Assessment Pain When Pain Assessed At Rest Pain Present Pain Present Denied Pain M4 OT- IP ADL's Start: 02/26/19 13:18 Freq: Status: Active Protocol: Document 02/27/19 09:20 [facility] (Rec: 02/27/19 10:21 [facility] [id number]) OT [id number] Comments OT Self-Feeding Comments Not at meal time. OT ADL-Grooming Comments OT Grooming Comments Already completed earlier. OT ADL-Dressing General Eval Upper Body Dressing Ability Independent Lower Body Dressing Ability Standby Assistance Comments OT Dressing Comments SBA while standing for LB dressing needs. OT ADL-Toileting General Evaluation Toileting Ability Independent OT ADL-Bathing General Evaluation Bathing Ability Minimal Assistance Areas Needing Assistance Retrieving/Setting Up Items Comments OT Bathing Comments Assist to wash her hair as pt getting tired while standing and not wanting to sit down. M5 OT- IP IADL's Start: 02/26/19 13:18 Freq: Status: Active Protocol: Document 02/27/19 09:20 [facility] (Rec: 02/27/19 10:21 [facility] [id number]) OT-Instrumental Activities of Daily Living Home Safety Awareness Awareness of Need for Assistance at Home Good Awareness Ability to Problem Solve Emergency Able to Problem Solve Situations Medication Management Medication Management No Deficits Identified Money Management Money Management Caregiver Provides Assistance Meal Preparation Meal Preparation Caregiver Provides Assist Eyeglass Cutter Eyeglass Cutter Caregiver Provides Assist M6 OT- IP Functional Cognition Start: 02/26/19 13:18 Freq: Status: Active Protocol: Document 02/27/19 09:20 [facility] (Rec: 02/27/19 10:21 [facility] [id number]) Cognitive Factors Limiting Selfcare Function Cognitive Ability Level of Alertness Alert Patient Orientation Name,Place,Situation Attention Span Ability Capable of Focused Attention, Unable to Focus Ability to Follow Commands Able to Follow Multi-Step Commands Memory Description No Deficits Noted Safety Awareness Underestimates Need for Assistance Cognitive Comments Cognitive Assessment Comments Pt mainly needing cues to slow down and take rest breaks before feeling tired. In addition would be beneficial to sit for showering or to have O2 on while showering. Pt on 2L of O2 and 93% and hr 130. OT- Vision and Hearing OT- Hearing Assessment OT- Hearing Assessment WFL OT- Vision Assessment Visual Acuity WFL M7 OT- IP Mobility and Balance Start: 02/26/19 13:18 Freq: Status: Active Protocol: Document 02/27/19 09:20 [facility] (Rec: 02/27/19 10:21 [facility] [id number]) OT- Bed Mobility Assessment Rolling Level of Assistance Independent Supine to Sit Supine to Sit Assist Independent Sit to Supine Sit to Supine Assist Independent OT-Transfer Assessment Sit to and From Stand Sit to and from Stand Standby Assistance Transfers Transfer Ability Standby Assistance Technique Transfer Destination Bed,Chair,Shower Stall,Toilet Transfer Technique Stand Step Pivot Devices Transfer Assistive Devices None Comments Mobility Comments SBA for mobility in the room and hallway and assist to roll O2 tank for pt. Pt has good safety for managing O2 tubing while in the room. OT- Gait Assessment Gait Gait Assistance Required: Standby Assistance Assistive Devices Assistive Device None OT- Balance Assessment Sitting Balance and Reactions Static Sitting Balance Ability Normal Dynamic Sitting Balance Ability Normal Standing Balance and Reactions Static Standing Balance Ability Normal Dynamic Standing Balance Ability Good M8 OT- IP Objective Assessments Start: 02/26/19 13:18 Freq: Status: Active Protocol: Document 02/27/19 09:20 [facility] (Rec: 02/27/19 10:21 [facility] [id number]) OT Gross Range of Motion Upper Extremity Range of Motion Assessment Within Functional Limits OT Strength Upper Extremity Strength Assessment Within Functional Limits OT-Muscle Tone Assessment Muscle Tone WNL Yes M9 OT- IP Assessment and Plan Start: 02/26/19 13:18 Freq: Status: Active Protocol: Document 02/27/19 09:20 [facility] (Rec: 02/27/19 10:21 [facility] [id number]) OT Summary Assessment and Plan Potential Rehabilitation Potential Excellent Analytic Complexity at Evaluation Low Summary OT Impairments Pain,Functional Mobility, Bathing Progress Towards Goals Progressing Toward Goals Assessment Summary Pt low complexity and doing well and mainly just needing reminders to slow down and take rest breaks. Pt to go home today and to be able to assist as needed. Goals Patient/Caregiver Education Goal Demonstrate Energy Conservation and Pacing, Caregiver Independent Assisting Patient Days to Meet Goals 1 Frequency of Treatment Frequency Of Treatment Once a Day Treatment Plan OT Treatment Plan Patient/Family Education, Discharge Planning Discharge Recommendations OT Discharge Recommendations Home with Assistance
--- NOTE | 2019-02-27 09:26 | CM.DPNOTE ---
Addendum entered by Joann Burkett LPN 02/27/19 15:10: Checked in now with pt, her and [facility]. Info visit appears to have gone well. Pt is going home with Braden setting up a BIPAP and [facility] is encouraging same. She says that their would be about a week before [facility] could get this equipment. She is going to go by the pt's home next week to continue the [facility] discussion and at this point all expect that consents will be signed at that time. P: home this afternoon. TAMICA Cheng reports she is working on the dc paperwork now. Dr. Trevino is updated. Original Note: DCP: continued: Dr. Trevino has just put in a d/c to home order for pt. Updated her on the [facility] info visit for today that could also be changed to the home setting. She states that she would like the visit to occur at prior to the d/c. She plans to talk with pt and her this morning re this. Received a vm from [facility] stating the she needed documentation from Dr. Trevino on the Hospice discussion. This is faxed now: the completed progress note of yesterday from Dr. Trevino. Will be following. ICU staff are updated.
[2019-02-27] MEDS: ACETAMINOPHEN 325 MG TABLET 650 MG PO (10:15)
[2019-02-27] MEDS: predniSONE 20 MG TABLET 40 MG PO (10:15)
[2019-02-27] MEDS: CARISOPRODOL 350 MG TABLET PO ×2 (10:15→15:32)
[2019-02-27] MEDS: diazePAM 5 MG TABLET PO (10:15)
--- NOTE | 2019-02-27 14:43 | P.DS_ITS ---
History of Present Illness History of Present Illness Chief complaint: difficulty breathing Narrative: Written by Dr. Peña: Patient is a 68-year-old female with history of COPD, on nighttime O2, current smoker presents to emergency department because of severe difficulty breathing. Patient noted marked worsening in her breathing over the past 24-48 hours. In addition noted worsening cough productive of thick yellow phlegm without blood. She states that over the past month she has been on 3 different courses of antibiotic for COPD exacerbation and possible pneumonia. Most recently she completed a 10 day course of Levaquin about 5 days ago. She has also been on daily prednisone for about the past couple of weeks. She had a reported normal chest x-ray on January 15, 2019. On February 04, 2019 she had a chest x-ray which reported 2 cm nodular opacity in the right hilar region concerning for pulmonary mass versus pneumonia. Subsequently she had a contrast chest CT on February 06, 2019 which showed severe emphysema and diffuse interstitial lung disease in addition to an ill-defined streaky patchy consolidation in the lingula and right middle lobe, also presumed nodular scarring or atelectasis corresponding to chest x-ray finding from February 04, 2019. Also chronic right middle lobe subpleural nodule measuring 5 mm unchanged since 2016. CT findings were thought consistent with early or developing pneumonia with underlying severe emphysema. On her chest x-ray from emergency department patient is noted to have new patchy airspace opacities in the left mid lung and left lung base suspicious for aspiration versus pneumonia. There is no change in masslike opacity in the right middle lung noted on the CT February 06, 2019 consistent with pneumonia versus lung mass. On presenting vitals patient noted to be hypotensive with blood pressures of 86/71 but patient states normally her blood pressures run in the low to mid 90s systolic. Initial heart rate 115, respiratory rate 22, O2 sat low to mid 80s. Her ABG showed pH of 7.41, pCO2 54.7, PO2 60, bicarb 35 on 36% FiO2. However her oxygenation has worsened and she is currently on 70% high-flow nasal cannula when evaluated in the ED. Labs showed marked leukocytosis with WBC 56, hemoglobin 16, BNP less than 100. Blood pressure in low 80s at this time. Patient is therefore admitted to ICU for treatment of pneumonia with acute respiratory failure. Discharge Providers Provider Date of admission: 02/23/19 10:19 Discharge Date: 02/27/19 Primary care physician: Emerald Ruff MD Consults: 02/23/19 13:35 Consult to Dietitian, Adult Routine Comment: Reason For Exam: scored low on admit MNA 02/25/19 09:50 Consult to Occupational Therapy Evaluate & Treat Comment: Physician Instructions: Evaluate and treat Consult to Physical Therapy Evaluate & Treat Comment: Physician Instructions: Evaluate and Treat Discharge provider: Nara Trevino DO Summary Hospital Course Discharge Diagnosis: 1. Acute on chronic hypoxemic and hypercarbic respiratory failure, present on admission. Acute portion resolved. 2. Acute community-acquired bacterial pneumonia, present on admission. Resolving. 3. Acute end-stage COPD with exacerbation, present on admission. Acute exacerbation resolved. 4. Chronic back pain with opiate dependence, chronic, present on admission. Stable. 5. Possible right middle lung mass, chronic, present on admission. Stable. 6. Severe chronic protein calorie malnutrition, present on admission. Stable. 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 1. Acute on chronic hypoxemic and hypercarbic respiratory failure, present on admission. Acute portion resolved. -Secondary to pneumonia and COPD exacerbation and continued to treat as below. -Continued supplemental oxygen with heated high-flow and BiPAP at night or while napping. Oxygen saturation goal 88-92%. Avoid over oxygenating patient as higher oxygenation will drive CO2 retention. Patient is now on 1-2 L continuous. -Plan to have outpatient BiPAP provided by [employer]. The patient requires nocturnal and daytime ventilation. Home noninvasive ventilator is insufficient due to severity of COPD which is the primary cause of chronic hypoxemic and hypercarbic respiratory failure. BiPAP was considered and deemed inefficient due to her progression of COPD. Previous CT with contrast on 02/06/2019 demonstrates bronchiectasis. 2. Acute community-acquired bacterial pneumonia, present on admission. Resolving. -Patient with failure of several courses of outpatient antibiotic, most recently Levaquin and prednisone for COPD exacerbation -Patient presented with marked leukocytosis with WBC 56.4 of which was partially glucocorticoid induced. Procalcitonin < 0.05. Continued to monitor WBC daily and trended down to normal 9.7. -Ordered complete pneumonia workup including: Respiratory viral PCR negative. Strep pneumoniae and Legionella urine antigens not ordered. Sputum culture grew heavy mixed normal hamzah. Blood cultures x2 have no growth to date. Fungal sputum culture preliminarily growing yeast. Recommended patient rinse mouth after use of steroid inhaler. Prescribed Diflucan 200 mg daily for 7 days to treat thrush of oropharynx. -Consulted respiratory therapy for evaluation and treatment. Continued albuterol every 4 hours while awake, tiotropium 18 mcg inhaled daily, budesonide 2 puffs inhaled twice daily, Mucinex 1200 mg twice daily, and Acapella 10 times every hour while awake. -Continued ceftriaxone 1 g IV daily for 5 days and completed azithromycin 500 mg IV x3 doses. Patient discharged with cefuroxime 500 mg twice daily for 3 additional days to complete 7 day course of antibiotics. 3. Acute end-stage COPD with exacerbation, present on admission. Acute exacerbation resolved. -Patient presented with progressive worsening cough, diffuse rhonchi and wheezing. She had been on outpatient prednisone for past 2 weeks. -Previous CT demonstrated severe centrilobular emphysema and bronchiectasis. -Continued glucocorticoids with Solu-Medrol 60 decreased from every 6 hours to twice daily and switch to prednisone 40 mg daily for 3 additional days to complete 7 day glucocorticoid burst. -Consulted respiratory therapy for evaluation and treatment. Continued albuterol every 4 hours while awake, tiotropium 18 mcg inhaled daily, budesonide 2 puffs inhaled twice daily, Mucinex 1200 mg twice daily and Acapella 10x an hour while awake. -Discussed hospice for symptom management, patient received an informational visit, and patient is to consent and open with hospice in the next week or so. 4. Chronic back pain with opiate dependence, chronic, present on admission. Stable. -Continued home routine fentanyl patch 50 mcg every 72 hours, oxycodone 5-325 mg every 4 hours as needed for moderate to severe pain, carisoprodol 350 mg twice daily as needed for muscle spasm, diazepam 5 mg twice daily for muscle spasm, gabapentin 900 mg twice daily, and duloxetine 60 mg daily. Held oral diclofenac in hospital due to risk of stress ulcer. -Discontinued IV narcotics. 5. Possible right middle lung mass, chronic, present on admission. Stable. -Outpatient CT on 02/06/2019 noted a lingular and right middle lobe streaky patchy consolidation with nodular configuration in the right middle lobe which was likely inflammatory in nature. -Recommended continued short interval radiographic surveillance to document resolution after treatment and exclude superimposed pulmonary nodule. If this does not clear radiographically, repeat chest CT could be performed. 6. Severe chronic protein calorie malnutrition, present on admission. Stable. -BMI 16.7. -Severe chronic protein calorie malnutrition secondary to reduced intake secondary to uncontrolled pain and difficulty eating due to COPD/Emphysema as evidence by pt BMI 16.7 (severe for age), admitted for bacterial pneumonia, severe depletion of muscle mass and subcutaneous fat system wide. -Consulted dietitian and appreciate her recommendations. Exam Vital Signs (past 8 hours): - 02/27/19 08:00 02/27/19 09:03 02/27/19 11:20 Temperature 97.8 F 98.8 F Pulse Rate 84 101 H 90 Respiratory Rate 18 16 18 Blood Pressure 125/65 135/82 Pulse Oximetry 90 L 96 90 L 02/27/19 13:45 Temperature Pulse Rate 86 Respiratory Rate 18 Blood Pressure Pulse Oximetry 90 L Fraction of Inspired Oxygen 28 Oxygen Delivery Method Room Air Oxygen Flow Rate 0 Narrative Exam Narrative: General:Older female lying in bed comfortably, appears chronically ill and significantly older than stated age, cachectic/emaciated, in no acute distress, appropriately interactive. HEENT: Normocephalic, atraumatic. External ears without defect. Pupils equal, round, and reactive to light. Anicteric sclerae, moist conjunctivae, and no lid lag. Poor dentition. Neck: Supple with full range of motion. No jugular venous distension. No lymphadenopathy or thyromegaly. Cardiovascular: Regular rhythm and rate without murmurs, rubs, or gallops appreciated. Pulmonary: Diminished but with better aeration, scattered rhonchi throughout which is improving and occasional end-expiratory wheeze. Normal respiratory effort with no use of accessory muscles. Abdomen: Soft, scaphoid, bowel sounds present, nontender, nondistended. No hepatosplenomegaly or masses appreciated. Extremities: No clubbing, cyanosis, or edema. Skin: Normal temperature, turgor, and texture; no rash, ulcers, or subcutaneous nodules appreciated. Neurological: Cranial nerves grossly intact. Psychiatric: Depressed mood and affect. Alert and oriented to person, place, and time. Objective Labs Result Diagrams: 02/27/19 04:07 02/26/19 04:47 Labs: Laboratory Results - last 24 hr 02/27/19 04:07 WBC 9.7 RBC 3.75 L Hgb 13.0 Hct 37.4 MCV 99.9 MCH 34.6 H MCHC 34.7 RDW 13.1 Plt Count 233 Neut % (Auto) 92.9 H Lymph % (Auto) 4.4 L Giles % (Auto) 2.6 L Eos % (Auto) 0.0 L Baso % (Auto) 0.1 Neut # (Auto) 9000 H Lymph # (Auto) 400 L Giles # (Auto) 300 Eos # (Auto) 0 Baso # (Auto) 0 Discharge Plan Discharge Plan Patient Disposition: Hospice - Home Discharge comment: Your being discharged home with hospice. Hospice is a team of providers that can help manage your symptoms related to COPD and back pain at home. You have been prescribed cefuroxime 500 mg twice daily for 3 additional days to complete a 7 day course of antibiotics. You have also been prescribed prednisone 40 mg daily for 3 additional days to complete a 7 day steroid burst. Please continue your breathing treatments and inhalers as previously prescribed. Please rinse your mouth after using your Symbicort inhaler. You need to stay on 1-2 L of continuous oxygen as you would desaturate with any activity. [facility] is going to provide you with a BiPAP at home. You have been prescribed Diflucan 200 mg daily for 7 days to treat yeast that grew in year sputum and mouth. Again please rinse her mouth after your Symbicort inhaler for this will keep recurring. Discharge orders & Medications Prescriptions: New lidocaine 5 % Adhesive Patch,Medicated 2 ea topical DAILY Qty: 10 RF: 0 nicotine 21 mg/24 hr Patch 24 Hour 21 mg topical DAILY Qty: 21 RF: 0 guaifenesin [Mucus Relief ER] 600 mg Tablet Extended Release 12hr 1,200 mg PO BID Qty: 60 RF: 0 prednisone 20 mg Tablet 40 mg PO DAILY Qty: 3 RF: 0 cefuroxime axetil 500 mg tablet 500 mg PO BID Qty: 6 RF: 0 fluconazole [Diflucan] 200 mg tablet 200 mg PO DAILY Qty: 7 RF: 0 Continued albuterol sulfate [Ventolin HFA] 90 MCG/PUFF HFA aerosol inhaler 2 puff INH Q4H PRN (Reason: Shortness Of Breath) Qty: 0 RF: 0 Symbicort 160 MCG/4.5 MCG HFA aerosol inhaler 2 puff INH BID Qty: 0 RF: 0 albuterol sulfate 2.5 mg /3 mL (0.083 %) Solution For Nebulization 2.5 mg INHALATION TID RF: 0 calcium carbonate [Calcium 500] 500 mg calcium (1,250 mg) Tablet 1,000 mg PO DAILY RF: 0 tiotropium bromide 18 mcg Capsule, W/Inhalation Device 1 cap INHALATION DAILY RF: 0 fentanyl 50 mcg/hr Patch 72 Hour 50 mcg Topical Q72H Qty: 10 RF: 0 trazodone 50 mg tablet 100 mg PO BEDTIME RF: 0 oxycodone-acetaminophen 10-325 mg tablet 1 tab PO Q6H PRN (Reason: pain) RF: 0 duloxetine 60 mg capsule,delayed release(DR/EC) 60 mg PO DAILY RF: 0 gabapentin [Neurontin] 300 mg capsule 900 mg PO BID RF: 0 diclofenac sodium 50 mg tablet,delayed release (DR/EC) 50 mg PO BID RF: 0 diazepam 5 mg tablet 5 mg PO BID PRN (Reason: Muscle Spasm) RF: 0 cholecalciferol (vitamin D3) [Vitamin D3] 1,000 unit Capsule 1,000 unit PO DAILY RF: 0 carisoprodol 350 mg tablet 350 mg PO DAILY PRN (Reason: Muscle Spasm) RF: 0 Discontinued prednisone 10 mg tablet 20 mg PO DAILY RF: 0 Follow up/Referrals: Emerald Ruff MD [Primary Care Provider] - 03/03/19 10:20 am (If you accept hospice and services begin before the date of this appointment, please call and cancel this appointment. ) Diet/Activity/Treatments Diet: Diet as Tolerated, Low-fat, Low-sodium and Low-cholesterol Oxygen: 1-2 L continuous, BiPAP when napping or sleeping Visit Report/Discharge Packet Instructions: DI for Emphysema, DI for Chronic Obstructive Pulmonary Disease, DI for Pneumonia -- Adult, DI for Thrush, Cefuroxime (By mouth) Discharge Data Primary Care Provider: Emerald Ruff Discharges patient from system. Discharge Date/Time: 02/27/19 15:50 Quality VTE Deep Vein Thrombosis/Pulmonary Embolism Present on Admission: No
[2019-02-27] MEDS: LIDOCAINE PATCH 1 EACH ADH..PATCH 2 EACH TOP (15:32)
--- NOTE | 2019-02-27 15:52 | PC.NURSE ---
1530 - Reviewing discharge instructions with pt and spouse. Pt c/o significant back pain. Up pacing in room. States I have crossed over, I can't do this right now. Soma and Lidocaine patch provided. Pt states I have to get out the door. Reviewed discharge instructions and education with pt and more specifically her who was attentive and asking appropriate questions. Pt with minimal questions. Encourage compliance with smoking cessation. Reviewed medications and new prescriptions. Pt asking question r/t emergency treatment if pt signs with hospice. Discussed disease treatment vs symptom management. They report hospice to follow up at their home on Saturday. [facility] rep. to meet them at their home this afternoon to provided respiratory supplies. Pt and spouse deny further questions. Discharged via wheelchair with O2 concentrator, [employer] escort.
== END 2019-02-27 15:50 | disposition hospice, home (50) | DRG 193 ==
LOC: ED 08:13 → AC 10:20 → ICU 12:48
PROVIDERS: Internal Medicine; Admitting Provider Internal Medicine; Emergency Provider Emergency Medicine; PCP Internal Medicine; Visit Provider Internal Medicine
DX: J15.9 Unspecified bacterial pneumonia (principal); J96.02 Acute respiratory failure with hypercapnia; E43 Unspecified severe protein-calorie malnutrition; J96.01 Acute respiratory failure with hypoxia; J44.1 Chronic obstructive pulmonary disease with (acute) exacerbation; Z68.1 Body mass index [BMI] 19.9 or less, adult; J44.0 Chronic obstructive pulmonary disease with (acute) lower respiratory infection; Z99.81 Dependence on supplemental oxygen; G89.29 Other chronic pain; F17.210 Nicotine dependence, cigarettes, uncomplicated; R00.0 Tachycardia, unspecified
CPT/HCPCS: 36415; 36600; 71045; 80048; 80053; 82805; 83735; 83880; 84145; 84484; 85025; 85379; 87040; 87070; 87102; 87205; 87633; 87797; 93005; 93306; 94640; 94660; 96361; 96365; 96367; 96375; 97116; 97162; 97165; 97530; 97535; 99285; 99291; J0696; J1100; J1650; J2270; J2930; J7613

== ENCOUNTER → 2019-11-09 19:13 | Outpatient (ROUT) | payer MEDICARE, OTHER, SELFPAY ==
[2019-02-23 13:14] VITALS: BMI 16.3
[2019-02-26 23:55] VITALS: PULSE 83; RESP 15; O2SAT 91
[2019-11-09 20:28] LABS: Add Manual Diff / Slide Review NO; Basophils Absolute Auto 100 /uL (0-100); Basophils Percent Auto 1.3 % (0-2); Eosinophils Absolute Auto 100 /uL (0-450); Eosinophils Percent Auto 1.3 % (2-4); Hematocrit 39.2 % (36-46); Hemoglobin 14.1 g/dL (12.0-16.0); Lymphocytes Absolute Auto 3800 /uL (1100-4500); Lymphocytes Percent Auto 40.4 % (25-40); Mean Corpuscular HGB Conc 35.8 % (30-36); Mean Corpuscular Hemoglobin 39.6 PG (26-34); Mean Corpuscular Volume 110.4 fL (80-100); Monocytes Absolute Auto 700 /uL (0-900); Monocytes Percent Auto 7.3 % (3-14); Neutrophils Absolute Auto 4600 /uL (1500-7000); Neutrophils Percent Auto 49.7 % (50-75); Platelet Count 297 X10^3/uL (150-400); Red Blood Cell Count 3.55 X10^6/uL (4.0-5.2); Red Cell Distribution Width 13.1 % (11.6-14.8); White Blood Cell Count 9.3 X10^3/uL (4.5-11.0)
[2019-11-09 20:41] LABS: Aspartate Aminotransferase 25 IU/L (14-36); BUN Creatinine Ratio 19.1 (6-22); Blood Urea Nitrogen 13 mg/dL (7-17); Calcium 10.5 mg/dL (8.4-10.2); Chloride 99 mmol/L (98-107); Cholesterol 200 mg/dL (140-199); Estimated Glomerular Filt Rate > 60.0 mL/min (>60); Glucose 84 mg/dL (80-110); HDL Cholesterol 81 mg/dL (40-60); HEMOLYSIS < 15 (0-50); LDL Cholesterol Calculated 86 mg/dL (<100); Potassium 4.2 mmol/L (3.4-5.1); Sodium 141 mmol/L (137-145); Triglycerides 167 mg/dL (35-150); Uric Acid 2.8 mg/dL (2.5-6.2)
[2019-11-09 20:43] LABS: Hemoglobin A1C% w Est Avg Glu 5.5 % (4.0-6.0)
[2019-11-09 20:45] LABS: Erythrocyte Sedimentation Rate 2 MM/HR (0-20)
[2019-11-09 20:46] LABS: Carbon Dioxide 37 mmol/L (22-32)
[2019-11-09 20:50] LABS: Macrocytosis 3+
[2019-11-09 20:57] LABS: C-Reactive Protein Quant < 0.5 mg/dL (<1.0)
== END ==
PROVIDERS: PCP Internal Medicine; Visit Provider Internal Medicine
DX: Z87.39 Personal history of other diseases of the musculoskeletal system and connective tissue (principal); E78.2 Mixed hyperlipidemia
CPT/HCPCS: 80048; 80061; 83036; 84450; 84550; 85025; 85651; 86140

== ENCOUNTER 2020-02-11 09:33 | Inpatient (IN) | payer MEDICARE, OTHER, SELFPAY ==
[2019-02-23 13:14] VITALS: BMI 16.3
[2019-02-26 23:55] VITALS: PULSE 83; RESP 15; O2SAT 91
[2020-02-11] VITALS (27 sets, daily range): BP systolic 74–125; BP diastolic 48–68; PULSE 65–116; RESP 18–20; TEMP 36.4–37.2; O2SAT 91–96; BMI 15.7
--- NOTE | 2020-02-11 09:47 | DI.RAD.S_ITS ---
PROCEDURE: XR CHEST 1V INDICATIONS: Dyspnea TECHNIQUE: One view of the chest was acquired. COMPARISON: [facility], CT, CT CHEST W CON, 02/06/2019, 9:15. [facility], CR, XR CHEST 1V, 02/23/2019, 8:34. FINDINGS: Surgical changes and devices: Lower cervical spine fusion. Lungs and pleura: Lungs are hyperinflated, consistent with COPD. There is diffuse interstitial prominence. Biapical scars. No pleural effusions or pneumothorax. Mediastinum: Mediastinal contours appear normal. Heart size is normal. Bones and chest wall: No suspicious bony lesions. Overlying soft tissues appear unremarkable. IMPRESSION: COPD and diffuse interstitial prominence. Dictated by: Aric Godoy M.D. on 02/11/2020 at 10:31 Approved by: Aric Godoy M.D. on 02/11/2020 at 10:33
--- NOTE | 2020-02-11 09:49 | ED.SOB ---
HPI - SOB/Dyspnea General Chief Complaint: Shortness of Breath/Dyspnea Stated Complaint: shortness of breath Time Seen by Provider: 02/11/20 09:43 Source: patient Mode of arrival: Family Vehicle History of Present Illness HPI Narrative: Patient admitted 1 year ago here for pneumonia. Patient states feels the same again. Patient is a smoker. COPD history. On 2 not L nasal cannula continuously at home. Breathing treatments at home not helping. No fever chills but has productive cough. Short of breath on exertion as well as rest. Patient continues to smoke. Has substernal sharp chest pain only with deep breath or coughing or moving. MD Complaint: shortness of breath and cough Related Data Home Medications Medication Instructions Recorded Confirmed albuterol sulfate [Ventolin HFA] 2 puff INH Q4H PRN #0 07/22/17 02/11/20 budesonide-formoterol [Symbicort] 2 puff INH BID #0 07/22/17 02/11/20 albuterol sulfate 2.5 mg INHALATION TID 03/13/18 02/11/20 calcium carbonate [Calcium 500] 1,000 mg PO DAILY 03/13/18 02/11/20 tiotropium bromide 1 cap INHALATION DAILY 03/13/18 02/11/20 carisoprodol 350 mg PO DAILY PRN 02/23/19 02/11/20 cholecalciferol (vitamin D3) 1,000 unit PO DAILY 02/23/19 02/11/20 [Vitamin D3] diclofenac sodium 50 mg PO BID 02/23/19 02/11/20 duloxetine 60 mg PO DAILY 02/23/19 02/11/20 gabapentin [Neurontin] 900 mg PO BID 02/23/19 02/11/20 oxycodone-acetaminophen 1 tab PO Q6H PRN 02/23/19 02/11/20 trazodone 100 mg PO BEDTIME 02/23/19 02/11/20 fentanyl 75 mcg TOPICAL Q72H 02/11/20 02/11/20 glycopyrrolate-formoterol [Bevespi 2 puff INHALATION BID 02/11/20 02/11/20 Aerosphere] levofloxacin 500 mg PO DAILY 02/11/20 02/11/20 prednisone 20 mg PO DAILY 02/11/20 02/11/20 rosuvastatin [Crestor] 10 mg PO DAILY 02/11/20 02/11/20 Previous Rx's Medication Instructions Recorded guaifenesin [Mucus Relief ER] 1,200 mg PO BID #60 tab 02/27/19 Allergies Allergy/AdvReac Type Severity Reaction Status Date / Time nickel Allergy Severe Rash, Verified 02/11/20 09:51 infections codeine Allergy Mild Itching Verified 02/11/20 09:51 nabumetone Allergy Pt does Verified 02/11/20 09:51 not remember reaction alendronate sodium AdvReac Severe Nausea Verified 02/11/20 09:51 amoxicillin [From AUGMENTIN] AdvReac Mild VOMITING Verified 02/11/20 09:51 cephalexin [CEPHALEXIN] AdvReac Mild VOMITING Verified 02/11/20 09:51 clavulanic acid AdvReac Mild VOMITING Verified 02/11/20 09:51 [From AUGMENTIN] sulfamethoxazole AdvReac Mild nausea Verified 02/11/20 09:51 [From SEPTRA] trimethoprim [From SEPTRA] AdvReac Mild nausea Verified 02/11/20 09:51 Review of Systems Review of Systems Narrative: GENERAL: Denies chills, fatigue, malaise, fever, sweats. HEENT: Denies sinus pain, ear pain, sore throat, difficulty swallowing RESPIRATORY: Complains of dyspnea, cough CARDIOVASCULAR: Denies chest pain, palpitations, edema, GASTROINTESTINAL: Denies nausea, vomiting, abdominal pain, diarrhea, constipation, melena. : Denies dysuria, frequency, hematuria MUSCULOSKELETAL: denies muscle or bony pain SKIN: Denies rash, skin lesions NEUROLOGIC: Denies weakness, headache, numbness, change in speech, confusion PSYCHIATRIC: No SI or HI or hallucinations ROS Unobtainable: All systems reviewed & are unremarkable except as noted in HPI and below Patient History Medical History BCC (basal cell carcinoma) (Acute ~2000) Benign neoplasm of clitoris (Acute ~03/23/16) Chronic pain (Acute) Compression fracture of T8 vertebra (Acute ~2011) COPD (chronic obstructive pulmonary disease) (Acute) History of pneumonia (Acute) Osteoarthritis (Acute) Osteomyelitis of jaw (Acute 03/13/18) Osteoporosis (Acute) Requires supplemental oxygen (Acute) Thyroid nodule (Acute) Surgical History History of lumbar surgery (Acute ~1989) Hx of appendectomy (Acute) Hx of fusion of cervical spine (Acute) Hx of hand surgery (Acute) Status post tonsillectomy and adenoidectomy Status post vaginal hysterectomy Family History Mother Cancer of kidney Cancer of bladder Father Congestive heart failure Sister Hypertension Social History household members: spouse Smoking Status: Current every day smoker alcohol intake: former Smoking Status: Current every day smoker Substance Use Type: does not use Exam Narrative Exam Narrative: GENERAL: patient appears stated age. Well-nourished, well-developed patient, in no distress, not toxic not dyspneic HEAD: Normocephalic. EYES: Pupils equal round and reactive. No scleral icterus. No injection no discharge ENT: Mucous membranes moist. No drooling no tongue elevation no trismus no malocclusion NECK: Trachea midline. Non tender CARDIOVASCULAR: Regular rate and rhythm without murmurs, gallops, or rubs. RESPIRATORY: Clear to auscultation. Breath sounds equal bilaterally. Bibasal wheezes, rhonchi. Speaks 5-7 word sentences GASTROINTESTINAL: Abdomen soft, non-tender, nondistended. EXTREMITIES: No gross deformities. BACK: Nontender without deformity or crepitance. No flank tenderness. NEURO: AOx4. SKIN: Warm and dry PSYCH: Not anxious, is cooperative Initial Vital Signs Initial Vital Signs: Vital Signs Temperature 98.9 F 02/11/20 09:49 Pulse Rate 116 H 02/11/20 09:49 Respiratory Rate 20 02/11/20 09:49 Blood Pressure 122/68 02/11/20 09:49 Pulse Oximetry 93 02/11/20 09:49 Course Course Course Narrative: Spoke with hospitalist, current at this time there is no beds available. Need to transfer as Emergency Department is at capacity Time 2:[address] Trevino came and saw patient. Now able to admit patient here Orders Ordered: Acetaminophen (Tylenol) 975 mg PO Q8H PRN PRN Reason: Fever/Mild Pain (1-3) Last Admin: 02/14/20 09:02 Dose: 975 mg Documented by: Admin: 02/13/20 18:36 Dose: 975 mg Documented by: Admin: 02/13/20 08:42 Dose: 975 mg Documented by: Admin: 02/12/20 08:54 Dose: 975 mg Documented by: ZAINAB Albuterol (Ventolin) 2.5 mg INH [id number] PRN PRN Reason: Shortness Of Breath Or Wheezing Last Admin: 02/14/20 16:51 Dose: 2.5 mg Documented by: SASHA Albuterol/Ipratropium (Duoneb) 3 ml INH [id number] TAM Last Admin: 02/14/20 18:56 Dose: 3 ml Documented by: Admin: 02/14/20 13:55 Dose: Not Given Documented by: Admin: 02/14/20 07:37 Dose: 3 ml Documented by: Admin: 02/13/20 18:53 Dose: 3 ml Documented by: Admin: 02/13/20 13:25 Dose: 3 ml Documented by: Admin: 02/13/20 10:06 Dose: 3 ml Documented by: Admin: 02/12/20 20:07 Dose: 3 ml Documented by: Admin: 02/12/20 14:51 Dose: 3 ml Documented by: Admin: 02/12/20 07:34 Dose: 3 ml Documented by: Admin: 02/11/20 21:57 Dose: 3 ml Documented by: FEROZ Budesonide (Pulmicort 90mcg Flexhaler) 2 puff INH BID [facility] Last Admin: 02/14/20 18:58 Dose: 2 puff Documented by: Admin: 02/14/20 07:37 Dose: 2 puff Documented by: Admin: 02/13/20 18:54 Dose: 2 puff Documented by: Admin: 02/13/20 10:05 Dose: 2 puff Documented by: Admin: 02/12/20 20:07 Dose: 2 puff Documented by: Admin: 02/12/20 11:01 Dose: 2 puff Documented by: SUNNY Calcium Carbonate (Tums) 1,000 mg PO DAILY [facility] Admin: 02/14/20 09:12 Dose: 1,000 mg Documented by: Admin: 02/13/20 11:53 Dose: Not Given Documented by: Admin: 02/12/20 13:01 Dose: Not Given Documented by: ZAINAB Carisoprodol (Soma) 350 mg PO DAILY PRN PRN Reason: Spasms Last Admin: 02/14/20 09:12 Dose: 350 mg Documented by: Admin: 02/13/20 08:41 Dose: 350 mg Documented by: Admin: 02/12/20 09:05 Dose: 350 mg Documented by: ZAINAB Diclofenac Sodium (Voltaren) 50 mg PO BID [facility] Admin: 02/14/20 20:45 Dose: 50 mg Documented by: Admin: 02/14/20 09:02 Dose: 50 mg Documented by: Admin: 02/13/20 19:16 Dose: 50 mg Documented by: Admin: 02/13/20 08:43 Dose: 50 mg Documented by: Admin: 02/12/20 20:30 Dose: 50 mg Documented by: Admin: 02/12/20 09:27 Dose: 50 mg Documented by: Admin: 02/11/20 21:26 Dose: Not Given Documented by: EDDIE Diclofenac Sodium (Voltaren 1% Gel) 1 applic TOP QID PRN PRN Reason: joint pain Docusate Sodium (Colace) 100 mg PO BID [facility] Admin: 02/14/20 20:42 Dose: 100 mg Documented by: Admin: 02/14/20 09:01 Dose: 100 mg Documented by: Admin: 02/13/20 19:14 Dose: 100 mg Documented by: Admin: 02/13/20 11:53 Dose: 100 mg Documented by: Admin: 02/12/20 20:30 Dose: 100 mg Documented by: Admin: 02/12/20 08:55 Dose: 100 mg Documented by: Admin: 02/11/20 21:25 Dose: 100 mg Documented by: EDDIE Docusate Sodium (Colace) 250 mg PO BEDTIME PRN PRN Reason: constipation Duloxetine HCl (Cymbalta) 60 mg PO DAILY [facility] Admin: 02/14/20 09:02 Dose: 60 mg Documented by: Admin: 02/13/20 08:41 Dose: 60 mg Documented by: Admin: 02/12/20 08:54 Dose: 60 mg Documented by: ZAINAB Enoxaparin Sodium (Lovenox) 40 mg SUBCUT DAILY [facility] Admin: 02/14/20 09:11 Dose: 40 mg Documented by: Admin: 02/13/20 08:41 Dose: 40 mg Documented by: Admin: 02/12/20 08:54 Dose: 40 mg Documented by: ZAINAB Fentanyl (Duragesic) 100 mcg TOP Q72H [facility] Admin: 02/14/20 18:16 Dose: 100 mcg Documented by: BARB Gabapentin (Neurontin) 900 mg PO BID [facility] Admin: 02/14/20 20:41 Dose: 900 mg Documented by: Admin: 02/14/20 09:01 Dose: 900 mg Documented by: Admin: 02/13/20 19:14 Dose: 900 mg Documented by: Admin: 02/13/20 08:41 Dose: 900 mg Documented by: Admin: 02/12/20 20:30 Dose: 900 mg Documented by: Admin: 02/12/20 08:54 Dose: 900 mg Documented by: Admin: 02/11/20 21:25 Dose: 900 mg Documented by: EDDIE Guaifenesin (Mucinex) 1,200 mg PO BID [facility] Last Admin: 02/14/20 20:42 Dose: 1,200 mg Documented by: Admin: 02/14/20 09:02 Dose: 1,200 mg Documented by: Admin: 02/13/20 19:15 Dose: 1,200 mg Documented by: Admin: 02/13/20 08:42 Dose: 1,200 mg Documented by: Admin: 02/12/20 20:30 Dose: 1,200 mg Documented by: Admin: 02/12/20 08:54 Dose: 1,200 mg Documented by: Admin: 02/11/20 21:24 Dose: 1,200 mg Documented by: EDDIE Magnesium Hydroxide (Milk Of Magnesia) 30 ml PO BEDTIME PRN PRN Reason: Constipation Methylprednisolone (Solu-Medrol 125 Mg Vial) 60 mg IV Q12H [facility] Admin: 02/14/20 18:11 Dose: 60 mg Documented by: Admin: 02/14/20 06:40 Dose: 60 mg Documented by: Admin: 02/13/20 18:36 Dose: 60 mg Documented by: Admin: 02/13/20 06:18 Dose: 60 mg Documented by: Admin: 02/12/20 18:03 Dose: 60 mg Documented by: EDDIE Morphine Sulfate (Morphine Ir) 15 mg PO Q2HR [facility] Admin: 02/14/20 23:28 Dose: 15 mg Documented by: Admin: 02/14/20 20:43 Dose: 15 mg Documented by: Admin: 02/14/20 20:43 Dose: Not Given Documented by: Admin: 02/14/20 18:45 Dose: Not Given Documented by: Admin: 02/14/20 18:45 Dose: Not Given Documented by: Admin: 02/14/20 18:09 Dose: 15 mg Documented by: BARB Naloxone HCl (Narcan) 0.2 mg IV Q2MIN PRN PRN Reason: Opiate Reversal Glycopyrrolate- (Formoterol [Bevespi]) 2 puff INH BID [facility] Admin: 02/14/20 09:17 Dose: Not Given Documented by: Admin: 02/13/20 23:14 Dose: Not Given Documented by: Admin: 02/13/20 10:24 Dose: Not Given Documented by: Admin: 02/12/20 21:02 Dose: Not Given Documented by: Admin: 02/12/20 10:23 Dose: Not Given Documented by: Admin: 02/11/20 21:26 Dose: Not Given Documented by: EDDIE Patient Own Med (Stored In Pharmacy) 0 each PO PRN PRN PRN Reason: home med storage Promethazine HCl (Phenadoz) 12.5 mg [place] Q6HR PRN PRN Reason: Nausea And Vomiting Rosuvastatin Calcium (Crestor) 10 mg PO DAILY [facility] Last Admin: 02/14/20 09:01 Dose: 10 mg Documented by: Admin: 02/13/20 08:41 Dose: 10 mg Documented by: Admin: 02/12/20 08:55 Dose: 10 mg Documented by: ZAINAB Sennosides (Senna) 17.2 mg PO BEDTIME PRN PRN Reason: Constipation Last Admin: 02/13/20 08:41 Dose: 17.2 mg Documented by: ZAINAB Sennosides (Senna) 8.6 mg PO BEDTIME PRN PRN Reason: constipation Sodium Chloride (Normal Saline 0.9% Flush) 10 ml IV PRN PRN PRN Reason: Flush Sodium Chloride (Normal Saline 0.9% Flush) 10 ml IV BID [facility] Last Admin: 02/14/20 20:48 Dose: 10 ml Documented by: Admin: 02/14/20 09:03 Dose: 10 ml Documented by: Admin: 02/13/20 19:16 Dose: 10 ml Documented by: Admin: 02/13/20 11:46 Dose: 10 ml Documented by: ZAINAB Tiotropium [place] (Spiriva) 18 mcg INH RTDAILY [facility] Last Admin: 02/14/20 07:37 Dose: 18 mcg Documented by: Admin: 02/13/20 10:05 Dose: 18 mcg Documented by: Admin: 02/12/20 11:01 Dose: 18 mcg Documented by: SUNNY Trazodone HCl (Desyrel) 100 mg PO BEDTIME [facility] Last Admin: 02/14/20 20:41 Dose: 100 mg Documented by: Admin: 02/13/20 19:14 Dose: 100 mg Documented by: Admin: 02/12/20 20:31 Dose: 100 mg Documented by: Admin: 02/11/20 21:25 Dose: 100 mg Documented by: EDDIE Discontinued Medications Albuterol (Ventolin Hfa (Vent/Covid R/O)) 2 puff INH NOW ONE Stop: 02/11/20 10:44 Last Admin: 02/11/20 10:53 Dose: 2 puff Documented by: FEDERICO Albuterol (Ventolin) 2.5 mg INH NOW ONE Stop: 02/11/20 11:43 Last Admin: 02/11/20 11:46 Dose: 2.5 mg Documented by: JENNIFER Albuterol/Ipratropium (Duoneb) 3 ml INH NOW ONE Stop: 02/11/20 11:17 Last Admin: 02/11/20 11:28 Dose: 3 ml Documented by: FEDERICO Albuterol/Ipratropium (Duoneb) 3 ml INH NOW ONE Stop: 02/11/20 12:40 Last Admin: 02/11/20 12:58 Dose: 3 ml Documented by: FEDERICO Budesonide (Pulmicort) 0.5 mg INH RTBID [facility] Last Admin: 02/12/20 12:17 Dose: Not Given Documented by: FATEMEH Fentanyl (Duragesic) 75 mcg TOP Q72H [facility] Last Admin: 02/13/20 11:56 Dose: Not Given Documented by: ZAINAB Fentanyl (Duragesic) 75 mcg TOP Q72H [facility] Last Admin: 02/13/20 11:46 Dose: 75 mcg Documented by: ZAINAB Hydromorphone HCl (Dilaudid) 0.5 mg IV Q4H PRN PRN Reason: Pain, Severe (7-10) Sodium Chloride (Normal Saline 0.9%) 500 mls @ 1,000 mls/hr IV BOLUS ONE Stop: 02/11/20 10:21 Last Infusion: 02/11/20 11:00 Dose: 0 mls/hr Documented by: Admin: 02/11/20 10:25 Dose: 1,000 mls/hr Documented by: ITALIA Sodium Chloride (Normal Saline 0.9%) 1,000 mls @ 50 mls/hr IV CONT [facility] Last Infusion: 02/12/20 21:22 Dose: 0 mls/hr Documented by: Admin: 02/12/20 16:53 Dose: 50 mls/hr Documented by: Infusion: 02/12/20 16:53 Dose: 50 mls/hr Documented by: Admin: 02/11/20 20:56 Dose: 50 mls/hr Documented by: EDDIE Ketorolac Tromethamine (Toradol) 15 mg IV NOW ONE Stop: 02/11/20 11:03 Last Admin: 02/11/20 11:15 Dose: 15 mg Documented by: YVONNE Levofloxacin (Levaquin) 500 mg PO DAILY TAM Stop: 02/14/20 09:00 Last Admin: 02/14/20 10:54 Dose: 500 mg Documented by: Admin: 02/13/20 08:43 Dose: 500 mg Documented by: Admin: 02/12/20 09:27 Dose: 500 mg Documented by: ZAINAB Methylprednisolone (Solu-Medrol 125 Mg Vial) 125 mg IV NOW ONE Stop: 02/11/20 09:53 Last Admin: 02/11/20 10:25 Dose: 125 mg Documented by: ITALIA Morphine Sulfate (Morphine) 2 mg IV NOW ONE Stop: 02/11/20 12:39 Last Admin: 02/11/20 12:52 Dose: 2 mg Documented by: YVONNE Morphine Sulfate (Morphine) 2 mg IV NOW ONE Stop: 02/11/20 14:08 Last Admin: 02/11/20 14:15 Dose: 2 mg Documented by: YVONNE Morphine Sulfate (Morphine) 2 mg IV NOW ONE Stop: 02/11/20 17:17 Last Admin: 02/11/20 17:33 Dose: 2 mg Documented by: EDDIE Morphine Sulfate (Morphine Ir) 15 mg PO Q4HR PRN PRN Reason: Pain, Severe (7-10) Last Admin: 02/14/20 14:20 Dose: 15 mg Documented by: Admin: 02/14/20 10:54 Dose: 15 mg Documented by: Admin: 02/14/20 07:01 Dose: 15 mg Documented by: Admin: 02/14/20 03:49 Dose: 15 mg Documented by: Admin: 02/13/20 23:15 Dose: 15 mg Documented by: Admin: 02/13/20 19:14 Dose: 15 mg Documented by: Admin: 02/13/20 15:23 Dose: 15 mg Documented by: BARB Budesonide- Formoterol [ Symbicort] 160mcg/4. 5mcg Per Actuation 2 puff INH BID TAM Last Admin: 02/13/20 14:09 Dose: Not Given Documented by: Admin: 02/12/20 20:14 Dose: 2 puff Documented by: Admin: 02/12/20 18:00 Dose: Not Given Documented by: Admin: 02/11/20 21:26 Dose: Not Given Documented by: EDDIE Budesonide- Formoterol [ Symbicort] 160mcg/4. 5mcg Per Actuation 2 puff INH BID [facility] Ondansetron HCl (Zofran) 4 mg IV NOW ONE Stop: 02/11/20 12:39 Last Admin: 02/11/20 12:53 Dose: 4 mg Documented by: YVONNE Oxycodone HCl (Percolone) 10 mg PO Q6HR PRN PRN Reason: Pain, Moderate (4-6) Last Admin: 02/14/20 09:02 Dose: 10 mg Documented by: Admin: 02/13/20 18:37 Dose: 10 mg Documented by: Admin: 02/13/20 11:52 Dose: 10 mg Documented by: Admin: 02/13/20 04:11 Dose: 10 mg Documented by: Admin: 02/12/20 21:08 Dose: 10 mg Documented by: Admin: 02/12/20 14:43 Dose: 10 mg Documented by: Admin: 02/12/20 08:52 Dose: 10 mg Documented by: Admin: 02/12/20 03:30 Dose: 10 mg Documented by: Admin: 02/11/20 20:58 Dose: 10 mg Documented by: EDDIE Oxycodone HCl (Percolone) 5 mg PO Q6HR PRN PRN Reason: Pain, Moderate (4-6) Prednisone (Deltasone) 20 mg PO DAILY [facility] Last Admin: 02/12/20 08:55 Dose: 20 mg Documented by: ZAINAB Reevaluation(s) Reevaluation #1: Patient still feels dyspneic and does have tachypnea as well as short word sentences but is feeling better after 2 breathing treatments and steroids. Will still need to be admitted. Spoke with patient and she understands possible transfer to [facility] Time: 13:31 Consultations Consultation #1: Spoke with [facility] hospitalist, dr palmer he will admit patient Time: 12:59 Consultation #2: Spoke with Dr. Trevino, will admit here now. One bed just opened up Time: 14:34 Vital Signs Vital signs: Vital Signs - 8 hr 02/11/20 09:49 02/11/20 10:42 02/11/20 10:43 Temperature 98.9 F Pulse Rate 116 H 90 88 Respiratory Rate 20 Blood Pressure 122/68 125/66 Pulse Oximetry 93 96 96 02/11/20 11:00 02/11/20 11:05 02/11/20 11:21 Temperature Pulse Rate 83 87 Respiratory Rate Blood Pressure Pulse Oximetry 92 94 95 02/11/20 11:22 02/11/20 11:30 02/11/20 11:31 Temperature Pulse Rate 85 89 84 Respiratory Rate Blood Pressure 118/54 L 102/51 L Pulse Oximetry 95 92 93 02/11/20 11:53 02/11/20 12:00 02/11/20 12:30 Temperature Pulse Rate 94 H 87 Respiratory Rate Blood Pressure 108/56 L 119/66 Pulse Oximetry 92 92 91 02/11/20 13:23 Temperature Pulse Rate Respiratory Rate Blood Pressure Pulse Oximetry 93 MDM - SOB/Dyspnea Differential Diagnosis Differential diagnosis: Likely acute exacerbation of chronic obstructive airways disease, congestive heart failure and community acquired pneumonia Medical Records Attestation: I reviewed the patient's medical records. Lab Data Attestation: I reviewed the patient's lab results. Result diagrams: 02/12/20 06:01 02/12/20 06:01 Labs: Lab Results 02/11/20 02/11/20 02/11/20 Range/Units 10:00 10:00 10:00 WBC 13.1 H (4.5-11.0) X10^3/uL RBC 3.91 L (4.0-5.2) X10^6/uL Hgb 13.0 (12.0-16.0) g/dL Hct 38.9 (36-46) % MCV 99.7 (80-100) fL MCH 33.3 (26-34) PG MCHC 33.4 (30-36) % RDW 13.3 (11.6-14.8) % Plt Count 233 (150-400) X10^3/uL Neut % (Auto) 80.5 H (50-75) % Lymph % (Auto) 12.5 L (25-40) % [place] % (Auto) 5.6 (3-14) % Eos % (Auto) 1.2 L (2-4) % Baso % (Auto) 0.2 (0-2) % Neut # (Auto) 19439 H (4248-1411) /uL Lymph # (Auto) 1600 (8453-3726) /uL [place] # (Auto) 700 (0-900) /uL Eos # (Auto) 200 (0-450) /uL Baso # (Auto) 0 (0-100) /uL PT 10.1 (10.1-12.7) SECONDS INR 0.9 (0.9-1.3) APTT 31 (26.4-36.2) SECONDS ABG pH (7.35-7.45) ABG pCO2 (35-45) mmHg ABG pO2 (80-100) mmHg ABG HCO3 (22-26) mmol/L ABG Total CO2 (21-31) mmol/L ABG O2 Saturation (95-100) % ABG Base Excess (-2-2) mmol/L Sodium 140 (137-145) mmol/L Potassium 3.8 (3.4-5.1) mmol/L Chloride 100 (98-107) mmol/L Carbon Dioxide 37 H (22-32) mmol/L BUN 10 (7-17) mg/dL Creatinine 0.66 (0.52-1.04) mg/dL Estimated GFR > 60.0 (>60) mL/min BUN/Creatinine Ratio 15.2 (6-22) Glucose 133 H (80-110) mg/dL Calcium 9.9 (8.4-10.2) mg/dL Magnesium (1.6-2.3) mg/dL Total Bilirubin 0.4 (0.2-1.3) mg/dL AST 30 (14-36) IU/L ALT 30 (<35) IU/L Alkaline Phosphatase 65 (38-126) U/L Total Creatine Kinase 109 (30-135) U/L CK-MB (CK-2) 3.30 H (<2.37) ng/mL CK-MB (CK-2) Rel Index 3.0 (1.5-5.0) % Troponin I < 0.012 (0.01-0.034) ng/mL NT-Pro-B Natriuret Pep 120 (<125) pg/mL Total Protein 6.9 (6.3-8.2) g/dL Albumin 4.4 (3.5-5.0) g/dL Globulin 2.5 (1.7-4.1) g/dL Albumin/Globulin Ratio 1.8 (1.0-2.8) Procalcitonin (<0.5) ng/mL Chlamy pneumoniae PCR (Not Detect) Adenovirus (PCR) (Not Detect) B.parapertussis DNA PCR (Not Detect) Coronavirus OC43 (PCR) (Not Detect) Coronavirus HKU1 (PCR) (Not Detect) Coronavirus 229E (PCR) (Not Detect) COVID-19 PCR (Negative) Coronavirus NL63 (PCR) (Not Detect) Human Metapneumovir PCR (Not Detect) Influenza Type A (PCR) (Not Detect) Influenza Type B (PCR) (Not Detect) M. pneumoniae (PCR) (Not Detect) Parainfluenza 1 (PCR) (Not Detect) Parainfluenza 2 (PCR) (Not Detect) Parainfluenza 3 (PCR) (Not Detect) Parainfluenza 4 (PCR) (Not Detect) RSV (PCR) (Not Detect) Entero/Rhino (PCR) (Not Detect) 02/11/20 02/11/20 02/11/20 Range/Units 10:00 10:00 10:44 WBC (4.5-11.0) X10^3/uL RBC (4.0-5.2) X10^6/uL Hgb (12.0-16.0) g/dL Hct (36-46) % MCV (80-100) fL MCH (26-34) PG MCHC (30-36) % RDW (11.6-14.8) % Plt Count (150-400) X10^3/uL Neut % (Auto) (50-75) % Lymph % (Auto) (25-40) % [place] % (Auto) (3-14) % Eos % (Auto) (2-4) % Baso % (Auto) (0-2) % Neut # (Auto) (9226-1511) /uL Lymph # (Auto) (3236-5623) /uL [place] # (Auto) (0-900) /uL Eos # (Auto) (0-450) /uL Baso # (Auto) (0-100) /uL PT (10.1-12.7) SECONDS INR (0.9-1.3) APTT (26.4-36.2) SECONDS ABG pH (7.35-7.45) ABG pCO2 (35-45) mmHg ABG pO2 (80-100) mmHg ABG HCO3 (22-26) mmol/L ABG Total CO2 (21-31) mmol/L ABG O2 Saturation (95-100) % ABG Base Excess (-2-2) mmol/L Sodium (137-145) mmol/L Potassium (3.4-5.1) mmol/L Chloride (98-107) mmol/L Carbon Dioxide (22-32) mmol/L BUN (7-17) mg/dL Creatinine (0.52-1.04) mg/dL Estimated GFR (>60) mL/min BUN/Creatinine Ratio (6-22) Glucose (80-110) mg/dL Calcium (8.4-10.2) mg/dL Magnesium 1.9 (1.6-2.3) mg/dL Total Bilirubin (0.2-1.3) mg/dL AST (14-36) IU/L ALT (<35) IU/L Alkaline Phosphatase (38-126) U/L Total Creatine Kinase (30-135) U/L CK-MB (CK-2) (<2.37) ng/mL CK-MB (CK-2) Rel Index (1.5-5.0) % Troponin I (0.01-0.034) ng/mL NT-Pro-B Natriuret Pep (<125) pg/mL Total Protein (6.3-8.2) g/dL Albumin (3.5-5.0) g/dL Globulin (1.7-4.1) g/dL Albumin/Globulin Ratio (1.0-2.8) Procalcitonin < 0.05 (<0.5) ng/mL Chlamy pneumoniae PCR Not detected (Not Detect) Adenovirus (PCR) Not detected (Not Detect) B.parapertussis DNA PCR Not detected (Not Detect) Coronavirus OC43 (PCR) Not detected (Not Detect) Coronavirus HKU1 (PCR) Not detected (Not Detect) Coronavirus 229E (PCR) Not detected (Not Detect) COVID-19 PCR Negative (Negative) Coronavirus NL63 (PCR) Not detected (Not Detect) Human Metapneumovir PCR Not detected (Not Detect) Influenza Type A (PCR) Not detected (Not Detect) Influenza Type B (PCR) Not detected (Not Detect) M. pneumoniae (PCR) Not detected (Not Detect) Parainfluenza 1 (PCR) Not detected (Not Detect) Parainfluenza 2 (PCR) Not detected (Not Detect) Parainfluenza 3 (PCR) Not detected (Not Detect) Parainfluenza 4 (PCR) Not detected (Not Detect) RSV (PCR) Not detected (Not Detect) Entero/Rhino (PCR) Not detected (Not Detect) 02/11/20 Range/Units 14:02 WBC (4.5-11.0) X10^3/uL RBC (4.0-5.2) X10^6/uL Hgb (12.0-16.0) g/dL Hct (36-46) % MCV (80-100) fL MCH (26-34) PG MCHC (30-36) % RDW (11.6-14.8) % Plt Count (150-400) X10^3/uL Neut % (Auto) (50-75) % Lymph % (Auto) (25-40) % [place] % (Auto) (3-14) % Eos % (Auto) (2-4) % Baso % (Auto) (0-2) % Neut # (Auto) (0796-3077) /uL Lymph # (Auto) (2696-2179) /uL [place] # (Auto) (0-900) /uL Eos # (Auto) (0-450) /uL Baso # (Auto) (0-100) /uL PT (10.1-12.7) SECONDS INR (0.9-1.3) APTT (26.4-36.2) SECONDS ABG pH 7.38 (7.35-7.45) ABG pCO2 53.0 H (35-45) mmHg ABG pO2 84 (80-100) mmHg ABG HCO3 31 H (22-26) mmol/L ABG Total CO2 33 H (21-31) mmol/L ABG O2 Saturation 96 (95-100) % ABG Base Excess 6.0 H (-2-2) mmol/L Sodium (137-145) mmol/L Potassium (3.4-5.1) mmol/L Chloride (98-107) mmol/L Carbon Dioxide (22-32) mmol/L BUN (7-17) mg/dL Creatinine (0.52-1.04) mg/dL Estimated GFR (>60) mL/min BUN/Creatinine Ratio (6-22) Glucose (80-110) mg/dL Calcium (8.4-10.2) mg/dL Magnesium (1.6-2.3) mg/dL Total Bilirubin (0.2-1.3) mg/dL AST (14-36) IU/L ALT (<35) IU/L Alkaline Phosphatase (38-126) U/L Total Creatine Kinase (30-135) U/L CK-MB (CK-2) (<2.37) ng/mL CK-MB (CK-2) Rel Index (1.5-5.0) % Troponin I (0.01-0.034) ng/mL NT-Pro-B Natriuret Pep (<125) pg/mL Total Protein (6.3-8.2) g/dL Albumin (3.5-5.0) g/dL Globulin (1.7-4.1) g/dL Albumin/Globulin Ratio (1.0-2.8) Procalcitonin (<0.5) ng/mL Chlamy pneumoniae PCR (Not Detect) Adenovirus (PCR) (Not Detect) B.parapertussis DNA PCR (Not Detect) Coronavirus OC43 (PCR) (Not Detect) Coronavirus HKU1 (PCR) (Not Detect) Coronavirus 229E (PCR) (Not Detect) COVID-19 PCR (Negative) Coronavirus NL63 (PCR) (Not Detect) Human Metapneumovir PCR (Not Detect) Influenza Type A (PCR) (Not Detect) Influenza Type B (PCR) (Not Detect) M. pneumoniae (PCR) (Not Detect) Parainfluenza 1 (PCR) (Not Detect) Parainfluenza 2 (PCR) (Not Detect) Parainfluenza 3 (PCR) (Not Detect) Parainfluenza 4 (PCR) (Not Detect) RSV (PCR) (Not Detect) Entero/Rhino (PCR) (Not Detect) Imaging Data Chest x-ray: Radiologist's Impression: [address] [address] XRay Report Signed Patient: Es Velazquez LMR#: [id number] : 1950Acct:[id number] Age/Sex: 69 / FDate of Service: 02/11/20 Loc: ED Accession Number: [id number] Procedure: XR chest 1V Ordering Provider: Dimas Miller MD PROCEDURE: XR CHEST 1V INDICATIONS: Dyspnea TECHNIQUE: One view of the chest was acquired. COMPARISON: [facility], CT, CT CHEST W CON, 02/06/2019, 9:15. [facility], CR, XR CHEST 1V, 02/23/2019, 8:34. FINDINGS: Surgical changes and devices: Lower cervical spine fusion. Lungs and pleura: Lungs are hyperinflated, consistent with COPD. There is diffuse interstitial prominence. Biapical scars. No pleural effusions or pneumothorax. Mediastinum: Mediastinal contours appear normal. Heart size is normal. Bones and chest wall: No suspicious bony lesions. Overlying soft tissues appear unremarkable. IMPRESSION: COPD and diffuse interstitial prominence. Dictated by: Aric Godoy M.D. on 02/11/2020 at 10:31 Approved by: Aric Godoy M.D. on 02/11/2020 at 10:33 ECG Data Attestation: I personally reviewed and interpreted this ECG as follows: Interpretation: Sinus rhythm rate [address] elevation or depression MDM Narrative Medical decision making narrative: Will need observation admission and transfer for COPD exacerbation. Patient still symptomatic despite treatments in the department. Discharge Plan Departure Patient Disposition: Admitted as Observation Clinical Impression: COPD exacerbation Discharge Date/Time: 02/11/20 17:25 Referrals: Azael Hernandez MD [Primary Care Provider] - Admit Date/Time: 02/11/20 14:47 Admit Provider: Nara Trevino
[2020-02-11 10:18] LABS: Add Manual Diff / Slide Review NO; Basophils Absolute Auto 0 /uL (0-100); Basophils Percent Auto 0.2 % (0-2); Eosinophils Absolute Auto 200 /uL (0-450); Eosinophils Percent Auto 1.2 % (2-4); Hematocrit 38.9 % (36-46); Lymphocytes Absolute Auto 1600 /uL (1100-4500); Lymphocytes Percent Auto 12.5 % (25-40); Mean Corpuscular HGB Conc 33.4 % (30-36); Mean Corpuscular Hemoglobin 33.3 PG (26-34); Mean Corpuscular Volume 99.7 fL (80-100); Monocytes Absolute Auto 700 /uL (0-900); Monocytes Percent Auto 5.6 % (3-14); Neutrophils Absolute Auto 10600 /uL (1500-7000); Neutrophils Percent Auto 80.5 % (50-75); Platelet Count 233 X10^3/uL (150-400); Red Blood Cell Count 3.91 X10^6/uL (4.0-5.2); Red Cell Distribution Width 13.3 % (11.6-14.8); White Blood Cell Count 13.1 X10^3/uL (4.5-11.0)
[2020-02-11 10:23] LABS: INR 0.9 (0.9-1.3); Prothrombin Time 10.1 SECONDS (10.1-12.7)
[2020-02-11] MEDS: SODIUM CHLORIDE 0.9% 500 ML 1000 ML IV (10:25)
[2020-02-11] MEDS: methylPREDNISolone 125 MG/2 ML VIAL IV (10:25)
[2020-02-11 10:26] LABS: PTT Partial Thromboplastin Tim 31 SECONDS (26.4-36.2)
[2020-02-11 10:27] LABS: Alanine Aminotransferase 30 IU/L (<35); Albumin 4.4 g/dL (3.5-5.0); Albumin Globulin Ratio 1.8 (1.0-2.8); Alkaline Phosphatase 65 U/L (38-126); Aspartate Aminotransferase 30 IU/L (14-36); BUN Creatinine Ratio 15.2 (6-22); Bilirubin Total 0.4 mg/dL (0.2-1.3); Blood Urea Nitrogen 10 mg/dL (7-17); Calcium 9.9 mg/dL (8.4-10.2); Carbon Dioxide 37 mmol/L (22-32); Chloride 100 mmol/L (98-107); Creatine Kinase 109 U/L (30-135); Estimated Glomerular Filt Rate > 60.0 mL/min (>60); Globulin 2.5 g/dL (1.7-4.1); Glucose 133 mg/dL (80-110); HEMOLYSIS < 15 (0-50); Potassium 3.8 mmol/L (3.4-5.1); Sodium 140 mmol/L (137-145); Total Protein 6.9 g/dL (6.3-8.2)
[2020-02-11 10:38] LABS: NT-proBNP (BNP-Adult 18+) 120 pg/mL (<125); Troponin I < 0.012 ng/mL (0.01-0.034)
[2020-02-11 10:42] LABS: Procalcitonin < 0.05 ng/mL (<0.5)
[2020-02-11] MEDS: ALBUTEROL HFA 200 PUFF/18 GM INH (COVID POS/VENT PTS) INH (10:53)
[2020-02-11 11:06] LABS: COVID19 -Nasal RAPID Negative (Negative)
[2020-02-11] MEDS: KETOROLAC 60 MG/2 ML VIAL 15 MG IV (11:15)
[2020-02-11] MEDS: ALBUTEROL/IPRATROPIUM 3 ML AMPUL INH ×3 (11:28→21:57)
[2020-02-11] MEDS: ALBUTEROL 2.5 MG/3 ML NEB (ADULT) INH (11:46)
[2020-02-11 12:06] LABS: Adenovirus Not Detected (Not Detect); Bordetella pertussis Not Detected (Not Detect); Chlamydophila pneumoniae Not Detected (Not Detect); Coronavirus 229E Not Detected (Not Detect); Coronavirus HKU1 Not Detected (Not Detect); Coronavirus NL 63 Not Detected (Not Detect); Coronavirus OC43 Not Detected (Not Detect); Human Metapneumovirus Not Detected (Not Detect); Human Rhinovirus/Enterovirus Not Detected (Not Detect); Influenza A Not Detected (Not Detect); Influenza B Not Detected (Not Detect); Mycoplasma pneumoniae Not Detected (Not Detect); Parainfluenza Virus 1 Not Detected (Not Detect); Parainfluenza Virus 2 Not Detected (Not Detect); Parainfluenza Virus 3 Not Detected (Not Detect); Parainfluenza Virus 4 Not Detected (Not Detect); Respiratory Syncytial Virus Not Detected (Not Detect)
[2020-02-11] MEDS: MORPHINE 4 MG/ML INJ 2 MG IV ×3 (12:52→17:33)
[2020-02-11] MEDS: ONDANSETRON 4 MG/2 ML INJ IV (12:53)
[2020-02-11 15:07] LABS: pH ABG 7.38 (7.35-7.45)
[2020-02-11 15:08] LABS: PO2 ABG 84 mmHg (80-100)
[2020-02-11 15:09] LABS: HCO3 ABG 31 mmol/L (22-26); Oxygen Saturation ABG 96 % (95-100); TCO2 ABG 33 mmol/L (21-31)
--- NOTE | 2020-02-11 16:50 | PC.NURSE ---
Report called to Dalila DAVEY, questions answered. Bed not ready. Will call when bed is available. Pt updated on plan of care.
[2020-02-11 20:46] LABS: Magnesium 1.9 mg/dL (1.6-2.3)
[2020-02-11] MEDS: SODIUM CHLORIDE 0.9% 1,000 ML 50 ML IV (20:56)
[2020-02-11] MEDS: OXYCODONE IR 10 MG TABLET PO (20:58)
--- NOTE | 2020-02-11 21:00 | PM.HP.1 ---
History of Present Illness History of Present Illness Date Patient Seen: 02/11/20 Time Patient Seen: 09:00 Chief complaint: shortness of breath Narrative: Patient is Mi Velazquez a 69-year-old female who presented to the emergency room today with cough and shortness of breath with exertion and at rest no fever or chills, that started the night before. Patient presented 1 year ago with pneumonia, patient is a long time smoker, and history of COPD& CHF. Patient reports that her at-home O2 on 2 L and home nebulizer treatments provided no improvement in her symptoms. Patient had a chest x-ray in ER results for COPD with diffuse interstitial prominence, EKG results sinus rhythm rate of [address] elevation or depression. Patient presented on the floor with COPD exacerbation, questionable pneumonia, continued complaints of fever cough sputum shortness of breath at rest. Patient suffers from severe chronic back pain but also has pain with inspiration. In room patient alternates between O2 mask and nasal cannula. Patient notes that her condition is slightly improved from emergency room, that she has been in isolation since May at home and has had a low activity level at home. A consult with Dr. Greer at [facility] will admit patient per ER notes. Patient History Medical History BCC (basal cell carcinoma) (Acute ~2000) Benign neoplasm of clitoris (Acute ~03/23/16) Chronic pain (Acute) Compression fracture of T8 vertebra (Acute ~2011) COPD (chronic obstructive pulmonary disease) (Acute) History of pneumonia (Acute) Osteoarthritis (Acute) Osteomyelitis of jaw (Acute 03/13/18) Osteoporosis (Acute) Requires supplemental oxygen (Acute) Thyroid nodule (Acute) Surgical History History of lumbar surgery (Acute ~1989) Hx of appendectomy (Acute) Hx of fusion of cervical spine (Acute) Hx of hand surgery (Acute) Status post tonsillectomy and adenoidectomy Status post vaginal hysterectomy Family & Social History Family History Mother Cancer of kidney Cancer of bladder Father Congestive heart failure Sister Hypertension Social History: household members spouse Safety & Behavioral: Feels Safe in Current Yes Environment Been Physically Hurt or No Threatened By a Person Suicidal Ideation Description None Suicide Plan Description No Plan Tobacco & Substance use: Tobacco type cigarettes Smoking Status Current every day smoker alcohol intake former Substance Use Type does not use Meds Home Medications and Allergies Home Medications Medication Instructions Recorded Confirmed Type albuterol sulfate [Ventolin HFA] 2 puff INH Q4H PRN #0 07/22/17 02/11/20 History budesonide-formoterol [Symbicort] 2 puff INH BID #0 07/22/17 02/11/20 History albuterol sulfate 2.5 mg INHALATION TID 03/13/18 02/11/20 History calcium carbonate [Calcium 500] 1,000 mg PO DAILY 03/13/18 02/11/20 History tiotropium bromide 1 cap INHALATION DAILY 03/13/18 02/11/20 History carisoprodol 350 mg PO DAILY PRN 02/23/19 02/11/20 History cholecalciferol (vitamin D3) 1,000 unit PO DAILY 02/23/19 02/11/20 History [Vitamin D3] diclofenac sodium 50 mg PO BID 02/23/19 02/11/20 History duloxetine 60 mg PO DAILY 02/23/19 02/11/20 History gabapentin [Neurontin] 900 mg PO BID 02/23/19 02/11/20 History oxycodone-acetaminophen 1 tab PO Q6H PRN 02/23/19 02/11/20 History trazodone 100 mg PO BEDTIME 02/23/19 02/11/20 History guaifenesin [Mucus Relief ER] 1,200 mg PO BID #60 tab 02/27/19 02/11/20 Rx fentanyl 75 mcg TOPICAL Q72H 02/11/20 02/11/20 History glycopyrrolate-formoterol [Bevespi 2 puff INHALATION BID 02/11/20 02/11/20 History Aerosphere] levofloxacin 500 mg PO DAILY 02/11/20 02/11/20 History prednisone 20 mg PO DAILY 02/11/20 02/11/20 History rosuvastatin [Crestor] 10 mg PO DAILY 02/11/20 02/11/20 History Allergies Allergy/AdvReac Type Severity Reaction Status Date / Time nickel Allergy Severe Rash, Verified 02/11/20 09:51 infections codeine Allergy Mild Itching Verified 02/11/20 09:51 nabumetone Allergy Pt does Verified 02/11/20 09:51 not remember reaction alendronate sodium AdvReac Severe Nausea Verified 02/11/20 09:51 amoxicillin [From AUGMENTIN] AdvReac Mild VOMITING Verified 02/11/20 09:51 cephalexin [CEPHALEXIN] AdvReac Mild VOMITING Verified 02/11/20 09:51 clavulanic acid AdvReac Mild VOMITING Verified 02/11/20 09:51 [From AUGMENTIN] sulfamethoxazole AdvReac Mild nausea Verified 02/11/20 09:51 [From SEPTRA] trimethoprim [From SEPTRA] AdvReac Mild nausea Verified 02/11/20 09:51 Exam Vital Signs (past 8 hours): - 02/11/20 21:58 02/12/20 00:00 Temperature 97.4 F L Pulse Rate 65 98 H Respiratory Rate 18 22 Blood Pressure 104/56 L Pulse Oximetry 93 93 Oxygen Delivery Method Nasal Cannula Oxygen Flow Rate 3 Narrative Exam Narrative: Narrative Exam Narrative: GENERAL: patient appears stated age. Well-nourished, well-developed patient, in no distress, not toxic not dyspneic HEAD: Normocephalic. EYES: Pupils equal round and reactive. No scleral icterus. No injection no discharge ENT: Mucous membranes moist. No drooling no tongue elevation no trismus no malocclusion NECK: Trachea midline. Non tender CARDIOVASCULAR: Regular rate and rhythm without murmurs, gallops, or rubs. RESPIRATORY: Clear to auscultation. Breath sounds equal bilaterally. Bibasal wheezes, rhonchi. Speaks 5-7 word sentences GASTROINTESTINAL: Abdomen soft, non-tender, nondistended. EXTREMITIES: No gross deformities. BACK: Nontender without deformity or crepitance. No flank tenderness. NEURO: AOx4. SKIN: Warm and dry PSYCH: Not anxious, is cooperative Objective Labs Result Diagrams: 02/11/20 10:00 02/11/20 10:00 Labs: Laboratory Results - last 24 hr 02/11/20 02/11/20 02/11/20 10:00 10:00 10:00 WBC 13.1 H RBC 3.91 L Hgb 13.0 Hct 38.9 MCV 99.7 MCH 33.3 MCHC 33.4 RDW 13.3 Plt Count 233 Neut % (Auto) 80.5 H Lymph % (Auto) 12.5 L [place] % (Auto) 5.6 Eos % (Auto) 1.2 L Baso % (Auto) 0.2 Neut # (Auto) 876[address] H Lymph # (Auto) 1600 [place] # (Auto) 700 Eos # (Auto) 200 Baso # (Auto) 0 PT 10.1 INR 0.9 APTT 31 ABG pH ABG pCO2 ABG pO2 ABG HCO3 ABG Total CO2 ABG O2 Saturation ABG Base Excess Sodium 140 Potassium 3.8 Chloride 100 Carbon Dioxide 37 H BUN 10 Creatinine 0.66 Estimated GFR > 60.0 BUN/Creatinine Ratio 15.2 Glucose 133 H Calcium 9.9 Magnesium Total Bilirubin 0.4 AST 30 ALT 30 Alkaline Phosphatase 65 Total Creatine Kinase 109 CK-MB (CK-2) 3.30 H CK-MB (CK-2) Rel Index 3.0 Troponin I < 0.012 NT-Pro-B Natriuret Pep 120 Total Protein 6.9 Albumin 4.4 Globulin 2.5 Albumin/Globulin Ratio 1.8 Procalcitonin Chlamy pneumoniae PCR Adenovirus (PCR) B.parapertussis DNA PCR Coronavirus OC43 (PCR) Coronavirus HKU1 (PCR) Coronavirus 229E (PCR) COVID-19 PCR Coronavirus NL63 (PCR) Human Metapneumovir PCR Influenza Type A (PCR) Influenza Type B (PCR) M. pneumoniae (PCR) Parainfluenza 1 (PCR) Parainfluenza 2 (PCR) Parainfluenza 3 (PCR) Parainfluenza 4 (PCR) RSV (PCR) Entero/Rhino (PCR) 02/11/20 02/11/20 02/11/20 10:00 10:00 10:44 WBC RBC Hgb Hct MCV MCH MCHC RDW Plt Count Neut % (Auto) Lymph % (Auto) [place] % (Auto) Eos % (Auto) Baso % (Auto) Neut # (Auto) Lymph # (Auto) [place] # (Auto) Eos # (Auto) Baso # (Auto) PT INR APTT ABG pH ABG pCO2 ABG pO2 ABG HCO3 ABG Total CO2 ABG O2 Saturation ABG Base Excess Sodium Potassium Chloride Carbon Dioxide BUN Creatinine Estimated GFR BUN/Creatinine Ratio Glucose Calcium Magnesium 1.9 Total Bilirubin AST ALT Alkaline Phosphatase Total Creatine Kinase CK-MB (CK-2) CK-MB (CK-2) Rel Index Troponin I NT-Pro-B Natriuret Pep Total Protein Albumin Globulin Albumin/Globulin Ratio Procalcitonin < 0.05 Chlamy pneumoniae PCR Not detected Adenovirus (PCR) Not detected B.parapertussis DNA PCR Not detected Coronavirus OC43 (PCR) Not detected Coronavirus HKU1 (PCR) Not detected Coronavirus 229E (PCR) Not detected COVID-19 PCR Negative Coronavirus NL63 (PCR) Not detected Human Metapneumovir PCR Not detected Influenza Type A (PCR) Not detected Influenza Type B (PCR) Not detected M. pneumoniae (PCR) Not detected Parainfluenza 1 (PCR) Not detected Parainfluenza 2 (PCR) Not detected Parainfluenza 3 (PCR) Not detected Parainfluenza 4 (PCR) Not detected RSV (PCR) Not detected Entero/Rhino (PCR) Not detected 02/11/20 14:02 WBC RBC Hgb Hct MCV MCH MCHC RDW Plt Count Neut % (Auto) Lymph % (Auto) [place] % (Auto) Eos % (Auto) Baso % (Auto) Neut # (Auto) Lymph # (Auto) [place] # (Auto) Eos # (Auto) Baso # (Auto) PT INR APTT ABG pH 7.38 ABG pCO2 53.0 H ABG pO2 84 ABG HCO3 31 H ABG Total CO2 33 H ABG O2 Saturation 96 ABG Base Excess 6.0 H Sodium Potassium Chloride Carbon Dioxide BUN Creatinine Estimated GFR BUN/Creatinine Ratio Glucose Calcium Magnesium Total Bilirubin AST ALT Alkaline Phosphatase Total Creatine Kinase CK-MB (CK-2) CK-MB (CK-2) Rel Index Troponin I NT-Pro-B Natriuret Pep Total Protein Albumin Globulin Albumin/Globulin Ratio Procalcitonin Chlamy pneumoniae PCR Adenovirus (PCR) B.parapertussis DNA PCR Coronavirus OC43 (PCR) Coronavirus HKU1 (PCR) Coronavirus 229E (PCR) COVID-19 PCR Coronavirus NL63 (PCR) Human Metapneumovir PCR Influenza Type A (PCR) Influenza Type B (PCR) M. pneumoniae (PCR) Parainfluenza 1 (PCR) Parainfluenza 2 (PCR) Parainfluenza 3 (PCR) Parainfluenza 4 (PCR) RSV (PCR) Entero/Rhino (PCR) Assessment & Plan Assessment & Plan narrative: Assessment & Plan narrative: 1. Acute End-Stage COPD exacerbation acute on admission, chronic Patient to continue on Levaquin 500 mg q.day x5 days Continue steroids and nebulizer treatments RT consult and evaluation Provide 50 cc an hour hydration support 2. Chronic Low back acute exacerbation on admission Continue home medication Fentanyl patch, oxycodone, carisoprodol, diclofenac, gabapentin for pain 3. Tobacco abuse Encourage smoking cessation Possible admit to scheduled hospital via Dr. Zoey Garrett pCO2 53, HC03 31, total CO2 33, base excess 6.0, CK-MB 3.3, 4. Severe chronic protein calorie malnutrition Dietary consult BMI 15.8 Patient's intake is compromised due to oxygen demand in ratio to food intake due to acute end-stage COPD exacerbation Patient COVID negative Diet General IV fluids: Normal saline 50 cc/hour Patient on VTE prophylaxis-sequential compression device, enoxaparin will 40 mg SQ Patient is a full code, this is a decision maker is Dominic Patient has been admitted for observation due to severity of presenting symptoms that failed outpatient management, patient admitted to observation status with expected length of stay no more than 2 nights to rule out pneumonia. COVID-19 COVID-19 status: Negative Result date/Date tested (Pos, Neg/Pending): 02/11/20 Time Spent With Patient Time with patient: 25 - 35 minutes Quality VTE Deep Vein Thrombosis/Pulmonary Embolism Present on Admission: No
[2020-02-11] MEDS: guaiFENesin ER 600 MG TAB 1200 MG PO (21:24)
[2020-02-11] MEDS: DOCUSATE 100 MG CAPSULE PO (21:25)
[2020-02-11] MEDS: TRAZODONE 50 MG TABLET 100 MG PO (21:25)
[2020-02-11] MEDS: GABAPENTIN 300 MG CAPSULE 900 MG PO (21:25)
[2020-02-12] VITALS (11 sets, daily range): BP systolic 104–141; BP diastolic 56–80; PULSE 57–98; RESP 14–22; TEMP 36.1–36.8; O2SAT 90–99
--- NOTE | 2020-02-12 02:27 | P.HP_ITS ---
History of Present Illness History of Present Illness Chief complaint: shortness of breath Narrative: Patient is Mi Velazquez a 69-year-old female who presented to the emergency room today with cough and shortness of breath with exertion and at rest no fever or chills, that started the night before. Patient presented 1 year ago with pneumonia, patient is a long time smoker, and history of COPD& CHF. Patient reports that her at-home O2 on 2 L and home nebulizer treatments provided no improvement in her symptoms. Patient had a chest x-ray in ER results for COPD with diffuse interstitial prominence, EKG results sinus rhythm rate of [address] elevation or depression. Patient presented on the floor with COPD exacerbation, questionable pneumonia, continued complaints of fever cough sputum shortness of breath at rest. Patient suffers from severe chronic back pain but also has pain with inspiration. In room patient alternates between O2 mask and nasal cannula. Patient notes that her condition is slightly improved from emergency room, that she has been in isolation since May at home and has had a low activity level at home. A consult with Dr. Greer at [facility] will admit patient per ER notes. Patient History Medical History BCC (basal cell carcinoma) (Acute ~2000) Benign neoplasm of clitoris (Acute ~03/23/16) Chronic pain (Acute) Compression fracture of T8 vertebra (Acute ~2011) COPD (chronic obstructive pulmonary disease) (Acute) History of pneumonia (Acute) Osteoarthritis (Acute) Osteomyelitis of jaw (Acute 03/13/18) Osteoporosis (Acute) Requires supplemental oxygen (Acute) Thyroid nodule (Acute) Surgical History History of lumbar surgery (Acute ~1989) Hx of appendectomy (Acute) Hx of fusion of cervical spine (Acute) Hx of hand surgery (Acute) Status post tonsillectomy and adenoidectomy Status post vaginal hysterectomy Family & Social History Family History Mother Cancer of kidney Cancer of bladder Father Congestive heart failure Sister Hypertension Social History: household members spouse Safety & Behavioral: Feels Safe in Current Yes Environment Been Physically Hurt or No Threatened By a Person Suicidal Ideation Description None Suicide Plan Description No Plan Tobacco & Substance use: Tobacco type cigarettes Smoking Status Current every day smoker alcohol intake former Substance Use Type does not use Meds Home Medications and Allergies Home Medications Medication Instructions Recorded Confirmed Type albuterol sulfate [Ventolin HFA] 2 puff INH Q4H PRN #0 07/22/17 02/11/20 History budesonide-formoterol [Symbicort] 2 puff INH BID #0 07/22/17 02/11/20 History albuterol sulfate 2.5 mg INHALATION TID 03/13/18 02/11/20 History calcium carbonate [Calcium 500] 1,000 mg PO DAILY 03/13/18 02/11/20 History tiotropium bromide 1 cap INHALATION DAILY 03/13/18 02/11/20 History carisoprodol 350 mg PO DAILY PRN 02/23/19 02/11/20 History cholecalciferol (vitamin D3) 1,000 unit PO DAILY 02/23/19 02/11/20 History [Vitamin D3] diclofenac sodium 50 mg PO BID 02/23/19 02/11/20 History duloxetine 60 mg PO DAILY 02/23/19 02/11/20 History gabapentin [Neurontin] 900 mg PO BID 02/23/19 02/11/20 History oxycodone-acetaminophen 1 tab PO Q6H PRN 02/23/19 02/11/20 History trazodone 100 mg PO BEDTIME 02/23/19 02/11/20 History guaifenesin [Mucus Relief ER] 1,200 mg PO BID #60 tab 02/27/19 02/11/20 Rx fentanyl 75 mcg TOPICAL Q72H 02/11/20 02/11/20 History glycopyrrolate-formoterol [Bevespi 2 puff INHALATION BID 02/11/20 02/11/20 History Aerosphere] levofloxacin 500 mg PO DAILY 02/11/20 02/11/20 History prednisone 20 mg PO DAILY 02/11/20 02/11/20 History rosuvastatin [Crestor] 10 mg PO DAILY 02/11/20 02/11/20 History Allergies Allergy/AdvReac Type Severity Reaction Status Date / Time nickel Allergy Severe Rash, Verified 02/11/20 09:51 infections codeine Allergy Mild Itching Verified 02/11/20 09:51 nabumetone Allergy Pt does Verified 02/11/20 09:51 not remember reaction alendronate sodium AdvReac Severe Nausea Verified 02/11/20 09:51 amoxicillin [From AUGMENTIN] AdvReac Mild VOMITING Verified 02/11/20 09:51 cephalexin [CEPHALEXIN] AdvReac Mild VOMITING Verified 02/11/20 09:51 clavulanic acid AdvReac Mild VOMITING Verified 02/11/20 09:51 [From AUGMENTIN] sulfamethoxazole AdvReac Mild nausea Verified 02/11/20 09:51 [From SEPTRA] trimethoprim [From SEPTRA] AdvReac Mild nausea Verified 02/11/20 09:51 Review of Systems Review of Systems ROS: Yes All systems reviewed with the patient and are negative except as otherwise documented Cardiovascular Cardiovascular: Reports dyspnea and Reports dyspnea on exertion Respiratory Respiratory: Reports cough, Reports pain on inspiration, Reports pain with cough, Reports dyspnea and Reports dyspnea on exertion Exam Vital Signs (past 8 hours): - 02/11/20 21:58 02/12/20 00:00 Temperature 97.4 F L Pulse Rate 65 98 H Respiratory Rate 18 22 Blood Pressure 104/56 L Pulse Oximetry 93 93 Oxygen Delivery Method Nasal Cannula Oxygen Flow Rate 3 Narrative Exam Narrative: Narrative Exam Narrative: GENERAL: elderly appears frail, and poorly nourished, in no distress, not toxic not dyspneic HEAD: Normocephalic. EYES: Pupils equal round and reactive. No scleral icterus. No injection no discharge ENT: Mucous membranes moist. No drooling no tongue elevation no trismus no malocclusion NECK: Trachea midline. Non tender CARDIOVASCULAR: Regular rate and rhythm without murmurs, gallops, or rubs. RESPIRATORY: Clear to auscultation. Breath sounds tight and decreased equal bilaterally. Bibasal wheezes, rhonchi. Speaks 5-7 word sentences GASTROINTESTINAL: Abdomen soft, non-tender, nondistended. EXTREMITIES: No gross deformities. BACK: Nontender without deformity or crepitance. No flank tenderness. NEURO: AOx4. SKIN: Warm and dry PSYCH: Pt was relaxed and participated in her care. Objective Labs Result Diagrams: 02/11/20 10:00 02/11/20 10:00 Labs: Laboratory Results - last 24 hr 02/11/20 02/11/20 02/11/20 10:00 10:00 10:00 WBC 13.1 H RBC 3.91 L Hgb 13.0 Hct 38.9 MCV 99.7 MCH 33.3 MCHC 33.4 RDW 13.3 Plt Count 233 Neut % (Auto) 80.5 H Lymph % (Auto) 12.5 L [place] % (Auto) 5.6 Eos % (Auto) 1.2 L Baso % (Auto) 0.2 Neut # (Auto) 26617 H Lymph # (Auto) 1600 [place] # (Auto) 700 Eos # (Auto) 200 Baso # (Auto) 0 PT 10.1 INR 0.9 APTT 31 ABG pH ABG pCO2 ABG pO2 ABG HCO3 ABG Total CO2 ABG O2 Saturation ABG Base Excess Sodium 140 Potassium 3.8 Chloride 100 Carbon Dioxide 37 H BUN 10 Creatinine 0.66 Estimated GFR > 60.0 BUN/Creatinine Ratio 15.2 Glucose 133 H Calcium 9.9 Magnesium Total Bilirubin 0.4 AST 30 ALT 30 Alkaline Phosphatase 65 Total Creatine Kinase 109 CK-MB (CK-2) 3.30 H CK-MB (CK-2) Rel Index 3.0 Troponin I < 0.012 NT-Pro-B Natriuret Pep 120 Total Protein 6.9 Albumin 4.4 Globulin 2.5 Albumin/Globulin Ratio 1.8 Procalcitonin Chlamy pneumoniae PCR Adenovirus (PCR) B.parapertussis DNA PCR Coronavirus OC43 (PCR) Coronavirus HKU1 (PCR) Coronavirus 229E (PCR) COVID-19 PCR Coronavirus NL63 (PCR) Human Metapneumovir PCR Influenza Type A (PCR) Influenza Type B (PCR) M. pneumoniae (PCR) Parainfluenza 1 (PCR) Parainfluenza 2 (PCR) Parainfluenza 3 (PCR) Parainfluenza 4 (PCR) RSV (PCR) Entero/Rhino (PCR) 02/11/20 02/11/20 02/11/20 10:00 10:00 10:44 WBC RBC Hgb Hct MCV MCH MCHC RDW Plt Count Neut % (Auto) Lymph % (Auto) [place] % (Auto) Eos % (Auto) Baso % (Auto) Neut # (Auto) Lymph # (Auto) [place] # (Auto) Eos # (Auto) Baso # (Auto) PT INR APTT ABG pH ABG pCO2 ABG pO2 ABG HCO3 ABG Total CO2 ABG O2 Saturation ABG Base Excess Sodium Potassium Chloride Carbon Dioxide BUN Creatinine Estimated GFR BUN/Creatinine Ratio Glucose Calcium Magnesium 1.9 Total Bilirubin AST ALT Alkaline Phosphatase Total Creatine Kinase CK-MB (CK-2) CK-MB (CK-2) Rel Index Troponin I NT-Pro-B Natriuret Pep Total Protein Albumin Globulin Albumin/Globulin Ratio Procalcitonin < 0.05 Chlamy pneumoniae PCR Not detected Adenovirus (PCR) Not detected B.parapertussis DNA PCR Not detected Coronavirus OC43 (PCR) Not detected Coronavirus HKU1 (PCR) Not detected Coronavirus 229E (PCR) Not detected COVID-19 PCR Negative Coronavirus NL63 (PCR) Not detected Human Metapneumovir PCR Not detected Influenza Type A (PCR) Not detected Influenza Type B (PCR) Not detected M. pneumoniae (PCR) Not detected Parainfluenza 1 (PCR) Not detected Parainfluenza 2 (PCR) Not detected Parainfluenza 3 (PCR) Not detected Parainfluenza 4 (PCR) Not detected RSV (PCR) Not detected Entero/Rhino (PCR) Not detected 02/11/20 14:02 WBC RBC Hgb Hct MCV MCH MCHC RDW Plt Count Neut % (Auto) Lymph % (Auto) [place] % (Auto) Eos % (Auto) Baso % (Auto) Neut # (Auto) Lymph # (Auto) [place] # (Auto) Eos # (Auto) Baso # (Auto) PT INR APTT ABG pH 7.38 ABG pCO2 53.0 H ABG pO2 84 ABG HCO3 31 H ABG Total CO2 33 H ABG O2 Saturation 96 ABG Base Excess 6.0 H Sodium Potassium Chloride Carbon Dioxide BUN Creatinine Estimated GFR BUN/Creatinine Ratio Glucose Calcium Magnesium Total Bilirubin AST ALT Alkaline Phosphatase Total Creatine Kinase CK-MB (CK-2) CK-MB (CK-2) Rel Index Troponin I NT-Pro-B Natriuret Pep Total Protein Albumin Globulin Albumin/Globulin Ratio Procalcitonin Chlamy pneumoniae PCR Adenovirus (PCR) B.parapertussis DNA PCR Coronavirus OC43 (PCR) Coronavirus HKU1 (PCR) Coronavirus 229E (PCR) COVID-19 PCR Coronavirus NL63 (PCR) Human Metapneumovir PCR Influenza Type A (PCR) Influenza Type B (PCR) M. pneumoniae (PCR) Parainfluenza 1 (PCR) Parainfluenza 2 (PCR) Parainfluenza 3 (PCR) Parainfluenza 4 (PCR) RSV (PCR) Entero/Rhino (PCR) Assessment & Plan Assessment & Plan narrative: 1. Acute End-Stage COPD exacerbation acute on admission, chronic Patient to continue on Levaquin 500 mg q.day x5 days Continue steroids and nebulizer treatments RT consult and evaluation Provide 50 cc an hour hydration support 2. Chronic Low back acute exacerbation on admission Continue home medication Fentanyl patch, oxycodone, carisoprodol, diclofenac, gabapentin for pain 3. Tobacco abuse Encourage smoking cessation Possible admit to scheduled hospital via Dr. Zoey Garrett pCO2 53, HC03 31, total CO2 33, base excess 6.0, CK-MB 3.3, 4. Severe chronic protein calorie malnutrition Dietary consult BMI 15.8 Patient's intake is compromised due to oxygen demand in ratio to food intake due to acute end-stage COPD exacerbation Patient COVID negative Diet General IV fluids: Normal saline 50 cc/hour Patient on VTE prophylaxis-sequential compression device, enoxaparin will 40 mg SQ Patient is a full code, this is a decision maker is Dominic Patient has been admitted for observation due to severity of presenting symptoms that failed outpatient management, patient admitted to observation status with expected length of stay no more than 2 nights to rule out pneumonia. COVID-19 COVID-19 status: Negative Result date/Date tested (Pos, Neg/Pending): 02/11/20 Time Spent With Patient Time with patient: 25 - 35 minutes Quality VTE Deep Vein Thrombosis/Pulmonary Embolism Present on Admission: No
[2020-02-12] MEDS: OXYCODONE IR 10 MG TABLET PO ×4 (03:30→21:08)
[2020-02-12 06:25] LABS: Add Manual Diff / Slide Review NO; Basophils Absolute Auto 0 /uL (0-100); Basophils Percent Auto 0.3 % (0-2); Eosinophils Absolute Auto 0 /uL (0-450); Eosinophils Percent Auto 0.1 % (2-4); Hematocrit 36.2 % (36-46); Hemoglobin 12.1 g/dL (12.0-16.0); Lymphocytes Absolute Auto 1500 /uL (1100-4500); Lymphocytes Percent Auto 13.5 % (25-40); Mean Corpuscular HGB Conc 33.4 % (30-36); Mean Corpuscular Hemoglobin 33.4 PG (26-34); Mean Corpuscular Volume 100.1 fL (80-100); Monocytes Absolute Auto 700 /uL (0-900); Neutrophils Absolute Auto 8800 /uL (1500-7000); Neutrophils Percent Auto 80.1 % (50-75); Platelet Count 217 X10^3/uL (150-400); Red Blood Cell Count 3.61 X10^6/uL (4.0-5.2); White Blood Cell Count 10.9 X10^3/uL (4.5-11.0)
[2020-02-12 06:38] LABS: BUN Creatinine Ratio 18.2 (6-22); Blood Urea Nitrogen 12 mg/dL (7-17); Calcium 9.3 mg/dL (8.4-10.2); Carbon Dioxide 38 mmol/L (22-32); Chloride 103 mmol/L (98-107); Estimated Glomerular Filt Rate > 60.0 mL/min (>60); Glucose 93 mg/dL (80-110); HEMOLYSIS < 15 (0-50); Potassium 4.5 mmol/L (3.4-5.1); Sodium 138 mmol/L (137-145)
[2020-02-12 06:47] LABS: NT-proBNP (BNP-Adult 18+) 376 pg/mL (<125)
[2020-02-12] MEDS: ALBUTEROL/IPRATROPIUM 3 ML AMPUL INH ×3 (07:34→20:07)
[2020-02-12] MEDS: guaiFENesin ER 600 MG TAB 1200 MG PO ×2 (08:54→20:30)
[2020-02-12] MEDS: ENOXAPARIN 40 MG/0.4 ML SYRINGE SUBCUT (08:54)
[2020-02-12] MEDS: DULOXETINE 30 MG CAPSULE 60 MG PO (08:54)
[2020-02-12] MEDS: GABAPENTIN 300 MG CAPSULE 900 MG PO ×2 (08:54→20:30)
[2020-02-12] MEDS: ACETAMINOPHEN 325 MG TABLET 975 MG PO (08:54)
[2020-02-12] MEDS: ROSUVASTATIN 10 MG TABLET PO (08:55)
[2020-02-12] MEDS: DOCUSATE 100 MG CAPSULE PO ×2 (08:55→20:30)
[2020-02-12] MEDS: predniSONE 20 MG TABLET PO (08:55)
[2020-02-12] MEDS: carisoprodoL 350 MG TABLET PO (09:05)
[2020-02-12] MEDS: DICLOFENAC 50 MG DR TABLET PO ×2 (09:27→20:30)
[2020-02-12] MEDS: levoFLOXacin 500 MG TABLET PO (09:27)
[2020-02-12] MEDS: TIOTROPIUM BROMIDE 18 MCG INHALER INH (11:01)
[2020-02-12] MEDS: BUDESONIDE 90mcg FLEXHALER (60 PUFF/DEVICE) INH ×2 (11:01→20:07)
--- NOTE | 2020-02-12 13:23 | DIET.PN ---
Dietary Progress Note Assessment: 69y F admitted for SOB secondary to acute end-stage COPD referred to nutrition for low BMI and difficulty swallowing. Pt admitted 1y ago and has lost 13.5% body weight unintentionally since then and comes in c BMI 15.8 (severe) Patient's intake is compromised due to oxygen demand in ratio to food intake due to acute end-stage COPD exacerbation. Pt reports difficulty keeping her weight up secondary to alternating breathing and chewing as well as new difficulty c swallowing. Pt unable to go into detail about this or usual dietary intake as she has CPAP on and is tired. HT: 165.1cm WT: 45kg UBW: 52kg BMI: 15.8 Labs: Co2: 37 H, Cr 0.66, MNA: 11 at risk for malnutrition Facundo: 18 Nutrition Diagnosis: inadequate protein energy intake r/t chronic malnutrition secondary to end stage COPD aeb 13% unintended weight loss over past year or less, BMI 15.8 (severe), <75% EER for >1mo, pt expresses difficulty c eating enough because of oxygen dependence. Interventions: 1. Recc peach yogurt smoothies bid and vanilla enlive daily to support protein and kcal needs while in hospital and on d/c. 2. Reiterated prior education on higher healthy fat diet (nuts, seeds, nut butters, plant oils, avocados) to support kcal needs for weight gain and ease of breathing. Diet Order: general EER: 1575kcal (35kcal/kg per end stage COPD), 60g PRO (1.3g/kg per end stage COPD) Monitoring/Evaluations: [facility] nursing assess if pt requires speech consult secondary to difficulty swallowing
[2020-02-12] MEDS: SODIUM CHLORIDE 0.9% 1,000 ML 50 ML IV (16:53)
[2020-02-12] MEDS: methylPREDNISolone 125 MG/2 ML VIAL 60 MG IV (18:03)
[2020-02-12] MEDS: BUDESONIDE INH (20:14)
[2020-02-12] MEDS: FORMOTEROL INH (20:14)
--- NOTE | 2020-02-12 20:30 | P.PN_ITS ---
Subjective Subjective Date Patient Seen: 02/12/20 Time Patient Seen: 20:30 Interval history: Mrs. Velazquez is a 69-year-old female patient with past medical history significant for end-stage COPD with acute exacerbation being treated for pneumonia on outpatient basis and presents to the ER for worsening dyspnea. The patient is seen and examined. The patient appears to be resting comfortably in bed though she complains of severe back pain at all times. Per nursing patient has been ambulatory to the bathroom without difficulty right axial. She reports that she feels her respirations have improved and describes her breathing as baseline however her pain is unrelenting. She denies complaints of fevers or chills, headaches or dizziness, nausea vomiting, diarrhea or constipation. On reassessment the patient she has received her evening medications and oxycodone 10 mg, trazodone and gabapentin and appears to be sleeping soundly not responding to verbal stimulus. Exam Vital Signs (past 8 hours): - 02/12/20 20:07 02/12/20 20:08 02/12/20 23:25 Temperature 97.3 F L 98.2 F Pulse Rate 57 L 67 59 L Respiratory Rate 20 16 18 Blood Pressure 123/63 141/77 H Pulse Oximetry 99 94 98 Oxygen Delivery Method Nasal Cannula Oxygen Flow Rate 2 Narrative Exam Narrative: GENERAL APPEARANCE: well developed, frail appearing, malnourished with mild increased work of breathing on nasal cannula O2. HEENT: Normocephalic, PERRLA,, oral mucosa pink and dry. NECK/THYROID: neck, supple nontender, no JVD, trachea midline. SKIN: [place], warm and dry. HEART: Bradycardic rate with regular rhythm, S1-S2, no murmur, no edema LUNGS: Scattered inspiratory and bilateral expiratory wheezing, nonproductive cough present CHEST: Symmetrical movement, nontender AP and lateral compression. ABDOMEN: Soft, flat, nontender, no organomegaly, active bowel tones. BACK: Normal curvature, nontender to palpation, no CVA tenderness on percussion EXTREMITIES: moves all extremities, no deformities or joint effusions. NEUROLOGIC: AAO x 3, no focal neurologic deficits. Objective Labs Result Diagrams: 02/12/20 06:01 02/12/20 06:01 Labs: Laboratory Results - last 24 hr 02/12/20 02/12/20 06:01 06:01 WBC 10.9 RBC 3.61 L Hgb 12.1 Hct 36.2 MCV 100.1 H MCH 33.4 MCHC 33.4 RDW 13.0 Plt Count 217 Neut % (Auto) 80.1 H Lymph % (Auto) 13.5 L [place] % (Auto) 6.0 Eos % (Auto) 0.1 L Baso % (Auto) 0.3 Neut # (Auto) 8800 H Lymph # (Auto) 1500 [place] # (Auto) 700 Eos # (Auto) 0 Baso # (Auto) 0 Sodium 138 Potassium 4.5 Chloride 103 Carbon Dioxide 38 H BUN 12 Creatinine 0.66 Estimated GFR > 60.0 BUN/Creatinine Ratio 18.2 Glucose 93 Calcium 9.3 NT-Pro-B Natriuret Pep 376 H Assessment & Plan Assessment & Plan narrative: This is a 68-year-old female with history of COPD, on nighttime O2, current smoker presents to emergency department because of severe difficulty breathing. 1. Acute End-Stage COPD exacerbation acute on admission, chronic -Patient to continue on Levaquin 500 mg q.day x5 days -Continue steroids and nebulizer treatments -RT consult and evaluation -patient has improved work of breathing and states approaching baseline. -patient is using trilogy at bedtime 2. Chronic Low back acute exacerbation on admission -Continue home regimen of Fentanyl patch, oxycodone, carisoprodol, diclofenac, gabapentin for pain 3. Tobacco abuse -Encourage smoking cessation -the patient states she is not interested in stopping smoking and smokes only a couple cigarettes a day. 4. Severe chronic protein calorie malnutrition -dietitian is consulted made food recommendations of smoothies with food likes, the patient patient remains on a regular diet. -patient is taking adequate fluids, IV fluid is discontinued. -BMI 16.9, on prior med BMI was 16.7 -patient reports diminished food intake 2 to difficulty eating related to her severity of dyspnea. Patient COVID negative Diet General IV fluids: Saline lock VTE prophylaxis: Enoxaparin Patient is a full code, this is a decision maker is Dominic Disposition: The patient is improving reporting she is approximately baseline with chief complaint pain which is chronic in nature. Patient will be ready for discharge likely tomorrow. Quality VTE Deep Vein Thrombosis/Pulmonary Embolism Present on Admission: No
[2020-02-12] MEDS: TRAZODONE 50 MG TABLET 100 MG PO (20:31)
[2020-02-13] VITALS (10 sets, daily range): BP systolic 103–138; BP diastolic 58–80; PULSE 67–118; RESP 16–22; TEMP 36.6–37.6; O2SAT 90–98
[2020-02-13] MEDS: OXYCODONE IR 10 MG TABLET PO ×3 (04:11→18:37)
[2020-02-13] MEDS: methylPREDNISolone 125 MG/2 ML VIAL 60 MG IV ×2 (06:18→18:36)
--- NOTE | 2020-02-13 07:32 | PM.HP.1 ---
History of Present Illness History of Present Illness Chief complaint: shortness of breath Patient History Medical History BCC (basal cell carcinoma) (Acute ~2000) Benign neoplasm of clitoris (Acute ~03/23/16) Chronic pain (Acute) Compression fracture of T8 vertebra (Acute ~2011) COPD (chronic obstructive pulmonary disease) (Acute) History of pneumonia (Acute) Osteoarthritis (Acute) Osteomyelitis of jaw (Acute 03/13/18) Osteoporosis (Acute) Requires supplemental oxygen (Acute) Thyroid nodule (Acute) Surgical History History of lumbar surgery (Acute ~1989) Hx of appendectomy (Acute) Hx of fusion of cervical spine (Acute) Hx of hand surgery (Acute) Status post tonsillectomy and adenoidectomy Status post vaginal hysterectomy Family & Social History Family History Mother Cancer of kidney Cancer of bladder Father Congestive heart failure Sister Hypertension Social History: household members spouse Safety & Behavioral: Feels Safe in Current Yes Environment Been Physically Hurt or No Threatened By a Person Suicidal Ideation Description None Suicide Plan Description No Plan Tobacco & Substance use: Tobacco type cigarettes Smoking Status Current every day smoker alcohol intake former Substance Use Type does not use Meds Home Medications and Allergies Home Medications Medication Instructions Recorded Confirmed Type albuterol sulfate [Ventolin HFA] 2 puff INH Q4H PRN #0 07/22/17 02/11/20 History budesonide-formoterol [Symbicort] 2 puff INH BID #0 07/22/17 02/11/20 History albuterol sulfate 2.5 mg INHALATION TID 03/13/18 02/11/20 History calcium carbonate [Calcium 500] 1,000 mg PO DAILY 03/13/18 02/11/20 History tiotropium bromide 1 cap INHALATION DAILY 03/13/18 02/11/20 History carisoprodol 350 mg PO DAILY PRN 02/23/19 02/11/20 History cholecalciferol (vitamin D3) 1,000 unit PO DAILY 02/23/19 02/11/20 History [Vitamin D3] diclofenac sodium 50 mg PO BID 02/23/19 02/11/20 History duloxetine 60 mg PO DAILY 02/23/19 02/11/20 History gabapentin [Neurontin] 900 mg PO BID 02/23/19 02/11/20 History oxycodone-acetaminophen 1 tab PO Q6H PRN 02/23/19 02/11/20 History trazodone 100 mg PO BEDTIME 02/23/19 02/11/20 History guaifenesin [Mucus Relief ER] 1,200 mg PO BID #60 tab 02/27/19 02/11/20 Rx fentanyl 75 mcg TOPICAL Q72H 02/11/20 02/11/20 History glycopyrrolate-formoterol [Bevespi 2 puff INHALATION BID 02/11/20 02/11/20 History Aerosphere] levofloxacin 500 mg PO DAILY 02/11/20 02/11/20 History prednisone 20 mg PO DAILY 02/11/20 02/11/20 History rosuvastatin [Crestor] 10 mg PO DAILY 02/11/20 02/11/20 History Allergies Allergy/AdvReac Type Severity Reaction Status Date / Time nickel Allergy Severe Rash, Verified 02/11/20 09:51 infections codeine Allergy Mild Itching Verified 02/11/20 09:51 nabumetone Allergy Pt does Verified 02/11/20 09:51 not remember reaction alendronate sodium AdvReac Severe Nausea Verified 02/11/20 09:51 amoxicillin [From AUGMENTIN] AdvReac Mild VOMITING Verified 02/11/20 09:51 cephalexin [CEPHALEXIN] AdvReac Mild VOMITING Verified 02/11/20 09:51 clavulanic acid AdvReac Mild VOMITING Verified 02/11/20 09:51 [From AUGMENTIN] sulfamethoxazole AdvReac Mild nausea Verified 02/11/20 09:51 [From SEPTRA] trimethoprim [From SEPTRA] AdvReac Mild nausea Verified 02/11/20 09:51 Exam Vital Signs (past 8 hours): - 02/13/20 04:04 Temperature 98.3 F Pulse Rate 67 Respiratory Rate 18 Blood Pressure 123/63 Pulse Oximetry 98 Oxygen Delivery Method Nasal Cannula Oxygen Flow Rate 0 Objective Labs Result Diagrams: 02/12/20 06:01 02/12/20 06:01 Quality VTE Deep Vein Thrombosis/Pulmonary Embolism Present on Admission: No
--- NOTE | 2020-02-13 08:04 | P.PN_ITS ---
Subjective Subjective Date Patient Seen: 02/13/20 Time Patient Seen: 08:00 Interval history: Mrs. Velazquez is a 69-year-old female patient with past medical history significant for end-stage COPD with acute exacerbation being treated for pneumonia on outpatient basis and presents to the ER for worsening dyspnea. Patient reports today that her breathing is much improved and decreased pain with inspiration her shortness or breath has decreased she notes that her pain and discomfort for approximately a 9/10 on admission and today it is a 6/10 and she feels that her pain levels are within normal limits for her. Patient has been getting up to the restroom several times with the assistance of the nurses, complete this activity without difficulty. Patient initially was on a mask and is now on nasal cannula only has decreased from 3 L to 2 L of O2 and oxygen sat urations have been in the high 80s to low 90 range. Patient's appetite has increased, and feels she is recovering but not yet ready to go home. Exam Vital Signs (past 8 hours): - 02/13/20 04:04 Temperature 98.3 F Pulse Rate 67 Respiratory Rate 18 Blood Pressure 123/63 Pulse Oximetry 98 Oxygen Delivery Method Nasal Cannula Oxygen Flow Rate 0 Narrative Exam Narrative: Exam Narrative: GENERAL APPEARANCE: well developed, frail appearing, malnourished with mild increased work of breathing on nasal cannula O2. HEENT: Normocephalic, PERRLA,, oral mucosa pink and dry. NECK/THYROID: neck, supple nontender, no JVD, trachea midline. SKIN: [place], warm and dry. HEART: Bradycardic rate with regular rhythm, S1-S2, no murmur, no edema LUNGS: Scattered inspiratory and bilateral expiratory wheezing, nonproductive cough present CHEST: Symmetrical movement, nontender AP and lateral compression. ABDOMEN: Soft, flat, nontender, no organomegaly, active bowel tones. BACK: Normal curvature, nontender to palpation, no CVA tenderness on percussion EXTREMITIES: moves all extremities, no deformities or joint effusions. NEUROLOGIC: AAO x 3, no focal neurologic deficits. Objective Labs Result Diagrams: 02/12/20 06:01 02/12/20 06:01 Assessment & Plan Assessment & Plan narrative: This is a 68-year-old female with history of COPD, on nighttime O2, current smoker presents to emergency department because of severe difficulty breathing. 1. Acute End-Stage COPD exacerbation acute on admission, chronic -Patient to continue on Levaquin 500 mg q.day x5 days last day 02/15/2020 -Continue steroids predisone 40mg daily- last 02/15/20 then return to normal dosage predisone 20mg daily and nebulizer treatments -RT consult and evaluation -patient has improved work of breathing and states approaching baseline. -patient is using trilogy at bedtime -ordered PT and OT for evaluation -patient does have spouse Dominic at home to assist with ADLs. 2. Chronic Low back acute exacerbation on admission -patient's back pain is well controlled pain level today 09/15, down from 12/16 upon admission to the floor. Patient states is at baseline pain level. -Continue home regimen of Fentanyl patch, oxycodone, carisoprodol, diclofenac, gabapentin for pain 3. Tobacco abuse -Encourage smoking cessation -the patient states she is not interested in stopping smoking and smokes only a couple cigarettes a day. 4. Severe chronic protein calorie malnutrition -patient's appetite has improved will continue to monitor INR -dietitian is consulted made food recommendations of smoothies with food likes, the patient patient remains on a regular diet. -patient is taking adequate fluids, IV fluid is discontinued. Reviewed labs improved and stable no further labs needed at this time. -BMI 16.9, on prior med BMI was 16.7 -patient reports diminished food intake 2 to difficulty eating related to her severity of dyspnea. Patient COVID negative Diet General IV fluids: Saline lock VTE prophylaxis: Enoxaparin Patient is a full code, this is a decision maker is Dominic Disposition: The patient has reported improved respiratory function, and stable pain level her within normal limits. Consider patient discharge in 1-2 days. Quality VTE Deep Vein Thrombosis/Pulmonary Embolism Present on Admission: No
[2020-02-13] MEDS: SENNOSIDES 8.6 MG TABLET 17.2 MG PO (08:41)
[2020-02-13] MEDS: carisoprodoL 350 MG TABLET PO (08:41)
[2020-02-13] MEDS: ROSUVASTATIN 10 MG TABLET PO (08:41)
[2020-02-13] MEDS: DULOXETINE 30 MG CAPSULE 60 MG PO (08:41)
[2020-02-13] MEDS: GABAPENTIN 300 MG CAPSULE 900 MG PO ×2 (08:41→19:14)
[2020-02-13] MEDS: ENOXAPARIN 40 MG/0.4 ML SYRINGE SUBCUT (08:41)
[2020-02-13] MEDS: guaiFENesin ER 600 MG TAB 1200 MG PO ×2 (08:42→19:15)
[2020-02-13] MEDS: ACETAMINOPHEN 325 MG TABLET 975 MG PO ×2 (08:42→18:36)
[2020-02-13] MEDS: DICLOFENAC 50 MG DR TABLET PO ×2 (08:43→19:16)
[2020-02-13] MEDS: levoFLOXacin 500 MG TABLET PO (08:43)
[2020-02-13] MEDS: BUDESONIDE 90mcg FLEXHALER (60 PUFF/DEVICE) INH ×2 (10:05→18:54)
[2020-02-13] MEDS: TIOTROPIUM BROMIDE 18 MCG INHALER INH (10:05)
[2020-02-13] MEDS: ALBUTEROL/IPRATROPIUM 3 ML AMPUL INH ×3 (10:06→18:53)
--- NOTE | 2020-02-13 10:35 | OT.IP.EVAL ---
Current Diagnoses Chronic obstructive pulmonary disease with (acute) exacerbation (02/11/20) Past Medical History (Last Reviewed 02/12/20 @ 02:28 by ANGÉLICA Monet-) BCC (basal cell carcinoma) (Acute ~2000) Benign neoplasm of clitoris (Acute ~03/23/16) Chronic pain (Acute) Compression fracture of T8 vertebra (Acute ~2011) COPD (chronic obstructive pulmonary disease) (Acute) History of pneumonia (Acute) Osteoarthritis (Acute) Osteomyelitis of jaw (Acute 03/13/18) Osteoporosis (Acute) Requires supplemental oxygen (Acute) Thyroid nodule (Acute) Surgical History (Last Reviewed 02/12/20 @ 02:28 by ANGÉLICA Monet-) History of lumbar surgery (Acute ~1989) Hx of appendectomy (Acute) Hx of fusion of cervical spine (Acute) Hx of hand surgery (Acute) Status post tonsillectomy and adenoidectomy Status post vaginal hysterectomy Occupational Therapy Inpatient Evaluation/Re-Eval M1 PT/OT-IP Prior Functional Status Start: 02/13/20 13:14 Freq: NEEDED Status: Active Protocol: Document 02/13/20 13:14 CGR (Rec: 02/13/20 13:24 CGR [email or web address]) Medical Review Prior Functional Status Medical History Reviewed Yes Communication Pt is an effective communicator. Mobility and Gait Pt was IND for indoor actvity and often uses a 4WW for outdoor mobility and longer distances. Activities of Daily Living and IADL's Pt was IND with all ADLs. Pt has a shower seat that she uses and her takes care of most IADLs. 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 Social History Household Members spouse Living Arrangements House Number of Floors (Floors) One Floor Number of Stairs To Enter/Railing? 1 step no railing Home Environment Standard Height Toilet,Walk in Shower,Built-In Shower Seat Home Equipment Four Wheel Walker,Straight Cane,Grab Bars In Shower Employment Status Retired M2 OT-IP Current Condition Start: 02/13/20 13:14 Freq: Status: Active Protocol: Document 02/13/20 13:14 CGR (Rec: 02/13/20 13:24 CGR [email or web address]) Occupational Therapy Current Condition Current Condition Evaluation Date 02/13/20 Treatment Diagnosis COPD exacerbation and PNA Diagnosis Onset Date 02/11/20 M3 OT- IP Subjective and Pain Start: 02/13/20 13:14 Freq: Status: Active Protocol: Document 02/13/20 13:14 CGR (Rec: 02/13/20 13:24 CGR [email or web address]) OT- Subjective Occupational Therapy Visit Type Type Initial Evaluation Visit Start Time 10:12 Visit Stop Time 10:35 Total Visit Minutes 23 OT Pain Assessment Pain When Pain Assessed At Rest Pain Present Pain Present Pain Reported Location Chest Intensity 7 Scale Used Numeric (0 - 10) Management Techniques Distraction,Modification of Treatment,Re-positioning M4 OT- IP ADL's Start: 02/13/20 13:14 Freq: Status: Active Protocol: Document 02/13/20 13:14 CGR (Rec: 02/13/20 13:24 CGR [email or web address]) OT [id number] Comments OT Self-Feeding Comments Not meal time OT ADL-Grooming General Evaluation Grooming Ability Standby Assistance Areas Needing Assistance Retrieving/Set-up of Grooming Items,Face Washing Comments OT Grooming Comments standing at sink OT ADL-Oral Care General Eval Oral Care Ability Standby Assistance Areas of Assistance Brushing Teeth,Retrieving/Set- Up of Items Comments Oral Care Comments standing at sink OT ADL-Dressing General Eval Lower Body Dressing Ability Independent Areas Needing Assistance Socks OT ADL-Toileting General Evaluation Toileting Ability Independent OT ADL-Bathing Comments OT Bathing Comments Not performed M5 OT- IP IADL's Start: 02/13/20 13:14 Freq: Status: Active Protocol: Document 02/13/20 13:14 CGR (Rec: 02/13/20 13:24 CGR [email or web address]) OT-Instrumental Activities of Daily Living Deficits IADL Deficits Identified No Deficits Home Safety Awareness Awareness of Need for Assistance at Home Good Awareness Ability to Problem Solve Emergency Able to Problem Solve Situations Medication Management Medication Management No Deficits Identified Money Management Money Management Caregiver Provides Assistance Meal Preparation Meal Preparation Caregiver Provides Assist Loss Mitigation Specialist Loss Mitigation Specialist Caregiver Provides Assist Driving Driving Comments 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 M6 OT- IP Functional Cognition Start: 02/13/20 13:14 Freq: Status: Active Protocol: Document 02/13/20 13:14 CGR (Rec: 02/13/20 13:24 CGR [email or web address]) Cognitive Factors Limiting Selfcare Function Cognitive Ability Level of Alertness Alert Patient Orientation Name,Age,Birthday,Month,Date, Year,Day of Week,Place, Situation Attention Span Ability Capable of Focused Attention, Capable of Sustained Attention Ability to Follow Commands Able to Follow Multi-Step Commands Memory Description No Deficits Noted Safety Awareness No Deficits Noted OT- Vision and Hearing OT- Hearing Assessment OT- Hearing Assessment WFL OT- Vision Assessment Visual Acuity WFL Visual Attentiveness WFL Occular Pursuits WFL Visual Convergence WFL M7 OT- IP Mobility and Balance Start: 02/13/20 13:14 Freq: Status: Active Protocol: Document 02/13/20 13:14 CGR (Rec: 02/13/20 13:24 CGR [email or web address]) OT- Bed Mobility Assessment Rolling Level of Assistance Independent Supine to Sit Supine to Sit Assist Independent Scooting Scooting to Edge of Bed Independent OT-Transfer Assessment Sit to and From Stand Sit to and from Stand Independent Transfers Transfer Ability Independent Technique Transfer Destination Bed,Chair,Toilet Transfer Technique Stand Step Pivot Devices Transfer Assistive Devices Gait Belt Comments Mobility Comments Pt also demonstrated 1 step up and down without handrail. OT- Balance Assessment Sitting Balance and Reactions Static Sitting Balance Ability Normal Dynamic Sitting Balance Ability Normal M8 OT- IP Objective Assessments Start: 02/13/20 13:14 Freq: Status: Active Protocol: Document 02/13/20 13:14 CGR (Rec: 02/13/20 13:24 CGR [email or web address]) OT Gross Range of Motion Upper Extremity Range of Motion Assessment Within Functional Limits OT Strength Upper Extremity Strength Assessment Within Functional Limits OT- Coordination Assessment Upper Extremity Finger to Nose Test Within Functional Limits Finger Tapping Test Within Functional Limits OT-Muscle Tone Assessment Muscle Tone WNL Yes OT Sensation Assessment Edema Edema Absent M9 OT- IP Assessment and Plan Start: 02/13/20 13:14 Freq: Status: Active Protocol: Document 02/13/20 13:14 CGR (Rec: 02/13/20 13:24 CGR [email or web address]) OT Summary Assessment and Plan Potential Rehabilitation Potential Excellent Analytic Complexity at Evaluation Low Summary Progress Towards Goals Goals Met Assessment Summary Pt presents as a low complexity evaluation s/p admission for COPD exacerbation and possible PNA. Pt is mobilizing and performing ADLs at her baseline of MOD I to IND. No further OT needs. Frequency of Treatment Frequency Of Treatment Discharge Discharge Recommendations OT Discharge Recommendations Home Transportation Needs at Discharge Private Vehicle
--- NOTE | 2020-02-13 11:35 | PT.IIE ---
Current Diagnoses Chronic obstructive pulmonary disease with (acute) exacerbation (02/11/20) Surgical History (Last Reviewed 02/12/20 @ 02:28 by KENZIE Monet) History of lumbar surgery (Acute ~1989) Hx of appendectomy (Acute) Hx of fusion of cervical spine (Acute) Hx of hand surgery (Acute) Status post tonsillectomy and adenoidectomy Status post vaginal hysterectomy Medical History (Last Reviewed 02/12/20 @ 02:28 by KENZIE Monet) BCC (basal cell carcinoma) (Acute ~2000) Benign neoplasm of clitoris (Acute ~03/23/16) Chronic pain (Acute) Compression fracture of T8 vertebra (Acute ~2011) COPD (chronic obstructive pulmonary disease) (Acute) History of pneumonia (Acute) Osteoarthritis (Acute) Osteomyelitis of jaw (Acute 03/13/18) Osteoporosis (Acute) Requires supplemental oxygen (Acute) Thyroid nodule (Acute) Physical Therapy Inpatient Evaluation/Re-Eval M1 PT/OT-IP Prior Functional Status Start: 02/13/20 13:14 Freq: NEEDED Status: Active Protocol: Document 02/13/20 13:14 CGR (Rec: 02/13/20 13:24 CGR [email or web address]) Medical Review Prior Functional Status Medical History Reviewed Yes Communication Pt is an effective communicator. Mobility and Gait Pt was IND for indoor actvity and often uses a 4WW for outdoor mobility and longer distances. Activities of Daily Living and IADL's Pt was IND with all ADLs. Pt has a shower seat that she uses and her takes care of most IADLs. 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 Social History Household Members spouse Living Arrangements House Number of Floors (Floors) One Floor Number of Stairs To Enter/Railing? 1 step no railing Home Environment Standard Height Toilet,Walk in Shower,Built-In Shower Seat Home Equipment Four Wheel Walker,Straight Cane,Grab Bars In Shower Employment Status Retired M1 PT/OT-IP Prior Functional Status Start: 02/13/20 14:05 Freq: NEEDED Status: Active Protocol: Document 02/13/20 11:35 AB (Rec: 02/13/20 14:15 AB [id number]) Medical Review Prior Functional Status Medical History Reviewed Yes Communication able to make needs known Mobility and Gait stated that she is indpeendent with all mobilities and ambulation without AD but uses a 4WW for outdoor mobility Activities of Daily Living and IADL's Pt was IND with all ADLs. Pt has a shower seat that she uses and her takes care of most IADLs. 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 Social History Household Members spouse Living Arrangements House Number of Floors (Floors) One Floor Number of Stairs To Enter/Railing? 1 step no railing to enter Home Environment Standard Height Toilet,Walk in Shower,Built-In Shower Seat Home Equipment Four Wheel Walker,Straight Cane,Grab Bars In Shower Employment Status Retired M2 PT-IP Current Condition Start: 02/13/20 14:05 Freq: NEEDED Status: Active Protocol: Document 02/13/20 11:35 AB (Rec: 02/13/20 14:15 AB [id number]) Physical Therapy Current Condition Current Condition Evaluation Date 02/13/20 Treatment Diagnosis COPD exac; difficulty in walking Onset Date 02/11/20 Precautions Other Precautions O2 sat M3 PT-IP Subjective Start: 02/13/20 14:05 Freq: NEEDED Status: Active Protocol: Document 02/13/20 11:35 AB (Rec: 02/13/20 14:15 AB [id number]) Subjective Physical Therapy Visit Type Type Initial Evaluation Visit Start Time 11:35 Visit Stop Time 11:52 Total Visit Minutes 17 Number of OPERATING ROOM TECHNOLOGIST Visits 0 Physical Therapy Visit Comments Patient Comments pt is agreeable to do PT; stated that she needs to get out of the chair Therapy Pain Assessment Pain When Pain Assessed At Rest Pain Present Pain Present Pain Reported Location Chest Intensity 7 Scale Used with breathing M4 PT-IP Mobility and Gait Start: 02/13/20 14:05 Freq: NEEDED Status: Active Protocol: Document 02/13/20 11:35 AB (Rec: 02/13/20 14:15 AB [id number]) PT-Bed Mobility Assessment Supine to Sit Supine to Sit Standby Assistance Sit to Supine Sit to Supine Standby Assistance PT-Transfer Assessment Sit to and From Stand Sit to and from Stand Standby Assistance,1 Person Assistance Equipment Transfer Assistive Device None Transfers Transfer Destination Bed Transfer Technique ambulated without AD Transfer Ability Level of Assist Standby Assistance Comments Mobility Comments completed sit to stand from chair SBA. ambulated in room without AD SBA 40 ft with slow keegan and frequent standing rest breaks. O2 sat during ambulation with O2 on : ~ 94%. ambulated to the bed and completed supine <>sit SBA. positioned pt in bed. call light and table placed within reach. Gait Assessment Gait Gait Assistance Required: Standby Assistance Distance (Feet) 40 Able to Maintain Weight Bearing Status Yes During Gait Assistive Devices Assistive Device None Gait Deviations General Gait Pattern Decreased Stride Length, Decreased Feet Clearance,Step- to Gait Factors Limiting Gait Function Factors Limiting Gait Function Decreased Activity Tolerance, Decreased Strength,Pain,Poor Balance,Poor Safety Awareness, Respiratory Distress Comments Gait Comments pls refer to mobility section for details PT-Balance Assessment Sitting Balance and Reactions Static Sitting Balance Ability Good Dynamic Sitting Balance Ability Good Standing Balance and Reactions Static Standing Balance Ability Fair Dynamic Standing Balance Ability Fair Device Used without AD M5 PT-IP Objective Assessments Start: 02/13/20 14:05 Freq: NEEDED Status: Active Protocol: Document 02/13/20 11:35 AB (Rec: 02/13/20 14:15 AB [id number]) Orientation Orientation/Cognition Level of Alertness Alert Orientation Name,Place,Situation Safety Awareness Decreased Safety Awareness Gross Range of Motion Lower Extremity ROM Assessment Within Functional Limits Strength Lower Extremity Strength Hip 4-/5 Knee 4-/5 Sensation Assessment Sensation Gross Sensation WNL Muscle Tone Muscle Tone WNL Yes M6 PT-IP Treatment Start: 02/13/20 14:05 Freq: NEEDED Status: Active Protocol: Document 02/13/20 11:35 AB (Rec: 02/13/20 14:15 AB [id number]) Physical Therapy Treatment Education Education Provided Safety M7 PT-IP Assessment and Plan Start: 02/13/20 14:05 Freq: NEEDED Status: Active Protocol: Document 02/13/20 11:35 AB (Rec: 02/13/20 14:15 AB [id number]) PT Summary Assessment and Plan Potential Rehabilitation Potential Good Status of Condition at Evaluation Evolving Summary Impairments Pain,ROM,Strength,Balance, Coordination,Sensation,Bed Mobility,Transfers,Gait, Activity Tolerance Assessment Summary pt requiring SBA with mobility but with decrease activity tolerance affecting mobility. pt will have her spouse at home to assist her. Goals Bed Mobility Goal Independent Transfer Goal Independent Gait Goal Independent Gait Distance 150 Other Goals improve ambulation 200 ft using 4WW SBA up/down 1 step using 4WW SBA Days to Meet Goals 5 Frequency of Treatment Frequency Of Treatment Once a Day Treatment Plan Physical Therapy Treatment Plan Bed Mobility Training,Transfer Training,Gait Training, Therapeutic Exercise,Balance Retraining,Discharge Planning, Hot or Cold Pack,Neuromuscular Re-ed,Coordination Retraining Recommendations To Nursing Amount of Assist Needed Standby Assistance Discharge Recommendations PT Discharge Recommendations Home with Assistance Transportation Needs at Discharge Private Vehicle
[2020-02-13] MEDS: SODIUM CHLORIDE 0.9% FLUSH 10 ML IV ×2 (11:46→19:16)
[2020-02-13] MEDS: DOCUSATE 100 MG CAPSULE PO ×2 (11:53→19:14)
--- NOTE | 2020-02-13 14:18 | PC.NURSE ---
DAY SHIFT; PATIENT REPORTS PAIN THIS AFTERNOON CONSOLIDATED TO LLL, STATES OXYCODONE NOT HELPING. RT ASSESSED, THINKS IS PLEURITIC, GOOD AIR MVMT TO LUNG [place], SUGGESTED MORPHINE FOR BTP/PLEURITIC PAIN, NOTIFIED MD, STATES WILL ORDER. CLEARED PER PHYSICAL THERAPY. AMB SBA. 2L/NC
--- NOTE | 2020-02-13 14:52 | CM.DANOTE ---
Patient is a 69 year old female who was admitted on 02/11/20 for SOB. Pt has MCR and REG PPO for insurance and her PCP is Dr. Hernandez. EMR was reviewed. Per MD, pt with chronic back pain and uses Trilogy at night at baseline and has oxygen at home. Pt not medically stable to d/c yet today due to respirations. Per PT/OT, pt lives with supportive spouse at home and is independent with ADL's at baseline and spouse assists when needed and pt typically only uses her walker for long distances and continues to drive. Recommending safe d/c home with spouse assist when medically stable. Pt was last admitted in Feb 2019 and had a Hospice Info Visit due to her end stage COPD and then had half-way IV-Abx at the infusion clinic early 2019. Plan: SW to follow tomorrow towards likely plan of d/c home with spouse if medically stable. SW to follow closely for any further identified needs and discussion with pt bedside. JASON Huitron Discharge Planning/Care Management CM Discharge Assessment Start: 02/13/20 14:50 Freq: Status: Active Protocol: Document 02/13/20 14:51 BF (Rec: 02/13/20 14:52 BF [id number]) Discharge Planning Assessment Assigned Truck Loader And Unloader JASON Izaguirre DPOA/Assigned Designee Name spouse Advance Directives? Yes: ADV DIR Advance Directives on File No History Provided By Patient,Family Member,Medical Record Has Patient been admitted in last 30 No days? Prior Living Arrangements House Household Members spouse Type of transporation used prior to Drives own vehicle admit Independent with ADL's Yes Is patient alert and oriented? Yes Caregiver for Another No DME Already Rented / Owned Bath Bench,FWW / Walker Patient/Family Preference OP PT Therapy Discharge Plan Home Community Services Oxygen Therapy Transportation Arrangement Spouse Referrals Initiated None needed Review Status In Process Please Provide Date Initial DC 02/13/20 Assessment Was Performed Next Review Type Continued Stay Review
[2020-02-13] MEDS: MORPHINE IR 15 MG TABLET PO ×3 (15:23→23:15)
[2020-02-13] MEDS: TRAZODONE 50 MG TABLET 100 MG PO (19:14)
[2020-02-14] VITALS (11 sets, daily range): BP systolic 111–133; BP diastolic 65–81; PULSE 66–92; RESP 17–20; TEMP 36.5–37.4; O2SAT 92–98
[2020-02-14] MEDS: MORPHINE IR 15 MG TABLET PO ×7 (03:49→23:28)
[2020-02-14] MEDS: methylPREDNISolone 125 MG/2 ML VIAL 60 MG IV ×2 (06:40→18:11)
[2020-02-14] MEDS: BUDESONIDE 90mcg FLEXHALER (60 PUFF/DEVICE) INH ×2 (07:37→18:58)
[2020-02-14] MEDS: ALBUTEROL/IPRATROPIUM 3 ML AMPUL INH ×2 (07:37→18:56)
[2020-02-14] MEDS: TIOTROPIUM BROMIDE 18 MCG INHALER INH (07:37)
[2020-02-14] MEDS: GABAPENTIN 300 MG CAPSULE 900 MG PO ×2 (09:01→20:41)
[2020-02-14] MEDS: ROSUVASTATIN 10 MG TABLET PO (09:01)
[2020-02-14] MEDS: DOCUSATE 100 MG CAPSULE PO ×2 (09:01→20:42)
[2020-02-14] MEDS: OXYCODONE IR 10 MG TABLET PO (09:02)
[2020-02-14] MEDS: DICLOFENAC 50 MG DR TABLET PO ×2 (09:02→20:45)
[2020-02-14] MEDS: ACETAMINOPHEN 325 MG TABLET 975 MG PO (09:02)
[2020-02-14] MEDS: DULOXETINE 30 MG CAPSULE 60 MG PO (09:02)
[2020-02-14] MEDS: guaiFENesin ER 600 MG TAB 1200 MG PO ×2 (09:02→20:42)
[2020-02-14] MEDS: SODIUM CHLORIDE 0.9% FLUSH 10 ML IV ×2 (09:03→20:48)
[2020-02-14] MEDS: ENOXAPARIN 40 MG/0.4 ML SYRINGE SUBCUT (09:11)
[2020-02-14] MEDS: CALCIUM CARBONATE 500 MG TAB 1000 MG PO (09:12)
[2020-02-14] MEDS: carisoprodoL 350 MG TABLET PO (09:12)
[2020-02-14] MEDS: levoFLOXacin 500 MG TABLET PO (10:54)
--- NOTE | 2020-02-14 12:00 | CM.DPC ---
DCP Home planning with Hospice referral SW met bedside with pt during MDR with MD, RN, and RT and pt just completed using her home Trilogy due to ongoing shortness of breath but transitioned to [place] oxygen. Pt making progress and has been able to ambulate in room and PT has recommended safe d/c home with spouse assist. Pt states that she and her talked this morning while he was bedside and MD had discussion with pt bedside regarding Hospice referral towards support with pt's End Stage COPD and chronic pain issues and pt confirms that she and spouse are now agreeable with a Hospice referral for Info Visit to determine if Hospice would be a good fit. did well discussing the supportive services and purpose of Hospice and pt requests referral [facility] for phone Info Visit with spouse involved but requesting for tomorrow as pt feels wiped out today already. PATIENCE discussed with pt and MD that likely Info Visit would happen tomorrow or after d/c and then pt and spouse can decide from their if they want to sign consents for [facility] services and pt and MD agreeable. SW faxed new referral requesting info visit soon if possible to [facility] and left msg. Plan: SW to follow for plan of d/c home tomorrow with pt's routine home oxygen and Trilogy and spouse assist and new [facility] referral for info visit. JASON Huitron
--- NOTE | 2020-02-14 15:36 | P.PN_ITS ---
Subjective Subjective Date Patient Seen: 02/14/20 Time Patient Seen: 08:38 Interval history: Mrs. Velazquez is a 69-year-old female patient with past medical history significant for end-stage COPD with acute exacerbation being treated for pneumonia on outpatient basis and presents to the ER for worsening dyspnea. Overnight and this morning patient complains of increased left lower lobe posterior pain back pain and joint pain, she reports that her shortness of breath has improved and is on 2 L nasal cannula and now off constant pulse oximetry. Had discussion with Ms. lockwood this morning and then consulted with our care team regarding palliative care and hospice consult. Patient stated that she was open to hospice consult at this time. Patient reports that her respiratory status has returned to her baseline normal level of function and that her pain is also at her baseline but is uncontrolled. Patients pain is to low back pain, left lower lobe posterior. Patient denies fever chills nausea or vomiting, patient continues to have low appetite and intake. Patient's IV fluids were stopped yesterday and has continued hydration orally. Patient will likely be ready for discharge tomorrow. This afternoon pt has developed a slight temp increase to 99.4. Exam Vital Signs (past 8 hours): - 02/14/20 07:39 02/14/20 08:00 02/14/20 12:58 Temperature 99.1 F 99.4 F Pulse Rate 67 92 H 85 Respiratory Rate 18 17 19 Blood Pressure 133/70 123/81 Pulse Oximetry 98 93 92 02/14/20 13:00 Temperature Pulse Rate Respiratory Rate Blood Pressure Pulse Oximetry 96 Oxygen Delivery Method Nasal Cannula Oxygen Flow Rate 2 Narrative Exam Narrative: GENERAL APPEARANCE: female, frail appearing, malnourished with mild increased work of breathing on nasal cannula O2. HEENT: Normocephalic, PERRLA,, oral mucosa pink and dry. NECK/THYROID: neck, supple nontender, no JVD, trachea midline. SKIN: Thin, dry, and warm. HEART: Bradycardic rate with regular rhythm, S1-S2, no murmur, no edema LUNGS: Tight, decreased, Scattered inspiratory and bilateral expiratory wheezing, nonproductive cough present CHEST: Symmetrical movement, nontender AP and lateral compression. ABDOMEN: Soft, flat, nontender, no organomegaly, active bowel tones. BACK: Normal curvature, nontender to palpation, no CVA tenderness on percussion EXTREMITIES: moves all extremities, no deformities or joint effusions. NEUROLOGIC: AAO x 3, no focal neurologic deficits. Objective Labs Result Diagrams: 02/12/20 06:01 02/12/20 06:01 Assessment & Plan Assessment & Plan narrative: 1. Acute End-Stage COPD exacerbation acute on admission, chronic -Patient to continue on Levaquin 500 mg q.day x5 days last day 02/15/2020 - on ADMIT- ABGs pCO2 53, HC03 31, total CO2 33, base excess 6.0, CK-MB 3.3, -Continue steroids predisone 40mg daily- last 02/15/20 then return to normal dosage predisone 20mg daily and nebulizer treatments -RT consult and evaluation -patient has improved work of breathing and states approaching baseline. -patient is using trilogy - PT and OT for evaluation completed -patient does have spouse Dominic at home to assist with ADLs. -Pt agreed to Hospice consult. 2. Chronic Low back acute exacerbation on admission -patient's back pain/left side lower lobe pain became uncontrolled last night and today. Patient states that this is her baseline pain level, that wakes and wanes and is poorly controlled on her current medication regimen -stopped oxycodone, started morphine 15 mg short-acting q.2 hours will determine if this is effective pain management may consider changing to 30 mg q.4 hours if needed. Increased fentanyl patch from 75 to 100 mcg q.72 hours, will continue gabapentin, diclofenac, carisoprodol. Added Voltaren gel q.i.d. as needed, and consider lidocaine patch if needed. 3. Tobacco abuse -Encourage smoking cessation -the patient states she is not interested in stopping smoking and smokes only a couple cigarettes a day. 4. Severe chronic protein calorie malnutrition -patient's appetite has improved will continue to monitor INR -dietitian is consulted made food recommendations of smoothies with food likes, the patient patient remains on a regular diet. -patient is taking adequate fluids, IV fluid is discontinued. Reviewed labs imp roved and stable no further labs needed at this time. -BMI 16.9, on prior med BMI was 16.7 -patient reports diminished food intake 2 to difficulty eating related to her severity of dyspnea. 5. New onset low grade Fever:99.4 ordered CXR Patient COVID negative Diet General IV fluids: Saline lock VTE prophylaxis: Enoxaparin Patient is a full code, this is a decision maker is Dominic Peterson VTE Deep Vein Thrombosis/Pulmonary Embolism Present on Admission: No
--- NOTE | 2020-02-14 16:14 | DI.RAD.S_ITS ---
PROCEDURE: XR CHEST 2V INDICATIONS: fever COPD exacerbation TECHNIQUE: 2 views of the chest were acquired. COMPARISON: [facility], CR, XR CHEST 1V, 02/11/2020, 10:17. FINDINGS: Surgical changes and devices: Status post ACDF of the lower cervical spine. No hardware complication Lungs and pleura: Changes of chronic obstructive pulmonary physiology as before. New patchy left basilar airspace opacity. No pneumothorax or pleural effusion. Mediastinum: Mediastinal contours are normal. Heart size is normal. Bones and chest wall: No suspicious bony abnormalities. Soft tissues appear unremarkable. IMPRESSION: 1. Left lower lobe airspace disease/pneumonia. 2. Stable changes of chronic obstructive pulmonary physiology. Recommend follow up chest radiograph 4-6 weeks after treatment to document resolution of findings and/or return to baseline examination. Dictated by: Rojelio Bravo M.D. on 02/14/2020 at 16:03 Approved by: Rojelio Bravo M.D. on 02/14/2020 at 16:04
--- NOTE | 2020-02-14 16:25 | PT-IP ANOTE ---
Pt unavailable. Pt leaving floor for CT scan. Will check back with pt tomorrow.
[2020-02-14] MEDS: ALBUTEROL 2.5 MG/3 ML NEB (ADULT) INH (16:51)
[2020-02-14] MEDS: TRAZODONE 50 MG TABLET 100 MG PO (20:41)
[2020-02-15] MEDS: MORPHINE IR 15 MG TABLET PO ×4 (01:30→11:21)
[2020-02-15] MEDS: methylPREDNISolone 125 MG/2 ML VIAL 60 MG IV (05:04)
[2020-02-15 05:06] VITALS: BP 131/71; PULSE 92; RESP 18; TEMP 37.1; O2SAT 92
[2020-02-15 06:36] LABS: Add Manual Diff / Slide Review NO; Basophils Absolute Auto 0 /uL (0-100); Basophils Percent Auto 0.1 % (0-2); Eosinophils Absolute Auto 0 /uL (0-450); Hematocrit 37.5 % (36-46); Hemoglobin 12.5 g/dL (12.0-16.0); Lymphocytes Absolute Auto 1600 /uL (1100-4500); Lymphocytes Percent Auto 16.5 % (25-40); Mean Corpuscular HGB Conc 33.3 % (30-36); Mean Corpuscular Hemoglobin 33.3 PG (26-34); Mean Corpuscular Volume 99.9 fL (80-100); Monocytes Absolute Auto 500 /uL (0-900); Monocytes Percent Auto 5.2 % (3-14); Neutrophils Absolute Auto 7600 /uL (1500-7000); Neutrophils Percent Auto 78.2 % (50-75); Platelet Count 252 X10^3/uL (150-400); Red Blood Cell Count 3.75 X10^6/uL (4.0-5.2); Red Cell Distribution Width 13.3 % (11.6-14.8); White Blood Cell Count 9.7 X10^3/uL (4.5-11.0)
--- NOTE | 2020-02-15 06:36 | PC.NURSE ---
MS ERYN working well for patient. Desired to skip 0300 dose for sleep reasons, gave 0500 dose. Patient was told to call if she changed her mind and needed the 0300 dose.
[2020-02-15 06:42] LABS: BUN Creatinine Ratio 22.2 (6-22); Blood Urea Nitrogen 14 mg/dL (7-17); Calcium 9.5 mg/dL (8.4-10.2); Carbon Dioxide 35 mmol/L (22-32); Chloride 106 mmol/L (98-107); Estimated Glomerular Filt Rate > 60.0 mL/min (>60); Glucose 96 mg/dL (80-110); HEMOLYSIS < 15 (0-50); Potassium 4.5 mmol/L (3.4-5.1); Sodium 140 mmol/L (137-145)
[2020-02-15] MEDS: ALBUTEROL/IPRATROPIUM 3 ML AMPUL INH (07:41)
[2020-02-15] MEDS: TIOTROPIUM BROMIDE 18 MCG INHALER INH (07:41)
[2020-02-15] MEDS: BUDESONIDE 90mcg FLEXHALER (60 PUFF/DEVICE) INH (07:41)
[2020-02-15 07:46] VITALS: RESP 20; O2SAT 96
[2020-02-15 08:09] VITALS: BP 138/64; PULSE 84; RESP 16; TEMP 36.4; O2SAT 92
--- NOTE | 2020-02-15 09:07 | PM.DS.1 ---
History of Present Illness History of Present Illness Date Patient Seen: 02/15/20 Time Patient Seen: 09:07 Chief complaint: shortness of breath Narrative: As per Jossie Narayanan NP: Patient is Mi Velazquez a 69-year-old female who presented to the emergency room today with cough and shortness of breath with exertion and at rest no fever or chills, that started the night before. Patient presented 1 year ago with pneumonia, patient is a long time smoker, and history of COPD& CHF. Patient reports that her at-home O2 on 2 L and home nebulizer treatments provided no improvement in her symptoms. Patient had a chest x-ray in ER results for COPD with diffuse interstitial prominence, EKG results sinus rhythm rate of [address] elevation or depression. Patient presented on the floor with COPD exacerbation, questionable pneumonia, continued complaints of fever cough sputum shortness of breath at rest. Patient suffers from severe chronic back pain but also has pain with inspiration. In room patient alternates between O2 mask and nasal cannula. Patient notes that her condition is slightly improved from emergency room, that she has been in isolation since May at home and has had a low activity level at home. A consult with Dr. Greer at [facility] will admit patient per ER notes. Discharge Providers Provider Date of admission: 02/11/20 14:47 Discharge Date: 02/15/20 Primary care physician: Azael Hernandez MD Consults: 02/11/20 16:57 Consult to Dietitian, Adult Routine Comment: Reason For Exam: problem swallowing 02/11/20 20:21 Consult to Discharge Planning Routine Comment: 02/13/20 07:37 Consult to Physical Therapy Evaluate & Treat Comment: Discharge evaluation Physician Instructions: Evaluate and Treat 02/13/20 07:40 Consult to Occupational Therapy Evaluate & Treat Comment: ADL at home & d/c evaluation Physician Instructions: Evaluate and treat 02/13/20 07:41 Consult to Dietitian, Adult Urgent Comment: Reason For Exam: under weight Discharge provider: Dominic Chung DO Summary Hospital Course Discharge Diagnosis: 1. Acute End-Stage COPD exacerbation acute on admission, chronic 2. Chronic Low back acute exacerbation on admission 3. Tobacco abuse 4. Severe chronic protein calorie malnutrition 5. Community-acquired pneumonia of the left lower lobe, likely present on admission. Hospital Course: This is a 69-year-old female with a past medical history COPD, tobacco use, chronic back pain who was admitted with a COPD exacerbation likely secondary to a community-acquired pneumonia of her left lower lobe. Patient was treated with both steroids and antibiotics and she improved to her baseline respiratory status. She received 5 days of therapy over the course of her admission and does not require further therapy upon discharge. She also was noted to have some worsening low back pain and her fentanyl patch was increased from 75-100 mcg every 72 hours and she was also started on long and short acting morphine with improved pain control. Do recommend outpatient follow-up with palliative Care for continued pain management and highly encouraged her to stop smoking as well. Time Spent with Patient Time spent: Greater than 30 minutes Exam Vital Signs (past 8 hours): - 02/15/20 05:06 02/15/20 07:46 02/15/20 08:09 Temperature 98.8 F 97.6 F Pulse Rate 92 H 84 Respiratory Rate 18 20 16 Blood Pressure 131/71 138/64 Pulse Oximetry 92 96 92 Oxygen Delivery Method Nasal Cannula Oxygen Flow Rate 3 Narrative Exam Narrative: GENERAL APPEARANCE: female, frail appearing, malnourished. Comfortable appearing on nasal cannula O2. HEENT: Normocephalic, PERRLA,, oral mucosa pink and dry. NECK/THYROID: neck, supple nontender, no JVD, trachea midline. SKIN: Thin, dry, and warm. HEART: Bradycardic rate with regular rhythm, S1-S2, no murmur, no edema LUNGS: Tight, decreased, Scattered inspiratory and bilateral expiratory wheezing, nonproductive cough present CHEST: Symmetrical movement, nontender AP and lateral compression. ABDOMEN: Soft, flat, nontender, no organomegaly, active bowel tones. BACK: Normal curvature, nontender to palpation, no CVA tenderness on percussion EXTREMITIES: moves all extremities, no deformities or joint effusions. NEUROLOGIC: AAO x 3, no focal neurologic deficits. Objective Labs Result Diagrams: 02/15/20 06:00 02/15/20 06:00 Labs: Laboratory Results - last 24 hr 02/15/20 02/15/20 06:00 06:00 WBC 9.7 RBC 3.75 L Hgb 12.5 Hct 37.5 MCV 99.9 MCH 33.3 MCHC 33.3 RDW 13.3 Plt Count 252 Neut % (Auto) 78.2 H Lymph % (Auto) 16.5 L [place] % (Auto) 5.2 Eos % (Auto) 0.0 L Baso % (Auto) 0.1 Neut # (Auto) 7600 H Lymph # (Auto) 1600 [place] # (Auto) 500 Eos # (Auto) 0 Baso # (Auto) 0 Sodium 140 Potassium 4.5 Chloride 106 Carbon Dioxide 35 H BUN 14 Creatinine 0.63 Estimated GFR > 60.0 BUN/Creatinine Ratio 22.2 H Glucose 96 Calcium 9.5 Discharge Plan Discharge Plan Patient Disposition: Home Provider Discharge Comment: You were admitted to the hospital with a COPD exacerbation. Your pain was uncontrolled and you're being discharged on higher levels of pain medications. Please follow up with your PMD within a week for continuance of these medications. I also recommend a palliative care consultation for continued management of your pain. Discharge orders & Medications Prescriptions: New acetaminophen 325 mg Tablet 975 mg PO Q8H PRN (Reason: Fever/Mild Pain (1-3)) 30 Days Qty: 120 RF: 0 morphine 30 mg Tablet Extended Release 30 mg PO BID 7 Days Qty: 14 RF: 0 fentanyl 100 mcg/hr Patch 72 Hour 100 mcg topical Q72H 7 Days Qty: 3 RF: 0 docusate sodium [DOK] 100 mg Capsule 100 mg PO BID 14 Days Qty: 28 RF: 0 morphine 15 mg Tablet 15 mg PO Q6HR PRN (Reason: breakthrough pain) 7 Days Qty: 20 RF: 0 sennosides [senna] 8.6 mg Tablet 17.2 mg PO BEDTIME PRN (Reason: Constipation) 30 Days Qty: 60 RF: 0 Continued albuterol sulfate [Ventolin HFA] 90 MCG/PUFF HFA aerosol inhaler 2 puff INH Q4H PRN (Reason: Shortness Of Breath) Qty: 0 RF: 0 budesonide-formoterol [Symbicort] 160 MCG/4.5 MCG HFA aerosol inhaler 2 puff INH BID Qty: 0 RF: 0 albuterol sulfate 2.5 mg /3 mL (0.083 %) Solution For Nebulization 2.5 mg INHALATION TID RF: 0 calcium carbonate [Calcium 500] 500 mg calcium (1,250 mg) Tablet 1,000 mg PO DAILY RF: 0 tiotropium bromide 18 mcg Capsule, W/Inhalation Device 1 cap INHALATION DAILY RF: 0 rosuvastatin [Crestor] 10 mg Tablet 10 mg PO DAILY RF: 0 prednisone 20 mg tablet 20 mg PO DAILY RF: 0 Bevespi Aerosphere 9-4.8 mcg Hfa Aerosol Inhaler 2 puff INHALATION BID RF: 0 trazodone 50 mg tablet 100 mg PO BEDTIME RF: 0 duloxetine 60 mg capsule,delayed release(DR/EC) 60 mg PO DAILY RF: 0 gabapentin [Neurontin] 300 mg capsule 900 mg PO BID RF: 0 diclofenac sodium 50 mg tablet,delayed release (DR/EC) 50 mg PO BID RF: 0 cholecalciferol (vitamin D3) [Vitamin D3] 1,000 unit Capsule 1,000 unit PO DAILY RF: 0 carisoprodol 350 mg tablet 350 mg PO DAILY PRN (Reason: Spasms) RF: 0 guaifenesin [Mucus Relief ER] 600 mg Tablet Extended Release 12hr 1,200 mg PO BID Qty: 60 RF: 0 Discontinued fentanyl 50 mcg/hr patch 72 hour 75 mcg Topical Q72H RF: 0 levofloxacin 500 mg Tablet 500 mg PO DAILY RF: 0 oxycodone-acetaminophen 10-325 mg tablet 1 tab PO Q6H PRN (Reason: pain) RF: 0 Follow up/Referrals: Azael Hernandez MD [Primary Care Provider] - Diet/Activity/Treatments Diet: Diet as Tolerated Activity: As tolerated Visit Report/Discharge Packet Instructions: Chronic Obstructive Pulmonary Disease Visit Report Forms: Patient Portal/API, Stroke Signs & Symptoms Discharge Data Primary Care Provider: Azael Hernandez V Discharges patient from system. Discharge Date/Time: 02/15/20 11:15 Quality VTE Deep Vein Thrombosis/Pulmonary Embolism Present on Admission: No
[2020-02-15] MEDS: CALCIUM CARBONATE 500 MG TAB 1000 MG PO (09:22)
[2020-02-15] MEDS: DOCUSATE 100 MG CAPSULE PO (09:25)
[2020-02-15] MEDS: ENOXAPARIN 40 MG/0.4 ML SYRINGE SUBCUT (09:26)
[2020-02-15] MEDS: DULOXETINE 30 MG CAPSULE 60 MG PO (09:26)
[2020-02-15] MEDS: GABAPENTIN 300 MG CAPSULE 900 MG PO (09:26)
[2020-02-15] MEDS: MORPHINE ER 30 MG TABLET PO (09:27)
[2020-02-15] MEDS: DICLOFENAC 1% GEL 100 GM 1 APPLIC TOP (09:27)
[2020-02-15] MEDS: guaiFENesin ER 600 MG TAB 1200 MG PO (09:27)
[2020-02-15] MEDS: SODIUM CHLORIDE 0.9% FLUSH 10 ML IV (09:29)
[2020-02-15] MEDS: DICLOFENAC 50 MG DR TABLET PO (09:29)
[2020-02-15] MEDS: ROSUVASTATIN 10 MG TABLET PO (09:35)
--- NOTE | 2020-02-15 10:51 | CM.DPC ---
DCP continued: Reviewed chart. Spoke with provider whom indicates patient okay to d/c home today. Hospice referral has been initiated. BRACER placed call to hospice to inform them of d/c. D/C summary faxed. P: Home today. Patient following up as outpatient. JASON Maddox
--- NOTE | 2020-02-15 11:29 | PC.NURSE ---
Patient a/o x 4, c/o SOB when Trilogy or NC@ 2 L is off, c/o pain in ribs and lower back. Patient positions independently, medication passed. Patient ambulating independently. Refuses SCD's. Patient given discharge instructions. Verbalized understanding to follow up with PCP in one week. Hospice information given. Patient discharged via wheelchair with assist.
[2020-03-29 14:04] LABS: Fractionated Inspired Oxygen 32
== END 2020-02-15 11:15 | disposition home or self-care (01) | DRG 190 ==
LOC: ED 14:33 → AC 15:03
PROVIDERS: Nurse Practitioner Adult Health; Nurse Practitioner Family; Admitting Provider Internal Medicine; Emergency Provider Emergency Medicine; PCP Internal Medicine; Referring Provider Emergency Medicine; Visit Provider Internal Medicine
DX: J44.1 Chronic obstructive pulmonary disease with (acute) exacerbation (principal); J96.21 Acute and chronic respiratory failure with hypoxia; J18.9 Pneumonia, unspecified organism; E46 Unspecified protein-calorie malnutrition; Z68.1 Body mass index [BMI] 19.9 or less, adult; Z99.81 Dependence on supplemental oxygen; G89.29 Other chronic pain; F17.210 Nicotine dependence, cigarettes, uncomplicated; Z11.59 Encounter for screening for other viral diseases
CPT/HCPCS: 36415; 36600; 71045; 71046; 80048; 80053; 82550; 82553; 82805; 83735; 83880; 84145; 84484; 85025; 85610; 85730; 87040; 87633; 87635; 93005; 94640; 94760; 94762; 96361; 96374; 96375; 96376; 97161; 97165; 97535; 99285; A9270; J1650; J1885; J2270; J2405; J2930; J7613

== ENCOUNTER 2020-02-17 03:19 | Inpatient (IN) | payer MEDICARE, OTHER, SELFPAY ==
[2019-02-26 23:55] VITALS: PULSE 83; RESP 15; O2SAT 91
[2020-02-11 16:52] VITALS: BMI 15.7
[2020-02-17] VITALS (36 sets, daily range): BP systolic 73–188; BP diastolic 46–96; PULSE 62–153; RESP 13–20; TEMP 36.2–37.4; O2SAT 86–100; BMI 15.7
--- NOTE | 2020-02-17 | PATH_ITS ---
[facility] Accession Number: [id number] . 01 Material submitted: . colon - RIGHT COLON . 01 Clinical history: . CONSTIPATION, ABD PAIN . 02 Diagnosis: Right Colon, Resection: Acute ischemia with patchy transmural necrosis. Proximal margin with marked ischemia-type changes. Distal margin with patchy ischemia-type changes. No evidence of vasculitis or malignancy. MRV 02/22/2020 1401 Local . 02 Electronically signed: . Gabi Crawford MD, Pathologist NPI- [id number] . 01 Gross description: . Received in formalin, labeled right colon, and consists of a 10.0 cm in length by 3.0 cm in circumference portion of terminal ileum with attached cecum and right colon measuring 39 cm in length by up to 12.0 cm in diameter. The serosa is purple-naylor to betancourt-green with adherent purulent exudate and fibrinous adhesions. The proximal and distal margins are stapled. No appendix is identified. Opening reveals a red to red-brown mucosa within the terminal ileum and a betancourt-green, focally granular and predominantly flattened mucosa within the colon. The wall thickness ranges from 0.1-0.2 cm. No lymph nodes are identified within the attached adipose tissue. Hospice Manager sections are submitted. . A1 - proximal margin, hospital sales representative perpendicular sections. A2 - distal margin, hospital sales representative perpendicular sections. A3 - ileocecal valve. A4 - hospital sales representative cecum and right colon. ([id number]) /MRV 02/18/2020 1508 Local . 02 Pathologist provided ICD-10: K56.2 . 02 CPT . 028612 Performed at: [address], [place], [place] [id number] MD Lanre Walton MD Phone: [phone] Performed at: 02 [facility] [id number] [place] [id number] MD Gabi Crawford MD Phone: [phone]
--- NOTE | 2020-02-17 03:27 | DI.RAD.S_ITS ---
PROCEDURE: XR ABDOMEN 1V INDICATIONS: acute abdominal pain TECHNIQUE: One view of the abdomen acquired. COMPARISON: [facility], CT, CT ABDOMEN PELVIS W CON, 10/30/2018, 18:18. FINDINGS: Surgical changes and devices: Lumbosacral spine fixation hardware Bowel: Gaseous distension of the right colon to 10.6 centimeters. Large amount of stool noted in the left colon. Soft tissues: No suspicious abdominal calcifications. Visualized solid organ contours appear normal in size. Bones: No suspicious bony lesions. IMPRESSION: Dilated right colon concerning for bowel obstruction. Dictated by: Tran Briones MD, PhD on 02/17/2020 at 8:55 Approved by: Tran Briones MD, PhD on 02/17/2020 at 8:56
--- NOTE | 2020-02-17 03:28 | ED_ITS ---
HPI - Abdominal Pain General Chief Complaint: Abdominal Pain Stated Complaint: Constipation / abd pain Time Seen by Provider: 02/17/20 03:20 History of Present Illness HPI narrative: 69-year-old woman with a history of tobacco abuse and end-stage COPD with chronic oxygen and steroid use, severe chronic back pain on long-term opioid management, and hyperlipidemia, recently discharged from the hospital on February 14 with community-acquired pneumonia (5 day course of antibiotics completed) and severe COPD exacerbation. She presents with increasing abdominal pain that started this morning. She notes that her last bowel movement was 2-3 days ago. Discharge summary notes indicate that both long and short-acting morphine were added to her chronic fentanyl patch pain regimen for her chronic back pain. She feels that she is constipated. Pain became so severe by the middle of the night that she called medics for help with transportation to the emergency department. She denies fevers but reports chills and the did have a single episode of rust-colored sputum production EN route to the emergency room this evening. She has not had a productive cough since discharge from the spital. She describes no dysuria, her dyspnea is at baseline, no chest pain. She describes severe diffuse abdominal pain worse in the lower quadrants. She reports that she has never had the bowel obstruction but has had an appendectomy in the past. Related Data Home Medications Medication Instructions Recorded Confirmed albuterol sulfate [Ventolin HFA] 2 puff INH Q4H PRN #0 07/22/17 02/11/20 budesonide-formoterol [Symbicort] 2 puff INH BID #0 07/22/17 02/11/20 albuterol sulfate 2.5 mg INHALATION TID 03/13/18 02/11/20 calcium carbonate [Calcium 500] 1,000 mg PO DAILY 03/13/18 02/11/20 tiotropium bromide 1 cap INHALATION DAILY 03/13/18 02/11/20 carisoprodol 350 mg PO DAILY PRN 02/23/19 02/11/20 cholecalciferol (vitamin D3) 1,000 unit PO DAILY 02/23/19 02/11/20 [Vitamin D3] diclofenac sodium 50 mg PO BID 02/23/19 02/11/20 duloxetine 60 mg PO DAILY 02/23/19 02/11/20 gabapentin [Neurontin] 900 mg PO BID 02/23/19 02/11/20 trazodone 100 mg PO BEDTIME 02/23/19 02/11/20 Bevespi Aerosphere 2 puff INHALATION BID 02/11/20 02/11/20 prednisone 20 mg PO DAILY 02/11/20 02/11/20 rosuvastatin [Crestor] 10 mg PO DAILY 02/11/20 02/11/20 Previous Rx's Medication Instructions Recorded guaifenesin [Mucus Relief ER] 1,200 mg PO BID #60 tab 02/27/19 acetaminophen 975 mg PO Q8H PRN 30 Days #120 tab 02/15/20 docusate sodium [DOK] 100 mg PO BID 14 Days #28 cap 02/15/20 fentanyl 100 mcg TOPICAL Q72H 7 Days #3 each 02/15/20 morphine 15 mg PO Q6HR PRN 7 Days #20 tab 02/15/20 morphine 30 mg PO BID 7 Days #14 tab 02/15/20 sennosides [senna] 17.2 mg PO BEDTIME PRN 30 Days #60 02/15/20 tab Allergies Allergy/AdvReac Type Severity Reaction Status Date / Time nickel Allergy Severe Rash, Verified 02/11/20 09:51 infections codeine Allergy Mild Itching Verified 02/11/20 09:51 nabumetone Allergy Pt does Verified 02/11/20 09:51 not remember reaction alendronate sodium AdvReac Severe Nausea Verified 02/11/20 09:51 amoxicillin [From AUGMENTIN] AdvReac Mild VOMITING Verified 02/11/20 09:51 cephalexin [CEPHALEXIN] AdvReac Mild VOMITING Verified 02/11/20 09:51 clavulanic acid AdvReac Mild VOMITING Verified 02/11/20 09:51 [From AUGMENTIN] sulfamethoxazole AdvReac Mild nausea Verified 02/11/20 09:51 [From SEPTRA] trimethoprim [From SEPTRA] AdvReac Mild nausea Verified 02/11/20 09:51 Review of Systems Review of Systems Narrative: Remainder of review of systems including constitutional, ENT, cardiovascular, respiratory, GI, , musculoskeletal, skin, neurologic and psychiatric systems reviewed and are unremarkable except as noted in HPI. Patient History Medical History BCC (basal cell carcinoma) (Acute ~2000) Benign neoplasm of clitoris (Acute ~03/23/16) Chronic pain (Acute) Compression fracture of T8 vertebra (Acute ~2011) COPD (chronic obstructive pulmonary disease) (Acute) History of pneumonia (Acute) Osteoarthritis (Acute) Osteomyelitis of jaw (Acute 03/13/18) Osteoporosis (Acute) Requires supplemental oxygen (Acute) Thyroid nodule (Acute) Surgical History History of lumbar surgery (Acute ~1989) Hx of appendectomy (Acute) Hx of fusion of cervical spine (Acute) Hx of hand surgery (Acute) Status post tonsillectomy and adenoidectomy Status post vaginal hysterectomy Family History Mother Cancer of kidney Cancer of bladder Father Congestive heart failure Sister Hypertension Social History household members: spouse Smoking Status: Current every day smoker alcohol intake: former Smoking Status: Current every day smoker Substance Use Type: does not use Exam Narrative Exam Narrative: General: Frail, cachectic woman with significant abdominal pain HEENT: Moist mucous membranes, normal sclera with reactive pupils, Neck: supple Respiratory: Lungs with mild scattered wheezing no rhonchi. Full and symmetrical air movement Cardiac: Regular rate and rhythm no murmurs no bruits Abdomen: Distended, firm, significantly tender without rebound or guarding, no flank pain Skin: Warm and dry, no rashes Neurologic: Grossly neurologically intact with no obvious asymmetries or abnormalities Extremities: No trauma, well perfused, no lower extremity edema Psych: Cooperative, appropriate insight and affect Initial Vital Signs Initial Vital Signs: Vital Signs Pulse Rate 76 02/17/20 03:27 Pulse Oximetry 88 L 02/17/20 03:27 Course Orders Ordered: ED Orders 02/17/20 03:27 XR abdomen 1V Stat Urinalysis and Microscopic Stat 02/17/20 03:33 Complete Blood Count AUTO DIFF Stat Comprehensive Metabolic Panel Stat Lipase Stat Magnesium Stat 02/17/20 03:55 Blood Culture Stat Lactate (Lactic Acid) Stat 02/17/20 03:57 CT abdomen pelvis w con Stat 02/17/20 04:08 COVID19 Stat Ceftriaxone Sodium/Dextrose (Rocephin) 1 gm in 50 mls @ 100 mls/hr IV NOW ONE Stop: 02/17/20 05:28 Last Admin: 02/17/20 05:11 Dose: 100 mls/hr Documented by: Metronidazole (Flagyl) 500 mg in 100 mls @ 100 mls/hr IV NOW ONE Stop: 02/17/20 05:57 Discontinued Medications Hydromorphone HCl (Dilaudid) 1 mg IV NOW ONE Stop: 02/17/20 03:27 Last Admin: 02/17/20 03:40 Dose: 1 mg Documented by: DAMIAN Hydromorphone HCl (Dilaudid) 1 mg IV NOW ONE Stop: 02/17/20 03:58 Last Admin: 02/17/20 04:12 Dose: 1 mg Documented by: SHAHRZAD Sodium Chloride (Normal Saline 0.9%) 1,000 mls @ 1,000 mls/hr IV BOLUS ONE Stop: 02/17/20 04:25 Last Admin: 02/17/20 03:40 Dose: 1,000 mls/hr Documented by: DAMIAN Ondansetron HCl (Zofran) 4 mg IV NOW ONE Stop: 02/17/20 03:27 Last Admin: 02/17/20 03:40 Dose: 4 mg Documented by: DAMIAN Ondansetron HCl (Zofran) 4 mg IV NOW ONE Stop: 02/17/20 04:22 Last Admin: 02/17/20 04:35 Dose: 4 mg Documented by: SHAHRZAD Vital Signs Vital signs: Vital Signs - 8 hr 02/17/20 03:27 02/17/20 03:29 02/17/20 03:30 Temperature Pulse Rate 76 79 76 Respiratory Rate Blood Pressure 175/81 H 188/75 H Pulse Oximetry 88 L 88 L 89 L 02/17/20 03:36 02/17/20 04:00 02/17/20 04:25 Temperature 97.2 F L Pulse Rate 80 81 110 H Respiratory Rate 20 Blood Pressure 188/75 H 159/68 H Pulse Oximetry 92 92 86 L 02/17/20 04:30 02/17/20 05:00 Temperature Pulse Rate 101 H 92 H Respiratory Rate Blood Pressure 152/69 H 162/96 H Pulse Oximetry 89 L 98 MDM - Abdominal Pain Medical Records Attestation: I reviewed the patient's medical records. Lab Data Attestation: I reviewed the patient's lab results. Result diagrams: 02/17/20 03:33 02/17/20 03:33 Labs: Lab Results 02/17/20 02/17/20 02/17/20 Range/Units 03:33 03:33 03:55 WBC 23.4 H D (4.5-11.0) X10^3/uL RBC 4.54 (4.0-5.2) X10^6/uL Hgb 15.1 (12.0-16.0) g/dL Hct 45.5 (36-46) % MCV 100.1 H (80-100) fL MCH 33.3 (26-34) PG MCHC 33.3 (30-36) % RDW 13.1 (11.6-14.8) % Plt Count 319 (150-400) X10^3/uL Neut % (Auto) 82.9 H (50-75) % Lymph % (Auto) 11.1 L (25-40) % [place] % (Auto) 4.2 (3-14) % Eos % (Auto) 1.4 L (2-4) % Baso % (Auto) 0.4 (0-2) % Neut # (Auto) 79479 H (4765-5620) /uL Lymph # (Auto) 2600 (8778-9757) /uL [place] # (Auto) 1000 H (0-900) /uL Eos # (Auto) 300 (0-450) /uL Baso # (Auto) 100 (0-100) /uL Sodium 136 L (137-145) mmol/L Potassium 4.4 (3.4-5.1) mmol/L Chloride 93 L (98-107) mmol/L Carbon Dioxide 37 H (22-32) mmol/L BUN 16 (7-17) mg/dL Creatinine 0.59 (0.52-1.04) mg/dL Estimated GFR > 60.0 (>60) mL/min BUN/Creatinine Ratio 27.1 H (6-22) Glucose 169 H (80-110) mg/dL Lactate 1.5 (0.7-2.1) mmol/L Calcium 10.1 (8.4-10.2) mg/dL Magnesium 1.7 (1.6-2.3) mg/dL Total Bilirubin 0.7 (0.2-1.3) mg/dL AST 35 (14-36) IU/L ALT 37 H (<35) IU/L Alkaline Phosphatase 83 (38-126) U/L Total Protein 7.8 (6.3-8.2) g/dL Albumin 4.8 (3.5-5.0) g/dL Globulin 3.0 (1.7-4.1) g/dL Albumin/Globulin Ratio 1.6 (1.0-2.8) Lipase 32 (23-300) U/L COVID-19 PCR (Negative) 02/17/20 Range/Units 04:08 WBC (4.5-11.0) X10^3/uL RBC (4.0-5.2) X10^6/uL Hgb (12.0-16.0) g/dL Hct (36-46) % MCV (80-100) fL MCH (26-34) PG MCHC (30-36) % RDW (11.6-14.8) % Plt Count (150-400) X10^3/uL Neut % (Auto) (50-75) % Lymph % (Auto) (25-40) % [place] % (Auto) (3-14) % Eos % (Auto) (2-4) % Baso % (Auto) (0-2) % Neut # (Auto) (7226-3158) /uL Lymph # (Auto) (3393-9777) /uL [place] # (Auto) (0-900) /uL Eos # (Auto) (0-450) /uL Baso # (Auto) (0-100) /uL Sodium (137-145) mmol/L Potassium (3.4-5.1) mmol/L Chloride (98-107) mmol/L Carbon Dioxide (22-32) mmol/L BUN (7-17) mg/dL Creatinine (0.52-1.04) mg/dL Estimated GFR (>60) mL/min BUN/Creatinine Ratio (6-22) Glucose (80-110) mg/dL Lactate (0.7-2.1) mmol/L Calcium (8.4-10.2) mg/dL Magnesium (1.6-2.3) mg/dL Total Bilirubin (0.2-1.3) mg/dL AST (14-36) IU/L ALT (<35) IU/L Alkaline Phosphatase (38-126) U/L Total Protein (6.3-8.2) g/dL Albumin (3.5-5.0) g/dL Globulin (1.7-4.1) g/dL Albumin/Globulin Ratio (1.0-2.8) Lipase (23-300) U/L COVID-19 PCR Negative (Negative) Imaging Data Abdominal x-ray: Radiologist's Impression: Marked gaseous distention of the colon measuring up to 10.9 cm at the hepatic flexure. Findings may be related to bowel obstruction or ileus consider CT for further evaluation Dr Jacqueline Armstrong [facility] Narrative Medical decision making narrative: 69-year-old woman with severe COPD and recent hospitalization for pneumonia had been appropriately treated with increase in her chronic narcotic use for severe back pain. Her last bowel movement was 3 days ago in this morning she began developing increasing abdominal pain she presumed it was secondary to constipation. On arrival in the ER she significantly distended tympanitic and in obvious pain. X-ray suggested possibi lity of a volume the volvulus and CT scan confirms that. Unclear on the CT scan whether this is a sigmoid or a cecal volvulus. Pain is adequately controlled at this point. Surgery, Dr. Patel, has been contacted and she will be in to see the patient and anticipates OR intervention early this morning. After surgery patient will need to be admitted by the hospitalist service for management of he r chronic COPD postoperatively with surgery continuing to consult. Time there is no evidence of sepsis to despite a significant leukocytosis. Have reviewed findings with [facility] hospitalist. Antibiotics in the form of ceftriaxone and Levaquin have been initiated. Patient will be safe to go to the operating room. She is COVID negative today Discharge Plan Departure Patient Disposition: Admitted As Inpatient Clinical Impression: Colonic volvulus COPD (chronic obstructive pulmonary disease) Qualifiers: COPD type: unspecified COPD Qualified Code(s): J44.9 - Chronic obstructive pulmonary disease, unspecified Referrals: Azael Hernandez MD [Primary Care Provider] -
[2020-02-17] MEDS: HYDROMORPHONE 1 MG INJ IV ×4 (03:40→06:05)
[2020-02-17] MEDS: ONDANSETRON 4 MG/2 ML INJ IV ×2 (03:40→04:35)
[2020-02-17] MEDS: SODIUM CHLORIDE 0.9% 1,000 ML 1000 ML IV ×3 (03:40→14:05)
[2020-02-17 03:47] LABS: Add Manual Diff / Slide Review NO; Basophils Absolute Auto 100 /uL (0-100); Basophils Percent Auto 0.4 % (0-2); Eosinophils Absolute Auto 300 /uL (0-450); Eosinophils Percent Auto 1.4 % (2-4); Hematocrit 45.5 % (36-46); Hemoglobin 15.1 g/dL (12.0-16.0); Lymphocytes Absolute Auto 2600 /uL (1100-4500); Lymphocytes Percent Auto 11.1 % (25-40); Mean Corpuscular HGB Conc 33.3 % (30-36); Mean Corpuscular Hemoglobin 33.3 PG (26-34); Mean Corpuscular Volume 100.1 fL (80-100); Monocytes Absolute Auto 1000 /uL (0-900); Monocytes Percent Auto 4.2 % (3-14); Neutrophils Absolute Auto 19400 /uL (1500-7000); Neutrophils Percent Auto 82.9 % (50-75); Platelet Count 319 X10^3/uL (150-400); Red Blood Cell Count 4.54 X10^6/uL (4.0-5.2); Red Cell Distribution Width 13.1 % (11.6-14.8); White Blood Cell Count 23.4 X10^3/uL (4.5-11.0)
[2020-02-17 03:56] LABS: Alanine Aminotransferase 37 IU/L (<35); Albumin 4.8 g/dL (3.5-5.0); Albumin Globulin Ratio 1.6 (1.0-2.8); Alkaline Phosphatase 83 U/L (38-126); Aspartate Aminotransferase 35 IU/L (14-36); BUN Creatinine Ratio 27.1 (6-22); Bilirubin Total 0.7 mg/dL (0.2-1.3); Blood Urea Nitrogen 16 mg/dL (7-17); Calcium 10.1 mg/dL (8.4-10.2); Chloride 93 mmol/L (98-107); Estimated Glomerular Filt Rate > 60.0 mL/min (>60); Glucose 169 mg/dL (80-110); HEMOLYSIS 31 (0-50); Lipase 32 U/L (23-300); Magnesium 1.7 mg/dL (1.6-2.3); Potassium 4.4 mmol/L (3.4-5.1); Sodium 136 mmol/L (137-145); Total Protein 7.8 g/dL (6.3-8.2)
--- NOTE | 2020-02-17 03:57 | DI.CT.S_ITS ---
PROCEDURE: CT ABDOMEN PELVIS W CON INDICATIONS: bowel obstruction TECHNIQUE: After the administration of intravenous contrast, 5 mm thick sections acquired from the diaphragm to the symphysis. 5 mm coronal and sagittal reformats were acquired. For radiation dose reduction, the following was used: automated exposure control, adjustment of mA and/or kV according to patient size. COMPARISON: [facility], CT, CT CHEST W CON, 02/06/2019, 9:15. [facility], CR, XR ABDOMEN 1V, 02/17/2020, 3:48. [facility], CT, CT ABDOMEN PELVIS W CON, 10/30/2018, 18:18. [facility], CT, CT ABDOMEN PELVIS W CON, 09/27/2017, 11:17. FINDINGS: Image quality: Excellent. ABDOMEN: Lung bases: Lung bases are clear. Heart size is normal. Solid organs: Liver is normal in size and enhancement. Gallbladder is normal . Biliary system is non dilated. Pancreas enhances normally. Spleen is normal in size and enhancement. No adrenal nodules. Kidneys demonstrate normal size and enhancement, without hydronephrosis. Peritoneum and bowel: Bowel loops demonstrate normal wall thickness but the colon demonstrates prominently increased caliber measuring up to almost 10 cm at the mid abdomen level on the right. Moderate colonic obstipation is present. The distal small bowel appears mildly dilated at the right lower quadrant No free air. There is mild free fluid deep within the cul sac. Nodes and vessels: No retroperitoneal or mesenteric adenopathy by size criteria. Aorta and inferior vena cava are normal in size. Miscellaneous: No ventral hernias. PELVIS: Genitourinary: Bladder wall thickness is normal. Miscellaneous: No inguinal hernias or adenopathy. Bones: No suspicious bony lesions. No vertebral body compression fractures. IMPRESSION: Colonic dilatation is prominent, pneumatosis or free air is not seen. Colonic obstipation is present. Chronic colonic dilatation may explain this appearance. A definite sigmoid or cecal volvulus is not found. Surgical consultation is anticipated. This pattern of colonic dilatation was not present during CT scanning 10/30/18. Dictated by: Manny Larsen M.D. on 02/17/2020 at 10:10 Approved by: Manny Larsen M.D. on 02/17/2020 at 10:15
[2020-02-17 04:05] LABS: Carbon Dioxide 37 mmol/L (22-32)
[2020-02-17 04:24] LABS: Lactate (Lactic Acid) 1.5 mmol/L (0.7-2.1)
[2020-02-17 04:36] LABS: COVID19 -Nasal RAPID Negative (Negative)
[2020-02-17] MEDS: CEFTRIAXONE 1 GM/50 ML FROZ.PIGGY IV (05:11)
[2020-02-17 05:27] LABS: Bacteria Urine None Seen; RBC Urine None Seen (0-5/HPF)
[2020-02-17 05:28] LABS: Appearance Urine UA CLEAR; Bilirubin Urine UA NEGATIVE (NEGATIVE); Color Urine UA YELLOW; Glucose Urine UA NEGATIVE (Negative); Ketones Urine UA NEGATIVE (NEGATIVE); Leukocyte Esterase Urine UA NEGATIVE (NEGATIVE); Nitrite Urine UA NEGATIVE (Negative); Occult Blood Urine UA TRACE-LYSED (Negative); Protein Urine UA NEGATIVE (Negative); Urobilinogen Urine UA 0.2 E.U./dL (0.2)
[2020-02-17 05:30] LABS: pH Urine UA 5.5 (4.5-8.0)
[2020-02-17] MEDS: metroNIDAZOLE 500 MG/100 ML PIGGYBACK 100 MG IV ×3 (05:37→21:43)
[2020-02-17] MEDS: LACTATED RINGERS 1,000 ML 84 ML IV (06:00)
--- NOTE | 2020-02-17 06:07 | PM.HP.1 ---
History of Present Illness History of Present Illness Date Patient Seen: 02/17/20 Time Patient Seen: 06:07 Chief complaint: Constipation / abd pain Narrative: This is a 6-year-old woman with history of tobacco use, end-stage COPD, chronic oxygen steroid use, severe backed pain on chronic opioids who was recently discharged from the hospital for pneumonia and COPD exacerbation. Yesterday she began having significant abdominal pain, and noticed her abdomen was severely bloated. Her pain has worsened, and she is actively vomiting. She came into the ER during the night because of the symptoms. She had a CT scan in the ER which shows a very dilated colon which appears to be a volvulus. Her white count is 23, which may be owing to her recent pneumonia, or more likely with what is going on in her abdomen. Her last bowel movement was 2-3 days ago. She is verbalizing extreme abdominal pain, obstipation, nausea, and vomiting. ROS: Chronic back pain, chronic smoker, last bowel movement 2 3 days ago, on chronic opioids. She denies fevers but reports chills and the did have a single episode of rust-colored sputum production EN route to the emergency room this evening. She has not had a productive cough since discharge from the hospital. She describes no dysuria, her dyspnea is at baseline, no chest pain. She describes severe diffuse abdominal pain worse in the lower quadrants. She reports that she has never had the bowel obstruction but has had an appendectomy in the past. Thirteen system review is otherwise negative other than as mentioned below and in HPI. PE: GENERAL: Cachectic woman lying on her left side, actively vomiting, clearly in significant distress HENT: Normocephalic, atraumatic. Hearing intact. EYES: Conjunctiva pink, sclera white, no periorbital swelling. CARDIOVASCULAR: Regular rate. No pedal edema. RESPIRATORY: Non-tachypneic, breathing comfortably on room air. GASTROINTESTINAL: Severely distended, exquisitely tender, tympanic, well-healed right lower quadrant incisional scar GENITALURINARY: No flank tenderness. MUSCULOSKELETAL: Thin, cachectic appearing, equal tone and mass bilaterally. SKIN: Warm, dry, soft, appropriate color for ethnicity. No other lesions, rashes, or wounds. NEURO: Alert and Oriented X 3. No gross sensory deficits, or cognitive issues. PSYCH: Tearful, actively vomiting, clearly in distress Patient History Medical History BCC (basal cell carcinoma) (Acute ~2000) Benign neoplasm of clitoris (Acute ~03/23/16) Chronic pain (Acute) Compression fracture of T8 vertebra (Acute ~2011) COPD (chronic obstructive pulmonary disease) (Acute) History of pneumonia (Acute) Osteoarthritis (Acute) Osteomyelitis of jaw (Acute 03/13/18) Osteoporosis (Acute) Requires supplemental oxygen (Acute) Thyroid nodule (Acute) Surgical History History of lumbar surgery (Acute ~1989) Hx of appendectomy (Acute) Hx of fusion of cervical spine (Acute) Hx of hand surgery (Acute) Status post tonsillectomy and adenoidectomy Status post vaginal hysterectomy Family & Social History Family History Mother Cancer of kidney Cancer of bladder Father Congestive heart failure Sister Hypertension Social History: household members spouse Safety & Behavioral: Feels Safe in Current Yes Environment Tobacco & Substance use: Tobacco type cigarettes Smoking Status Current every day smoker alcohol intake former Substance Use Type does not use Meds Home Medications and Allergies Home Medications Medication Instructions Recorded Confirmed Type albuterol sulfate [Ventolin HFA] 2 puff INH Q4H PRN #0 07/22/17 02/11/20 History budesonide-formoterol [Symbicort] 2 puff INH BID #0 07/22/17 02/11/20 History albuterol sulfate 2.5 mg INHALATION TID 03/13/18 02/11/20 History calcium carbonate [Calcium 500] 1,000 mg PO DAILY 03/13/18 02/11/20 History tiotropium bromide 1 cap INHALATION DAILY 03/13/18 02/11/20 History carisoprodol 350 mg PO DAILY PRN 02/23/19 02/11/20 History cholecalciferol (vitamin D3) 1,000 unit PO DAILY 02/23/19 02/11/20 History [Vitamin D3] diclofenac sodium 50 mg PO BID 02/23/19 02/11/20 History duloxetine 60 mg PO DAILY 02/23/19 02/11/20 History gabapentin [Neurontin] 900 mg PO BID 02/23/19 02/11/20 History trazodone 100 mg PO BEDTIME 02/23/19 02/11/20 History guaifenesin [Mucus Relief ER] 1,200 mg PO BID #60 tab 02/27/19 02/11/20 Rx Bevespi Aerosphere 2 puff INHALATION BID 02/11/20 02/11/20 History prednisone 20 mg PO DAILY 02/11/20 02/11/20 History rosuvastatin [Crestor] 10 mg PO DAILY 02/11/20 02/11/20 History acetaminophen 975 mg PO Q8H PRN 30 Days #120 tab 02/15/20 Rx docusate sodium [DOK] 100 mg PO BID 14 Days #28 cap 02/15/20 Rx fentanyl 100 mcg TOPICAL Q72H 7 Days #3 each 02/15/20 Rx morphine 15 mg PO Q6HR PRN 7 Days #20 tab 02/15/20 Rx morphine 30 mg PO BID 7 Days #14 tab 02/15/20 Rx sennosides [senna] 17.2 mg PO BEDTIME PRN 30 Days #60 02/15/20 Rx tab Allergies Allergy/AdvReac Type Severity Reaction Status Date / Time nickel Allergy Severe Rash, Verified 02/11/20 09:51 infections codeine Allergy Mild Itching Verified 02/11/20 09:51 nabumetone Allergy Pt does Verified 02/11/20 09:51 not remember reaction alendronate sodium AdvReac Severe Nausea Verified 02/11/20 09:51 amoxicillin [From AUGMENTIN] AdvReac Mild VOMITING Verified 02/11/20 09:51 cephalexin [CEPHALEXIN] AdvReac Mild VOMITING Verified 02/11/20 09:51 clavulanic acid AdvReac Mild VOMITING Verified 02/11/20 09:51 [From AUGMENTIN] sulfamethoxazole AdvReac Mild nausea Verified 02/11/20 09:51 [From SEPTRA] trimethoprim [From SEPTRA] AdvReac Mild nausea Verified 02/11/20 09:51 Exam Vital Signs (past 8 hours): - 02/17/20 03:27 02/17/20 03:29 02/17/20 03:30 Temperature Pulse Rate 76 79 76 Respiratory Rate Blood Pressure 175/81 H 188/75 H Pulse Oximetry 88 L 88 L 89 L 02/17/20 03:36 02/17/20 04:00 02/17/20 04:25 Temperature 97.2 F L Pulse Rate 80 81 110 H Respiratory Rate 20 Blood Pressure 188/75 H 159/68 H Pulse Oximetry 92 92 86 L 02/17/20 04:30 02/17/20 05:00 Temperature Pulse Rate 101 H 92 H Respiratory Rate Blood Pressure 152/69 H 162/96 H Pulse Oximetry 89 L 98 Oxygen Delivery Method Nasal Cannula Oxygen Flow Rate [address] scan - abdomen: Radiologist's impression: CT scan was read as marked dilation of the colon within the upper and right mid abdomen measuring 9.3 cm, the colon is difficult to follow, however, suspect sigmoid her cecal volvulus. No pneumoperitoneum or pneumatosis. Mild pelvic ascites. Labs Result Diagrams: 02/17/20 03:33 02/17/20 03:33 Labs: Laboratory Results - last 24 hr 02/17/20 02/17/20 02/17/20 03:33 03:33 03:55 WBC 23.4 H D RBC 4.54 Hgb 15.1 Hct 45.5 MCV 100.1 H MCH 33.3 MCHC 33.3 RDW 13.1 Plt Count 319 Neut % (Auto) 82.9 H Lymph % (Auto) 11.1 L [place] % (Auto) 4.2 Eos % (Auto) 1.4 L Baso % (Auto) 0.4 Neut # (Auto) 15784 H Lymph # (Auto) 2600 [place] # (Auto) 1000 H Eos # (Auto) 300 Baso # (Auto) 100 Sodium 136 L Potassium 4.4 Chloride 93 L Carbon Dioxide 37 H BUN 16 Creatinine 0.59 Estimated GFR > 60.0 BUN/Creatinine Ratio 27.1 H Glucose 169 H Lactate 1.5 Calcium 10.1 Magnesium 1.7 Total Bilirubin 0.7 AST 35 ALT 37 H Alkaline Phosphatase 83 Total Protein 7.8 Albumin 4.8 Globulin 3.0 Albumin/Globulin Ratio 1.6 Lipase 32 Urine Color Urine Appearance Urine pH Ur Specific [place] Urine Protein Urine Glucose (UA) Urine Ketones Urine Occult Blood Urine Nitrate Urine Bilirubin Urine Urobilinogen Ur Leukocyte Esterase COVID-19 PCR 02/17/20 02/17/20 04:08 05:19 WBC RBC Hgb Hct MCV MCH MCHC RDW Plt Count Neut % (Auto) Lymph % (Auto) [place] % (Auto) Eos % (Auto) Baso % (Auto) Neut # (Auto) Lymph # (Auto) [place] # (Auto) Eos # (Auto) Baso # (Auto) Sodium Potassium Chloride Carbon Dioxide BUN Creatinine Estimated GFR BUN/Creatinine Ratio Glucose Lactate Calcium Magnesium Total Bilirubin AST ALT Alkaline Phosphatase Total Protein Albumin Globulin Albumin/Globulin Ratio Lipase Urine Color Yellow Urine Appearance Clear Urine pH 5.5 Ur Specific [place] 1.010 Urine Protein Negative Urine Glucose (UA) Negative Urine Ketones Negative Urine Occult Blood Trace-lysed Urine Nitrate Negative Urine Bilirubin Negative Urine Urobilinogen 0.2 Ur Leukocyte Esterase Negative COVID-19 PCR Negative Assessment & Plan Assessment and plan (1) Colonic volvulus: Status: Acute (2) COPD (chronic obstructive pulmonary disease): Qualifiers: COPD type: unspecified COPD Qualified Code(s): J44.9 - Chronic obstructive pulmonary disease, unspecified Status: Acute Assessment & Plan narrative: This is a 69-year-old woman with a severe acute abdomen, likely owing to 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 I discussed with the patient her that she is at high risk for surgery given her recent pneumonia and COPD exacerbation. I have requested that she be admitted to the hospitalist, and I will take her to the operating room emergently. Risks and benefits of surgery including risk of bleeding, infection, damage to nearby structures, need for additional procedures, need for ostomy, risk of recurrent obstruction, risk of hernia, risk of prolonged hospitalization, risks of anesthesia including prolonged intubation, cardiac risk. Plan: Emergently to OR for ex lap, bowel resection, possible ostomy Admit to hospitalist for likely vent management, medical comorbidities COVID-19 COVID-19 status: Negative Result date/Date tested (Pos, Neg/Pending): 02/17/12 Time Spent With Patient Time with patient: Greater than 35 minutes Quality VTE Deep Vein Thrombosis/Pulmonary Embolism Present on Admission: No
--- NOTE | 2020-02-17 06:07 | PC.NURSE ---
Continue to medicate with dilaudid one mg iv for pain per MD order with moderate relief after.
[2020-02-17 06:19] LABS: Culture Indicated Urine Cult Not Indicated; Squamous Epithelial Cell Urine 1-5 /HPF (0-5/HPF); WBC Urine 0-1/HPF (0-5/HPF)
--- NOTE | 2020-02-17 07:26 | SUR.OPER ---
Supine on padded OR bed, head on pillow, arms secured on padded arm boards at <90 degrees abduction, legs uncrossed, safety belt at thigh, tape over blanket over lower legs.
[2020-02-17] MEDS: BUPIVACAINE LIPOSOME 266 MG/20 ML VIAL INJ (07:42)
[2020-02-17] MEDS: BUPIVACAINE 0.25% W/ EPI (PF) 10 ML VIAL 20 ML INJ ×2 (07:43→07:44)
--- NOTE | 2020-02-17 08:11 | P.OP_ITS ---
Operative Date/Time/Diagnoses Date of procedure: 02/17/20 Time of procedure: 08:11 Pre-op diagnosis: Acute abdomen, volvulus Post-op diagnosis: same (Volvulus of right colon with ischemia, right colon) Procedure & Clinicians Procedure: Emergency laparotomy Resection of right colon, primary anastomosis diverting loop ileostomy Same procedure as scheduled: Yes Indications: Acute volvulus, ischemic right colon Surgeon: Kristan Richardson Click Yes if Unassisted: Yes Anesthesia Type: General Operative Notes Findings: Black/maroon distended right colon twisted on its mesentery Specimen(s): other (Right colon) Estimated Blood Loss (mL): 450 Blood products transfused: none Procedure in detail: The patient was brought into the operating room and placed supine on the OR table. Sequential compression devices were placed on both legs and turned on. Appropriate perioperative antibiotics were given prior to the start of surgery. General anesthesia was induced the patient was intubated. The abdomen was prepped and draped in sterile fashion. Surgical time out was conducted. A 25 cm vertical incision was then made in the skin of the abdominal midline using a 10 blade, circumscribing the umbilicus. Dissection was carried down to the fascia using cautery, controlling bleeders along the way. The fascia was opened carefully and the fascial incision was extended to the full length of the skin incision. Once the abdomen was opened we were able to see twisted colon and small bowel, tacked down with adhesions from the patient's right lower quadrant incisional scar. The right colon was twisted on its mesentery, and was black and ischemic appearing. Once the bowel was freed from the omental adhesions, it was delivered from the abdomen. Which is the small bowel had petechia, but was well perfused. The right colon remained black, and did not pink up after untwisting it. The decision was made to remove all of the ischemic volvulized colon. The distal small bowel was transected at an appropriate point using 75mm blue load OLGA stapler, leaving behind healthy appearingl ileum with a good blood supply. The colon was then divided at the mid transverse using another 75mm blue staple load. Beyond this point, the remaining transverse colon was well perfused and healthy appearing, although there was some firm solid stool in it. All of the volvulized and redundant colon was then removed. The mesentery was divided just below the edge of the bowel using LigaSure to control all of the vessels. All of the arcades of the mesentery were preserved in order to ensure excellent blood supply to the remaining bowel. The specimen then passed off the table. The remaining small bowel was measured and was found to be more than 150 cm of small bowel. The remaining colon includes the mid transverse to rectum. The small bowel and colon were anastomosed using a blue load 75mm OLGA stapler, and the ends were oversewn in two layers using 3-0 PDS and 3-0 silk Lemberts. The anastomosis was tested with good patency and gas transmitted across the anastomosis without bubbling through the staple line. The decision was made to create a diverting ileostomy. At this point local anesthetic was injected the fascial incision using 0.25% Marcaine with epi and 20 mL of Exparel. The distal ileum was then brought up to the abdominal wall and an appropriate position on the right lower abdomen, and an ostomy incision was performed at that site. A circular incision in the skin was then carried down to the fascia, and the fascia was opened in a cruciate fashion in the anterior fascia, and the muscle was split deep to that, and then the peritoneum was opened with cautery. I was able to fit 2 fingers in the opening, and I brought up the loop of ileum through that site. An ostomy bar was made using a red rubber catheter. I then placed a 19 round Yordan drain in the left lower quadrant with the drain down in the pelvis. This was sutured in place with a 2 0 nylon suture. The fascia was then closed with a running 0 PDS suture. Each of the wounds was dressed with a sterile dressing. The ileostomy was then brooked in the usual fashion, and an ostomy appliance was placed. I dressed both the midline and the drain site with 4x4's and medipore tape. Ne edle, sponge, and instrument counts were correct x2 at the end of the procedure. The patient tolerated the procedure well. Patient was transferred to the ICU intubated, but stable. Complications: none Post-operative Condition: stable Disposition: ICU
[2020-02-17] MEDS: propofoL 1,000 MG/100 ML VIAL 1.293 MG IV (08:25)
[2020-02-17] MEDS: fentaNYL 1,000 MCG in DEXTROSE 5% IN WATER 250 ML 8.144 ML IV (08:25)
--- NOTE | 2020-02-17 08:31 | P.HP_ITS ---
History of Present Illness History of Present Illness Date Patient Seen: 02/17/20 Time Patient Seen: 08:31 Chief complaint: Constipation / abd pain Narrative: This is a 69-year-old female with a past medical history COPD, tobacco use, chronic back pain who presented to the emergency room with 1 day of abdominal pain and abdominal bloating. Early this morning her pain worsen and she was actively vomiting. Her CT abdomen in the ER showed a very dilated colon with a likely volvulus. She had not had a bowel movement in the past 2-[address] Richardson took her emergently to the operating room, where the patient was found have a right colonic volvulus. She underwent a right hemicolectomy with diverting loop ileostomy and XIOMARA drain placement. Patient required minimal sedation with anesthesia during her operation, and is hemodynamically stable upon arrival to the ICU. She had received a total of approximately 2.4 L of fluid since admission. She remains intubated given her history of severe COPD at this time. Patient had a a leukocytosis of 23,000, which is likely due to her abdomen given this was normal at discharge, otherwise, her labs were fairly unremarkable. COVID-19 testing was negative. Patient History Medical History BCC (basal cell carcinoma) (Acute ~2000) Benign neoplasm of clitoris (Acute ~03/23/16) Chronic pain (Acute) Compression fracture of T8 vertebra (Acute ~2011) COPD (chronic obstructive pulmonary disease) (Acute) History of pneumonia (Acute) Osteoarthritis (Acute) Osteomyelitis of jaw (Acute 03/13/18) Osteoporosis (Acute) Requires supplemental oxygen (Acute) Thyroid nodule (Acute) Surgical History History of lumbar surgery (Acute ~1989) Hx of appendectomy (Acute) Hx of fusion of cervical spine (Acute) Hx of hand surgery (Acute) Status post tonsillectomy and adenoidectomy Status post vaginal hysterectomy Family & Social History Family History Mother Cancer of kidney Cancer of bladder Father Congestive heart failure Sister Hypertension Social History: household members spouse Safety & Behavioral: Feels Safe in Current Yes Environment Tobacco & Substance use: Tobacco type cigarettes Smoking Status Current every day smoker alcohol intake former Substance Use Type does not use Meds Home Medications and Allergies Home Medications Medication Instructions Recorded Confirmed Type albuterol sulfate [Ventolin HFA] 2 puff INH Q4H PRN #0 07/22/17 02/11/20 History budesonide-formoterol [Symbicort] 2 puff INH BID #0 07/22/17 02/11/20 History albuterol sulfate 2.5 mg INHALATION TID 03/13/18 02/11/20 History calcium carbonate [Calcium 500] 1,000 mg PO DAILY 03/13/18 02/11/20 History tiotropium bromide 1 cap INHALATION DAILY 03/13/18 02/11/20 History carisoprodol 350 mg PO DAILY PRN 02/23/19 02/11/20 History cholecalciferol (vitamin D3) 1,000 unit PO DAILY 02/23/19 02/11/20 History [Vitamin D3] diclofenac sodium 50 mg PO BID 02/23/19 02/11/20 History duloxetine 60 mg PO DAILY 02/23/19 02/11/20 History gabapentin [Neurontin] 900 mg PO BID 02/23/19 02/11/20 History trazodone 100 mg PO BEDTIME 02/23/19 02/11/20 History guaifenesin [Mucus Relief ER] 1,200 mg PO BID #60 tab 02/27/19 02/11/20 Rx Bevespi Aerosphere 2 puff INHALATION BID 02/11/20 02/11/20 History prednisone 20 mg PO DAILY 02/11/20 02/11/20 History rosuvastatin [Crestor] 10 mg PO DAILY 02/11/20 02/11/20 History acetaminophen 975 mg PO Q8H PRN 30 Days #120 tab 02/15/20 Rx docusate sodium [DOK] 100 mg PO BID 14 Days #28 cap 02/15/20 Rx fentanyl 100 mcg TOPICAL Q72H 7 Days #3 each 02/15/20 Rx morphine 15 mg PO Q6HR PRN 7 Days #20 tab 02/15/20 Rx morphine 30 mg PO BID 7 Days #14 tab 02/15/20 Rx sennosides [senna] 17.2 mg PO BEDTIME PRN 30 Days #60 02/15/20 Rx tab Allergies Allergy/AdvReac Type Severity Reaction Status Date / Time nickel Allergy Severe Rash, Verified 02/11/20 09:51 infections codeine Allergy Mild Itching Verified 02/11/20 09:51 nabumetone Allergy Pt does Verified 02/11/20 09:51 not remember reaction alendronate sodium AdvReac Severe Nausea Verified 02/11/20 09:51 amoxicillin [From AUGMENTIN] AdvReac Mild VOMITING Verified 02/11/20 09:51 cephalexin [CEPHALEXIN] AdvReac Mild VOMITING Verified 02/11/20 09:51 clavulanic acid AdvReac Mild VOMITING Verified 02/11/20 09:51 [From AUGMENTIN] sulfamethoxazole AdvReac Mild nausea Verified 02/11/20 09:51 [From SEPTRA] trimethoprim [From SEPTRA] AdvReac Mild nausea Verified 02/11/20 09:51 Review of Systems Review of Systems ROS: Yes unobtainable due to endotracheal tube Exam Vital Signs (past 8 hours): - 02/17/20 03:27 02/17/20 03:29 02/17/20 03:30 Temperature Pulse Rate 76 79 76 Respiratory Rate Blood Pressure 175/81 H 188/75 H Pulse Oximetry 88 L 88 L 89 L 02/17/20 03:36 02/17/20 04:00 02/17/20 04:25 Temperature 97.2 F L Pulse Rate 80 81 110 H Respiratory Rate 20 Blood Pressure 188/75 H 159/68 H Pulse Oximetry 92 92 86 L 02/17/20 04:30 02/17/20 05:00 02/17/20 05:30 Temperature Pulse Rate 101 H 92 H 103 H Respiratory Rate Blood Pressure 152/69 H 162/96 H Pulse Oximetry 89 L 98 89 L 02/17/20 05:42 02/17/20 05:57 02/17/20 06:00 Temperature Pulse Rate 117 H 62 Respiratory Rate Blood Pressure 145/74 H 144/62 H Pulse Oximetry 91 02/17/20 06:03 Temperature Pulse Rate 119 H Respiratory Rate Blood Pressure Pulse Oximetry 92 Oxygen Delivery Method Nasal Cannula Oxygen Flow Rate 4 Narrative Exam Narrative: GENERAL APPEARANCE: female, frail appearing, malnourished. Intubated and sedated HEENT: Normocephalic, atraumatic, NG tube in place. NECK/THYROID: neck supple, no JVD, trachea midline. SKIN: Thin, dry, and warm. HEART: Tachycardic with regular rhythm, S1-S2, no murmur, no edema LUNGS: Tight, decreased breath sounds bilaterally but no significant wheezing, rhonchi, or rales. ABDOMEN: Soft, surgical dressings clear dry and intact, ostomy with good color, no gas or stool in the bag, XIOMARA drain with sanguineous output BACK: Normal curvature, nontender to palpation, no CVA tenderness on percussion EXTREMITIES: No deformities or joint effusions NEUROLOGIC: Intubated and sedated, paralyzed upon arrival to the floor. Unable to assess. Objective Labs Result Diagrams: 02/17/20 03:33 02/17/20 03:33 Labs: Laboratory Results - last 24 hr 02/17/20 02/17/20 02/17/20 03:33 03:33 03:55 WBC 23.4 H D RBC 4.54 Hgb 15.1 Hct 45.5 MCV 100.1 H MCH 33.3 MCHC 33.3 RDW 13.1 Plt Count 319 Neut % (Auto) 82.9 H Lymph % (Auto) 11.1 L Briscoe % (Auto) 4.2 Eos % (Auto) 1.4 L Baso % (Auto) 0.4 Neut # (Auto) 19460 H Lymph # (Auto) 2600 Briscoe # (Auto) 1000 H Eos # (Auto) 300 Baso # (Auto) 100 Sodium 136 L Potassium 4.4 Chloride 93 L Carbon Dioxide 37 H BUN 16 Creatinine 0.59 Estimated GFR > 60.0 BUN/Creatinine Ratio 27.1 H Glucose 169 H Lactate 1.5 Calcium 10.1 Magnesium 1.7 Total Bilirubin 0.7 AST 35 ALT 37 H Alkaline Phosphatase 83 Total Protein 7.8 Albumin 4.8 Globulin 3.0 Albumin/Globulin Ratio 1.6 Lipase 32 Urine Color Urine Appearance Urine pH Ur Specific Harvel Urine Protein Urine Glucose (UA) Urine Ketones Urine Occult Blood Urine Nitrate Urine Bilirubin Urine Urobilinogen Ur Leukocyte Esterase Urine RBC Urine WBC Ur Squamous Epith Cells Urine Bacteria Ur Culture Indicated? COVID-19 PCR 02/17/20 02/17/20 04:08 05:19 WBC RBC Hgb Hct MCV MCH MCHC RDW Plt Count Neut % (Auto) Lymph % (Auto) Briscoe % (Auto) Eos % (Auto) Baso % (Auto) Neut # (Auto) Lymph # (Auto) Briscoe # (Auto) Eos # (Auto) Baso # (Auto) Sodium Potassium Chloride Carbon Dioxide BUN Creatinine Estimated GFR BUN/Creatinine Ratio Glucose Lactate Calcium Magnesium Total Bilirubin AST ALT Alkaline Phosphatase Total Protein Albumin Globulin Albumin/Globulin Ratio Lipase Urine Color Yellow Urine Appearance Clear Urine pH 5.5 Ur Specific Harvel 1.010 Urine Protein Negative Urine Glucose (UA) Negative Urine Ketones Negative Urine Occult Blood Trace-lysed Urine Nitrate Negative Urine Bilirubin Negative Urine Urobilinogen 0.2 Ur Leukocyte Esterase Negative Urine RBC None seen Urine WBC 0-1/hpf Ur Squamous Epith Cells 1-5 /hpf Urine Bacteria None seen Ur Culture Indicated? Cult not indicated COVID-19 PCR Negative Assessment & Plan Assessment & Plan narrative: This is a 69-year-old female with a past medical history COPD, tobacco use, chronic back pain who is admitted for right colonic volvulus now s/p right hemicolectomy with a diverting loop ileostomy with surgery today. 1. Right colonic volvulus, acute, present on admission -patient underwent emergent surgery, with a right hemicolectomy and diverting loop ileostomy today, 02/17/2020, with Dr. Richardson. -patient remains intubated after her procedure given her history of chronic respiratory failure and severe COPD as well as her chronic opiate use -will continue fentanyl and propofol for sedation, will reassess later in the day to see if she is appropriate for sedation trial. However, I do suspect that these will need to start tomorrow. -continue antibiotics for 24 hours per surgical recommendations, with Levaquin and Flagyl. -post operative management per surgery. 2. Chronic hypoxemic respiratory failure, present on admission -patient uses 2 L of home oxygen. She is currently intubated postoperatively but no evidence of acute respiratory failure. -respiratory therapy has been consulted, continue DuoNebs and as needed albutero l -she was recently treated for a COPD exacerbation, however there is no evidence of an acute exacerbation at this time. -likely will be able to extubate, potentially later today but likely tomorrow, to nasal cannula. 3. Chronic Low back pain, present on admission -continue sedation with fentanyl and propofol as above. She likely has a high degree of opiate tolerance given her chronic use 4. Tobacco abuse -unclear if the patient has continued to smoke after discharge from her last admission, will skilled nursing facility counselor when she is more alert. 5. Severe chronic protein calorie malnutrition -dietitian consultation. -her chronic malnutrition will also make her more likely to have complications after her emergent surgery. I spent 30 minutes providing critical care management this patient. This excludes time spent in performing separately billed procedures. Code: Full, surrogate decision maker previously listed as . Dispo: ICU COVID-19 COVID-19 status: Negative Quality VTE Deep Vein Thrombosis/Pulmonary Embolism Present on Admission: No
[2020-02-17] MEDS: LACTATED RINGERS 500 ML 1000 ML IV ×2 (09:10→10:30)
[2020-02-17] MEDS: ALBUTEROL/IPRATROPIUM 3 ML AMPUL INH ×4 (09:12→23:30)
[2020-02-17] MEDS: levoFLOXacin 750 MG/150 ML PIGGYBACK 100 MG IV (09:36)
[2020-02-17] MEDS: LACTATED RINGERS 1,000 ML 42 ML IV (09:36)
[2020-02-17 09:46] LABS: Fractionated Inspired Oxygen 40; HCO3 ABG 29 mmol/L (22-26); PCO2 ABG 48.7 mmHg (35-45); PO2 ABG 52 mmHg (80-100); TCO2 ABG 30 mmol/L (21-31); pH ABG 7.38 (7.35-7.45)
[2020-02-17 09:47] LABS: Oxygen Saturation ABG 85 % (95-100)
[2020-02-17] MEDS: ALBUTEROL 2.5 MG/3 ML NEB (ADULT) INH (11:09)
[2020-02-17 11:21] LABS: Add Manual Diff / Slide Review NO; Basophils Absolute Auto 0 /uL (0-100); Basophils Percent Auto 0.2 % (0-2); Eosinophils Absolute Auto 0 /uL (0-450); Hematocrit 39.5 % (36-46); Hemoglobin 13.2 g/dL (12.0-16.0); Lymphocytes Absolute Auto 300 /uL (1100-4500); Lymphocytes Percent Auto 2.3 % (25-40); Mean Corpuscular HGB Conc 33.5 % (30-36); Mean Corpuscular Hemoglobin 33.3 PG (26-34); Mean Corpuscular Volume 99.4 fL (80-100); Monocytes Absolute Auto 400 /uL (0-900); Monocytes Percent Auto 2.4 % (3-14); Neutrophils Absolute Auto 14500 /uL (1500-7000); Neutrophils Percent Auto 95.1 % (50-75); Platelet Count 248 X10^3/uL (150-400); Red Blood Cell Count 3.98 X10^6/uL (4.0-5.2); Red Cell Distribution Width 13.1 % (11.6-14.8); White Blood Cell Count 15.2 X10^3/uL (4.5-11.0)
[2020-02-17 11:29] LABS: Alanine Aminotransferase 33 IU/L (<35); Albumin 2.8 g/dL (3.5-5.0); Albumin Globulin Ratio 1.5 (1.0-2.8); Alkaline Phosphatase 56 U/L (38-126); Aspartate Aminotransferase 31 IU/L (14-36); BUN Creatinine Ratio 27.1 (6-22); Bilirubin Total 0.5 mg/dL (0.2-1.3); Blood Urea Nitrogen 16 mg/dL (7-17); Calcium 8.9 mg/dL (8.4-10.2); Carbon Dioxide 35 mmol/L (22-32); Chloride 99 mmol/L (98-107); Estimated Glomerular Filt Rate > 60.0 mL/min (>60); Globulin 1.9 g/dL (1.7-4.1); Glucose 131 mg/dL (80-110); HEMOLYSIS < 15 (0-50); Potassium 3.8 mmol/L (3.4-5.1); Sodium 134 mmol/L (137-145); Total Protein 4.7 g/dL (6.3-8.2)
[2020-02-17] MEDS: LORazepam 2 MG/ML INJ 1 MG IV (11:34)
[2020-02-17] MEDS: PANTOPRAZOLE 40 MG VIAL IV (11:35)
[2020-02-17] MEDS: DEXTROSE 5% WATER 500 ML 21 ML IV (12:50)
--- NOTE | 2020-02-17 14:01 | PC.NURSE ---
Day Shift Note Patient received intubated and sedated from OR at 0820. Connected to mechanical ventilator by RT, initially on 40% FiO2 with SpO2 in the upper 90s. Lung sounds coarse bilaterally. Fentanyl patch in place (75 mcg) to left anterior chest and MD is aware. ST in the 110s, BP stable on arrival (see VS trends). NG to LIS, small amount brown fluid resulting. Bulky dressing to abdomen C/D/I with ziyad drain present, draining serosanguinous fluid. Absent BTs, abdomen mildly distended. Bauman catheter draining clear yellow fluid. Pt began to exhibit signs of restlessness, eyes opening and becoming difficult to console. Oriented to room and situation, nodded head in understanding. Fentanyl gtt initiated at 0.7 mcg/kg/hr and propofol at 5 mcg/kg/min to RASS of -2. Fentanyl gtt increased with pt report of pain, currently denies pain. At about 0900 BP decreased to 70s/40s, HR in the 120s; order for 500 ml LR bolus obtained and given with improvement in BP and HR noted although effect not long lasting. Total of 2L NS and 1L LR boluses administered this shift for hypotension and tachycardia. HR as high as the 150s ST, currently 130-140s, MAP 60-68. MD aware, EKG complete. Fentanyl gtt at 2 mcg/kg/hr, propofol at 10 mcg/kg/min. Ventilator managed by RT with FiO2 35%, PEEP 8, RR 13, TV 350. Attempting to reposition as blood pressure allows. Soft wrist restraints in place bilaterally. Bed alarm on. , Dominic, updated throughout shift.
--- NOTE | 2020-02-17 16:43 | DIET.PN ---
Dietary Progress Note Assessment: 69y F admitted for constipation and abd pain sent emergent to OR c Dr. Patel for volvulous of colon requiring diverting ostomy referred to nutrition for NPO on ventilator status. Pt was kept on ventilator after procedure r/t severe COPD. Nutrition worked c pt one week ago when admitted for SOB secondary to end-stage, severe COPD. Pt wears dentures and current cigarette smoker. Pt is high risk Acute Severe PCM r/t significant abdominal surgery c diverting ostomy, pts difficulty c eating and maintaining weight at baseline secondary to severe COPD c forecasted altered nutrition after this emergent surgery and current NGT on lis. Pts current body weight recorded as 43.09kg after 2.5L fluid administration which is 4.5% lower than d/c less than a week ago. Pts MAP 60-68, lactate stable (1.5) HT: 165.1cm WT:43.09kg UBW: 52kg BMI: 15.8 MNA: 9 malnourished Facundo: 14 high risk for skin breakdown Nutrition Diagnosis:Severe Acute on Chronic PCM r/t chronic malnutrition secondary to end stage COPD aeb 4.5% unintended weight loss in <1w (severe), BMI 15.8 (severe), 13% unintended weight loss over past year or less, <75% EER for >1mo, pt currently NPO on ventilator after extensive abd surgery c diverting ostomy. Interventions: 1. Recc initiation of TPN to support pts kcal and PRO needs secondary to high needs following this surgery. TPN rate should be started low as pt high risk for refeeding c refeeding labs drawn bid for 2-3d and daily weights. Please separate electrolytes for first day from TPN as rate will be low. Begin at 20mL/h for first 12h titrating up by 20mL/h q12h as tolerated until reaching goal rate of 62mL/h providing 1320kcal (84% kcal), 75g PRO (115% PRO) and 1.5L fluids. Recc holding IVFE until pt at goal rate and provide 3x/w to supplement 1500kcal/w and avoid essential fatty acid deficiency. Diet Order: NPO EER:1575kcal (35kcal/kg per end stage COPD), 65g PRO (1.5g/kg per end stage COPD) Monitoring/Evaluations: following daily
[2020-02-17] MEDS: SODIUM CHLORIDE 0.9% 2,000 ML 1000 ML IV (16:49)
--- NOTE | 2020-02-17 18:18 | DI.RAD.S_ITS ---
PROCEDURE: XR CHEST FOR PICC 1V INDICATIONS: PICC placement TECHNIQUE: One view of the chest was acquired. COMPARISON: [facility], CR, XR CHEST 2V, 02/14/2020, 16:31. FINDINGS: Surgical changes and devices: Fusion hardware in lower cervical spine is again seen. There is interval placement of a left-sided PICC line, the tip is in SVC. Possible ET tube tip is seen projecting 2.8 cm above the mary suggest clinical correlation. Lungs and pleura: There is blunting of left costophrenic angle suggestive of small left pleural effusion. No definite infiltrate or gross pneumothorax.. Mediastinum: Mediastinal contours appear normal. Heart size is normal. Bones and chest wall: No suspicious bony lesions. Overlying soft tissues appear unremarkable. IMPRESSION: Left-sided PICC line tip is in SVC. Possible ETT tip is above the mary, suggest clinical correlation. Blunting of left costophrenic angle suggestive of trace left pleural effusion. No gross pneumothorax. Dictated by: Alex Mishra M.D. on 02/17/2020 at 17:40 Approved by: Alex Mishra M.D. on 02/17/2020 at 17:42
[2020-02-17] MEDS: fentaNYL 1,000 MCG in DEXTROSE 5% IN WATER 250 ML 87.259 ML IV (20:11)
[2020-02-17] MEDS: HEPARIN 5,000 UNIT/ML VIAL 5000 UNIT SUBCUT (21:42)
[2020-02-17] MEDS: fentaNYL 1,000 MCG in DEXTROSE 5% IN WATER 250 ML 98.894 ML IV (22:09)
[2020-02-18] VITALS (23 sets, daily range): BP systolic 75–134; BP diastolic 50–82; PULSE 87–130; RESP 13–47; TEMP 36.2–37.7; O2SAT 90–95
[2020-02-18] MEDS: fentaNYL 1,000 MCG in DEXTROSE 5% IN WATER 250 ML 98.894 ML IV (00:51)
[2020-02-18] MEDS: NOREPINEPHRINE 4 MG in DEXTROSE 5% IN WATER 250 ML 19.05 ML IV (01:48)
--- NOTE | 2020-02-18 01:56 | PC.NURSE ---
Addendum entered by Kaye Lucio R.N. 02/18/20 06:24: Patient with PRN Dilaudid administered x3 with good relief and success being able to titrate Fentanyl drip down. Current settings for Fentanyl are 4 mcg/kg/hr. See eMar. Patient still able to arouse, follow commands, and nod head appropriately. Norepinephrine drip titrated down throughout shift to maintain MAP >60. Patient remains on ventilator 35/8+/13/350 with sats in low 90's. Restraints maintained and assessed per policy. Great UOP throughout shift, ziyad drain emptied x3 throughout shift, see I&Os. Currently patient is resting in bed, no distress noted. Addendum entered by Kaye Lucio R.N. 02/18/20 02:08: Spoke with VU Monet regarding the high dose of Fentanyl patient has been receiving. I reiterated that patient is alert, able to follow commands, and is arousable to voice despite this high dose. She instructed to try PRN Dilaudid in conjunction with Fentanyl drip in hopes of decreasing the amount patient is receiving. Will continue to monitor patient closely and to keep [facility] Wayne informed. Original Note: shift supervisor film processing note: Notified VU Monet regarding initiation of Norepinephrine drip at 5 mcg/min. Patient with MAP <60 at 0100, sedation drips titrated down, patient more restless, bucking vent in response to decreased sedation. BPs hanging around 75/48 with MAP 58, therefore, Norepinehrine infusion started to place patient back on original sedation settings. See eMar for titrations.
[2020-02-18] MEDS: HYDROMORPHONE 1 MG INJ IV ×9 (02:13→19:08)
[2020-02-18] MEDS: LACTATED RINGERS 1,000 ML 75 ML IV (02:14)
[2020-02-18] MEDS: propofoL 1,000 MG/100 ML VIAL 5.688 MG IV (04:06)
[2020-02-18] MEDS: ALBUTEROL/IPRATROPIUM 3 ML AMPUL INH ×6 (04:12→23:57)
[2020-02-18] MEDS: fentaNYL 1,000 MCG in DEXTROSE 5% IN WATER 250 ML 46.538 ML IV (04:27)
[2020-02-18] MEDS: metroNIDAZOLE 500 MG/100 ML PIGGYBACK 100 MG IV ×2 (04:56→13:37)
[2020-02-18 06:01] LABS: Add Manual Diff / Slide Review NO; Basophils Absolute Auto 100 /uL (0-100); Basophils Percent Auto 0.5 % (0-2); Eosinophils Absolute Auto 100 /uL (0-450); Eosinophils Percent Auto 0.5 % (2-4); Hematocrit 30.7 % (36-46); Hemoglobin 10.3 g/dL (12.0-16.0); Lymphocytes Absolute Auto 1100 /uL (1100-4500); Lymphocytes Percent Auto 5.4 % (25-40); Mean Corpuscular HGB Conc 33.5 % (30-36); Mean Corpuscular Hemoglobin 33.4 PG (26-34); Mean Corpuscular Volume 99.6 fL (80-100); Monocytes Absolute Auto 600 /uL (0-900); Neutrophils Absolute Auto 17900 /uL (1500-7000); Neutrophils Percent Auto 90.6 % (50-75); Platelet Count 223 X10^3/uL (150-400); Red Blood Cell Count 3.08 X10^6/uL (4.0-5.2); Red Cell Distribution Width 13.4 % (11.6-14.8); White Blood Cell Count 19.8 X10^3/uL (4.5-11.0)
[2020-02-18 06:10] LABS: Alanine Aminotransferase 27 IU/L (<35); Albumin 2.3 g/dL (3.5-5.0); Albumin Globulin Ratio 1.2 (1.0-2.8); Alkaline Phosphatase 45 U/L (38-126); Aspartate Aminotransferase 34 IU/L (14-36); BUN Creatinine Ratio 18.4 (6-22); Bilirubin Total 0.3 mg/dL (0.2-1.3); Blood Urea Nitrogen 9 mg/dL (7-17); Calcium 7.2 mg/dL (8.4-10.2); Carbon Dioxide 34 mmol/L (22-32); Chloride 102 mmol/L (98-107); Estimated Glomerular Filt Rate > 60.0 mL/min (>60); Glucose 107 mg/dL (80-110); HEMOLYSIS < 15 (0-50); Potassium 3.8 mmol/L (3.4-5.1); Sodium 133 mmol/L (137-145); Total Protein 4.3 g/dL (6.3-8.2)
--- NOTE | 2020-02-18 07:11 | P.PN_ITS ---
Subjective Subjective Date Patient Seen: 02/18/20 Time Patient Seen: 07:11 Interval history: Pt alert and trying to talk around the vent. Indicates by gestures that her pain is moderate, not severe, and is ok. Exam Vital Signs (past 8 hours): - 02/18/20 00:00 02/18/20 01:00 02/18/20 01:10 Temperature 97.5 F L 99.8 F H Pulse Rate 118 H 116 H Respiratory Rate 27 H 13 Blood Pressure 87/50 L 75/51 L Pulse Oximetry 92 02/18/20 02:00 02/18/20 03:00 02/18/20 04:01 Temperature 97.7 F Pulse Rate 108 H 104 H 106 H Respiratory Rate 21 13 14 Blood Pressure 87/53 L 90/54 L 106/56 L Pulse Oximetry 93 94 94 02/18/20 04:59 02/18/20 05:00 02/18/20 06:15 Temperature 99.7 F H Pulse Rate 115 H 118 H Respiratory Rate 13 17 Blood Pressure 102/59 L 107/72 Pulse Oximetry 91 92 Fraction of Inspired Oxygen 0.35 Oxygen Delivery Method Mechanical Ventilation Oxygen Flow Rate 4 Narrative Exam Narrative: GENERAL: Alert, intubated, follows commands, just was appropriately HENT: Normocephalic, atraumatic. Hearing intact. EYES: Conjunctiva pink, sclera white, no periorbital swelling. CARDIOVASCULAR: Tachycardic in the 1 teens. No pedal edema. RESPIRATORY: On ventilator, seems to be attempting to talk around the vent, respiratory therapist present and suctioning the patient GASTROINTESTINAL: Abdomen soft and non-distended, ostomy is pink and productive, significantly edematous. XIOMARA drain serosanguineous : Bauman in place with clear urine MUSCULOSKELETAL: Cachectic, Equal tone and mass bilaterally. Objective Labs Result Diagrams: 02/18/20 05:50 02/18/20 05:50 Labs: Laboratory Results - last 24 hr 02/17/20 02/17/20 02/17/20 08:50 09:37 11:05 WBC 15.2 H RBC 3.98 L Hgb 13.2 Hct 39.5 MCV 99.4 MCH 33.3 MCHC 33.5 RDW 13.1 Plt Count 248 Neut % (Auto) 95.1 H Lymph % (Auto) 2.3 L Hettinger % (Auto) 2.4 L Eos % (Auto) 0.0 L Baso % (Auto) 0.2 Neut # (Auto) 15869 H Lymph # (Auto) 300 L Hettinger # (Auto) 400 Eos # (Auto) 0 Baso # (Auto) 0 ABG pH 7.38 ABG pCO2 48.7 H ABG pO2 52 L ABG HCO3 29 H ABG Total CO2 30 ABG O2 Saturation 85 L* ABG Base Excess 4.0 H FiO2 40 Sodium Potassium Chloride Carbon Dioxide BUN Creatinine Estimated GFR BUN/Creatinine Ratio Glucose Calcium Total Bilirubin AST ALT Alkaline Phosphatase Total Protein Albumin Globulin Albumin/Globulin Ratio Nasal Screen MRSA (PCR) Negative for mrsa 02/17/20 02/18/20 02/18/20 11:05 05:50 05:50 WBC 19.8 H RBC 3.08 L Hgb 10.3 L Hct 30.7 L MCV 99.6 MCH 33.4 MCHC 33.5 RDW 13.4 Plt Count 223 Neut % (Auto) 90.6 H Lymph % (Auto) 5.4 L Hettinger % (Auto) 3.0 Eos % (Auto) 0.5 L Baso % (Auto) 0.5 Neut # (Auto) 96984 H Lymph # (Auto) 1100 Hettinger # (Auto) 600 Eos # (Auto) 100 Baso # (Auto) 100 ABG pH ABG pCO2 ABG pO2 ABG HCO3 ABG Total CO2 ABG O2 Saturation ABG Base Excess FiO2 Sodium 134 L 133 L Potassium 3.8 3.8 Chloride 99 102 Carbon Dioxide 35 H 34 H BUN 16 9 Creatinine 0.59 0.49 L Estimated GFR > 60.0 > 60.0 BUN/Creatinine Ratio 27.1 H 18.4 Glucose 131 H 107 Calcium 8.9 7.2 L Total Bilirubin 0.5 0.3 AST 31 34 ALT 33 27 Alkaline Phosphatase 56 45 Total Protein 4.7 L 4.3 L Albumin 2.8 L 2.3 L Globulin 1.9 2.0 Albumin/Globulin Ratio 1.5 1.2 Nasal Screen MRSA (PCR) Assessment & Plan Assessment and plan (1) Colonic volvulus: Status: Acute Assessment & Plan narrative: Postop day 1 status post emergency colon resection for colonic volvulus and ischemic right colon. Overall she seems to be doing well for what she has been through. Plan: Respiratory management per hospitalist Once patient is extubated, her NG tube may be removed Ambulation should be encouraged once patient is off the ventilator Bauman may be removed once the patient is able to get up and go to the bathroom Once extubated and NG tube was removed the patient may be advanced to clears as tolerated COVID-19 COVID-19 status: Negative Result date/Date tested (Pos, Neg/Pending): 02/17/20 Time Spent With Patient Time with patient: 25 - 35 minutes Quality VTE Deep Vein Thrombosis/Pulmonary Embolism Present on Admission: No
[2020-02-18] MEDS: PANTOPRAZOLE 40 MG VIAL IV (08:34)
[2020-02-18] MEDS: HEPARIN 5,000 UNIT/ML VIAL 5000 UNIT SUBCUT ×2 (08:34→21:12)
[2020-02-18] MEDS: ALBUTEROL 2.5 MG/3 ML NEB (ADULT) INH (09:00)
[2020-02-18] MEDS: BUDESONIDE 0.5 MG/2 ML NEB INH ×2 (10:54→20:12)
--- NOTE | 2020-02-18 12:02 | DIET.PN ---
Dietary Progress Note Pt extubated this am, on 2L NC, adding ONS Zaid bid and Ensure Clear daily to support high PRO needs, these three supplements provide total of 39g PRO providing 56% of pts protein needs.
[2020-02-18] MEDS: MORPHINE ER 30 MG TABLET PO ×2 (12:05→21:12)
[2020-02-18] MEDS: LACTATED RINGERS 1,000 ML 150 ML IV ×2 (12:05→20:07)
[2020-02-18] MEDS: MORPHINE IR 15 MG TABLET PO ×2 (12:05→15:55)
--- NOTE | 2020-02-18 12:21 | CM.IDA ---
Addendum entered by JASON Max 02/18/20 12:37: Correction: Patient DC from prior admission this week 02.15.20 home w/ Hospice referral Original Note: Initial DCP Assessment Note Patient is a 69 yo female, resident of [place]. Patient admitted w/need for emergent surgery for a volvulus of the right colon, right colon. Patient admitted and DC last week from w/COPD exacerbation,pneumonia. Patient had DC w/spouse and referral sent to Hospice for info visit d/t her dx of end stage COPD. PCP: Azael Hernandez Payer: [facility]/[place] Met w/patient and spouse this morning, briefly. Patient very SOB. Information from recent assessment done 02.11.20 remains the same: pt with chronic back pain and uses Trilogy at night at baseline and has oxygen at home. pt lives with supportive spouse at home and is independent with ADL's at baseline and spouse assists when needed and pt typically only uses her walker for long distances and continues to drive. Patient required intubation post operatively, extubated this AM, new ileostomy in place. PICC placed for pressors according to Dr Chung. EXTRUSION PRESS ADJUSTER eval pending, possible advancement to clear liquids today pending EXTRUSION PRESS ADJUSTER eval. DCP team will need to follow closely for ongoing assessment of DC needs. PT/OT evals would be helpful when medically appropriate. Likely home w/spouse and HH RN vs SNF. This BOAT CARPENTER did not discuss recent Hospice referral w/patient and spouse today JASON Max Discharge Planning/Care Management CM Discharge Assessment Start: 02/18/20 12:16 Freq: Status: Active Protocol: Document 02/18/20 12:16 ZAINAB (Rec: 02/18/20 12:21 ZAINAB [email or web address]) Discharge Planning Assessment Assigned [employer] JASON Cruz DPOA/Assigned Designee Name Dominic Velazquez, spouse Contact Information [phone] Advance Directives? Yes: ADV DIR Advance Directives on File No History Provided By Patient,Medical Record Has Patient been admitted in last 30 Yes days? Comment COPD, Pneumonia Household Members spouse Independent with ADL's Yes: SOB w/movement Is patient alert and oriented? Yes Needs Assistance With Meal Prep,Managing Medications ,Home Chores / Shopping Community Services used prior to Hospice admission: Barriers to Discharge Yes Comment Patient is medically complex and fragile, will likely benefit from HH RN at the least Discharge Plan Home with Home Health Transportation Arrangement Spouse Additional Comment Will continue to assess needs Review Status In Process
--- NOTE | 2020-02-18 12:31 | ST.IPIE ---
Visit Care Team Role Provider Type Azael Hernandez MD Primary Care Provider Physician Specialty: Internal Medicine [address]: [address] [place] [address], [id number] Email: [email or web address] Kristan Richardson MD Other Providers Physician Specialty: General Surgery Address: [address] [place] [address], [address] Email: [email or web address] Tanesha Marks MD Emergency Provider Physician Referring Provider Specialty: Emergency Medicine Address: [address] [place] [address], [id number] Email: Dominic Chung DO Admit Provider Physician Attending Provider Specialty: Internal Medicine Address: [address] [place] [address], [facility] Email: [email or web address] Diagnoses Chronic obstructive pulmonary disease, unspecified (02/17/20) Volvulus (02/17/20) Past Medical History (Last Reviewed 02/17/20 @ 03:37 by Tanesha Marks MD) BCC (basal cell carcinoma) (Acute Medical ~2000) Left nostril Benign neoplasm of clitoris (Acute Medical ~03/23/16) Excision of sebaceous cyst Chronic pain (Acute Medical) Compression fracture of T8 vertebra (Acute Medical ~2011) COPD (chronic obstructive pulmonary disease) (Acute Medical) Chronic steroids, home oxygen History of pneumonia (Acute Medical) 08/20, 04/23 Osteoarthritis (Acute Medical) Osteomyelitis of jaw (Acute Medical 03/13/18) Left mandible abscess, drainage and debridement Osteoporosis (Acute Medical) Requires supplemental oxygen (Acute Medical) 2L02 w/sleep Thyroid nodule (Acute Medical) Left nodule biopsy 05/27, benign cells ST IP Initial Evaluation Report MANAGER CAREER Clinical Swallow Evaluation Start: 02/18/20 11:59 Freq: Status: Active Protocol: Document 02/18/20 11:59 MARIAA (Rec: 02/18/20 12:28 MARIAA [id number]) Clinical Swallow Evaluation Session Time Visit Start Time 11:30 Visit Stop Time 12:00 Total Visit Minutes [address] Dominic Chung Reason for Referral Extubation Setting Assessment Location Acute Care Visit Type Note Type Initial evaluation Next Note Type Next Note Type Treatment Note Patient Information Identification Type Name,Date of History The pt is a 69-yr-old female with a past medical history COPD, tobacco use, chronic back pain who was admitted for right colonic volvulus now 1 day s/p right hemicolectomy with a diverting loop ileostomy with surgery. The pt was intubated for surgery; extubated today at ~9:30. Swallow evaluation ordered for clear liquids; diet to be advanced per MD. Subjective Observations Pt was awake, lying in bed. She was seen immediately following RT. She reported acute hearing and requested low vocal loudness. Also reported significant pain at surgical site, which limited her ability to sit upright greater than 46 degrees. Nsg was notified of pain. The pt was receiving 5L O2 via high flow nasal cannula. She provided limited case history regarding swallow problems prior to hospitalization d/t reduced breath support for speech. She was agreeable to evaluation and was pleasantly participatory throughout. Reported by Patient Comment Pt reported significant abdominal pain and pain and swelling at right arm. She frequently grimaced and flinched in pain throughout the evaluation. She was unable to lean forward to accept boluses d/t abdominal pain. The pt reported having had radiation at sinuses and left side of face within the last 3 yrs, which resulted in loss of bone density at jaws and loss of teeth. She did not provide additional details, stating it was too difficulty to breath and talk. She did endorse some swallow difficulties prior to hospitalization, coughing with oral intake. Current Diet Thin liquids Baseline Feeding Method Independent in self-feeding Objective Assessment Mental Status Alert,Responsive,Cooperative Oral Integrity WFL Dentition Upper dentures/partials, Adequate denture or partial fitting Lip Function Within normal limits Observation of Lips at Rest Symmetrical Pucker Within normal limits Lip Retraction Within normal limits Tongue Function Within normal limits Observations of Tongue at Rest Within normal limits Tongue Protrusion Within normal limits Tongue Retraction Within normal limits Tongue Lateralization Within normal limits Jaw Function Within normal limits Observations of Jaw at Rest Within normal limits Jaw Opening Within normal limits Jaw Closing Within normal limits Jaw Lateralization Within normal limits Jaw Protrusion Within normal limits Jaw Retraction Within normal limits Hard/Soft Palate Function Within normal limits Observations of Hard/Soft Palate Reduced strength/ROM of soft palate elevation Nasality Within normal limits Phonation Harsh Respiratory Sufficiency Moderate impairment Comment 5L O2 via nasal cannula. Pt reports 2L O2 PLOF. Pt wears upper and lower dentures that she reports fit well. She was wearing only upper dentures during this evaluation. Food and Liquid Trials Position During Assessment Slightly reclined Liquids Trialed Ice chips,Thin Administration Type Tea spoon,Straw,Self-feeding Oral Impairment Mildly impaired Oral Phase Comments Rapid a/p transport with inconsistent control. The pt was responsive to verbal instruction to hold and control bolus orally prior to onset of swallow to reduce risk of early spillage to pharynx. Pharyngeal Impairment Mildly impaired Pharyngeal Phase Comments Most swallows of thin liquid were loudly audible, indicating likely reduced coordination of pharyngeal swallow. The pt reported feeling swallow was awkward. No overt s/sx of aspiration were observed. MANAGER CAREER will follow pt daily for ongoing assessment of swallow safety with advancement of diet, particularly given her hx of reported dysphagia symptoms. Fatigue/Endurance Mild fatigue Comment Pt requires breaks between sips d/t reduced breath support. Strategies Attempted Other Response/Comments Controlled intentional oral hold and swallow. The pt was educated on potential effects of intubation and radiation on swallow function/safety, general aspiration risks and precautions, and trained in safe swallow strategies. She verbalized and demonstrated good understanding and was responsive to training. Findings Swallowing Function Oropharyngeal phase dysphagia Severity of Swallow Impairment Mildly impaired Contributing Factors to Swallow Reduced oral strength/ Impairment coordination/sensation, Impaired oral-pharyngeal transport,Impaired velopharyngeal closure/ coordination Prognosis Good Based on Cognitive status,Duration of symptoms/severity Impact on Safety and Functioning Risk for aspiration Recommendations Swallowing Treatment Yes Frequency Daily Duration over hospital stay Recommended Liquids Thin Other Recommendations Advance diet per MD. MANAGER CAREER to follow with ongoing assessment for safety. Safety Precautions/Swallowing Reduce distractions,Remain Recommendations upright (90 degrees) during all oral intake,Upright position at least 30 minutes after meals,Small bites and sips when eating,Slow rate; swallow between bites Medication Recommendations As Tolerated Discharge Recommendations Home Comments Further assessment required; pt may be candidate for outpatient therapy. Education Patient/Caregiver Education Described results of evaluation,Patient expressed understanding of evaluation, Patient expressed agreement with goals & treatment plans, Patient expressed understanding of safety precautions,Patient expressed understanding of feeding recommendations Goals Short-term Goals 1. The pt will employ safe swallow strategies independently to reduce risk of aspiration. Long-term Goals 1. The pt will tolerate least restrictive diet to meet her nutrition and hydration needs.
[2020-02-18] MEDS: CLOTRIMAZOLE TROCHE 10 MG PO ×3 (13:37→21:12)
--- NOTE | 2020-02-18 13:47 | P.PN_ITS ---
Subjective Subjective Date Patient Seen: 02/18/20 Time Patient Seen: 13:48 Interval history: This is a 69-year-old female with a past medical history COPD, tobacco use, chronic back pain who is admitted for right colonic volvulus now s/p right hemicolectomy with a diverting loop ileostomy with surgery on 02/17/2020. She remained intubated overnight and was actually quite awake well on fentanyl infusion. Sedation vacation was held and the patient tolerated edmundo thing trial this morning. She was extubated to nasal cannula and is currently doing well. She was seen by speech therapy. She was advanced to clears as per surgical recommendations. Overnight she was quite tachycardic and required quite a bit of fluid boluses yesterday given severe dehydration likely from her vomiting and surgery. Her heart rate has improved somewhat today but still remains in the 120s, it is a sinus tachycardia. She does appear comfortable however and will continue to give fluid boluses throughout the day. Exam Vital Signs (past 8 hours): - 02/18/20 06:15 02/18/20 07:00 02/18/20 07:54 Temperature 97.2 F L Pulse Rate 118 H 124 H Respiratory Rate 17 16 Blood Pressure 107/72 105/58 L Pulse Oximetry 92 94 92 02/18/20 08:00 02/18/20 10:20 02/18/20 10:54 Temperature Pulse Rate 130 H 130 H 128 H Respiratory Rate 22 26 H 16 Blood Pressure 105/67 125/82 Pulse Oximetry 93 93 90 L Fraction of Inspired Oxygen 0 Oxygen Delivery Method Nasal Cannula Oxygen Flow Rate 5 Narrative Exam Narrative: GENERAL APPEARANCE: female, frail appearing, malnourished. Appears comfortable, sitting upright in hospital bed. HEENT: Normocephalic, atraumatic, dry mucous membranes. NECK/THYROID: neck supple, no JVD, trachea midline. SKIN: Thin, dry, and warm. Poor skin turgor. HEART: Tachycardic with regular rhythm, S1-S2, no murmur, no edema LUNGS: Tight, decreased breath sounds bilaterally but no significant wheezing, rhonchi, or rales. ABDOMEN: Soft, surgical dressings clear dry and intact, ostomy with good color, minimal output in her ostomy bag, XIOMARA drain with serosanguineous output BACK: Normal curvature, nontender to palpation, no CVA tenderness on percussion EXTREMITIES: No deformities or joint effusions NEUROLOGIC: Alert and oriented x3, follows commands, no focal deficits. Objective Labs Result Diagrams: 02/18/20 05:50 02/18/20 05:50 Labs: Laboratory Results - last 24 hr 02/18/20 02/18/20 05:50 05:50 WBC 19.8 H RBC 3.08 L Hgb 10.3 L Hct 30.7 L MCV 99.6 MCH 33.4 MCHC 33.5 RDW 13.4 Plt Count 223 Neut % (Auto) 90.6 H Lymph % (Auto) 5.4 L Garfield % (Auto) 3.0 Eos % (Auto) 0.5 L Baso % (Auto) 0.5 Neut # (Auto) 86818 H Lymph # (Auto) 1100 Garfield # (Auto) 600 Eos # (Auto) 100 Baso # (Auto) 100 Sodium 133 L Potassium 3.8 Chloride 102 Carbon Dioxide 34 H BUN 9 Creatinine 0.49 L Estimated GFR > 60.0 BUN/Creatinine Ratio 18.4 Glucose 107 Calcium 7.2 L Total Bilirubin 0.3 AST 34 ALT 27 Alkaline Phosphatase 45 Total Protein 4.3 L Albumin 2.3 L Globulin 2.0 Albumin/Globulin Ratio 1.2 Assessment & Plan Assessment & Plan narrative: This is a 69-year-old female with a past medical history COPD, tobacco use, chronic back pain who is admitted for right colonic volvulus now s/p right hemicolectomy with a diverting loop ileostomy with surgery on 02/17/2020. She is doing quite well today given the severity of her condition on admission. 1. Right colonic volvulus, acute, present on admission -patient underwent emergent surgery, with a right hemicolectomy and diverting loop ileostomy, 02/17/2020, with Dr. Richardson. -patient was extubated on hospital day 1 to nasal cannula uneventfully. -have rearranged pain medications to continue her fentanyl patch, with MS Contin 30 mg twice daily, with oral morphine as needed and some IV for breakthrough as well. -continued antibiotics for 24 hours per surgical recommendations, with Levaquin and Flagyl. -post operative management per surgery. 2. Acute on chronic hypoxemic respiratory failure, acute not present on admission. -patient uses 2 L of home oxygen, currently on 5L after extubation this AM. -respiratory therapy has been consulted, continue DuoNebs and as needed albuterol. Pulmicort added today to replace home symbicort. -she was recently treated for a COPD exacerbation, however there is no evidence of an acute exacerbation at this time. -will repeat CXR today to assess for possible volume overload as the cause of her worsened O2 requirements now after extensive fluid resuscitation. 3. Chronic Low back pain, present on admission -continue with pain management as ntoed above. 4. Tobacco abuse -unclear if the patient has continued to smoke after discharge from her last admission, will counselor nurses' association when she is more alert. 5. Severe chronic protein calorie malnutrition -dietitian consultation. -her chronic malnutrition will also make her more likely to have complications from her surgery. 6. Acute dehydration, present on admission, active -continue IV fluids, standing, as well as some fluid boluses. Patient will be started on clears. I spent 30 minutes providing critical care management this patient. This excludes time spent in performing separately billed procedures. Code: Full, surrogate decision maker previously listed as . Patient can be likely be downgraded to the regular floor status later today if she remains stable. Quality VTE Deep Vein Thrombosis/Pulmonary Embolism Present on Admission: No
--- NOTE | 2020-02-18 13:58 | DI.RAD.S_ITS ---
PROCEDURE: XR CHEST 1V INDICATIONS: increased O2 requirements TECHNIQUE: One view of the chest was acquired. COMPARISON: [facility], CR, XR CHEST FOR PICC 1V, 02/17/2020, 18:21. [facility], CR, XR CHEST 2V, 02/14/2020, 16:31. FINDINGS: Surgical changes and devices: PICC line from a left-sided approach extends into the atrial caval junction. Lungs and pleura: Lungs are abnormal with chronic interstitial prominence and pulmonary hyperexpansion with also a finding of volume loss now on the left and some degree of elevation of the left hemidiaphragm. Retrocardiac left lower lobe alveolar opacification is dense.. No pleural effusions or pneumothorax. Mediastinum: Mediastinal contours appear normal. Heart size is normal. Bones and chest wall: No suspicious bony lesions. Overlying soft tissues appear unremarkable. IMPRESSION: Left lower lobe volume loss and dense opacification, pneumonia is the likely cause. A mass lesion in this area was not present during improved aeration earlier this month, 02/14/20. PICC line positioning normal. Dictated by: Manny Lasren M.D. on 02/18/2020 at 14:29 Approved by: Manny Larsen M.D. on 02/18/2020 at 14:31
--- NOTE | 2020-02-18 14:41 | PC.NURSE ---
Day Shift Note Pt awake and on ventilator on AM assessment. Following commands and communicating via writing. Propofol turned off at 0745 and weaning trial started about 0800 by RT. FiO2 35%. SpO2 maintained in the mid-90s, RR occ. up to the 30s during trial related to pt report of pain and anxiety, medicated with Dilaudid IV per emar and fentanyl gtt infusing at 4 mcg/kg/hr. Extubated to NC at 0900, titrated up to 5L NC with sats of 89-92%. Lungs coarse bilaterally with expiratory wheeze. Instructed on coughing and deep breathing and to splint abdomen, acknowledged understanding. See MAR for termination of levophed, propofol, and fentanyl gtts. NG tube discontinued at time of extubation per Dr. Richardson. Dressing C/D/I to abdomen. Yordan drain put out total of 390 this shift of serosanguinous fluid, Dr. Richardson notified of increasing output. Bauman catheter in place and draining clear yellow urine. Pain 7-8/10, medicated with Dilaudid IV and morphine PO. Evaluated by ST and taking in clear without issue. Call light within reach, using appropriately to make needs known.
--- NOTE | 2020-02-18 15:49 | PC.NURSE ---
Ostomy Nurse Consult Note Mrs. Velazquez in bed, her is with her. I introduced myself and gave her the [employer] New Patient Guide and teaching materials. I told her we would be reviewing this over the next several days. Her stoma if beefy red and moist. The stoma bridge is in place. The Yordan drain has serous drainage and her midline incision dressing is dry and intact. I will return tomorrow to start teaching.
--- NOTE | 2020-02-18 21:23 | PC.NURSE ---
2130- Patient noted to have a loose sounding intermitted cough. Lungs are clear anterior and posterior to auscultation. Saturation on 5 liters cannula 88-91%. Patient states she is not bringing any secretions up with her cough. Will monitor.
[2020-02-19] VITALS (31 sets, daily range): BP systolic 84–155; BP diastolic 51–88; PULSE 75–119; RESP 12–30; TEMP 31–36.9; O2SAT 77–100
[2020-02-19] MEDS: HYDROMORPHONE 1 MG INJ IV ×3 (00:04→08:12)
[2020-02-19] MEDS: MORPHINE IR 15 MG TABLET PO ×2 (01:12→05:14)
[2020-02-19] MEDS: LACTATED RINGERS 1,000 ML 150 ML IV ×2 (01:12→07:49)
[2020-02-19] MEDS: SCOPOLAMINE 1 PATCH TOP (02:21)
--- NOTE | 2020-02-19 02:28 | PC.NURSE ---
Addendum entered by Kaye Lucio R.N. 02/19/20 06:04: Scopolamine patch placed behind right ear for secretions. Addendum entered by Kaye Lucio R.N. 02/19/20 05:53: On 0400 assessment, lung sounds coarse on auscultation and patient not able to cough secretions up/out. VU Monet notified of findings and orders received. Patient remains on BIPAP at this time sats ranging from 91-94% on 50% FIO2. 0500 BIPAP removed for oral care and medication administration. Patient placed back on NC at 5 L, sats 85-86%. Patient given incentive spirometer, and educated on usage. Patient able to perform up to 750. No cough initiated with use of IS. Patient has been medicated with both Morphine and Dilaudid multiple times throughout shift. Patient remains AOx4, IV fluids infusing. Good UOP throughout shift via pizarro cath. Bladder scan performed around 0030 due to patient feeling like she needed to void. 36 mL appreciated. Light, yellow urine remains flowing via pizarro cath. Call light in reach, patient able to make needs/concerns known. Will continue to monitor patient. 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 Patient with clear lung sounds, but upper airway is coarse. Patient on 5.5 L NC on initial assessment with sats ranging from 88-91%. 0015 patient having desaturations 84-87% when patient dozing off. 0040 Home Trilogy placed on patient with 6L bled in. 0125 sats dropping to mid-high 70's with slow rebound back to 88% range on Trilogy. RT notified, oxygen bleed in increased to 8L. 0135 Sats still ranging mid-high 70's. VU Monet notified. Orders received for BIPAP therapy. 0200 BIPAP placed on patient 16/8 60% FIO2. Patient still coughing with audible coarse sounds from upper airway. Sats 94%. 0225 FIO2 decreased to 50% on BIPAP. Patient tolerating much better with sats 94%. Patient has also been medicated 3x thus far with PRN Morphine and Dilaudid for pain ranging from 7-8/10 per physician orders. See eMar.
--- NOTE | 2020-02-19 04:27 | DI.RAD.S_ITS ---
PROCEDURE: XR CHEST 1V INDICATIONS: decreased lung sounds change from yesterday. TECHNIQUE: One view of the chest was acquired. COMPARISON: [facility], CR, XR CHEST 1V, 02/18/2020, 13:59. FINDINGS: Surgical changes and devices: Cervical fixation plates and right-sided PICC line are present. Lungs and pleura: There has been interval complete opacification of the left hemithorax. Mediastinum: Mediastinal contours appear normal. Heart size is normal. Bones and chest wall: No suspicious bony lesions. Overlying soft tissues appear unremarkable. IMPRESSION: Interval complete opacification of left hemithorax suggestive of progressive effusion. Areas of underlying pneumonia, mass lesion and/or atelectasis is present. Dictated by: Jorge Quiroz M.D. on 02/19/2020 at 8:42 Approved by: Jorge Quiroz M.D. on 02/19/2020 at 9:13
[2020-02-19] MEDS: ALBUTEROL/IPRATROPIUM 3 ML AMPUL INH ×2 (05:00→09:00)
[2020-02-19 05:06] LABS: Fractionated Inspired Oxygen 50; HCO3 ABG 33 mmol/L (22-26); Oxygen Saturation ABG 92 % (95-100); PO2 ABG 70 mmHg (80-100); TCO2 ABG 35 mmol/L (21-31); pH ABG 7.34 (7.35-7.45)
[2020-02-19 05:07] LABS: PCO2 ABG 61.1 mmHg (35-45)
[2020-02-19] MEDS: CLOTRIMAZOLE TROCHE 10 MG PO (05:14)
[2020-02-19 06:08] LABS: Add Manual Diff / Slide Review NO; Basophils Absolute Auto 0 /uL (0-100); Basophils Percent Auto 0.1 % (0-2); Eosinophils Absolute Auto 0 /uL (0-450); Eosinophils Percent Auto 0.2 % (2-4); Hematocrit 29.9 % (36-46); Hemoglobin 10.1 g/dL (12.0-16.0); Lymphocytes Absolute Auto 700 /uL (1100-4500); Lymphocytes Percent Auto 3.6 % (25-40); Mean Corpuscular HGB Conc 33.6 % (30-36); Mean Corpuscular Hemoglobin 33.7 PG (26-34); Mean Corpuscular Volume 100.1 fL (80-100); Monocytes Absolute Auto 500 /uL (0-900); Monocytes Percent Auto 2.7 % (3-14); Neutrophils Absolute Auto 17900 /uL (1500-7000); Neutrophils Percent Auto 93.4 % (50-75); Platelet Count 214 X10^3/uL (150-400); Red Blood Cell Count 2.99 X10^6/uL (4.0-5.2); White Blood Cell Count 19.1 X10^3/uL (4.5-11.0)
[2020-02-19 06:12] LABS: Alanine Aminotransferase 34 IU/L (<35); Albumin 2.7 g/dL (3.5-5.0); Albumin Globulin Ratio 1.2 (1.0-2.8); Alkaline Phosphatase 75 U/L (38-126); Aspartate Aminotransferase 49 IU/L (14-36); BUN Creatinine Ratio 16.7 (6-22); Bilirubin Total 0.4 mg/dL (0.2-1.3); Blood Urea Nitrogen 7 mg/dL (7-17); Calcium 8.1 mg/dL (8.4-10.2); Carbon Dioxide 36 mmol/L (22-32); Chloride 102 mmol/L (98-107); Estimated Glomerular Filt Rate > 60.0 mL/min (>60); Globulin 2.3 g/dL (1.7-4.1); Glucose 77 mg/dL (80-110); HEMOLYSIS < 15 (0-50); Potassium 3.3 mmol/L (3.4-5.1); Sodium 136 mmol/L (137-145)
[2020-02-19] MEDS: BUDESONIDE 0.5 MG/2 ML NEB INH (09:00)
[2020-02-19] MEDS: fentaNYL 100 MCG/2 ML INJ IV (10:01)
[2020-02-19] MEDS: propofoL 200 MG/20 ML VIAL 60 MG IV (10:04)
[2020-02-19] MEDS: SUCCINYLCHOLINE 200 MG/10 ML VIAL 60 MG IV (10:04)
[2020-02-19] MEDS: propofoL 200 MG/20 ML VIAL 20 MG IV (10:05)
--- NOTE | 2020-02-19 10:08 | DI.RAD.S_ITS ---
PROCEDURE: XR CHEST 1V INDICATIONS: confirm placement of ett TECHNIQUE: One view of the chest was acquired. COMPARISON: [facility], CR, XR CHEST 1V, 02/19/2020, 7:59. FINDINGS: Surgical changes and devices: Fusion hardware in lower cervical spine is again seen. There is interval intubation, tip of ET tube is approximately 2 centimeters above the mary. Left-sided PICC line tip is in SVC. Lungs and pleura: Complete opacification of left hemithorax is again seen unchanged from previous study. Ill-defined opacity in right lower lung field is seen concerning for right lower lobe infiltrate/atelectasis. No gross pneumothorax. No right-sided pleural effusion. Mediastinum: Mediastinal contours appear normal. Heart size is normal. Bones and chest wall: No suspicious bony lesions. Overlying soft tissues appear unremarkable. IMPRESSION: ETT tip is approximately 2 centimeters above the mary. Persistent complete opacification of left hemithorax and interval development of airspace opacities in right lower lobe. No gross pneumothorax. Dictated by: Alex Mishra M.D. on 02/19/2020 at 9:42 Approved by: Alex Mishra M.D. on 02/19/2020 at 9:48
--- NOTE | 2020-02-19 10:10 | P.PN_ITS ---
Subjective Subjective Date Patient Seen: 02/19/20 Time Patient Seen: 10:10 Exam Vital Signs (past 8 hours): - 02/19/20 02:25 02/19/20 04:18 02/19/20 08:00 Temperature 97.5 F L 97.0 F L Pulse Rate 109 H 81 Respiratory Rate 25 H 19 Blood Pressure 110/87 134/60 Pulse Oximetry 94 93 94 02/19/20 09:16 Temperature Pulse Rate 97 H Respiratory Rate 24 Blood Pressure Pulse Oximetry 97 Fraction of Inspired Oxygen 100 Oxygen Delivery Method BiPAP Oxygen Flow Rate 8 Objective Labs Result Diagrams: 02/19/20 05:45 02/19/20 05:45 Labs: Laboratory Results - last 24 hr 02/19/20 02/19/20 02/19/20 04:53 05:45 05:45 WBC 19.1 H RBC 2.99 L Hgb 10.1 L Hct 29.9 L MCV 100.1 H MCH 33.7 MCHC 33.6 RDW 13.0 Plt Count 214 Neut % (Auto) 93.4 H Lymph % (Auto) 3.6 L [place] % (Auto) 2.7 L Eos % (Auto) 0.2 L Baso % (Auto) 0.1 Neut # (Auto) 08482 H Lymph # (Auto) 700 L [place] # (Auto) 500 Eos # (Auto) 0 Baso # (Auto) 0 ABG pH 7.34 L ABG pCO2 61.1 H* ABG pO2 70 L ABG HCO3 33 H ABG Total CO2 35 H ABG O2 Saturation 92 L ABG Base Excess 7.0 H FiO2 50 Sodium 136 L Potassium 3.3 L Chloride 102 Carbon Dioxide 36 H BUN 7 Creatinine 0.42 L Estimated GFR > 60.0 BUN/Creatinine Ratio 16.7 Glucose 77 L Calcium 8.1 L Total Bilirubin 0.4 AST 49 H ALT 34 Alkaline Phosphatase 75 Total Protein 5.0 L Albumin 2.7 L Globulin 2.3 Albumin/Globulin Ratio 1.2 Quality VTE Deep Vein Thrombosis/Pulmonary Embolism Present on Admission: No
[2020-02-19] MEDS: propofoL 1,000 MG/100 ML VIAL 7.756 MG IV (10:12)
--- NOTE | 2020-02-19 10:16 | PM.PROC.1 ---
Procedures Date/Time Date of procedure: 02/19/20 Time of procedure: 10:05 Intubation Time out performed: Yes Sedative: other (fentanyl 100mcg, propofol 60+20) Mg given: 80 Paralytic: succinylcholine Mg given: 60 Laryngoscope: fiber optic video scope ET tube size: 8 ET tube uncuffed: No Tube secured depth (cm): 20 Tube secured location: teeth Tube placement confirmation: visualized tube passing through cords and confirmation by capnometry Patient tolerated procedure: well Intubation complications: none Additional comments: HR/BP stable throughout. second dose of propofol given after intubation as sedation infusion was being set up. CXR ordered.
[2020-02-19] MEDS: LORazepam 2 MG/ML INJ IV ×2 (10:21→13:23)
[2020-02-19] MEDS: fentaNYL 1,000 MCG in DEXTROSE 5% IN WATER 230 ML 7.541 ML IV (10:26)
[2020-02-19] MEDS: HEPARIN 5,000 UNIT/ML VIAL 5000 UNIT SUBCUT (10:52)
[2020-02-19] MEDS: PANTOPRAZOLE 40 MG VIAL IV (10:52)
--- NOTE | 2020-02-19 11:11 | P.PN_ITS ---
Subjective Subjective Date Patient Seen: 02/19/20 Time Patient Seen: 07:15 Interval history: Pt back on bipap. Says abdominal pain is well controlled. Exam Vital Signs (past 8 hours): - 02/19/20 04:18 02/19/20 08:00 02/19/20 09:16 Temperature 97.5 F L 97.0 F L Pulse Rate 109 H 81 97 H Respiratory Rate 25 H 19 24 Blood Pressure 110/87 134/60 Pulse Oximetry 93 94 97 Fraction of Inspired Oxygen 100 Oxygen Delivery Method BiPAP Oxygen Flow Rate 8 Narrative Exam Narrative: GENERAL: Alert, on bipap, follows commands, gestures appropriately HENT: Normocephalic, atraumatic. Hearing intact. EYES: Conjunctiva pink, sclera white, no periorbital swelling. CARDIOVASCULAR: Mild tachycardia. No pedal edema. RESPIRATORY: On bipap, does not appear to have increased WOB while on bipap, tolerating it well GASTROINTESTINAL: Abdomen soft and non-distended, ostomy is pink and productive, significantly edematous. XIOMARA drain serosanguineous; incision c/d/i : Bauman in place with clear urine MUSCULOSKELETAL: Cachectic, Equal tone and mass bilaterally. Objective Labs Result Diagrams: 02/19/20 05:45 02/19/20 05:45 Labs: Laboratory Results - last 24 hr 02/19/20 02/19/20 02/19/20 04:53 05:45 05:45 WBC 19.1 H RBC 2.99 L Hgb 10.1 L Hct 29.9 L MCV 100.1 H MCH 33.7 MCHC 33.6 RDW 13.0 Plt Count 214 Neut % (Auto) 93.4 H Lymph % (Auto) 3.6 L [place] % (Auto) 2.7 L Eos % (Auto) 0.2 L Baso % (Auto) 0.1 Neut # (Auto) 71249 H Lymph # (Auto) 700 L [place] # (Auto) 500 Eos # (Auto) 0 Baso # (Auto) 0 ABG pH 7.34 L ABG pCO2 61.1 H* ABG pO2 70 L ABG HCO3 33 H ABG Total CO2 35 H ABG O2 Saturation 92 L ABG Base Excess 7.0 H FiO2 50 Sodium 136 L Potassium 3.3 L Chloride 102 Carbon Dioxide 36 H BUN 7 Creatinine 0.42 L Estimated GFR > 60.0 BUN/Creatinine Ratio 16.7 Glucose 77 L Calcium 8.1 L Total Bilirubin 0.4 AST 49 H ALT 34 Alkaline Phosphatase 75 Total Protein 5.0 L Albumin 2.7 L Globulin 2.3 Albumin/Globulin Ratio 1.2 Assessment & Plan Assessment and plan (1) Colonic volvulus: Status: Acute (2) Ileostomy in place: Status: Acute Assessment & Plan narrative: Postop day 2 status post emergency colon resection for colonic volvulus and ischemic right colon. Overall she seems to be doing well for what she has been through. Once she is doing better from a respiratory standpoint and can tolerate PO we can advance her diet. She will likely need Imodium if her ostomy output is greater than 1 L per day. Plan: Respiratory management per hospitalist When she is able to take p.o., we may advance her diet as tolerated Ambulation should be encouraged once patient is off the ventilator Bauman may be removed once the patient is able to get up and go to the bathroom Stoma nurse to see May need Imodium if ostomy output is greater than 1 L per day COVID-19 COVID-19 status: Negative Result date/Date tested (Pos, Neg/Pending): 02/17/20 Time Spent With Patient Time with patient: 25 - 35 minutes Quality VTE Deep Vein Thrombosis/Pulmonary Embolism Present on Admission: No
[2020-02-19] MEDS: POTASSIUM CHLORIDE 40 MEQ in SODIUM CHLORIDE 0.9% 500 ML 130 ML IV (11:33)
[2020-02-19] MEDS: ALBUTEROL 2.5 MG/3 ML NEB (ADULT) INH ×2 (11:46→11:52)
[2020-02-19] MEDS: ACETYLCYSTEINE (PO/INH) 200 MG/ML VIAL 600 MG INH (12:22)
[2020-02-19 12:44] LABS: PCO2 ABG 42.1 mmHg (35-45); pH ABG 7.45 (7.35-7.45)
[2020-02-19 12:45] LABS: HCO3 ABG 29 mmol/L (22-26); PO2 ABG 48 mmHg (80-100); TCO2 ABG 31 mmol/L (21-31)
[2020-02-19 12:46] LABS: Oxygen Saturation ABG 85 % (95-100)
[2020-02-19] MEDS: fentaNYL 100 MCG/2 ML INJ 25 MCG IV (12:58)
--- NOTE | 2020-02-19 13:39 | CM.DPC ---
DCP continued: EMR reviewed: patient was re-intubated today and significant other very tearful at time of CM visit. patients significant other did not want to discuss D/C planning at this time and is really just wanting to see how patient does. Plan for D/c was home with either hospice or HH services. Patient is on the call back list from hospice of the and they plan on calling the patients on Saturday the to discuss Hospice services. patient had initial wound care training from Lizbeth Garcia on but Saturday was not in a good place at time of her visit. CM department will continue to follow to confirm D/C plan as she gets closer to D/C home with HH Vrs home with Hospice to be determined. Viktoriya Lambert RN
[2020-02-19] MEDS: FUROSEMIDE 40 MG/4 ML VIAL IV ×2 (13:55→15:37)
--- NOTE | 2020-02-19 14:07 | SLP.IPNOTE ---
No ST services provided today d/t pt re-intubation. Will continue to follow and provide services when and as appropriate.
--- NOTE | 2020-02-19 14:14 | DIET.PN ---
Dietary Progress Note Assessment: 69y F admitted for constipation and abd pain sent emergent to OR c Dr. Patel for volvulous of colon requiring diverting ostomy referred to nutrition for NPO on ventilator status on 02/17/20. Pt was advanced to clear liquid diet on 02/18/[address] on Ensure clear w/ Zaid. She was intubated again today, 02/19/2020. Pts MAP 60-68, lactate stable (1.5) HT: 165.1cm WT:43.09kg UBW: 52kg BMI: 15.8 MNA: 9 malnourished Facundo: 14 high risk for skin breakdown Nutrition Diagnosis:Severe Acute on Chronic PCM r/t chronic malnutrition secondary to end stage COPD aeb 4.5% unintended weight loss in <1w (severe), BMI 15.8 (severe), 13% unintended weight loss over past year or less, <75% EER for >1mo, pt currently NPO on ventilator after extensive abd surgery c diverting ostomy. Interventions: 1. Recc initiation of TPN to support pts kcal and PRO needs secondary to high needs following surgery on 02/17/20. TPN rate should be started low as pt high risk for refeeding c refeeding labs drawn bid for 2-3d and daily weights. Please separate electrolytes for first day from TPN as rate will be low. Begin at 20mL/h for first 12h titrating up by 20mL/h q12h as tolerated until reaching goal rate of 62mL/h providing 1320kcal (84% kcal), 75g PRO (115% PRO) and 1.5L fluids. Recc holding IVFE until pt at goal rate and provide 3x/w to supplement 1500kcal/w and avoid essential fatty acid deficiency. Diet Order: NPO EER:1575kcal (35kcal/kg per end stage COPD), 65g PRO (1.5g/kg per end stage COPD) Monitoring/Evaluations: following daily
--- NOTE | 2020-02-19 15:06 | PM.DS.1 ---
History of Present Illness History of Present Illness Date Patient Seen: 02/19/20 Time Patient Seen: 15:07 Chief complaint: Constipation / abd pain Narrative: This is a 69-year-old female with a past medical history COPD, tobacco use, chronic back pain who presented to the emergency room with 1 day of abdominal pain and abdominal bloating. Early this morning her pain worsen and she was actively vomiting. Her CT abdomen in the ER showed a very dilated colon with a likely volvulus. She had not had a bowel movement in the past 2-[address] Richardson took her emergently to the operating room, where the patient was found have a right colonic volvulus. She underwent a right hemicolectomy with diverting loop ileostomy and XIOMARA drain placement. Patient required minimal sedation with anesthesia during her operation, and is hemodynamically stable upon arrival to the ICU. She had received a total of approximately 2.4 L of fluid since admission. She remains intubated given her history of severe COPD at this time. Patient had a a leukocytosis of 23,000, which is likely due to her abdomen given this was normal at discharge, otherwise, her labs were fairly unremarkable. COVID-19 testing was negative. Discharge Providers Provider Date of admission: 02/17/20 05:41 Discharge Date: 02/19/20 Primary care physician: Azael Hernandez MD Consults: 02/17/20 05:40 Consult to General Surgery Stat Comment: Consulting Provider: Kristan Richardson Reason for consultation: colon volvulus Has provider been notified: Yes 02/17/20 07:17 Consult to Dietitian, Adult Routine Comment: Reason For Exam: Patient on Ventilator and NPO 02/17/20 08:36 Consult to Respiratory Therapy Evaluate & Treat Comment: Physician Instructions: Evaluate and treat 02/18/20 09:58 Consult to Speech Therapy Evaluate & Treat Comment: Extubated 0900 Physician Instructions: Evaluate and treat 02/19/20 09:43 Consult to Dietitian, Adult Routine Comment: Reason For Exam: Patient on Ventilator and NPO Discharge provider: Dominic Chung DO Summary Hospital Course Discharge Diagnosis: Please see hospital course by problem list noted below. Hospital Course: This is a 69-year-old female with a past medical history COPD, tobacco use, chronic back pain who is admitted for right colonic volvulus now s/p right hemicolectomy with a diverting loop ileostomy with surgery on 02/17/2020. Course complicated by acute on chronic hypoxemic respiratory failure on HD#2 requiring re-intubation. 1. Right colonic volvulus, acute, present on admission -patient underwent emergent surgery, with a right hemicolectomy and diverting loop ileostomy, 02/17/2020, with Dr. Richardson. -patient was extubated on hospital day 1 to nasal cannula uneventfully. She was very dehydrated and received over 7 L of IV fluids on HD#1 for resuscitation. Ultimately improved hemodynamically and was stable initally while extubated until events noted below. -continued antibiotics for 24 hours per surgical recommendations, with Levaquin and Flagyl. -Dr. Richardson is compensation and benefits analyst this weekend for surgery at [facility] if further information is needed or if needed for discussion with [facility] surgical service. 2. Acute on chronic hypoxemic respiratory failure, acute not present on admission. -patient uses 2 L of home oxygen. Shortly after extubation patient was requiring 5 L of supplemental O2. Repeat chest x-ray was performed which showed possible atelectasis or collapse of her left lower lung without significant pleural effusion. Chest PT was ordered and performed overnight however the patient continued to have worsening desaturations. She was advanced to BiPAP and ultimately needed 100% oxygenation. Another chest x-ray was performed which showed a complete whiteout of her left lung. Bedside ultrasound was performed which showed minimal pleural fluid, but predominant collapse of her left lung. Patient had previously endorse desire to go home on hospice after previous admission for COPD exacerbation (from 02/10-02/14). This had not been set up yet and patient returned shortly after her discharge for the above colonic volvulus. Goals of care discussion was performed per for surgery and patient elected to undergo her right hemicolectomy. Prior to re-intubation, extensive goals of care discussion was again performed. Discussed more limited measures including mucolytics, continued BiPAP, and aggressive chest PT but also up to intubation with the idea of performing a bronchoscopy to remove possible mucous plugging. Patient and discussed for over half an hour. They wished to attempt bronchoscopy in the hopes that she could be quickly improved, however they do realize the possibility that she may never be able to come off the ventilator, and this would not be within their goals of care. They realize her baseline poor pulmonary status, but wished to take the chance of a more rapid improvement with bronchoscopy. She is currently on a PEEP of 8, 85% FiO2 (improved oxygenation with adequate sedation). -patient was continued on DuoNebs Q6H and as needed albuterol. Pulmicort added to replace home symbicort. -she was recently treated for a COPD exacerbation, however there was no evidence of an acute exacerbation. -given extensive fluid boluses as well as appearance on bedside ultrasound of a small amount of fluid, patient was given 40 mg of IV Lasix. Her potassium was 3.3 this morning which was repleted with 40 mg IV potassium. -to achieve adequate sedation initially, she did require a small amount of pressor support with levophed following surgery, but only for a few hours. A PICC line is in place. 3. Chronic Low back pain, present on admission -continued pain management adequate sedation, fentanyl, and propofol. On discharge from her COPD exacerbation the patient was on a fentanyl 100 mg patch, which is currently still placed, as well as 30 mg of MS Contin twice daily and 15 mg of immediate release morphine every 4 hours as needed. 4. Tobacco abuse -unclear if the patient has continued to smoke after discharge from her last admission, will direct care counselor when she is more alert. 5. Severe chronic protein calorie malnutrition -her chronic malnutrition will make her more likely to have complications from her surgery. 6. Acute dehydration, present on admission, active -patient was continued on IV fluids and received extensive boluses as noted above. 7. Oral candidiasis - patient started on clotrimazole troches after development of thrush. Likely a result of recent steroid use for COPD exacerbation. I spent 30 minutes providing critical care management this patient. This excludes time spent in performing separately billed procedures. Dispo: Transfer to [facility] for higher level of care, bronchoscopy and last trimmer. Time Spent with Patient Time spent: Greater than 30 minutes Exam Vital Signs (past 8 hours): - 02/19/20 08:00 02/19/20 09:16 02/19/20 09:57 Temperature 97.0 F L Pulse Rate 81 97 H 110 H Respiratory Rate 19 24 28 H Blood Pressure 134/60 145/68 H Pulse Oximetry 94 97 98 02/19/20 10:00 02/19/20 10:03 02/19/20 10:07 Temperature Pulse Rate 101 H 112 H 109 H Respiratory Rate 26 H 12 Blood Pressure 144/79 H 141/88 H 127/70 Pulse Oximetry 100 97 95 02/19/20 10:09 02/19/20 10:12 02/19/20 10:16 Temperature Pulse Rate 119 H 103 H 97 H Respiratory Rate 15 15 23 Blood Pressure 155/79 H 121/56 L 150/68 H Pulse Oximetry 96 95 88 L 02/19/20 10:18 02/19/20 10:24 02/19/20 10:28 Temperature Pulse Rate 98 H 119 H 107 H Respiratory Rate 22 30 H 18 Blood Pressure 123/63 128/72 128/60 Pulse Oximetry 89 L 87 L 89 L 02/19/20 10:31 02/19/20 11:30 02/19/20 11:44 Temperature 98.4 F Pulse Rate 105 H 79 80 Respiratory Rate 12 30 H 18 Blood Pressure 117/59 L 124/65 98/55 L Pulse Oximetry 93 96 02/19/20 12:00 02/19/20 13:00 02/19/20 14:00 Temperature Pulse Rate 75 86 110 H Respiratory Rate 18 22 22 Blood Pressure 104/60 120/67 84/51 L Pulse Oximetry 90 L 87 L 91 02/19/20 14:38 Temperature Pulse Rate 108 H Respiratory Rate 22 Blood Pressure 99/54 L Pulse Oximetry Fraction of Inspired Oxygen 0.85 Oxygen Delivery Method BiPAP Oxygen Flow Rate 8 Narrative Exam Narrative: GENERAL APPEARANCE: female, frail appearing, malnourished. Intubated and sedated HEENT: Normocephalic, atraumatic NECK/THYROID: neck supple, no JVD, trachea midline. SKIN: Thin, dry, and warm. HEART: Tachycardic with regular rhythm, S1-S2, no murmur, no edema LUNGS: Tight, diminshed breath sounds entire L lung. ABDOMEN: Soft, surgical dressings clear dry and intact, ostomy with good color, no gas or stool in the bag, XIOMARA drain with sanguineous output BACK: Normal curvature, nontender to palpation, no CVA tenderness on percussion EXTREMITIES: No deformities or joint effusions NEUROLOGIC: Intubated and sedated, intermittently alert and follows commands. Unable to assess. Objective Labs Result Diagrams: 02/19/20 05:45 02/19/20 05:45 Labs: Laboratory Results - last 24 hr 02/19/20 02/19/20 02/19/20 04:53 05:45 05:45 WBC 19.1 H RBC 2.99 L Hgb 10.1 L Hct 29.9 L MCV 100.1 H MCH 33.7 MCHC 33.6 RDW 13.0 Plt Count 214 Neut % (Auto) 93.4 H Lymph % (Auto) 3.6 L [place] % (Auto) 2.7 L Eos % (Auto) 0.2 L Baso % (Auto) 0.1 Neut # (Auto) 80053 H Lymph # (Auto) 700 L [place] # (Auto) 500 Eos # (Auto) 0 Baso # (Auto) 0 ABG pH 7.34 L ABG pCO2 61.1 H* ABG pO2 70 L ABG HCO3 33 H ABG Total CO2 35 H ABG O2 Saturation 92 L ABG Base Excess 7.0 H FiO2 50 Sodium 136 L Potassium 3.3 L Chloride 102 Carbon Dioxide 36 H BUN 7 Creatinine 0.42 L Estimated GFR > 60.0 BUN/Creatinine Ratio 16.7 Glucose 77 L Calcium 8.1 L Total Bilirubin 0.4 AST 49 H ALT 34 Alkaline Phosphatase 75 Total Protein 5.0 L Albumin 2.7 L Globulin 2.3 Albumin/Globulin Ratio 1.2 02/19/20 12:28 WBC RBC Hgb Hct MCV MCH MCHC RDW Plt Count Neut % (Auto) Lymph % (Auto) [place] % (Auto) Eos % (Auto) Baso % (Auto) Neut # (Auto) Lymph # (Auto) [place] # (Auto) Eos # (Auto) Baso # (Auto) ABG pH 7.45 ABG pCO2 42.1 ABG pO2 48 L* ABG HCO3 29 H ABG Total CO2 31 ABG O2 Saturation 85 L* ABG Base Excess 5.0 H FiO2 0.70 Sodium Potassium Chloride Carbon Dioxide BUN Creatinine Estimated GFR BUN/Creatinine Ratio Glucose Calcium Total Bilirubin AST ALT Alkaline Phosphatase Total Protein Albumin Globulin Albumin/Globulin Ratio Discharge Plan Discharge Plan Disposition: Xfer [facility] Discharge orders & Medications Follow up/Referrals: Azael Hernandez MD [Primary Care Provider] - Discharge Data Primary Care Provider: Azael Hernandez V Quality VTE Deep Vein Thrombosis/Pulmonary Embolism Present on Admission: No
[2020-02-19] MEDS: propofoL 1,000 MG/100 ML VIAL 11.635 MG IV (16:00)
--- NOTE | 2020-02-19 16:09 | PC.NURSE ---
Intuabation Note: Pt received this am on bipap 16/8, FiO2 85%, rhoncorous lung sounds in all [place], diminished bases, especially L side. C-xray ordered this am with noted L side abnormality, see radiology read for details. Dr Chung notified and to bedside to evaluate pt. Dr. Chung believed that pt likely had a mucous plug which led to obstruction and possible collapsed L lung. Discussed need for interventional bronchoscopy to clear airways as safest method to clear mucous plug. Discussion at bedside with this RN, Dr. Chung, RT, pt and pt's Dominic. Discussion about likely acute nature of mucous plug, and risks associated with intubation as well as need for transport to facility with a dividend deposit voucher clerk. Pt and pt's discussed together and decided they would like to intubate with the hopes of clearing mucous plug through interventional bronch, knowing that there were serious risks associated with the procedure. Also discussed whether pt would want resuscitation efforts if pt were to have cardiac event in the course of the intubation, bronchoscopy or transport. Pt and felt that they would want all treatments at this time, but would not want prolonged measures. Anesthesia contacted and to bedside along with Dr. Chung, this RN and other ENGINEERING GROUP LEADER, RT and TURNER OFF. Pt given 100 mcg IV fentanyl, 60 mg iv propofol intially with 60 mg iv succ at ~1000. (see EMAR for exact times). Followed by additional 20 mg iv propofol per anesthesia order. Pt Intubated without incident by anesthesia. No hemodynamic instability or prolonged desaturations. Started on propofol gtts, fentanyl gtts and given 2 mg iv ativan to maintain adequate sedation to oxygenate.
--- NOTE | 2020-02-19 16:37 | PC.NURSE ---
8250- Patient discharged to life flight team. Report given and patient was hemodynamically stable at the time of discharge. Family aware of discharge plan and updated when patient left the facility.
--- NOTE | 2020-02-22 10:56 | CM.DPNOTE ---
Faxed DC Summary from 02/17/20 to [facility]. Will fax confirmation. Katya Moreno CM Reflexologist.
== END 2020-02-19 16:30 | disposition short-term general hospital (02) | DRG 329 ==
LOC: ED 05:15 → AC 05:42 → ICU 08:30 → AC 02-19 14:46 → ICU 02-19 14:46
PROVIDERS: Nurse Practitioner Family; Surgery; Admitting Provider Internal Medicine; Emergency Provider Emergency Medicine; PCP Internal Medicine; Referring Provider Emergency Medicine; Visit Provider Internal Medicine
PROC: 0DBF0ZZ Excision of Right Large Intestine, Open Approach (ICD-10-PCS; CPT 49000; principal; 2020-02-17 07:00)
DX: K56.2 Volvulus (principal); E43 Unspecified severe protein-calorie malnutrition; J96.21 Acute and chronic respiratory failure with hypoxia; K55.9 Vascular disorder of intestine, unspecified; B37.0 Candidal stomatitis; J98.19 Other pulmonary collapse; J44.9 Chronic obstructive pulmonary disease, unspecified; F17.210 Nicotine dependence, cigarettes, uncomplicated; G89.29 Other chronic pain; R00.0 Tachycardia, unspecified; E86.0 Dehydration; Z99.81 Dependence on supplemental oxygen; Z79.891 Long term (current) use of opiate analgesic; Z79.52 Long term (current) use of systemic steroids; Z11.59 Encounter for screening for other viral diseases
CPT/HCPCS: 36415; 36569; 36592; 36600; 44146; 71045; 74018; 74177; 80053; 81001; 82805; 82962; 83605; 83690; 83735; 85025; 87040; 87635; 87797; 92610; 93005; 94002; 94003; 94640; 94660; 94770; 94799; 96361; 96365; 96366; 96375; 96376; 99222; 99285; C9113; C9290; J0330; J1170; J1644; J1940; J1956; J2060; J2250; J2405; J2704; J3010; J3480; J7613; Q9967